=== PATIENT | male | born 1955 | race Caucasian/White ===

== ENCOUNTER → 2016-04-29 | Outpatient (CLI) | payer OTHER ==
[~2016-04-29] MED LIST: ALBU1AER9 INH; AMT100 PO; ASPI1TAB2 PO; BUSP5TAB59 PO; CLN200 PO; CYM30 PO; DULO60CA44 PO; FLNIN/ NAE; HYDR-3126 PO; HYT/2 PO; IPRA1AER2 INH; MULT-506 PO; NCTI INH; NXM/40 PO; PREG1CAP70 PO; PRVC/40 PO; RIZA10TA18 PO; TOPI50TA16 PO
== END | disposition home or self-care (01) ==
LOC: C.PATHSPEC 17:58
PROVIDERS: ATTEND Plastic Surgery
DX: D22.39 Melanocytic nevi of other parts of face (principal)

== ENCOUNTER → 2016-08-31 | Outpatient (CLI) | payer OTHER | LOC: C.LAB1850 10:47 | PROVIDERS: ATTEND Internal Medicine Gastroenterology | DX: R79.89 Other specified abnormal findings of blood chemistry (principal) ==

== ENCOUNTER → 2016-09-10 | Outpatient (CLI) | payer OTHER ==
[2016-09-10 14:34] LABS: BASO % 0.5 %; BASO ABS # 0.03 K/uL (0-0.2); COMPLETE YES; EOS % 4.5 %; HEMATOCRIT 38.4 % (42-52); IG% 0.6 %; LYMPH % 38.4 %; LYMPH ABS # 2.46 K/uL (1.2-3.4); MEAN CELL VOLUME 90.8 fL (80-100); MEAN CORPUSCULAR HEMOGLOBIN 30.3 pg (25-34); MEAN CORPUSCULAR HGB CONC 33.3 g/dl (32-36); MEAN PLATELET VOLUME 11.1 fL (7.4-10.4); MONO % 10.6 %; NEUT % 45.4 %; PLATELET COUNT 227 K/uL (130-400); RED BLOOD COUNT 4.23 M/uL (4.7-6.1)
--- NOTE | 2016-09-10 16:39 | DIAGNOSTIC IMAGING REPORT ---
CHEST 2 VIEWS ROUTINE CLINICAL HISTORY: Shortness of breath. COPD. COMPARISON STUDY: Chest radiograph September 22, 2015. FINDINGS: There is no pneumothorax or pleural effusion. Linear bibasilar opacities favor atelectasis or scarring. There is no consolidation to suggest pneumonia. There is no evidence of pulmonary edema. Cardiomediastinal silhouette remains normal. The appearance of the chest is unchanged. There are cholecystectomy clips. IMPRESSION: No acute cardiopulmonary findings. Electronically signed by: Lawrence Coyne M.D. 09/10/2016 4:38 PM Dictated Date/Time: 09/10/2016 4:36 PM
== END ==
LOC: C.RAD1850 13:58
PROVIDERS: ATTEND Internal Medicine Pulmonary Disease
DX: J44.9 Chronic obstructive pulmonary disease, unspecified (principal); D64.9 Anemia, unspecified

== ENCOUNTER 2016-11-03 18:22 | Emergency (ER) | payer OTHER ==
[~2016-11-03] VITALS: Ht 182.9 cm; Wt 79.3 kg
[~2016-11-03 18:22] MED LIST changes: -IPRA1AER2 INH
[2016-11-03 18:41] VITALS: TEMP 37; Ht 182.9 cm; Wt 79.3 kg
[2016-11-03] MEDS ORDERED: SODIUM CHLORIDE 0.9% 1000ML 1,000 ML IV STA ×2 (19:11→21:39)
[2016-11-03 19:55] LABS: BASO % 0.4 %; BASO ABS # 0.03 K/uL (0-0.2); COMPLETE YES; EOS % 4.8 %; HEMATOCRIT 39.5 % (42-52); IG% 0.9 %; LYMPH % 34.1 %; LYMPH ABS # 2.29 K/uL (1.2-3.4); MEAN CELL VOLUME 90.8 fL (80-100); MEAN CORPUSCULAR HEMOGLOBIN 31.3 pg (25-34); MEAN CORPUSCULAR HGB CONC 34.4 g/dl (32-36); MEAN PLATELET VOLUME 11.4 fL (7.4-10.4); MONO % 13.4 %; NEUT % 46.4 %; PLATELET COUNT 199 K/uL (130-400); RED BLOOD COUNT 4.35 M/uL (4.7-6.1); WHITE BLOOD COUNT 6.71 K/uL (4.8-10.8)
[2016-11-03 19:56] LABS: MANUAL MICROSCOPIC REQUIRED? NO; REVIEW REQ? NO; URINE APPEARANCE CLEAR (CLEAR); URINE BILIRUBIN NEG (NEG); URINE COLOR DK YELLOW; URINE NITRITE NEG (NEG); URINE SPECIFIC GRAVITY 1.019 (1.000-1.030); UROBILINOGEN NEG (NEG); ZZUR CULT IF INDIC CLEAN CATCH NO
--- NOTE | 2016-11-03 20:11 | DIAGNOSTIC IMAGING REPORT ---
HEAD WITHOUT CONTRAST (CT) CT DOSE: HISTORY: Mental status change dizziness, neck pain TECHNIQUE: Multiaxial CT images of the head were performed without the use of intravenous contrast. Comparison: 10/09/2014 Findings: The paranasal sinuses and mastoid air cells are clear. The calvarium and skull base are intact. The ventricles and sulci are within normal limits. There is no mass, hematoma, midline shift, or acute infarct. Impression: No acute intracranial abnormality. The above report was generated using voice recognition software. It may contain grammatical, syntax or spelling errors. Electronically signed by: Sabas Hudson M.D. 11/03/2016 8:10 PM Dictated Date/Time: 11/03/2016 8:10 PM
[2016-11-03 20:14] LABS: ALT/SGPT 25 U/L (12-78); AST/SGOT 23 U/L (15-37); BLOOD UREA NITROGEN 22 mg/dl (7-18); BUN/CREATININE RATIO 17.1 (10-20); CALCIUM 8.9 mg/dl (8.5-10.1); CARBON DIOXIDE 23 mmol/L (21-32); CHLORIDE 114 mmol/L (98-107); GLUCOSE 92 mg/dl (70-99); POTASSIUM 3.5 mmol/L (3.5-5.1); SODIUM 145 mmol/L (136-145)
--- NOTE | 2016-11-03 20:14 | DIAGNOSTIC IMAGING REPORT ---
CERVICAL SPINE W/O CT DOSE: 1104.82 mGy.cm HISTORY: Mental status change dizziness, neck pain TECHNIQUE: Multiaxial CT images of the cervical spine were performed and reformatted in the sagittal and coronal plane without the use of contrast. COMPARISON: 08/08/2014 FINDINGS: Vertebral body stature is normal. There is significant degenerative intervertebral disc change from C5 through C7. Anterior and posterior osteophytes are identified throughout. Posterior elements are intact. C1-C2 complex is intact. Prevertebral soft tissues are unremarkable. IMPRESSION: Degenerative change primarily of the mid to lower cervical region. This is similar as compared to the prior study. No acute process. The above report was generated using voice recognition software. It may contain grammatical, syntax or spelling errors. Electronically signed by: Sabas Hudson M.D. 11/03/2016 8:13 PM Dictated Date/Time: 11/03/2016 8:11 PM
[2016-11-03 20:25] LABS: ALB/GLOB RATIO 0.9 (0.9-2); ALKALINE PHOSPHATASE 203 U/L (45-117)
[2016-11-03] MEDS ORDERED: IPRA1AER2 INH (20:25)
[2016-11-03] MEDS ORDERED: NCTI INH (20:25)
--- NOTE | 2016-11-03 20:37 | DIAGNOSTIC IMAGING REPORT ---
CHEST 2 VIEWS ROUTINE CLINICAL HISTORY: Dizziness mental status change COMPARISON STUDY: 09/10/2016 FINDINGS: Chronic parenchymal scarring left base. Mild emphysematous change. No acute infiltrate. IMPRESSION: Chronic change. No acute process. The above report was generated using voice recognition software. It may contain grammatical, syntax or spelling errors. Electronically signed by: Sabas Hudson M.D. 11/03/2016 8:35 PM Dictated Date/Time: 11/03/2016 8:35 PM
--- NOTE | 2016-11-03 22:52 | EMERGENCY ROOM VISIT NOTE ---
History First contact with patient: 18:50 Chief Complaint: HYPOTENSION Stated Complaint: VERY DIZZY, LOW BLOOD PRESSURE History of Present Illness The patient is a 60 year old male who presents to the Emergency Room with complaints of low blood pressure, dizziness, headache. The patient states he has had these symptoms for approximately 10 years. He reports they seem to have been worsening this morning. The patient was supposed to see his chiropractor at 9:00 this morning, however into the office, he discussed his symptoms with the chiropractor, who is would not adjust him at that time. The chiropractor recommended the patient see his PCP or seek care in the emergency Department, however he was unable to get an appointment with his PCP until 540 this evening. The patient did wait until then, and went to their office. The patient saw Dr. Bautista, who recommended the patient come to the emergency department because "it could be serious". The patient states he is chronically always dizzy, describes a vertigo sensation most of the time. He states normally his vertigo causes him to feel symptoms on the left side, but today, he feels that he is losing his balance to the right. The patient reports occasional headaches on the left side of his head. He does have a history of migraines. The patient does report feeling confused and unsteady, but states symptoms are worse when standing. He states the dizziness has been worse with standing, but he does get dizzy on occasion at rest. The patient denies dyspnea , chest pain, palpitations, recent illness, abdominal pain, dysuria, back pain, or other associated symptoms. Review of Systems A complete 10 point review of systems was reviewed with the patient with pertinent positives and negatives as per history of present illness. All else were negative. Past Medical/Surgical History Medical Problems: (1) Anxiety (2) Arthritis (3) Asthma (4) Bronchitis (5) Chronic back pain (6) Chronic back pain (7) Chronic back pain (8) Fibromyalgia (9) Gall bladder disease (10) GERD (gastroesophageal reflux disease) (11) Scoliosis Surgical Problems: (1) H/O hernia repair (2) H/O left thumb surgery (3) History of cholecystectomy Family History Cancer Diabetes mellitus FH: seizures Gallbladder disease Heart disease Hypertension Lung disease TIAs Social History Smoking Status: Former Smoker Alcohol Use: occasionally Drug Use: none Marital Status: in relationship Housing Status: lives with significant other Occupation Status: disabled Current/Historical Medications Scheduled Amitriptyline HCl (Amitriptyline HCl), 100 MG PO HS Aspirin (Oralia Aspirin Ec Low Dose), 81 MG PO QAM Buspirone Hcl (Buspirone Hcl), 7.5 TAB PO BID Duloxetine HCl (Duloxetine HCl), 30 MG PO QAM Duloxetine Hcl (Cymbalta), 60 MG PO QPM Esomeprazole Magnesium (Nexium), 40 MG PO QAM Fluticasone Propionate (Fluticasone Propionate), 1-2 SPRAY MATTHEW QAM Hydroxyzine Hcl (Atarax), 50 MG PO HS Ipratropium-Albuterol (Combivent Respimat), 2 PUFF INH UD Multivitamin (Multivitamin), 1 TAB PO QAM Nicotine (Nicotrol Inhaler), 1 PUFF INH UD Pravastatin Sod (Pravastatin Sodium), 1 TAB PO HS Pregabalin (Lyrica), 150 MG PO TID Sulindac (Sulindac), 200 MG PO BID Terazosin Hcl (Hytrin), 2 MG PO HS Topiramate (Topamax), 50 MG PO BID Scheduled PRN Rizatriptan Benzoate (Maxalt), 10 MG PO UD PRN for Headache Allergies Dilaudid, Ultram, morphine, Percocet, sulfa Physical Exam Vital Signs Date Time Temp Pulse Resp B/P (MAP) Pulse Ox O2 Delivery O2 Flow Rate FiO2 11/03/16 23:02 72 20 167/96 98 11/03/16 22:41 69 20 135/87 99 Room Air 11/03/16 21:12 69 20 153/83 98 Room Air 11/03/16 21:12 68 20 153/83 98 Room Air 69 135/87 71 104/73 11/03/16 19:13 77 11/03/16 18:54 82 20 133/77 94 81 126/76 109 81/61 11/03/16 18:41 37.0 96 20 93/65 97 Room Air Physical Exam VITALS: Vitals are noted on the nurse's note and reviewed by myself. Vital signs stable. GENERAL: 60-year-old male, in no acute distress, nondiaphoretic, well-developed well-nourished. SKIN: The skin was without rashes, erythema, edema, or bruising. There is no tenting of the skin. Capillary reflex less than 2 seconds. HEAD: Normocephalic atraumatic. EARS: External auditory canals clear, tympanic membranes pearly rodriguez without erythema or effusion bilaterally. EYES: Pupils equal round and reactive to light and accommodation. Conjunctivae without injection, sclerae without icterus. Extraocular movements intact. NOSE: Patent, turbinates without inflammation or discharge. No sinus tenderness. MOUTH: Mucous membranes moist. Tonsils are not enlarged. Pharynx without erythema or exudate. Uvula midline. Airway patent. Tongue does not deviate. NECK: Supple without nuchal rigidity. No lymphadenopathy. No thyromegaly. Cervical spine is nontender. No JVD. HEART: Regular rate and rhythm without murmurs gallops or rubs. LUNGS: Clear to auscultation bilaterally without wheezes, rales or rhonchi. No dullness to percussion. No retractions or accessory muscle use. ABDOMEN: Positive bowel sounds x 4. Normal tympanic percussion. Mild tenderness over the pelvis, which patient states is chronic. Soft, without masses or organomegaly. Beckwith sign negative. Rovsing's sign negative. No guarding or rebound tenderness. MUSCULOSKELETAL: No muscle atrophy, erythema, or edema noted. Full range of motion without joint tenderness in all extremities. No tenderness to palpation. Normal gait. Strength 5/5 throughout. NEURO: Patient was alert and oriented to person place and time. Normal sensation to light and sharp touch. Deep tendon reflexes 2+ throughout. No focal neurological deficits. Medical Decision & Procedures ER Provider Diagnostic Interpretation: CXR: FINDINGS: Chronic parenchymal scarring left base. Mild emphysematous change. No acute infiltrate. IMPRESSION: Chronic change. No acute process. HEAD CT WITHOUT CONTRAST: Findings: The paranasal sinuses and mastoid air cells are clear. The calvarium and skull base are intact. The ventricles and sulci are within normal limits. There is no mass, hematoma, midline shift, or acute infarct. Impression: No acute intracranial abnormality. CT CERVICAL SPINE WITHOUT CONTRAST: FINDINGS: Vertebral body stature is normal. There is significant degenerative intervertebral disc change from C5 through C7. Anterior and posterior osteophytes are identified throughout. Posterior elements are intact. C1-C2 complex is intact. Prevertebral soft tissues are unremarkable. IMPRESSION: Degenerative change primarily of the mid to lower cervical region. This is similar as compared to the prior study. No acute process. EKG: NSR. 1st degree AV block. Normal QRS complex, no ST elevation or depression, no arrhythmias. Labs: Slight anemia noted, however, this has improved since previous labs. No leukocytosis, thrombocytopenia noted. Creatinine slightly elevated compared to previous labs, however, appears to be stable at this time. Otherwise, negative renal profile and liver panel. Negative cardiac labs. TSH normal at 1.290. Urinalysis showed dark yellow urine, otherwise was unremarkable. Laboratory Results 11/03/16 19:30 Red Blood Count 4.35, Mean Corpuscular Volume 90.8, Mean Corpuscular Hemoglobin 31.3, Mean Corpuscular Hemoglobin Concent 34.4, Mean Platelet Volume 11.4, Neutrophils (%) (Auto) 46.4, Lymphocytes (%) (Auto) 34.1, Monocytes (%) (Auto) 13.4, Eosinophils (%) (Auto) 4.8, Basophils (%) (Auto) 0.4, Neutrophils # (Auto ) 3.11, Lymphocytes # (Auto) 2.29, Monocytes # (Auto) 0.90, Eosinophils # (Auto ) 0.32, Basophils # (Auto) 0.03 11/03/16 19:30 Test 11/03/16 19:11 11/03/16 19:30 11/03/16 19:32 Creatine Kinase MB Ratio (0-3.0) White Blood Count 6.71 K/uL (4.8-10.8) Red Blood Count 4.35 M/uL (4.7-6.1) Hemoglobin 13.6 g/dL (14.0-18.0) Hematocrit 39.5 % (42-52) Mean Corpuscular Volume 90.8 fL (80-100) Mean Corpuscular Hemoglobin 31.3 pg (25-34) Mean Corpuscular Hemoglobin Concent 34.4 g/dl (32-36) Platelet Count 199 K/uL (130-400) Mean Platelet Volume 11.4 fL (7.4-10.4) Neutrophils (%) (Auto) 46.4 % Lymphocytes (%) (Auto) 34.1 % Monocytes (%) (Auto) 13.4 % Eosinophils (%) (Auto) 4.8 % Basophils (%) (Auto) 0.4 % Neutrophils # (Auto) 3.11 K/uL (1.4-6.5) Lymphocytes # (Auto) 2.29 K/uL (1.2-3.4) Monocytes # (Auto) 0.90 K/uL (0.11-0.59) Eosinophils # (Auto) 0.32 K/uL (0-0.5) Basophils # (Auto) 0.03 K/uL (0-0.2) RDW Standard Deviation 48.8 fL (36.4-46.3) RDW Coefficient of Variation 14.7 % (11.5-14.5) Immature Granulocyte % (Auto) 0.9 % Immature Granulocyte # (Auto) 0.06 K/uL (0.00-0.02) Anion Gap 8.0 mmol/L (3-11) Est Creatinine Clear Calc Drug Dose 65.5 ml/min Estimated GFR () 68.3 Estimated GFR (Non- 58.9 BUN/Creatinine Ratio 17.1 (10-20) Calcium Level 8.9 mg/dl (8.5-10.1) Total Bilirubin 0.5 mg/dl (0.2-1) Aspartate Amino Transf (AST/SGOT) 23 U/L (15-37) Alanine Aminotransferase (ALT/SGPT) 25 U/L (12-78) Alkaline Phosphatase 203 U/L (45-117) Creatine Kinase MB < 0.5 ng/ml (0.5-3.6) Troponin I < 0.015 ng/ml (0-0.045) Total Protein 7.1 gm/dl (6.4-8.2) Albumin 3.3 gm/dl (3.4-5.0) Globulin 3.8 gm/dl (2.5-4.0) Albumin/Globulin Ratio 0.9 (0.9-2) Thyroid Stimulating Hormone (TSH) 1.290 uIu/ml (0.300-4.500) Urine Color DK YELLOW Urine Appearance CLEAR (CLEAR) Urine pH 6.0 (4.5-7.5) Urine Specific [place] 1.019 (1.000-1.030) Urine Protein NEG (NEG) Urine Glucose (UA) NEG (NEG) Urine Ketones NEG (NEG) Urine Occult Blood NEG (NEG) Urine Nitrite NEG (NEG) Urine Bilirubin NEG (NEG) Urine Urobilinogen NEG (NEG) Urine Leukocyte Esterase NEG (NEG) Medications Administered Medications (Trade) Dose Ordered Sig/Romario Route Start Time Stop Time Status Last Admin Dose Admin Sodium Chloride 1,000 ml @ 999 mls/hr Q1H1M STAT IV 11/03/16 19:11 11/03/16 20:11 DC 11/03/16 19:45 999 MLS/HR Sodium Chloride 1,000 ml @ 999 mls/hr Q1H1M STAT IV 11/03/16 21:39 11/03/16 22:39 DC 11/03/16 21:39 999 MLS/HR ED Course The patient was seen and evaluated as above. Orthostatic Vital signs were obtained and positive for significant drop in BP and increase in heart rate from sitting to standing. Heart rate increased from 81-109. BP decreased from 126/76 to 81/61 from sitting to standing. Labs, EKG, chest x-ray, CT scan of the head and neck were ordered due to patient 's complaints. The patient was given 1 L saline bolus via IV. Repeat orthostatic vital signs performed at this time after 1 liter fluid bolus. Pulse rate without significant change at this time. BP did decrease from lying - sitting - standing from 153/83 - 135/87 - 104/73. I discussed the case with Dr. Kowalski at this time, who recommends admission vs. repeat fluid bolus and orthostatic vital signs. The patient is not interested in admission, so I ordered a repeat fluid bolus. Repeat 1L Saline bolus via IV. Repeat orthostatic vital signs at this time show BP changes lying - sitting - standing of 188/103 - 178/93 - 126/72, with no significant change in heart rate. I discussed all findings with the patient and discussed with him risks of going home vs. staying in the hospital for observation and fluids. The patient refuses hospitalization at this time, so was discharged home with very clear instructions for follow-up and when to return to the ED. The patient was discharged home in good condition. Medical Decision Throughout the course of the patient's care, I considered etiologies including ACS, hypotension, GI bleed, infectious process such as pneumonia, hypovolemia, dehydration, carotid artery occlusion, hyperlipidemia, intracranial hemorrhage, malignancy, cervical disc disease, and others. I feel that based on his work-up , the most likely etiology is hypovolemia, however, I did encourage the patient to follow-up closely with his PCP. Impression Primary Impression: Orthostatic hypotension Additional Impression: Anemia Departure Information Dispostion Home / Self-Care Condition GOOD Referrals Pro,Dwight Ramires M.D. (PCP) Patient Instructions ED Hypotension Orthostatic, My [facility] Additional Instructions As discussed, we did perform a workup regarding your dizziness and lightheadedness. We did not find an acute cause, with the exception of positional changes. I do suspect this is related to hypovolemia or low fluid volume, which can be related to not drinking enough fluids on a regular basis. We performed lab work, EKG, CT scan of the head and neck, and CXR without acute findings. Please keep yourself very well hydrated. Drink plenty of fluids at home. Follow-up this week (1-2 days) with your primary care provider for further evaluation and management of your symptoms. You may need further testing completed. Please return to the emergency department for worsening dizziness, headache, lightheadedness, syncope, confusion, altered mental status, chest pain, palpitations, difficulty breathing, fever, chills, nausea, vomiting, malaise, other associated symptoms. Problem Qualifiers Additional Impression: Anemia Anemia type: unspecified type Qualified Codes: D64.9 - Anemia, unspecified
[2016-11-03 23:02] VITALS: BP 167/96; PULSE 72; O2SAT 98
== END 2016-11-03 23:14 | disposition home or self-care (01) ==
LOC: C.EDB 18:25
DX: I95.1 Orthostatic hypotension (principal); D64.9 Anemia, unspecified; F41.9 Anxiety disorder, unspecified; M54.9 Dorsalgia, unspecified; G89.29 Other chronic pain; M79.7 Fibromyalgia; K21.9 Gastro-esophageal reflux disease without esophagitis; Z90.49 Acquired absence of other specified parts of digestive tract; Z80.9 Family history of malignant neoplasm, unspecified; Z83.3 Family history of diabetes mellitus; Z82.0 Family history of epilepsy and other diseases of the nervous system; Z82.49 Family history of ischemic heart disease and other diseases of the circulatory system; Z87.891 Personal history of nicotine dependence; Z79.82 Long term (current) use of aspirin; Z79.899 Other long term (current) drug therapy

== ENCOUNTER → 2016-11-18 | Outpatient (CLI) | payer OTHER ==
[~2016-11-18] MED LIST changes: -ALBU1AER9 INH; +IPRA1AER2 INH
[2016-11-18 14:46] LABS: HEMATOCRIT 37.9 % (42-52); MEAN CELL VOLUME 90.7 fL (80-100); MEAN CORPUSCULAR HEMOGLOBIN 31.6 pg (25-34); MEAN CORPUSCULAR HGB CONC 34.8 g/dl (32-36); MEAN PLATELET VOLUME 11.5 fL (7.4-10.4); PLATELET COUNT 213 K/uL (130-400); RED BLOOD COUNT 4.18 M/uL (4.7-6.1); WHITE BLOOD COUNT 7.02 K/uL (4.8-10.8)
[2016-11-18 15:13] LABS: ALT/SGPT 25 U/L (12-78); AST/SGOT 20 U/L (15-37); BLOOD UREA NITROGEN 24 mg/dl (7-18); BUN/CREATININE RATIO 18.1 (10-20); CALCIUM 9.1 mg/dl (8.5-10.1); CARBON DIOXIDE 25 mmol/L (21-32); CHLORIDE 114 mmol/L (98-107); GLUCOSE 93 mg/dl (70-99); POTASSIUM 3.7 mmol/L (3.5-5.1); SODIUM 146 mmol/L (136-145)
[2016-11-18 15:18] LABS: ALB/GLOB RATIO 0.9 (0.9-2); ALKALINE PHOSPHATASE 179 U/L (45-117); C-REACTIVE PROTEIN < 0.29 mg/dl (0-0.29); FERRITIN 59.7 ng/ml (8.0-388.0)
== END | disposition home or self-care (01) ==
LOC: C.LAB1850 13:32
PROVIDERS: ATTEND Internal Medicine
DX: D64.9 Anemia, unspecified (principal); I95.9 Hypotension, unspecified; E29.1 Testicular hypofunction

== ENCOUNTER → 2017-01-25 | Outpatient (CLI) | payer OTHER ==
[2017-01-25 13:57] LABS: PHOSPHORUS 3.5 mg/dl (2.5-4.9); PROSTATE SPECIFIC ANTIGEN 0.422 ng/ml (0.000-4.000); THYROID STIMULATING HORMONE 1.17 uIu/ml (0.300-4.500)
== END | disposition home or self-care (01) ==
LOC: C.LAB1850 11:24
PROVIDERS: ATTEND Internal Medicine Endocrinology, Diabetes & Metabolism
DX: M85.80 Other specified disorders of bone density and structure, unspecified site (principal); E29.1 Testicular hypofunction

== ENCOUNTER → 2017-04-06 | Outpatient (CLI) | payer OTHER ==
[2017-04-06 16:37] LABS: HEMATOCRIT 40.1 % (42-52)
[2017-04-06 17:17] LABS: PROSTATE SPECIFIC ANTIGEN 0.645 ng/ml (0.000-4.000); THYROID STIMULATING HORMONE 1.86 uIu/ml (0.300-4.500)
== END | disposition home or self-care (01) ==
LOC: C.LAB1850 15:35
PROVIDERS: ATTEND Internal Medicine Endocrinology, Diabetes & Metabolism
DX: R53.83 Other fatigue (principal); E29.1 Testicular hypofunction

== ENCOUNTER → 2017-07-04 | Outpatient (CLI) | payer OTHER | END | disposition home or self-care (01) | LOC: C.LAB1850 15:16 | PROVIDERS: ATTEND Internal Medicine Endocrinology, Diabetes & Metabolism | DX: E03.8 Other specified hypothyroidism (principal); S06.0X9A Concussion with loss of consciousness of unspecified duration, initial encounter; X58.XXXA Exposure to other specified factors, initial encounter ==

== ENCOUNTER → 2017-07-06 | Outpatient (CLI) | payer OTHER ==
--- NOTE | 2017-07-06 09:12 | DIAGNOSTIC IMAGING REPORT ---
ABDOMEN FOR HERNIA CLINICAL HISTORY: ABD PAIN pain. Nausea. TECHNIQUE: Ultrasound COMPARISON STUDY: 02/25/2016 FINDINGS: Patient is status post right inguinal hernia repair.. There is a small fat-containing right inguinal hernia. There is no evidence of bowel containment. This is partially reducible. IMPRESSION: Small partially reducible fat-containing right inguinal hernia The above report was generated using voice recognition software. It may contain grammatical, syntax or spelling errors. Electronically signed by: Sabas Hudson M.D. 07/06/2017 9:11 AM Dictated Date/Time: 07/06/2017 8:44 AM
[2017-07-06 10:44] LABS: BLOOD UREA NITROGEN 30 mg/dl (7-18); CARBON DIOXIDE 25 mmol/L (21-32); CREATININE 1.61 mg/dl (0.60-1.40); GLUCOSE 108 mg/dl (70-99); POTASSIUM 3.8 mmol/L (3.5-5.1); SODIUM 144 mmol/L (136-145)
[2017-07-06 10:48] LABS: CHOLESTEROL 169 mg/dl (0-200); LDL CHOLESTEROL CALCULATED 96 mg/dl
[2017-07-06 11:46] LABS: CALCIUM 9.8 mg/dl (8.5-10.1)
== END | disposition home or self-care (01) ==
LOC: C.ULTR 07:38
PROVIDERS: ATTEND Internal Medicine
DX: K40.90 Unilateral inguinal hernia, without obstruction or gangrene, not specified as recurrent (principal); E78.5 Hyperlipidemia, unspecified; S06.0X9A Concussion with loss of consciousness of unspecified duration, initial encounter; X58.XXXA Exposure to other specified factors, initial encounter

== ENCOUNTER → 2017-07-20 | Outpatient (CLI) | payer OTHER | END | disposition home or self-care (01) | LOC: C.PATHSPEC 17:31 | PROVIDERS: ATTEND Urology | DX: R31.0 Gross hematuria (principal); N40.1 Benign prostatic hyperplasia with lower urinary tract symptoms ==

== ENCOUNTER → 2017-07-25 | Outpatient (CLI) | payer OTHER ==
[2017-07-25 10:33] LABS: ALBUMIN 3.4 gm/dl (3.4-5.0); ALT/SGPT 25 U/L (12-78); BLOOD UREA NITROGEN 22 mg/dl (7-18); CALCIUM 9.1 mg/dl (8.5-10.1); CARBON DIOXIDE 27 mmol/L (21-32); CREATININE 1.31 mg/dl (0.60-1.40); GLUCOSE 101 mg/dl (70-99); POTASSIUM 3.7 mmol/L (3.5-5.1); SODIUM 141 mmol/L (136-145)
[2017-07-25 10:36] LABS: ALKALINE PHOSPHATASE 191 U/L (45-117); AST/SGOT 21 U/L (15-37); TOTAL PROTEIN 7.2 gm/dl (6.4-8.2)
== END | disposition home or self-care (01) ==
LOC: C.LAB1850 09:07
PROVIDERS: ATTEND Urology
DX: R31.0 Gross hematuria (principal); N40.1 Benign prostatic hyperplasia with lower urinary tract symptoms

== ENCOUNTER → 2017-08-11 | Outpatient (CLI) | payer OTHER ==
[~2017-08-11] MED LIST changes: +OPTIRAY 320 IV PRN
--- NOTE | 2017-08-11 10:45 | DIAGNOSTIC IMAGING REPORT ---
CT UROGRAM CLINICAL HISTORY: Gross hematuria. COMPARISON STUDY: Abdominal CT dated 04/30/2015. TECHNIQUE: Before and following the IV administration of 119 cc of Optiray 320, CT urogram of the abdomen and pelvis is performed from the lung bases to the proximal femora. Images are reviewed in the axial, sagittal, and coronal planes. IV contrast was administered without complication. A dose lowering technique was utilized adhering to the principles of ALARA. CT DOSE: 1525.64 mGycm FINDINGS: Lung bases: The heart is normal in size and without pericardial effusion. Emphysema is suspected. Scarring versus atelectasis is seen at both lung bases. No airspace consolidation or pleural effusion is identified. There is a tiny hiatal hernia. Liver: The contrast-enhanced liver is normal in size, contour, and attenuation. There is no intrahepatic biliary ductal dilatation. The hepatic veins and portal veins are patent. Gallbladder: Surgically absent noting clips in the gallbladder fossa. Spleen: Normal in size and attenuation. Pancreas: There is moderate glandular atrophy of the pancreas. Scattered parenchymal calcifications suggest chronic pancreatitis. Adrenal glands: A 10 mm left adrenal meets CT criteria for a fat-containing adenoma. The right adrenal gland is normal in appearance. Kidneys and ureters: The contrast enhanced kidneys are normal in size. There is mild fullness of the right renal collecting system. No hydronephrosis is seen. There is a 6 mm nonobstructing calculus in the lower pole of the right kidney. No left renal calculi are identified. The kidneys enhance and excrete symmetrically. There is no enhancing renal cortical mass lesion identified. There is no evidence of urothelial lesion within the renal pelvis bilaterally or along the course of either ureter. There is suboptimal contrast opacification of the distal left ureter. Abdominal vasculature: The abdominal aorta is normal in course and caliber noting moderate to advanced atherosclerotic calcification. A stent is noted in the right common iliac artery end appears patent. A right common iliac artery aneurysm measures 1.7 cm. Bowel: There is moderate colonic fecal retention. No bowel obstruction is seen. The appendix is well-visualized and normal. Peritoneum: There is no intraperitoneal free air or abdominal ascites. There is a fat-containing umbilical hernia. Lymphadenopathy: None. Pelvic viscera: The prostate gland is prominent measuring 4.3 cm in transverse diameter. The bladder is normal as visualized. Skeletal structures: No lytic or blastic lesions are seen. IMPRESSION: 1. There is a nonobstructing right renal calculus. 2. Otherwise unremarkable CT urogram. There is no enhancing renal cortical mass or evidence of urothelial lesion involving the renal pelvis bilaterally or along the course of the ureters. 3. The bladder is normal as visualized. 4. Suspect emphysema. 5. There is a 1.7 cm right common iliac artery aneurysm with a right common iliac artery stent in place. 6. Additional findings as above. Electronically signed by: Osito Funes M.D. 08/11/2017 10:44 AM Dictated Date/Time: 08/11/2017 10:34 AM
== END | disposition home or self-care (01) ==
LOC: C.CTS 10:02
PROVIDERS: ATTEND Urology
DX: N20.0 Calculus of kidney (principal); I72.3 Aneurysm of iliac artery; N40.1 Benign prostatic hyperplasia with lower urinary tract symptoms; Z95.828 Presence of other vascular implants and grafts

== ENCOUNTER → 2017-11-02 | Outpatient (CLI) | payer OTHER ==
[~2017-11-02] MED LIST changes: +ALBU18002 INH; +BUSP1TAB46 PO; -BUSP5TAB59 PO; +CALC600T9 PO; +CHOL1TAB46 PO; +CIPR-255 PO; -CLN200 PO; +CYM/30 PO; -CYM30 PO; +DOCU100T7 PO; -FLNIN/ NAE; -HYT/2 PO; +IPRA-64 INH; +LEVO50TA6 PO; -MULT-506 PO; -OPTIRAY 320 IV PRN; +PREG150C PO; -PREG1CAP70 PO; +RIZA10TA19 PO; +SILO8CAP PO; +SULI200T4 PO; +TAMS0.4C38 PO; +TEST5GEL TOP
== END | disposition home or self-care (01) ==
LOC: C.LAB1850 10:34
PROVIDERS: ATTEND Internal Medicine Endocrinology, Diabetes & Metabolism
DX: E03.8 Other specified hypothyroidism (principal)

== ENCOUNTER → 2017-11-08 | Outpatient (CLI) | payer OTHER ==
[~2017-11-08] MED LIST changes: -CIPR-255 PO; -RIZA10TA18 PO; -SILO8CAP PO
[2017-11-08 12:55] LABS: BASO % 0.7 %; BASO ABS # 0.04 K/uL (0-0.2); EOS % 4.6 %; EOS ABS # 0.28 K/uL (0-0.5); HEMATOCRIT 38.7 % (42-52); HEMOGLOBIN 13.1 g/dL (14.0-18.0); IG# 0.03 K/uL (0.00-0.02); LYMPH % 37.8 %; LYMPH ABS # 2.32 K/uL (1.2-3.4); MEAN CELL VOLUME 91.5 fL (80-100); MEAN CORPUSCULAR HGB CONC 33.9 g/dl (32-36); MONO % 11.1 %; MONO ABS # 0.68 K/uL (0.11-0.59); NEUT % 45.3 %; NEUT ABS # 2.79 K/uL (1.4-6.5); PLATELET COUNT 201 K/uL (130-400); RED CELL DISTRIBUTION WIDTH CV 14.9 % (11.5-14.5); RED CELL DISTRIBUTION WIDTH SD 49.5 fL (36.4-46.3); WHITE BLOOD COUNT 6.14 K/uL (4.8-10.8)
[2017-11-08 14:04] LABS: BLOOD UREA NITROGEN 19 mg/dl (7-18); CALCIUM 9.2 mg/dl (8.5-10.1); CARBON DIOXIDE 26 mmol/L (21-32); CREATININE 1.31 mg/dl (0.60-1.40); GLUCOSE 96 mg/dl (70-99); POTASSIUM 3.8 mmol/L (3.5-5.1); SODIUM 142 mmol/L (136-145)
== END | disposition home or self-care (01) ==
LOC: C.CPL 11:49
PROVIDERS: ATTEND Surgery
DX: Z01.810 Encounter for preprocedural cardiovascular examination (principal); Z01.812 Encounter for preprocedural laboratory examination

== ENCOUNTER → 2017-11-16 | Outpatient (CLI) | payer OTHER ==
[~2017-11-16] MED LIST changes: +ACET300T3 PO
--- NOTE | 2017-11-16 09:54 | DIAGNOSTIC IMAGING REPORT ---
(AAKASH/BLAD)RETROPERITON COMP HISTORY: Hematuria R31.0 Gross [id number] COMPARISON: None. FINDINGS: Right kidney: Maximum dimension 10.6 cm. No evidence for hydronephrosis. Normal corticomedullary differentiation and cortical thickness. Left kidney: Maximum dimension 10.6 cm. No evidence for hydronephrosis. Normal corticomedullary differentiation and cortical thickness. Bladder: No bladder wall thickening. The bilateral ureteral jets were identified. IMPRESSION: 1. Normal renal ultrasound. 2. Negative ultrasound of the bladder. The above report was generated using voice recognition software. It may contain grammatical, syntax or spelling errors. Electronically signed by: Sabas Hudson M.D. 11/16/2017 9:52 AM Dictated Date/Time: 11/16/2017 9:52 AM
== END | disposition home or self-care (01) ==
LOC: C.ULTR 09:03
PROVIDERS: ATTEND Urology
DX: R31.0 Gross hematuria (principal)

== ENCOUNTER 2017-11-24 05:09 | Observation (INO) | payer OTHER ==
[2017-11-07 14:14] VITALS: BMI 25.0
--- NOTE | 2017-11-07 17:53 | PAT Medication Instructions ---
Service Date Nov 07, 2017. Current Home Medication List Albuterol Sulfate (Proair Respiclick), 1-2 PUFF INH Q4H PRN for Shortness of Breath Amitriptyline HCl (Amitriptyline HCl), 100 MG PO HS Aspirin (Oralia Aspirin Ec Low Dose), 81 MG PO QAM Buspirone Hcl (Buspirone Hcl), 1 TAB PO BID Calcium Carbonate-Vitamin D (Calcium + D), 1 TAB PO QAM Cholecalciferol (Vitamin D3), 1 TAB PO QAM Docusate Sodium (Stool Softener), 1 TAB PO HS Duloxetine HCl (Cymbalta), 1 CAP PO QAM Duloxetine Hcl (Cymbalta), 60 MG PO HS Esomeprazole Magnesium (Nexium), 40 MG PO QAM Hydroxyzine Hcl (Atarax), 50 MG PO HS Ipratropium-Albuterol (Combivent Respimat), 1 PUFFS INH QID Ipratropium-Albuterol (Duoneb), 1 TREATMENT INH Q4H PRN for Shortness of Breath Levothyroxine Sodium (Levothyroxine Sodium), 1 TAB PO QAM Nicotine (Nicotrol Inhaler), 1 DOSE INH DIRECTED Pravastatin Sod (Pravastatin Sodium), 1 TAB PO HS Pregabalin (Lyrica), 150 MG PO TID Rizatriptan Benzoate (Maxalt-[employer]elry [employer]), 10 MG PO DIRECTED PRN for Migraine Sulindac (Clinor[place]), 200 MG PO BID Tamsulosin Hcl (Flomax), 0.4 MG PO HS Testosterone (Androgel Pump), 1 DOSE TOP QAM Topiramate (Topamax), 50 MG PO BID Medication Instructions For Your Scheduled Surgery -Check with surgeon for instructions: Aspirin (Oralia Aspirin Ec Low Dose), 81 MG PO QAM Sulindac (Clinoril), 200 MG PO BID - Hold the following medications the morning of surgery: Calcium Carbonate-Vitamin D (Calcium + D), 1 TAB PO QAM Cholecalciferol (Vitamin D3), 1 TAB PO QAM Nicotine (Nicotrol Inhaler), 1 DOSE INH DIRECTED Testosterone (Androgel Pump), 1 DOSE TOP QAM - Take the following medications the morning of surgery with a sip of water: Albuterol Sulfate (Proair Respiclick), 1-2 PUFF INH Q4H PRN for Shortness of Breath (if needed, and bring with you to the hospital) Buspirone Hcl (Buspirone Hcl), 1 TAB PO BID Duloxetine HCl (Cymbalta), 1 CAP PO QAM Esomeprazole Magnesium (Nexium), 40 MG PO QAM Ipratropium-Albuterol (Combivent Respimat), 1 PUFFS INH QID Ipratropium-Albuterol (Duoneb), 1 TREATMENT INH Q4H PRN for Shortness of Breath (if needed) Levothyroxine Sodium (Levothyroxine Sodium), 1 TAB PO QAM Pregabalin (Lyrica), 150 MG PO TID Rizatriptan Benzoate (Maxalt-[employer]elry [employer]), 10 MG PO DIRECTED PRN for Migraine (if needed) Topiramate (Topamax), 50 MG PO BID - Take the following medications as scheduled the night before surgery: Albuterol Sulfate (Proair Respiclick), 1-2 PUFF INH Q4H PRN for Shortness of Breath (if needed) Amitriptyline HCl (Amitriptyline HCl), 100 MG PO HS Buspirone Hcl (Buspirone Hcl), 1 TAB PO BID Docusate Sodium (Stool Softener), 1 TAB PO HS Duloxetine Hcl (Cymbalta), 60 MG PO HS Hydroxyzine Hcl (Atarax), 50 MG PO HS Ipratropium-Albuterol (Combivent Respimat), 1 PUFFS INH QID Ipratropium-Albuterol (Duoneb), 1 TREATMENT INH Q4H PRN for Shortness of Breath (if needed) Pravastatin Sod (Pravastatin Sodium), 1 TAB PO HS Pregabalin (Lyrica), 150 MG PO TID Rizatriptan Benzoate (Maxalt-Jewelry [employer]), 10 MG PO DIRECTED PRN for Migraine (if needed) Tamsulosin Hcl (Flomax), 0.4 MG PO HS Topiramate (Topamax), 50 MG PO BID If you have any questions please call us at [phone] or [phone] or [phone]
[2017-11-08 12:06] VITALS: Ht 182.9 cm; Wt 82.0 kg
[2017-11-24] VITALS (8 sets, daily range): BP systolic 106–147; BP diastolic 64–79; PULSE 72–99; TEMP 36.3–36.5; O2SAT 92–96
[~2017-11-24] VITALS: Ht 182.9 cm; Wt 82.0 kg
[~2017-11-24 05:09] MED LIST changes: -ACET300T3 PO
[2017-11-24] MEDS ORDERED: CEFAZOLIN 2000MG IV PUSH 15 ML IV SCH (06:00)
[2017-11-24] MEDS ORDERED: LACTATED RINGER'S 1000ML 1,000 ML IV SCH (06:00)
--- NOTE | 2017-11-24 06:47 | History & Physical Bridge Note ---
H&P Re-Evaluation Bridge Note: I have examined the patient, reviewed the History & Physical and in the interval since the performance of the History & Physical I have noted the following changes of clinical significance: No changes noted
[2017-11-24] MEDS ORDERED: ROCURONIUM BROMIDE 10 MG/ML 5 ML VIAL ONE (06:52)
[2017-11-24] MEDS ORDERED: PROPOFOL IV EMULSION 10 MG/ML 20 ML VIAL ONE (06:52)
[2017-11-24] MEDS ORDERED: LIDOCAINE HCL 2% 2 ML VIAL (20MG/ML) ONE (06:52)
[2017-11-24] MEDS ORDERED: MIDAZOLAM HCL 1 MG/ML 2ML VIAL ONE (06:53)
[2017-11-24] MEDS ORDERED: FENTANYL CITRATE INJ 50 MCG/1 ML 2 ML VIAL ONE ×2 (06:53→08:55)
[2017-11-24] MEDS ORDERED: BUPIVACAINE/EPINEPHRINE 0.5% MPF 1:200,000 30 ML VIAL ONE (06:54)
[2017-11-24] MEDS ORDERED: ACET300T3 PO (07:10)
[2017-11-24] MEDS ORDERED: EpHEDrine SULFATE 50MG/5ML SYR ONE (07:51)
[2017-11-24] MEDS ORDERED: DEXAMETHASONE SOD INJ 4 MG/ML VIAL ONE (07:51)
[2017-11-24] MEDS ORDERED: ONDANSETRON INJ 2 MG/ML 2 ML VIAL ONE (07:51)
[2017-11-24] MEDS ORDERED: FENTANYL CITRATE INJ 50 MCG/1 ML 2 ML VIAL IV PRN (08:30)
[2017-11-24] MEDS ORDERED: ONDANSETRON INJ 2 MG/ML 2 ML VIAL IV PRN ×2 (08:30→08:45)
[2017-11-24] MEDS ORDERED: EpHEDrine SULFATE INJ 50 MG/ML AMP IV PRN (08:30)
[2017-11-24] MEDS ORDERED: ATROPINE SULFATE 0.1 MG/ML 5ML SYR IV PRN (08:30)
--- NOTE | 2017-11-24 08:34 | [facility] Post Operative Brief Note ---
Immediate Operative Summary Operative Date Nov 24, 2017. Pre-Operative Diagnosis Recurrent right inguinal hernia; umbilical hernia Post-Operative Diagnosis Same as preop Procedure(s) Performed Right Open Recurrent Inguinal Hernia Repair with Mesh; Open Umbilical Hernia repair Surgeon Dr. Calloway Chief Payroll Clerk Surgeon(s) Pili Stanford PA-C Estimated Blood Loss 10 cc Findings Consistent with Post-Op Diagnosis Specimens none, as per surgeon Anesthesia Type General Complication(s) none
--- NOTE | 2017-11-24 08:44 | Discharge Instructions ---
Discharge Instructions Date of Service Nov 24, 2017. Admission Reason for Admission: Recurrent Right Inguinal Hernia, Umbilical Hernia Discharge Discharge Diagnosis / Problem: repair hernia Discharge Goals Goal(s): Decrease discomfort Activity Recommendations Activity Limitations: as noted below Lifting Limitations: no more than 10 pounds Shower/Bathe: no limitations Driving or Machine Use: 1 week . Instructions / Follow-Up Instructions / Follow-Up Dr. Calloway in 2 weeks as planned, call [phone] if you have any questions Current Hospital Diet Patient's current hospital diet: Clear Liquid Diet Discharge Diet Recommended Diet: Regular Diet Procedures Procedures Performed: Right Open Recurrent Inguinal Hernia Repair with Mesh; Open Umbilical Hernia repair Pending Studies Studies pending at discharge: no Medical Emergencies . Who to Call and When: Medical Emergencies: If at any time you feel your situation is an emergency, please call 911 immediately. . Non-Emergent Contact Non-Emergency issues call your: Surgeon Call Non-Emergent contact if: you have a fever, temperature is above 101.5, your pain is not controlled, wound has increased redness, wound has increased pain, you have any medication questions . "Provider Documentation" section prepared by Maico Wang. .
[2017-11-24] MEDS ORDERED: ALBUT/IPRATROP 3MG/0.5MG NEB 3 ML VIAL INH PRN (08:45)
[2017-11-24] MEDS ORDERED: ACETAMINOPHEN/CODEINE 300/30MG TAB PO PRN (08:45)
[2017-11-24] MEDS ORDERED: RIZATRIPTAN BENZ (MAXALT-MLT) 10 MG TAB PO PRN (08:45)
[2017-11-24] MEDS ORDERED: IV FLUIDS COMPLETED PRN (09:15)
--- NOTE | 2017-11-24 09:16 | Anesthesiology Progress Note ---
Anesthesia Post Op Note Date & Time Nov 24, 2017 at 09:16 Vital Signs Pain Intensity: 4 Vital Signs Past 12 Hours Date Time Temp Pulse Resp B/P (MAP) Pulse Ox O2 Delivery O2 Flow Rate FiO2 11/24/17 09:10 68 14 122/63 94 Nasal Cannula 4 11/24/17 09:03 74 14 94 11/24/17 09:03 73 14 11/24/17 09:00 125/70 11/24/17 08:58 71 21 11/24/17 08:58 71 21 98 11/24/17 08:56 128/67 11/24/17 08:53 71 14 98 11/24/17 08:53 71 14 11/24/17 08:50 119/78 11/24/17 08:48 74 14 11/24/17 08:48 74 14 98 11/24/17 08:46 133/75 11/24/17 08:43 74 15 140/71 95 11/24/17 08:43 74 15 11/24/17 08:43 36.0 73 18 140/71 95 Oxymask 10 11/24/17 05:30 36.4 90 18 136/72 (93) 95 Room Air Notes Mental Status: alert / awake / arousable, participated in evaluation Pt Amnestic to Procedure: Yes Nausea / Vomiting: adequately controlled Pain: adequately controlled Airway Patency, RR, SpO2: stable & adequate BP & HR: stable & adequate Hydration State: stable & adequate Anesthetic Complications: no major complications apparent
--- NOTE | 2017-11-24 10:57 | [facility] Operative Report ---
Operative Report Operative Date Nov 24, 2017. Pre-Operative Diagnosis Recurrent right inguinal hernia; umbilical hernia Post-Operative Diagnosis Same as preop Procedure(s) Performed Right Open Recurrent Inguinal Hernia Repair with Mesh; Open Umbilical Hernia repair Surgeon Dr. Calloway Bending Roll Operator Surgeon(s) Pili Stanford PA-C Estimated Blood Loss 10 cc Specimens none, as per surgeon Anesthesia Type General Complication(s) none Description of Procedure After informed consent was obtained the patient was taken to the operating room and placed in a supine position. After successful intubation a Samuel catheter was placed and the lower abdomen was shaved and sterilely prepped and draped in usual fashion. We began with the umbilical hernia. I made a curvilinear infraumbilical incision and carried this down through the soft tissues electrocautery. Once we were down to the fascia I used a Fanny clamp to come around the umbilicus superiorly. I took down the umbilical stalk using electrocautery. This revealed a small probably 2 cm hernia defect. We freed up the fascial edges and I was able to reduce the hernia sac without difficulty. Because of his thin abdominal wall I opted not to use mesh. I used a #1 Ethibond in interrupted eevere-wa-yofly fashion to primarily close the fascial defect. Once this was closed I thoroughly irrigated the wound. I reapproximated the umbilicus using 0 Vicryl. 2-0 Vicryl was then used for the deep layers and 4-0 Monocryl for the skin. Marcaine was injected around for postoperative analgesia and skin glue used as a dressing. Attention then turned to his right groin. I made an inguinal incision above his previous incision with a 15 blade scalpel. This was carried down through the soft tissues electrocautery. We readily encountered the external oblique aponeurosis. I was able to skeletonize it. I reopened it using a fresh blade. As I carried this distally I noted the patient appeared to have a Shouldice type of previous repair without mesh. I was able take down these old sutures using suture scissors. The anatomy was quite difficult but eventually I was able to delineate the cord and cord structures. I placed a Tanya around them. Essentially the entire floor of the canal was blown out. There was no evidence of an indirect hernia. After we skeletonized the cord and cord structures I then used a piece of polypropylene keyholed mesh as an onlay. I secured it distally to Gus's ligament. Medially along the midline musculatures. Laterally along the shelving portion of Poupart ligament. I was able to wrap the "arms" of the mesh around behind the cord and cord structures and secured in the underlying muscle. All the suturing was done with 0 Ethibond. The mesh laid nice and flat and tension-free. There was adequate hemostasis. I injected Marcaine around the edges of the mesh as well as near the cord itself for postoperative analgesia. Final irrigation was performed. The external oblique aponeurosis was reapproximated using 2-0 Vicryl in a running fashion. Superficial space was irrigated and closed using 3-0 Vicryl for deep layers and 4-0 Monocryl for skin. Some additional Marcaine was injected around the incision for postoperative analgesia and skin glue placed as a dressing. The patient was awaken extubated and transferred recovery in stable condition. My physician bilingual medical assistant was present for the entire case to help with exposure. He helps prep the patient with wound closure and dressing placement at the end of the case. I attest to the content of the Intraoperative Record and any orders documented therein. Any exceptions are noted below.
[2017-11-24] MEDS: LACTATED RINGER'S 1000ML 1,000 ML IV SCH (12:44)
[2017-11-24] MEDS: KETOROLAC TROMETHAMINE 15 MG/ML VIAL IV PRN ×2 (12:47→19:35)
[2017-11-24] MEDS: LEVOTHYROXINE 50 MCG TAB PO SCH (13:04)
[2017-11-24] MEDS: TOPIRAMATE 50 MG TAB PO SCH ×2 (13:04→21:13)
[2017-11-24] MEDS: PANTOprazole SOD 40 MG TAB PO SCH (13:05)
[2017-11-24] MEDS: ASPIRIN 81 MG ECTAB PO SCH (13:05)
[2017-11-24] MEDS: DULOXETINE (CYMBALTA) 30 MG CAP PO SCH (13:05)
[2017-11-24] MEDS: PREGABALIN 150 MG CAP PO SCH ×2 (14:07→21:13)
[2017-11-24] MEDS: IPRATROPIUM BROMIDE/ALBUTEROL respimat INH INH SCH ×3 (14:08→21:08)
[2017-11-24] MEDS: ACETAMINOPHEN/CODEINE 300/30MG TAB PO PRN (15:46)
[2017-11-24] MEDS ORDERED: ALBUTEROL HFA 8 GM INHALER INH PRN (17:00)
[2017-11-24] MEDS ORDERED: NURSING VERBAL MED ORDER ONE (17:45)
[2017-11-24] MEDS: NICOTINE 21 MG/24 HR TDSY EXT SCH (18:33)
[2017-11-24] MEDS ORDERED: DULOXETINE HCL 60 MG CAP PO SCH (21:00)
[2017-11-24] MEDS ORDERED: AMITRIPTYLINE HCL 100 MG TAB PO SCH (21:00)
[2017-11-24] MEDS ORDERED: TAMSULOSIN HCL 0.4 MG CAP PO SCH (21:00)
[2017-11-24] MEDS ORDERED: hydrOXYzine HCL 25 MG TAB PO SCH (21:00)
[2017-11-24] MEDS ORDERED: PRAVASTATIN SOD 40 MG TAB PO SCH (21:00)
[2017-11-24] MEDS: BusPIRone 15 MG TAB PO SCH (21:09)
[2017-11-24] MEDS: SULINDAC 200 MG TAB PO SCH (21:09)
[2017-11-25] MEDS: LACTATED RINGER'S 1000ML 1,000 ML IV SCH (02:54)
[2017-11-25 04:00] VITALS: BP 103/61; PULSE 81; TEMP 36.9; O2SAT 91
[2017-11-25] MEDS: LEVOTHYROXINE 50 MCG TAB PO SCH (05:58)
[2017-11-25] MEDS: KETOROLAC TROMETHAMINE 15 MG/ML VIAL IV PRN (06:03)
--- NOTE | 2017-11-25 06:05 | Surgery Progress Note ---
Surgery Progress Note Date of Service Nov 25, 2017. Subjective Post OP Day: 1 + feeling well, + ambulating, + pain controlled, + diet (Tolerating clears), No complaints, No bowel movement, No flatus, No nausea, No vomiting Objective Vital Signs: Date Time Temp Pulse Resp B/P (MAP) Pulse Ox O2 Delivery O2 Flow Rate FiO2 11/25/17 04:00 36.9 81 20 103/61 (75) 91 Room Air 11/25/17 00:00 Room Air 11/24/17 23:05 36.4 77 18 147/79 (101) 93 Room Air 11/24/17 18:56 36.5 84 17 108/64 (79) 92 Room Air 11/24/17 15:35 Room Air 11/24/17 14:55 36.4 81 16 112/68 (83) 92 Room Air 11/24/17 13:40 36.3 99 17 111/66 (81) 93 Nasal Cannula 3.5 11/24/17 11:44 36.3 78 16 106/69 (81) 96 Nasal Cannula 2.0 11/24/17 11:02 36.3 72 18 116/71 (86) 92 Nasal Cannula 2.0 11/24/17 10:15 74 16 114/69 (84) 94 Nasal Cannula 2.0 11/24/17 09:45 93 Nasal Cannula 4.0 11/24/17 09:35 123/66 11/24/17 09:34 72 16 11/24/17 09:34 71 16 95 11/24/17 09:30 122/64 11/24/17 09:30 71 12 122/64 91 Nasal Cannula 4 11/24/17 09:29 71 13 11/24/17 09:29 71 13 94 11/24/17 09:26 113/65 11/24/17 09:24 70 16 94 11/24/17 09:24 70 16 11/24/17 09:20 36.3 73 14 121/62 95 Nasal Cannula 4 11/24/17 09:20 121/62 11/24/17 09:19 70 16 94 11/24/17 09:19 70 16 11/24/17 09:15 117/60 11/24/17 09:14 75 16 94 11/24/17 09:14 74 16 11/24/17 09:10 68 14 122/63 94 Nasal Cannula 4 11/24/17 09:10 122/63 11/24/17 09:09 69 13 94 11/24/17 09:09 69 13 11/24/17 09:07 123/68 11/24/17 09:04 76 14 11/24/17 09:04 75 14 95 11/24/17 09:03 74 14 94 11/24/17 09:03 73 14 11/24/17 09:00 125/70 11/24/17 08:58 71 21 11/24/17 08:58 71 21 98 11/24/17 08:56 128/67 11/24/17 08:53 71 14 98 11/24/17 08:53 71 14 11/24/17 08:50 119/78 11/24/17 08:48 74 14 11/24/17 08:48 74 14 98 11/24/17 08:46 133/75 11/24/17 08:43 74 15 140/71 95 11/24/17 08:43 74 15 11/24/17 08:43 36.0 73 18 140/71 95 Oxymask 10 General Appearance: WD/WN, no apparent distress Head: normocephalic, atraumatic Respiratory/Chest: no respiratory distress Abdomen: soft, no organomegaly, + distended (mild-moderate), + tenderness ( Incisional TTP) Incision(s): clean, dry, intact, no erythema, no drainage Assessment & Plan POD #1 s/p right recurrent inguinal hernia repair w/ mesh; umbilical hernia repair Doing well, pain controlled. Abdomen soft, with some distention and incisional TTP (expected). Tolerating clears, no N/V. Urinating okay. Ambulating in hallway without issue. Patient would like to stay on clears for now - ADAT. Likely d/c later today if he continues to do well Contact with questions or concerns.
[2017-11-25] MEDS: ACETAMINOPHEN/CODEINE 300/30MG TAB PO PRN (07:27)
[2017-11-25] MEDS: SULINDAC 200 MG TAB PO SCH (07:28)
[2017-11-25] MEDS: PREGABALIN 150 MG CAP PO SCH (07:28)
[2017-11-25] MEDS: TOPIRAMATE 50 MG TAB PO SCH (07:29)
[2017-11-25] MEDS: DULOXETINE (CYMBALTA) 30 MG CAP PO SCH (07:30)
[2017-11-25] MEDS: BusPIRone 15 MG TAB PO SCH (07:30)
[2017-11-25] MEDS: ASPIRIN 81 MG ECTAB PO SCH (07:30)
[2017-11-25] MEDS: PANTOprazole SOD 40 MG TAB PO SCH (07:31)
[2017-11-25] MEDS: IPRATROPIUM BROMIDE/ALBUTEROL respimat INH INH SCH (07:32)
[2017-11-25] MEDS: NICOTINE 21 MG/24 HR TDSY EXT SCH (07:32)
[2017-11-25 07:48] VITALS: BP 148/75; PULSE 80; TEMP 36.5; O2SAT 93
[2017-11-25 08:26] VITALS: O2SAT 93
[2017-11-25 09:41] VITALS: BP 148/75; PULSE 80; TEMP 36.5; O2SAT 93
--- NOTE | 2017-11-25 10:02 | Anesthesiology Progress Note ---
Anesthesia Post Op Note Date & Time Nov 25, 2017 at 10:02 Vital Signs Pain Intensity: 8.0 Vital Signs Past 12 Hours Date Time Temp Pulse Resp B/P (MAP) Pulse Ox O2 Delivery O2 Flow Rate FiO2 11/25/17 09:41 36.5 80 20 93 Room Air 11/25/17 08:26 93 Room Air 11/25/17 07:48 36.5 80 20 148/75 (99) 93 Room Air 11/25/17 07:30 Room Air 11/25/17 04:00 36.9 81 20 103/61 (75) 91 Room Air 11/25/17 00:00 Room Air 11/24/17 23:05 36.4 77 18 147/79 (101) 93 Room Air Notes Mental Status: alert / awake / arousable, participated in evaluation Pt Amnestic to Procedure: Yes Nausea / Vomiting: adequately controlled Pain: adequately controlled Airway Patency, RR, SpO2: stable & adequate BP & HR: stable & adequate Hydration State: stable & adequate Anesthetic Complications: no major complications apparent
--- NOTE | 2017-11-29 20:51 | DISCHARGE SUMMARY ---
PRIMARY DISCHARGE DIAGNOSES: 1. Recurrent right inguinal hernia. 2. Umbilical hernia. SECONDARY DISCHARGE DIAGNOSES: 1. Asthma. 2. Chronic obstructive pulmonary disease. 3. Anxiety. 4. Benign prostatic hyperplasia. 5. Gastroesophageal reflux disease. 6. Chronic pain. PROCEDURE PERFORMED: 1. Open repair of recurrent right inguinal hernia with mesh. 2. Open umbilical hernia repair. HOSPITAL COURSE: The patient is a 61-year-old male with recurrent right inguinal hernia and umbilical hernia, taken to the operating room for elective repair. The procedures were well tolerated. He was transferred to the surgical floor for overnight observation given his multiple medical conditions. He remained stable overnight. He was tolerating clear liquids, preferred to stay on a clear liquid diet. He is able to void without difficulty. His pain was managed with oral analgesics. Incisions were clean and dry. He was stable for discharge on postoperative day 1. DISCHARGE INSTRUCTIONS: Discharge home. Follow up with Dr. Calloway in 2 weeks. DISCHARGE MEDICATIONS: Tylenol No. 3 1-2 tablets every 4 hours as needed. Continue home medications, albuterol 1-2 puffs q. 4 hours as needed, amitriptyline 100 mg at bedtime, aspirin 81 mg daily, BuSpar 7.5 mg b.i.d., calcium and vitamin D supplement, docusate 1 tablet 100 mg at bedtime, Cymbalta 60 mg at bedtime, Cymbalta 30 mg in the morning, Nexium 40 mg daily, Atarax 50 mg at bedtime, Combivent 1 puff q.i.d. DuoNebs as needed, levothyroxine 50 mcg daily, Nicotrol inhaler as directed, pravastatin 40 mg at bedtime, Lyrica 150 mg t.i.d., Maxalt 10 mg as needed for migraines, sulindac 200 mg b.i.d., Flomax 0.4 mg daily, testosterone gel as directed, and Topamax 50 mg b.i.d.
== END 2017-11-25 10:00 | disposition home or self-care (01) ==
LOC: C.ACU 05:09 → C.MSN 08:42 → ENRESERV 09:09
PROVIDERS: ADMIT Surgery; ATTEND Surgery
DX: K40.91 Unilateral inguinal hernia, without obstruction or gangrene, recurrent (principal); K42.9 Umbilical hernia without obstruction or gangrene; J44.9 Chronic obstructive pulmonary disease, unspecified; Z86.73 Personal history of transient ischemic attack (TIA), and cerebral infarction without residual deficits; J45.909 Unspecified asthma, uncomplicated; F41.9 Anxiety disorder, unspecified; N40.0 Benign prostatic hyperplasia without lower urinary tract symptoms; K21.9 Gastro-esophageal reflux disease without esophagitis; G89.29 Other chronic pain; Q98.4 Klinefelter syndrome, unspecified; I73.9 Peripheral vascular disease, unspecified; F17.200 Nicotine dependence, unspecified, uncomplicated; F32.9 Major depressive disorder, single episode, unspecified; G43.909 Migraine, unspecified, not intractable, without status migrainosus; Z79.899 Other long term (current) drug therapy

== ENCOUNTER 2019-06-26 15:30 | Inpatient (IN) ==
[2019-06-26] MEDS ORDERED: SODIUM CHLORIDE 0.9% 1000ML 500 ML IV ONE (16:03)
[2019-06-26] MEDS ORDERED: SODIUM CHLORIDE 0.9% 1000ML 1,000 ML IV STA (16:03)
[2019-06-26] MEDS ORDERED: ONDANSETRON INJ 2 MG/ML 2 ML VIAL IV STA (16:03)
[2019-06-26 16:05] LABS: Basophils # (auto) 0.04 K/uL (0-0.2); Basophils % (auto) 0.3 %; Eosinophils # (auto) 0.68 K/uL (0-0.5); Eosinophils % (auto) 4.3 %; Hematocrit (blood only) 39.9 % (42-52); Hemoglobin 13.7 g/dL (14.0-18.0); Immature Granulocytes # (auto) 0.05 K/uL (0.00-0.02); Immature Granulocytes % (auto) 0.3 %; Lymphocytes # (auto) 3.19 K/uL (1.2-3.4); Lymphocytes % (auto) 20.2 %; Mean Corpuscular Hemoglobin 32.1 pg (25-34); Mean Corpuscular Hgb Conc 34.3 g/dL (32-36); Mean Corpuscular Volume 93.4 fL (80-100); Mean Platelet Volume 11.2 fL (7.4-10.4); Monocytes # (auto) 2.02 K/uL (0.11-0.59); Monocytes % (auto) 12.8 %; Neutrophils # (auto) 9.81 K/uL (1.4-6.5); Neutrophils % (auto) 62.1 %; Platelet Count 189 K/uL (130-400); RDW Coefficient of Variation 15.6 % (11.5-14.5); RDW Standard Deviation 53.1 fL (36.4-46.3); Red Blood Count 4.27 M/uL (4.7-6.1); White Blood Count 15.79 K/uL (4.8-10.8)
[2019-06-26 16:23] LABS: Albumin Level 3.2 gm/dl (3.4-5.0); Calcium 9.1 mg/dl (8.5-10.1); Creatinine Clr Calc Pharmacy 56.1 ml/min; Est GFR (African American) 58.1; Est GFR (Non-African American) 50.1; Potassium 3.4 mmol/L (3.5-5.1)
[2019-06-26 16:26] LABS: Albumin Globulin Ratio 0.8 (0.9-2); Bilirubin,Total 0.5 mg/dl (0.2-1); Globulin 3.9 gm/dl (2.5-4.0); Total Protein 7.1 gm/dl (6.4-8.2)
--- NOTE | 2019-06-26 16:38 | CT Scan Report ---
CT abd pelvis wo con CLINICAL HISTORY: 63 years-old Male presenting with LLQ pain. TECHNIQUE: Multidetector CT of the abdomen and pelvis was performed without the use of intravenous co ntrast. IV contrast: None. One or more dose lowering techniques were used consistent with the princip les of ALARA (as low as reasonably achievable), including automatic exposure control, mA or kV adjust ment to individual patient size, and/or use of iterative reconstruction. COMPARISON: 08/03/2018. CT DOSE (mGy.cm): The estimated cumulative dose is 876.68 mGycm. 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 Lung bases: Normal heart size. No pericardial or pleural effusion. Minimal dependent changes likely a telectasis. Liver: Normal morphology. Normal density. Biliary: No gross biliary ductal dilatation allowing for noncontrast technique. Gallbladder surgicall y absent. Pancreas: Moderate parenchymal atrophy. Spleen: Normal noncontrast appearance. Adrenal glands: Normal noncontrast appearance. Kidneys and ureters: Nonobstructing 3 mm calculus at the lower pole the right kidney. Mild right pelv ocaliectasis with an obstructing 4 mm calculus in the proximal right ureter. Nonobstructing punctate calculi or Ricardo's plaques noted at the lower pole of the left kidney. No left hydronephrosis. In a dditional ureteral calculus is identified at the right ureterovesical junction measuring 3-4 mm. No l eft ureteral calculi. Bladder: Normal. No bladder calculi. Pelvic organs: Prostate enlargement likely secondary to benign prostatic hyperplasia. Bowel: Mild apparent bowel wall thickening of the proximal to mid sigmoid colon without diverticulosi s or pericolonic inflammatory change. Mild stool burden throughout normal caliber colon. The remainde r of the colon is normal-appearing. The appendix is normal. No bowel obstruction. Small bowel is note d near the right inguinal canal though no hernia is present. Peritoneal cavity: No free fluid or intraperitoneal gas. Lymph nodes: No enlarged lymph nodes in the abdomen or pelvis. Vasculature: Atherosclerosis of the abdominal aorta with a stent in place within the right common dereje ac artery across a mild aneurysm. Abdominal wall: Postsurgical changes of prior umbilical hernia repair and right inguinal hernia repai r suspected. Musculoskeletal: Normal. IMPRESSION: 1. Mild apparent wall thickening of the proximal to mid sigmoid colon without evidence of diverticul osis. This may be due to peristalsis, underdistention, or mild focal colitis. 2. Two right ureteral calculi, which appear to be obstructing: a 4 mm proximal right ureteral calcul us and 3-4 mm right UVJ calculus. Resultant mild right hydronephrosis. 3. Additional nonobstructing right nephrolithiasis. Developing left nephrolithiasis. 4. Prostatomegaly. ACT 112: Negative or not required by law. Electronically signed by: Hunter Canada M.D. 06/26/2019 4:37 PM
[2019-06-26 16:50] LABS: Appearance Urine Cloudy (Clear); Bacteria Urine Automated Negative (Negative); Bilirubin Urine Negative (Negative); Blood Urine 1+ (Negative); Color Urine Dark Yellow; Epithelial Cell Urine Auto >30 /lpf (0-5); Glucose Urine UA Negative (Negative); Ketones Urine Negative (Negative); Leukocyte Esterase Urine Negative (Negative); Nitrite Urine Negative (Negative); Protein Urine Negative (Negative); Specific Gravity Urine 1.014 (1.000-1.030); Urobilinogen Urine Negative (Negative)
[2019-06-26] MEDS: fentaNYL citrate 100 MCG/2 ML VIAL IV PRN ×2 (16:57→20:18)
[2019-06-26] MEDS ORDERED: OPTIRAY 320 125ml IV PRN (17:51)
--- NOTE | 2019-06-26 18:10 | CT Scan Report ---
CT angio abdomen pelvis w con CLINICAL HISTORY: 63 years-old Male with eval for ischemic colitis acute lower abdominal pain with clinical concern for ischemic colitis COMPARISON STUDY: CT abdomen and pelvis of same day TECHNIQUE: Following the IV administration of 119 cc of Optiray 320, CT angiogram of the abdomen and pelvis was performed from the lung bases the proximal femora. Images are reviewed in the axial, sagit sarita, and coronal planes. 3-D MIPS images are created and assessed. IV contrast was administered witho ut complication. A dose lowering technique was utilized adhering to the principles of ALARA. CT DOSE: 425.53 mGy.cm FINDINGS: CTA: Severe mixed plaque of the abdominal aorta and branch vessels. Patent right common iliac stent graft there is noted at the level of extensive mixed plaque formation with probable ulcerative plaque forma tion in fusiform dilation measuring up to 1.5 cm. patent bilateral common and external iliac arteries with proximal femoral artery is also patent. Celiac trunk, superior and inferior mesenteric arteries appear patent. The renal arteries are also patent without high-grade stenosis. CT ABDOMEN/PELVIS: Mild bibasilar atelectasis. No pneumatosis or pneumoperitoneum. Unremarkable inferior cardiac chamber s. Spleen, pancreas and adrenal glands are unremarkable. Cholecystectomy. Unremarkable liver. Nonobst ructing bilateral nephrolithiasis. Mild right-sided hydroureteronephrosis with a proximal ureteral 4 mm and distal ureteral 3 mm calculi, unchanged from comparison study of same day. Mild nonspecific bi lateral perinephric stranding. Mild urinary bladder distention with prostamegaly. No adenopathy. No bowel obstruction. Moderate fecal retention. Circumferential wall thickening of the sigmoid colon is redemonstrated. No significant pericolonic inflammation. Noninflamed appendix. Soft tissues are un remarkable. Degenerative changes of the spine, pelvis and hips. IMPRESSION: 1. Severe mixed plaque of the abdominal aorta and branch vessels. There is no dissection, high-grade stenosis or proximal branch occlusion identified. 2. Patent right common femoral stent graft. 3. Circumferential wall thickening of the sigmoid colon redemonstrated suspicious for a nonspecific c olitis. 4. Mild right-sided hydroureteronephrosis with unchanged proximal and distal ureteral calculi as abov e. 5. Nonobstructing bilateral nephrolithiasis. 6. Additional findings as above. ACT 112: Negative or not required by law. The above report was generated using voice recognition software. It may contain grammatical, syntax o r spelling errors. Electronically signed by: Brian Garibay M.D. 06/26/2019 6:08 PM
--- NOTE | 2019-06-26 20:27 | Emergency Department Note ---
Entered by Ollie Holguin acting as a scribe for Mau Owens MD ED Provider Note CHIEF COMPLAINT: abdominal pain HISTORY OF PRESENT ILLNESS: The patient is a 63 year old M who presents to the Emergency Room with complaints of worsening abdominal pain that started 2 days ago. The patient notes that 2 days ago, he noticed pain near his left testicle. He adds that 1 day ago, his pain radiated up the left-side of his body and to the right-side of his back. He notes that his pain worsens with palpation. He currently rates his pain as 10 out of 10. He states that he is also currently experiencing dizziness and a headache. He notes that he has a history of migraines, which is causing his current headache. He states that he currently takes an anxiety pill due to a history of personality disorder. He adds that when he started on his anxiety pill, he started to experience low blood pressures. He notes that he has a history of hernias and kidney stones. He adds that he has had 8 hernias, previously. He notes that his last kidney stone was 1 year ago. He states that Dr. Spring performed his hernia surgery. A review of the patients records show that the patient was referred to the ED, today, by internal medicine due to LLQ pain and decreased urinary output. The records add that the patient has a history of kidney stones. Pt denies LOC, fevers, chills, diaphoresis, visual changes, neck pain, breathing difficulties, nausea, vomiting, melena, hematochezia, numbness, weakness, lymphadenopathy, rash, or other complaints. REVIEW OF SYSTEMS: See HPI for pertinent positives and negatives. A total of ten systems were reviewed and were otherwise negative. PMHx/PSHx: asthma, BPH, emphysema, GERD, kidney stones, OA, TIA, personality disorder SOCIAL HISTORY: Patient lives at home. Patient is a former smoker. PHYSICAL EXAM: GENERAL: Awake, alert, uncomfortable-appearing HENT: Normocephalic, atraumatic. Oropharynx unremarkable. EYES: PERRL. Normal conjunctiva. Sclera non-icteric. NECK: Inspection normal. Non-tender. Supple. No nuchal rigidity. FROM. No masses. RESPIRATORY: Clear to auscultation. No wheezes. No rales. Normal respiratory effort. CARDIAC: Normal rate. Normal rhythm. No murmurs. No rubs. Extremities warm and well perfused. Pulses equal. No JVD. GI: Soft, non-distended. LLQ tenderness to percussion. Rebound and guarding in LLQ. No masses. RECTAL: Deferred. MUSCULOSKELETAL: Atraumatic. Chest examination reveals no tenderness. The back is symmetrical on inspection without obvious abnormality. There is left CVA tenderness to palpation. No joint edema. LOWER EXTREMITIES: Calves are equal size bilaterally and non-tender. No edema. No discoloration. NEURO: Normal sensorium. No sensory or motor deficits noted. SKIN: No rash or jaundice noted. EMERGENCY DEPARTMENT COURSE: 1601: The patient was evaluated in room C2, and a complete history and physical examination were performed. 1699: The patient is doing better with pain medications. I am going to call GI to discuss his case. 1708: I reviewed the patient's case with Dr. Blas, Dietitian Chief [place]. He recommends that due to the patient's vascular history, to obtain a lactate, CTA abdomen/pelvis and bring the patient in for a possible ischemic colitis. 1939: I reviewed the patient's case with Dr. Lian Fraire, [facility] Hospitalist. She will evaluate the patient for further management. MEDICAL DECISION MAKING: C2 Triage Nursing notes reviewed and agree them. Additional history obtained from patient's . The patient's history was concerning for abdominal pain. Differential diagnosis: Etiologies such as diverticulitis, PUD, biliary pathology, UTI, pancreatitis, obstruction, mesenteric ischemia, aortic pathology, infections, inflammatory bowel disease, renal colic, appendicitis, as well as others were entertained. Physical examination findings: As above. Tenderness in the left lower quadrant ER treatment provided: IV hydration with normal saline IV Zofran IV fentanyl On reassessment the patient felt better. Diagnostics interpreted by me: The labs revealed a moderate leukocytosis on CBC left shift on differential. Chemistry panel was unremarkable. Lactate negative. Imaging studies: CT scan of the abdomen pelvis was performed. Colitis noted in the left lower quadrant. Incidentally the patient is also experiencing ureterolithiasis on the right. CT angiography of the abdomen pelvis was performed. Vascular disease noted in the aorta but no obvious vessel occlusion. Consultation: A consultation was placed with the GI doctor on-call, Dr. Blas. He recommended the ischemic work-up with imaging and lactate. He also recommended symptom control and monitoring in the hospital given the patient's risk for ischemic colitis. Consultation was made with Dr. Fraire of internal medicine. The case was discussed and diagnostics were reviewed. The patient was evaluated in the ER for further treatment. IMPRESSION: Colitis, LLQ abdominal pain, right ureterolithiasis PLAN: Admitted as inpatient. The scribe's documentation has been prepared under my direction and personally reviewed by me in its entirety. I confirm that the note above accurately reflects all work, treatment, procedures, and medical decision making performed by me. 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 Beliefs That Will Affect Care: None Current Living Situation: Other Current Living Situation Comment: ex s/o Feels Safe at Home: Yes Smoking Status: Former smoker Tobacco Type: cigarettes ; Cigarettes Per Day: HX OF 1+ PPD X40 YEARS, QUIT IN 2016, USES PRN NICOTINE INHALER ; Second Hand Exposure: Yes ; Hx Alcohol Use: No (former) Hx Substance Use: No Results & Data Vital Signs Vital Signs - 24 hr 06/26/19 15:37 06/26/19 16:30 06/26/19 16:43 Temperature 36.7 C Temperature Source Oral Pulse Rate 93 H 81 81 Pulse Rate from SpO2 Sensor 81 81 Respiratory Rate 16 19 19 Respiratory Effort / Characteristics Non-Labored Spontaneous Respiratory Depth Normal Blood Pressure 95/56 L 104/63 Blood Pressure Mean 69 68 Blood Pressure Position Sitting Pulse Oximetry 95 93 92 Oxygen Delivery Method Room Air Sepsis Recent Fever Within 48 Hours No Sepsis New/Unexplained Change in Mental Status No Sepsis Action Taken by Nursing No Action Required 06/26/19 17:00 06/26/19 17:03 06/26/19 17:27 Temperature Temperature Source Pulse Rate 75 78 77 Pulse Rate from SpO2 Sensor 75 78 Respiratory Rate 15 20 22 Respiratory Effort / Characteristics Respiratory Depth Blood Pressure 98/57 L 98/57 L Blood Pressure Mean 70 65 Blood Pressure Position Pulse Oximetry 92 92 91 Oxygen Delivery Method Room Air Sepsis Recent Fever Within 48 Hours Sepsis New/Unexplained Change in Mental Status Sepsis Action Taken by Nursing 06/26/19 17:30 06/26/19 17:31 06/26/19 18:00 Temperature Temperature Source Pulse Rate 77 77 89 Pulse Rate from SpO2 Sensor 78 77 Respiratory Rate 17 15 17 Respiratory Effort / Characteristics Respiratory Depth Blood Pressure 90/60 L Blood Pressure Mean 65 Blood Pressure Position Pulse Oximetry 92 90 Oxygen Delivery Method Sepsis Recent Fever Within 48 Hours Sepsis New/Unexplained Change in Mental Status Sepsis Action Taken by Nursing 06/26/19 18:21 06/26/19 18:22 06/26/19 18:30 Temperature Temperature Source Pulse Rate 73 90 73 Pulse Rate from SpO2 Sensor 74 75 73 Respiratory Rate 16 20 14 Respiratory Effort / Characteristics Respiratory Depth Blood Pressure 98/52 L 87/77 L Blood Pressure Mean 62 82 Blood Pressure Position Pulse Oximetry 95 93 94 Oxygen Delivery Method Room Air Room Air Sepsis Recent Fever Within 48 Hours Sepsis New/Unexplained Change in Mental Status Sepsis Action Taken by Nursing 06/26/19 18:31 06/26/19 19:00 06/26/19 19:01 Temperature Temperature Source Pulse Rate 72 74 73 Pulse Rate from SpO2 Sensor 72 74 74 Respiratory Rate 16 15 18 Respiratory Effort / Characteristics Respiratory Depth Blood Pressure 97/58 L Blood Pressure Mean 70 Blood Pressure Position Pulse Oximetry 93 93 92 Oxygen Delivery Method Room Air Room Air Room Air Sepsis Recent Fever Within 48 Hours Sepsis New/Unexplained Change in Mental Status Sepsis Action Taken by Nursing 06/26/19 19:31 06/26/19 20:00 06/26/19 20:01 Temperature Temperature Source Pulse Rate 72 74 Pulse Rate from SpO2 Sensor 77 71 Respiratory Rate 26 H 16 Respiratory Effort / Characteristics Respiratory Depth Blood Pressure 117/64 Blood Pressure Mean 81 Blood Pressure Position Pulse Oximetry 94 96 Oxygen Delivery Method Room Air Room Air Room Air Sepsis Recent Fever Within 48 Hours Sepsis New/Unexplained Change in Mental Status Sepsis Action Taken by [facility] Medications Current Medication List: was personally reviewed by me Laboratory Data Attestation: I reviewed the patient's lab results. Result diagrams: 06/26/19 15:50 06/26/19 15:50 Lab Results 06/26/19 06/26/19 06/26/19 Range/Units 15:50 15:50 16:30 WBC 15.79 H (4.8-10.8) K/uL RBC 4.27 L (4.7-6.1) M/uL Hgb 13.7 L (14.0-18.0) g/dL Hct 39.9 L (42-52) % MCV 93.4 (80-100) fL MCH 32.1 (25-34) pg MCHC 34.3 (32-36) g/dL RDW Std Deviation 53.1 H (36.4-46.3) fL RDW Coeff of Gallo 15.6 H (11.5-14.5) % Plt Count 189 (130-400) K/uL MPV 11.2 H (7.4-10.4) fL Immature Gran % (Auto) 0.3 % Neut % (Auto) 62.1 % Lymph % (Auto) 20.2 % Posey % (Auto) 12.8 % Eos % (Auto) 4.3 % Baso % (Auto) 0.3 % Immature Gran # (Auto) 0.05 H (0.00-0.02) K/uL Neut # (Auto) 9.81 H (1.4-6.5) K/uL Lymph # (Auto) 3.19 (1.2-3.4) K/uL Posey # (Auto) 2.02 H (0.11-0.59) K/uL Eos # (Auto) 0.68 H (0-0.5) K/uL Baso # (Auto) 0.04 (0-0.2) K/uL Sodium 143 (136-145) mmol/L Potassium 3.4 L (3.5-5.1) mmol/L Chloride 114 H (98-107) mmol/L Carbon Dioxide 22 (21-32) mmol/L Anion Gap 6.0 (3-11) BUN 21 H (7-18) mg/dl Creatinine 1.46 H (0.6-1.4) mg/dl Est Cr Clr Drug Dosing 56.1 ml/min Est GFR ( Amer) 58.1 Est GFR (Non-Af Amer) 50.1 BUN/Creatinine Ratio 14.0 (10-20) Glucose 127 H (70-99) mg/dl Lactate (0.4-2.0) mmol/L Calcium 9.1 (8.5-10.1) mg/dl Total Bilirubin 0.5 (0.2-1) mg/dl AST 14 L (15-37) U/L ALT 21 (12-78) U/L Alkaline Phosphatase 134 H (45-117) U/L Total Protein 7.1 (6.4-8.2) gm/dl Albumin 3.2 L (3.4-5.0) gm/dl Globulin 3.9 (2.5-4.0) gm/dl Albumin/Globulin Ratio 0.8 L (0.9-2) Lipase 74 (73-393) U/L Urine Color Dark Yellow Urine Appearance Cloudy A (Clear) Urine pH 8.0 H (4.5-7.5) Ur Specific Flippin 1.014 (1.000-1.030) Urine Protein Negative (Negative) Urine Glucose (UA) Negative (Negative) Urine Ketones Negative (Negative) Urine Blood 1+ H (Negative) Urine Nitrite Negative (Negative) Urine Bilirubin Negative (Negative) Urine Urobilinogen Negative (Negative) Ur Leukocyte Esterase Negative (Negative) Urine WBC (Auto) 1-5 (0-5) /hpf Urine RBC (Auto) 10-30 H (0-4) /hpf U Hyaline Cast (Auto) 1-5 (0-5) /lpf U Epithel Cells (Auto) >30 H (0-5) /lpf Urine Bacteria (Auto) Negative (Negative) 06/26/19 Range/Units 17:29 WBC (4.8-10.8) K/uL RBC (4.7-6.1) M/uL Hgb (14.0-18.0) g/dL Hct (42-52) % MCV (80-100) fL MCH (25-34) pg MCHC (32-36) g/dL RDW Std Deviation (36.4-46.3) fL RDW Coeff of Gallo (11.5-14.5) % Plt Count (130-400) K/uL MPV (7.4-10.4) fL Immature Gran % (Auto) % Neut % (Auto) % Lymph % (Auto) % Posey % (Auto) % Eos % (Auto) % Baso % (Auto) % Immature Gran # (Auto) (0.00-0.02) K/uL Neut # (Auto) (1.4-6.5) K/uL Lymph # (Auto) (1.2-3.4) K/uL Posey # (Auto) (0.11-0.59) K/uL Eos # (Auto) (0-0.5) K/uL Baso # (Auto) (0-0.2) K/uL Sodium (136-145) mmol/L Potassium (3.5-5.1) mmol/L Chloride (98-107) mmol/L Carbon Dioxide (21-32) mmol/L Anion Gap (3-11) BUN (7-18) mg/dl Creatinine (0.6-1.4) mg/dl Est Cr Clr Drug Dosing ml/min Est GFR ( Amer) Est GFR (Non-Af Amer) BUN/Creatinine Ratio (10-20) Glucose (70-99) mg/dl Lactate 0.9 (0.4-2.0) mmol/L Calcium (8.5-10.1) mg/dl Total Bilirubin (0.2-1) mg/dl AST (15-37) U/L ALT (12-78) U/L Alkaline Phosphatase (45-117) U/L Total Protein (6.4-8.2) gm/dl Albumin (3.4-5.0) gm/dl Globulin (2.5-4.0) gm/dl Albumin/Globulin Ratio (0.9-2) Lipase (73-393) U/L Urine Color Urine Appearance (Clear) Urine pH (4.5-7.5) Ur Specific Flippin (1.000-1.030) Urine Protein (Negative) Urine Glucose (UA) (Negative) Urine Ketones (Negative) Urine Blood (Negative) Urine Nitrite (Negative) Urine Bilirubin (Negative) Urine Urobilinogen (Negative) Ur Leukocyte Esterase (Negative) Urine WBC (Auto) (0-5) /hpf Urine RBC (Auto) (0-4) /hpf U Hyaline Cast (Auto) (0-5) /lpf U Epithel Cells (Auto) (0-5) /lpf Urine Bacteria (Auto) (Negative) Administered Medications Fentanyl Citrate (Fentanyl Citrate) 50 mcg IV Q15M PRN PRN Reason: Pain Stop: 07/10/19 16:02 Last Admin: 06/26/19 20:18 Dose: 50 mcg Documented by: [id number] Admin: 06/26/19 16:57 Dose: 50 mcg Documented by: [id number] Sodium Chloride (Nss 1000ml) 1,000 mls @ 125 mls/hr IV .Q8H STA Stop: 06/27/19 00:02 Last Admin: 06/26/19 17:29 Dose: 125 mls/hr Documented by: [id number] Ioversol (Optiray 320 125ml) 119 ml IV ONCE PRN PRN Reason: Interaction Checking Stop: 06/30/19 17:50 Last Admin: 06/26/19 17:52 Dose: 119 ml Documented by: [id number] Discontinued Medications Sodium Chloride (Nss 1000ml) 500 mls @ 999 mls/hr IV .Q31M ONE Stop: 06/26/19 16:33 Last Infusion: 06/26/19 17:28 Dose: 0 mls/hr Documented by: [id number] Admin: 06/26/19 16:57 Dose: 999 mls/hr Documented by: [id number] Ondansetron HCl (Zofran) 4 mg IV NOW STA Stop: 06/26/19 16:04 Last Admin: 06/26/19 16:57 Dose: 4 mg Documented by: [id number] Imaging Data Radiologist's Impression: Radiology results as stated below per my review and the radiologist's interpretation: CT abd pelvis wo con CLINICAL HISTORY: 63 years-old Male presenting with LLQ pain. TECHNIQUE: Multidetector CT of the abdomen and pelvis was performed without the use of intravenous contrast. IV contrast: None. One or more dose lowering techniques were used consistent with the principles of ALARA (as low as reasonably achievable), including automatic exposure control, mA or kV adjustment to individual patient size, and/or use of iterative reconstruction. COMPARISON: 08/03/2018. CT DOSE (mGy.cm): The estimated cumulative dose is 876.68 mGycm. 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 Lung bases: Normal heart size. No pericardial or pleural effusion. Minimal d ependent changes likely atelectasis. Liver: Normal morphology. Normal density. Biliary: No gross biliary ductal dilatation allowing for noncontrast technique. Gallbladder surgically absent. Pancreas: Moderate parenchymal atrophy. Spleen: Normal noncontrast appearance. Adrenal glands: Normal noncontrast appearance. Kidneys and ureters: Nonobstructing 3 mm calculus at the lower pole the right kidney. Mild right pelvocaliectasis with an obstructing 4 mm calculus in the proximal right ureter. Nonobstructing punctate calculi or Ricardo's plaques noted at the lower pole of the left kidney. No left hydronephrosis. In additional ureteral calculus is identified at the right ureterovesical junction measuring 3-4 mm. No left ureteral calculi. Bladder: Normal. No bladder calculi. Pelvic organs: Prostate enlargement likely secondary to benign prostatic hyperplasia. Bowel: Mild apparent bowel wall thickening of the proximal to mid sigmoid colon without diverticulosis or pericolonic inflammatory change. Mild stool burden throughout normal caliber colon. The remainder of the colon is normal-appearing. The appendix is normal. No bowel obstruction. Small bowel is noted near the right inguinal canal though no hernia is present. Peritoneal cavity: No free fluid or intraperitoneal gas. Lymph nodes: No enlarged lymph nodes in the abdomen or pelvis. Vasculature: Atherosclerosis of the abdominal aorta with a stent in place within the right common iliac artery across a mild aneurysm. Abdominal wall: Postsurgical changes of prior umbilical hernia repair and right inguinal hernia repair suspected. Musculoskeletal: Normal. IMPRESSION: 1. Mild apparent wall thickening of the proximal to mid sigmoid colon without evidence of diverticulosis. This may be due to peristalsis, underdistention, or mild focal colitis. 2. Two right ureteral calculi, which appear to be obstructing: a 4 mm proximal right ureteral calculus and 3-4 mm right UVJ calculus. Resultant mild right hydronephrosis. 3. Additional nonobstructing right nephrolithiasis. Developing left nephrolithiasis. 4. Prostatomegaly. ACT 112: Negative or not required by law. Electronically signed by: Hunter Canada M.D. 06/26/2019 4:[address] angio abdomen pelvis w con CLINICAL HISTORY: 63 years-old Male with eval for ischemic colitis acute lower abdominal pain with clinical concern for ischemic colitis COMPARISON STUDY: CT abdomen and pelvis of same day TECHNIQUE: Following the IV administration of 119 cc of Optiray 320, CT angiogram of the abdomen and pelvis was performed from the lung bases the proximal femora. Images are reviewed in the axial, sagittal, and coronal planes. 3-D MIPS images are created and assessed. IV contrast was administered without complication. A dose lowering technique was utilized adhering to the principles of ALARA. CT DOSE: 425.53 mGy.cm FINDINGS: CTA: Severe mixed plaque of the abdominal aorta and branch vessels. Patent right common iliac stent graft there is noted at the level of extensive mixed plaque formation with probable ulcerative plaque formation in fusiform dilation measuring up to 1.5 cm. patent bilateral common and external iliac arteries with proximal femoral artery is also patent. Celiac trunk, superior and inferior mesenteric arteries appear patent. The renal arteries are also patent without high-grade stenosis. CT ABDOMEN/PELVIS: Mild bibasilar atelectasis. No pneumatosis or pneumoperitoneum. Unremarkable inferior cardiac chambers. Spleen, pancreas and adrenal glands are unremarkable. Cholecystectomy. Unremarkable liver. Nonobstructing bilateral nephrolithiasis. Mild right-sided hydroureteronephrosis with a proximal ureteral 4 mm and distal ureteral 3 mm calculi, unchanged from comparison study of same day. Mild nonspecific bilateral perinephric stranding. Mild urinary bladder distention with prostamegaly. No adenopathy. No bowel obstruction. Moderate fecal retention. Circumferential wall thickening of the sigmoid colon is redemonstrated. No significant pericolonic inflammation. Noninflamed appendix. Soft tissues are unremarkable. Degenerative changes of the spine, pelvis and hips. IMPRESSION: 1. Severe mixed plaque of the abdominal aorta and branch vessels. There is no dissection, high-grade stenosis or proximal branch occlusion identified. 2. Patent right common femoral stent graft. 3. Circumferential wall thickening of the sigmoid colon redemonstrated suspicious for a nonspecific colitis. 4. Mild right-sided hydroureteronephrosis with unchanged proximal and distal ureteral calculi as above. 5. Nonobstructing bilateral nephrolithiasis. 6. Additional findings as above. ACT 112: Negative or not required by law. The above report was generated using voice recognition software. It may contain grammatical, syntax or spelling errors. Electronically signed by: Brian Garibay M.D. 06/26/2019 6:08 PM Blood Pressure Blood Pressure Findings: Low blood pressure Blood Pressure Disposition: further management by hospitalist Discharge Plan Visit Data Chief Complaint: Abdominal Pain Stated Complaint: STOMACH PAIN ED Provider: Mau Owens Discharge Problem: Colitis, Abdominal pain, LLQ, Ureterolithiasis Patient Disposition: Admitted As Inpatient Forms Stand Alone Forms: [facility] [employer] Prescriptions Prescriptions: No Action duloxetine 60 mg capsule,delayed release(DR/EC) 60 mg PO HS Qty: 30 RF: 5 testosterone 20.25 mg/1.25 gram (1.62 %) gel in metered-dose pump 1 pump TRANSDERMAL DAILY Qty: 225 RF: 1 hydroxyzine HCl 50 mg tablet 50 mg PO HS Qty: 30 RF: 5 topiramate 50 mg tablet 50 mg PO BID Qty: 60 RF: 5 esomeprazole magnesium [Nexium] 40 mg capsule,delayed release(DR/EC) 40 mg PO DAILY Qty: 30 RF: 5 tamsulosin 0.4 mg capsule 0.4 mg PO DAILY Qty: 90 RF: 3 buspirone 7.5 mg tablet 7.5 mg PO BID Qty: 60 RF: 5 sulindac 200 mg tablet 200 mg PO BID Qty: 60 RF: 4 Nicotrol 10 mg cartridge 1 inh INHALATION .COMPLEX Qty: 168 RF: 5 duloxetine 30 mg capsule,delayed release(DR/EC) See Rx Instructions .ROUTE .COMPLEX Qty: 30 RF: 3 amitriptyline 100 mg tablet See Rx Instructions .ROUTE .COMPLEX Qty: 30 RF: 3 rizatriptan 10 mg tablet 10 mg PO UD PRN (Reason: Migraine Headache) Qty: 10 RF: 3 pravastatin 40 mg tablet 40 mg PO HS Qty: 90 RF: 3 Lyrica 150 mg capsule 150 mg PO TID Qty: 90 RF: 5 aspirin 81 mg tablet 81 mg PO DAILY RF: 0 albuterol sulfate 90 mcg/actuation Aerosol Powdr Breath Activated 2 inh INHALATION QID PRN (Reason: Pain) RF: 0 docusate sodium 100 mg Tablet 100 mg PO HS RF: 0 Combivent Respimat 20-100 mcg/actuation Mist 1 puff INHALATION QID RF: 0 Referrals Referrals: Pro,Dwight Ramires MD [Primary Care Provider] - The betsyibe's documentation has been prepared under my direction and personally reviewed by me in its entirety. I confirm that the note above accurately reflects all work, treatment, procedures, and medical decision making performed by me.
[2019-06-26] MEDS ORDERED: ONDANSETRON INJ 2 MG/ML 2 ML VIAL IV PRN (20:58)
[2019-06-26] MEDS ORDERED: RIZATRIPTAN BENZOATE 10 MG TAB PO PRN (20:58)
[2019-06-26] MEDS ORDERED: POTASSIUM CHLORIDE 20 MEQ TABCR PO STA (20:58)
[2019-06-26] MEDS ORDERED: ACETAMINOPHEN 325 MG TAB PO PRN (20:58)
--- NOTE | 2019-06-26 21:20 | History & Physical Report ---
Date of Service June 26, 2019 Assessment & Plan (1) Abdominal pain, LLQ: 63 male with multiple medical problems presenting with left lower quadrant abdominal pain. CT with focal area of colitis as well as bilateral nephrolithiasis. Etiology uncertain at this time. No obstructing stone noted on the left. Lipase within normal limits, LFTs with chronically elevated alkaline phosphatase. CTA performed which revealed severe mixed plaque of the abdominal aorta and branch vessels, no dissection/stenosis or occlusion. Lactate normal at 0.9 Admit to medical floor Clear liquid diet as tolerated Check stool culture Urology consultation - patient follows in clinic for his stone disease -Zofran as needed for nausea Tylenol as needed for pain. Pain control difficult in this patient as he is allergic to tramadol, Dilaudid, morphine, oxycodone, Naprosyn and his renal function is slightly compromised at this time. He received IV fentanyl in the ER which provided some relief however, he is unable to receive this medication on the floor. Present on Admission?: Yes (2) Ureterolithiasis: Patient with longstanding history of the same. IV fluids Continue Flomax Samuel catheter, monitor strict intake and output Monitor BUN, creatinine, electrolytes, urine output Urology consultation appreciated Encourage hydration and prevention of stones. Patient encouraged to use lemon and increasing citrate in his diet as well as decreasing salt intake to prevent future stones. Present on Admission?: Yes (3) Colitis: Patient with focal area of colitis noted on CT. He has abdominal tenderness as well. Lactate is normal. He has multiple plaques noted on CTA and is at risk for ischemic colitis. However, with a normal lactate this seems to be unlikely.? Infectious etiology. Patient with WBC = 15.79 and reports diarrhea Check stool culture Check C. difficile Supportive care Present on Admission?: Yes (4) BPH (benign prostatic hyperplasia): Patient reports difficulty urinating, feels that he needs to strain to urinate. History of BPH, bilateral nephrolithiasis Continue Flomax 0.4 mg p.o. daily Will initiate finasteride as well Place Samuel for now Present on Admission?: Yes (5) COPD, moderate: Chronic. Stable. Patient denies shortness of breath, cough, wheeze. Pulmonary exam unremarkable Continue albuterol/ipratropium -Albuterol PRN Present on Admission?: Yes (6) Primary hypogonadism in male: Chronic. Continue topical testosterone Present on Admission?: Yes (7) PAD (peripheral artery disease): Chronic. Stable. Continue aspirin 81 mg p.o. daily Continue pravastatin 40 mg p.o. nightly Present on Admission?: Yes (8) GERD (gastroesophageal reflux disease): Chronic. Continue Protonix 40 mg p.o. daily Present on Admission?: Yes (9) Fibromyalgia: Chronic. Continue Lyrica 150 mg p.o. 3 times daily Continue Cymbalta 30 mg p.o. daily and 60 mg p.o. nightly Continue Elavil 100 mg p.o. nightly Present on Admission?: Yes (10) Migraine: Patient with history of migraine headache. Reports that he currently starting to have a migraine. Continue Topamax 50 mg p.o. twice daily Continue rizatriptan as needed FENLR at 125 mL/h x 2 L, monitor electrolytes and replete as needed, will give 40 mEq of potassium for K of 3.4, clear liquid diet as tolerated ProphylaxisSCDs to bilateral lower extremity CodeDNR/DNI per discussion with patient Dispositionadmission to medical floor Present on Admission?: Yes History of Present Illness Chief Complaint: flank pain Primary Care Provider: Dwight Mendiola MD Sony Bryant is a 63yo C male with multiple medical problems, most notably Klinefelter syndrome, migraine, fibromyalgia presenting with left lower quadrant abdominal pain. Patient reports that the pain started acutely approximately 3 days ago in his left testicle. Then progressed to involve his lower abdomen. He reports having a difficult time urinating and feels that he has to strain to start his urinary stream. He also complains of constipation and most recently dark-colored diarrhea. He denies fevers/chills/nausea/vomiting. Denies chest pain/shortness of breath/cough/wheeze. Presently he is complaining of a migraine headache, dizziness, thirst, hunger, needing to take his medication. No additional complaints at this time. ER Course: Fentanyl, Zofran, NSS Allergies Allergy/AdvReac Type Severity Reaction Status Date / Time bee venom protein (honey bee) Allergy Severe ANAPHYLAXIS Verified 06/26/19 14:51 tramadol Allergy Mild HIVES Verified 06/26/19 14:51 hydromorphone Allergy Unknown PRURITUS Verified 06/26/19 14:51 morphine Allergy Unknown PRURITUS Verified 06/26/19 14:51 oxycodone Allergy Unknown PRURITUS Verified 06/26/19 14:51 Sulfa (Sulfonamide Allergy Unknown PRURITUS Verified 06/26/19 14:51 Antibiotics) naproxen AdvReac Mild HEARTBURN Verified 06/26/19 14:51 Home Medications Home Medications Medication Instructions Recorded Confirmed Type Combivent Respimat 1 puff INHALATION QID 08/22/18 06/26/19 History albuterol sulfate 2 inh INHALATION QID PRN 08/22/18 06/26/19 History docusate sodium 100 mg PO HS 08/22/18 06/26/19 History duloxetine 60 mg capsule,delayed 60 mg PO HS #30 cap 11/30/18 06/26/19 Rx release aspirin 81 mg tablet 81 mg PO DAILY tab 12/22/18 06/26/19 History testosterone 20.25 mg/1.25 gram 1 pump TRANSDERMAL DAILY #225 gm 01/09/19 06/26/19 Rx (1.62 %) transdermal gel pump hydroxyzine HCl 50 mg tablet 50 mg PO HS #30 tab 02/07/19 06/26/19 Rx topiramate 50 mg tablet 50 mg PO BID #60 tab 02/26/19 06/26/19 Rx Nexium 40 mg capsule,delayed 40 mg PO DAILY #30 cap NS 03/06/19 06/26/19 Rx release tamsulosin 0.4 mg capsule 0.4 mg PO DAILY #90 cap 04/04/19 06/26/19 Rx buspirone 7.5 mg tablet 7.5 mg PO BID #60 tab 04/26/19 06/26/19 Rx sulindac 200 mg tablet 200 mg PO BID #60 tab 04/27/19 06/26/19 Rx nicotine 10 mg inhalation cartridge 1 inh INHALATION .COMPLEX #168 ea 05/03/19 06/26/19 Rx duloxetine 30 mg capsule,delayed See Rx Instructions .ROUTE 05/29/19 06/26/19 Rx release .COMPLEX #30 capsule amitriptyline 100 mg tablet See Rx Instructions .ROUTE 06/05/19 06/26/19 Rx .COMPLEX #30 tablet pravastatin 40 mg tablet 40 mg PO HS #90 tab 06/05/19 06/26/19 Rx rizatriptan 10 mg tablet 10 mg PO UD PRN #10 tab 06/05/19 06/26/19 Rx Lyrica 150 mg capsule 150 mg PO TID #90 cap NS 06/07/19 06/26/19 Rx Past Med/Surg History Social History Preferred Language: Iraqi Communication Ability: Effective Pulmonary Disease Specialist Required: No Beliefs That Will Affect Care: None Current Living Situation: Other Current Living Situation Comment: ex s/o Feels Safe at Home: Yes Smoking Status: Former smoker Tobacco Type: cigarettes ; Cigarettes Per Day: HX OF 1+ PPD X40 YEARS, QUIT IN 2016, USES PRN NICOTINE INHALER ; Second Hand Exposure: Yes ; Hx Alcohol Use: No (former) Hx Substance Use: No Review of Systems Review of Systems: All systems reviewed & are unremarkable except as noted in HPI & below Physical Exam Physical Exam: General: patient resting comfortably, NAD, non-toxic in appearance, AA&O x 4 Skin: warm, dry, intact, no rashes or lesions HEENT: NC/AT, PERRL, EOMI, anicteric sclera, conjunctiva without injection, external ear normal to inspection and nontender, nares patent, moist mucus membranes, dentition intact, no oropharyngeal lesions, neck supple, trachea midline, no LAD, no thyromegaly, no JVD Heart: +S1/S2, regular, no m/r/g Lungs: equal air entry bilaterally, no rales/rhonchi/wheezes Abd: Diminished BS throughout, soft, diffusely tender with palpation, most in LLQ with voluntary guarding, no rebound/peritonitis, no masses/organomegaly/ascites Ext: warm, 2+ pulses in UE/LE bilaterally, no clubbing/cyanosis or edema Neuro: nonfocal, patient AA&O x 4, speech intact, no facial droop, moving all extremities on command with equal strength 5/5 Results & Data Vital Signs (Past 12 Hours) Vital Signs Temp Pulse Resp BP Pulse Ox 06/26/19 20:01 74 16 06/26/19 20:00 72 26 H 117/64 96 06/26/19 19:31 94 06/26/19 19:01 73 18 92 06/26/19 19:00 74 15 97/58 L 93 06/26/19 18:31 72 16 93 06/26/19 18:30 73 14 87/77 L 94 06/26/19 18:22 90 20 93 06/26/19 18:21 73 16 98/52 L 95 06/26/19 18:00 89 17 06/26/19 17:31 77 15 90 06/26/19 17:30 77 17 90/60 L 92 06/26/19 17:27 77 22 98/57 L 91 06/26/19 17:03 78 20 92 06/26/19 17:00 75 15 98/57 L 92 06/26/19 16:43 81 19 92 06/26/19 16:30 81 19 104/63 93 06/26/19 15:37 36.7 C 93 H 16 95/56 L 95 Laboratory Results Lab Results 06/26/19 06/26/19 06/26/19 Range/Units 15:50 15:50 15:50 WBC 15.79 H (4.8-10.8) K/uL RBC 4.27 L (4.7-6.1) M/uL Hgb 13.7 L (14.0-18.0) g/dL Hct 39.9 L (42-52) % MCV 93.4 (80-100) fL MCH 32.1 (25-34) pg MCHC 34.3 (32-36) g/dL RDW Std Deviation 53.1 H (36.4-46.3) fL RDW Coeff of Gallo 15.6 H (11.5-14.5) % Plt Count 189 (130-400) K/uL MPV 11.2 H (7.4-10.4) fL Immature Gran % (Auto) 0.3 % Neut % (Auto) 62.1 % Lymph % (Auto) 20.2 % Whiteside % (Auto) 12.8 % Eos % (Auto) 4.3 % Baso % (Auto) 0.3 % Immature Gran # (Auto) 0.05 H (0.00-0.02) K/uL Neut # (Auto) 9.81 H (1.4-6.5) K/uL Lymph # (Auto) 3.19 (1.2-3.4) K/uL Whiteside # (Auto) 2.02 H (0.11-0.59) K/uL Eos # (Auto) 0.68 H (0-0.5) K/uL Baso # (Auto) 0.04 (0-0.2) K/uL Sodium 143 (136-145) mmol/L Potassium 3.4 L (3.5-5.1) mmol/L Chloride 114 H (98-107) mmol/L Carbon Dioxide 22 (21-32) mmol/L Anion Gap 6.0 (3-11) BUN 21 H (7-18) mg/dl Creatinine 1.46 H (0.6-1.4) mg/dl Est Cr Clr Drug Dosing 56.1 ml/min Est GFR ( Amer) 58.1 Est GFR (Non-Af Amer) 50.1 BUN/Creatinine Ratio 14.0 (10-20) Glucose 127 H (70-99) mg/dl Lactate (0.4-2.0) mmol/L Calcium 9.1 (8.5-10.1) mg/dl Phosphorus 3.1 (2.5-4.9) mg/dl Magnesium 1.9 (1.8-2.4) mg/dl Total Bilirubin 0.5 (0.2-1) mg/dl AST 14 L (15-37) U/L ALT 21 (12-78) U/L Alkaline Phosphatase 134 H (45-117) U/L Total Protein 7.1 (6.4-8.2) gm/dl Albumin 3.2 L (3.4-5.0) gm/dl Globulin 3.9 (2.5-4.0) gm/dl Albumin/Globulin Ratio 0.8 L (0.9-2) Lipase 74 (73-393) U/L Urine Color Urine Appearance (Clear) Urine pH (4.5-7.5) Ur Specific Warner (1.000-1.030) Urine Protein (Negative) Urine Glucose (UA) (Negative) Urine Ketones (Negative) Urine Blood (Negative) Urine Nitrite (Negative) Urine Bilirubin (Negative) Urine Urobilinogen (Negative) Ur Leukocyte Esterase (Negative) Urine WBC (Auto) (0-5) /hpf Urine RBC (Auto) (0-4) /hpf U Hyaline Cast (Auto) (0-5) /lpf U Epithel Cells (Auto) (0-5) /lpf Urine Bacteria (Auto) (Negative) 06/26/19 06/26/19 Range/Units 16:30 17:29 WBC (4.8-10.8) K/uL RBC (4.7-6.1) M/uL Hgb (14.0-18.0) g/dL Hct (42-52) % MCV (80-100) fL MCH (25-34) pg MCHC (32-36) g/dL RDW Std Deviation (36.4-46.3) fL RDW Coeff of Gallo (11.5-14.5) % Plt Count (130-400) K/uL MPV (7.4-10.4) fL Immature Gran % (Auto) % Neut % (Auto) % Lymph % (Auto) % Whiteside % (Auto) % Eos % (Auto) % Baso % (Auto) % Immature Gran # (Auto) (0.00-0.02) K/uL Neut # (Auto) (1.4-6.5) K/uL Lymph # (Auto) (1.2-3.4) K/uL Whiteside # (Auto) (0.11-0.59) K/uL Eos # (Auto) (0-0.5) K/uL Baso # (Auto) (0-0.2) K/uL Sodium (136-145) mmol/L Potassium (3.5-5.1) mmol/L Chloride (98-107) mmol/L Carbon Dioxide (21-32) mmol/L Anion Gap (3-11) BUN (7-18) mg/dl Creatinine (0.6-1.4) mg/dl Est Cr Clr Drug Dosing ml/min Est GFR ( Amer) Est GFR (Non-Af Amer) BUN/Creatinine Ratio (10-20) Glucose (70-99) mg/dl Lactate 0.9 (0.4-2.0) mmol/L Calcium (8.5-10.1) mg/dl Phosphorus (2.5-4.9) mg/dl Magnesium (1.8-2.4) mg/dl Total Bilirubin (0.2-1) mg/dl AST (15-37) U/L ALT (12-78) U/L Alkaline Phosphatase (45-117) U/L Total Protein (6.4-8.2) gm/dl Albumin (3.4-5.0) gm/dl Globulin (2.5-4.0) gm/dl Albumin/Globulin Ratio (0.9-2) Lipase (73-393) U/L Urine Color Dark Yellow Urine Appearance Cloudy A (Clear) Urine pH 8.0 H (4.5-7.5) Ur Specific Warner 1.014 (1.000-1.030) Urine Protein Negative (Negative) Urine Glucose (UA) Negative (Negative) Urine Ketones Negative (Negative) Urine Blood 1+ H (Negative) Urine Nitrite Negative (Negative) Urine Bilirubin Negative (Negative) Urine Urobilinogen Negative (Negative) Ur Leukocyte Esterase Negative (Negative) Urine WBC (Auto) 1-5 (0-5) /hpf Urine RBC (Auto) 10-30 H (0-4) /hpf U Hyaline Cast (Auto) 1-5 (0-5) /lpf U Epithel Cells (Auto) >30 H (0-5) /lpf Urine Bacteria (Auto) Negative (Negative) Diagnostic Findings CT abd pelvis wo con CLINICAL HISTORY: 63 years-old Male presenting with LLQ pain. TECHNIQUE: Multidetector CT of the abdomen and pelvis was performed without the use of intravenous contrast. IV contrast: None. One or more dose lowering techniques were used consistent with the principles of ALARA (as low as reasonably achievable), including automatic exposure control, mA or kV adjustment to individual patient size, and/or use of iterative reconstruction. COMPARISON: 08/03/2018. CT DOSE (mGy.cm): The estimated cumulative dose is 876.68 mGycm. FINDINGS: Tile Sorter topogram: Cholecystectomy clips. Lung bases: Normal heart size. No pericardial or pleural effusion. Minimal dependent changes likely atelectasis. Liver: Normal morphology. Normal density. Biliary: No gross biliary ductal dilatation allowing for noncontrast technique. Gallbladder surgically absent. Pancreas: Moderate parenchymal atrophy. Spleen: Normal noncontrast appearance. Adrenal glands: Normal noncontrast appearance. Kidneys and ureters: Nonobstructing 3 mm calculus at the lower pole the right kidney. Mild right pelvocaliectasis with an obstructing 4 mm calculus in the proximal right ureter. Nonobstructing punctate calculi or Ricardo's plaques noted at the lower pole of the left kidney. No left hydronephrosis. In additional ureteral calculus is identified at the right ureterovesical junction measuring 3-4 mm. No left ureteral calculi. Bladder: Normal. No bladder calculi. Pelvic organs: Prostate enlargement likely secondary to benign prostatic hyperplasia. Bowel: Mild apparent bowel wall thickening of the proximal to mid sigmoid colon without diverticulosis or pericolonic inflammatory change. Mild stool burden throughout normal caliber colon. The remainder of the colon is normal-appearing. The appendix is normal. No bowel obstruction. Small bowel is noted near the right inguinal canal though no hernia is present. Peritoneal cavity: No free fluid or intraperitoneal gas. Lymph nodes: No enlarged lymph nodes in the abdomen or pelvis. Vasculature: Atherosclerosis of the abdominal aorta with a stent in place within the right common iliac artery across a mild aneurysm. Abdominal wall: Postsurgical changes of prior umbilical hernia repair and right inguinal hernia repair suspected. Musculoskeletal: Normal. IMPRESSION: 1. Mild apparent wall thickening of the proximal to mid sigmoid colon without evidence of diverticulosis. This may be due to peristalsis, underdistention, or mild focal colitis. 2. Two right ureteral calculi, which appear to be obstructing: a 4 mm proximal right ureteral calculus and 3-4 mm right UVJ calculus. Resultant mild right hydronephrosis. 3. Additional nonobstructing right nephrolithiasis. Developing left nep hrolithiasis. 4. Prostatomegaly. ACT 112: Negative or not required by law. Electronically signed by: Hunter Canada M.D. 06/26/2019 4:37 PM Dictated: 06/26/191629 Transcribed: 06/26/191629 CT angio abdomen pelvis w con CLINICAL HISTORY: 63 years-old Male with eval for ischemic colitis acute lower abdominal pain with clinical concern for ischemic colitis COMPARISON STUDY: CT abdomen and pelvis of same day TECHNIQUE: Following the IV administration of 119 cc of Optiray 320, CT angiogram of the abdomen and pelvis was performed from the lung bases the proximal femora. Images are reviewed in the axial, sagittal, and coronal planes. 3-D MIPS images are created and assessed. IV contrast was administered without complication. A dose lowering technique was utilized adhering to the principles of ALARA. CT DOSE: 425.53 mGy.cm FINDINGS: CTA: Severe mixed plaque of the abdominal aorta and branch vessels. Patent right common iliac stent graft there is noted at the level of extensive mixed plaque formation with probable ulcerative plaque formation in fusiform dilation measuring up to 1.5 cm. patent bilateral common and external iliac arteries with proximal femoral artery is also patent. Celiac trunk, superior and inferior mesenteric arteries appear patent. The renal arteries are also patent without high-grade stenosis. CT ABDOMEN/PELVIS: Mild bibasilar atelectasis. No pneumatosis or pneumoperitoneum. Unremarkable inferior cardiac chambers. Spleen, pancreas and adrenal glands are unremarkable. Cholecystectomy. Unremarkable liver. Nonobstructing bilateral nephrolithiasis. Mild right-sided hydroureteronephrosis with a proximal ureteral 4 mm and distal ureteral 3 mm calculi, unchanged from comparison study of same day. Mild nonspecific bilateral perinephric stranding. Mild urinary bladder distention with prostamegaly. No adenopathy. No bowel obstruction. Moderate fecal retention. Circumferential wall thickening of the sigmoid colon is redemonstrated. No significant pericolonic inflammation. Noninflamed appendix. Soft tissues are unremarkable. Degenerative changes of the spine, pelvis and hips. IMPRESSION: 1. Severe mixed plaque of the abdominal aorta and branch vessels. There is no dissection, high-grade stenosis or proximal branch occlusion identified. 2. Patent right common femoral stent graft. 3. Circumferential wall thickening of the sigmoid colon redemonstrated suspicious for a nonspecific colitis. 4. Mild right-sided hydroureteronephrosis with unchanged proximal and distal ureteral calculi as above. 5. Nonobstructing bilateral nephrolithiasis. 6. Additional findings as above. ACT 112: Negative or not required by law. The above report was generated using voice recognition software. It may contain grammatical, syntax or spelling errors. Electronically signed by: Brian Garibay M.D. 06/26/2019 6:08 PM Dictated: 06/26/19 1757 Code Status & VTE Plan Code Status DNR VTE Prophylaxis Plan VTE Prophylaxis will be ordered: Yes PG Care Time/CCT Total # of Minutes Spent Total Time Spent with Patient: Total time spent is greater than 50% in coordination of care (as documented) at patient's floor/unit and/or counseling patient: Coding Level of Care Code 99481 Initial Inpt Care Lvl 3 Diagnoses Abdominal pain, LLQ R10.32 Ureterolithiasis N20.1 Colitis K52.9 BPH (benign prostatic hyperplasia) N40.1; R39.12 Lower urinary tract symptom presence: symptoms present Lower urinary tract symptom detail: weak urinary stream COPD, moderate J44.9 Primary hypogonadism in male E29.1 PAD (peripheral artery disease) I73.9 GERD (gastroesophageal reflux disease) K21.9 Esophagitis presence: esophagitis presence not specified Fibromyalgia M79.7 Migraine G43.909 Migraine type: unspecified (1) BPH (benign prostatic hyperplasia) Lower urinary tract symptom presence: symptoms present Lower urinary tract symptom detail: weak urinary stream Qualified Code(s): N40.1 - Benign prostatic hyperplasia with lower urinary tract symptoms; R39.12 - Poor urinary stream (2) GERD (gastroesophageal reflux disease) Esophagitis presence: esophagitis presence not specified Qualified Code(s): K21.9 - Gastro-esophageal reflux disease without esophagitis (3) Migraine Migraine type: unspecified
[2019-06-26] MEDS ORDERED: ALBUTEROL HFA 8 GM INHALER INH PRN (21:39)
[2019-06-26 21:40] LABS: Magnesium 1.9 mg/dl (1.8-2.4); Phosphorus 3.1 mg/dl (2.5-4.9)
[2019-06-26] MEDS: SULINDAC 200 MG TAB PO SCH (22:00)
[2019-06-26] MEDS: LACTATED RINGER'S 1,000 ML IV SCH (22:01)
[2019-06-26] MEDS: TOPIRAMATE 50 MG TAB PO SCH (22:01)
[2019-06-26] MEDS: DOCUSATE SODIUM 100 MG CAP PO SCH (22:01)
[2019-06-26] MEDS: AMITRIPTYLINE HCL 100 MG TAB PO SCH (22:02)
[2019-06-26] MEDS: BUSPIRONE HCL 7.5 MG TAB PO SCH (22:03)
[2019-06-26] MEDS: DULOXETINE HCL 60 MG CAP PO SCH (22:03)
[2019-06-26] MEDS: PRAVASTATIN SOD 40 MG TAB PO SCH (22:04)
[2019-06-26] MEDS: IPRATROPIUM BROMIDE/ALBUTEROL respimat INH INH SCH (22:05)
[2019-06-27] MEDS ORDERED: MoRPHine SULFATE 2 MG/ML CARP IV STA ×2 (05:40→15:56)
--- NOTE | 2019-06-27 05:44 | Communication Note ---
Date of Service: June 27, 2019 Spoke to patient this morning, he was having worsening pain and felt he needed something stronger to take pain away. We discussed his allergies to many opiates and they were never anaphyactic but rather just itching. We discussed that this likely doesn't represent a true allergy but just a side effect of medication and he said he would live with that to help get the pain down. Ordered 2 mg of morphine for patient
[2019-06-27 05:56] LABS: Basophils # (auto) 0.05 K/uL (0-0.2); Basophils % (auto) 0.5 %; Eosinophils # (auto) 0.85 K/uL (0-0.5); Eosinophils % (auto) 8.4 %; Hematocrit (blood only) 39.6 % (42-52); Hemoglobin 13.2 g/dL (14.0-18.0); Immature Granulocytes # (auto) 0.05 K/uL (0.00-0.02); Immature Granulocytes % (auto) 0.5 %; Lymphocytes # (auto) 3.25 K/uL (1.2-3.4); Lymphocytes % (auto) 32.2 %; Mean Corpuscular Hemoglobin 31.7 pg (25-34); Mean Corpuscular Hgb Conc 33.3 g/dL (32-36); Mean Platelet Volume 11.1 fL (7.4-10.4); Monocytes # (auto) 1.22 K/uL (0.11-0.59); Monocytes % (auto) 12.1 %; Neutrophils # (auto) 4.68 K/uL (1.4-6.5); Neutrophils % (auto) 46.3 %; Platelet Count 189 K/uL (130-400); RDW Coefficient of Variation 16.1 % (11.5-14.5); RDW Standard Deviation 55.5 fL (36.4-46.3); Red Blood Count 4.17 M/uL (4.7-6.1)
[2019-06-27] MEDS: LACTATED RINGER'S 1,000 ML IV SCH (06:03)
[2019-06-27 06:13] LABS: Prothrombin Time 10.9 Seconds (9.0-12.0)
[2019-06-27 06:37] LABS: BUN Creatinine Ratio 15.3 (10-20); Bilirubin Direct 0.1 mg/dl (0-0.2); Bilirubin,Total 0.6 mg/dl (0.2-1); Calcium 8.8 mg/dl (8.5-10.1); Creatinine Clr Calc Pharmacy 70.6 ml/min; Est GFR (African American) 76.7; Est GFR (Non-African American) 66.2; Potassium 4.2 mmol/L (3.5-5.1); Total Protein 6.5 gm/dl (6.4-8.2)
--- NOTE | 2019-06-27 09:01 | XRay Report ---
XR KUB/Abdomen 1 view CLINICAL HISTORY: right ureteral stones COMPARISON STUDY: 12/01/2018, CT scan dated 06/26/2019 FINDINGS: The renal shadows are largely obscured by overlying bowel gas and fecal material. There is moderate colonic stool. There are surgical clips in the right upper quadrant consistent with a prior cholecystectomy. There are no transition zones indicate bowel obstruction. There is a right iliac milena nt. There is an equivocal proximal right ureteral calculus at the L3 level. IMPRESSION: 1. Technically limited study 2. Nonobstructive bowel gas pattern 3. Equivocal 3 mm proximal right ureteral calculus ACT 112: Negative or not required by law. Electronically signed by: Abdifatah Ortega M.D. 06/27/2019 8:59 AM
[2019-06-27] MEDS: TESTOSTERONE~ORDER AWAITING ACTION SCH ×2 (09:04→15:51)
[2019-06-27] MEDS: TAMSULOSIN HCL 0.4 MG CAP PO SCH (09:06)
[2019-06-27] MEDS: FINASTERIDE 5 MG TAB PO SCH (09:07)
[2019-06-27] MEDS: DULOXETINE HCL 30 MG CAP PO SCH (09:07)
[2019-06-27] MEDS: ASPIRIN 81 MG ECTAB PO SCH (09:08)
[2019-06-27] MEDS: PANTOprazole 40 MG TAB PO SCH (09:08)
[2019-06-27] MEDS: IPRATROPIUM BROMIDE/ALBUTEROL respimat INH INH SCH ×4 (09:08→21:30)
[2019-06-27] MEDS: TOPIRAMATE 50 MG TAB PO SCH ×2 (09:09→21:30)
[2019-06-27] MEDS: BUSPIRONE HCL 7.5 MG TAB PO SCH ×2 (09:10→21:30)
[2019-06-27] MEDS: SULINDAC 200 MG TAB PO SCH ×2 (09:11→21:29)
[2019-06-27] MEDS: PREGABALIN 150 MG CAP PO SCH ×3 (09:12→21:28)
--- NOTE | 2019-06-27 09:22 | Urology Consultation ---
Date of Consultation June 27, 2019 Assessment & Plan (1) Right ureteral stone: (2) Hydronephrosis of right kidney: 63 year-old male patient with multiple comorbidities, admitted with left lower quadrant abdominal pain, colitis, and obstructing right 4 mm proximal ureteral stone in addition to right 3 mm UVJ stone with associated mild right hydronephrosis. -Case discussed with Dr. Spring. -Discussed treatment options with patient including maximum expulsion therapy versus acute surgical intervention. -Wbc normal today, patient non-toxic, and afebrile. -Creatinine improved this morning with IV hydration. -Urinalysis not indicative of infection. -Okay to maintain bennett catheter, strain urine. -Recommend continuing Flomax, IV hydration, and pain control. -Colitis treatment per primary team. -No acute intervention required today, okay to give diet and make NPO at midnight. -Will reassess patient in the morning. Please consult our service urgently if patient develops fever >101F, intractable pain or nausea, as this will necessitate urgent surgical intervention. Thank you for the consultation and we will continue to monitor closely with primary service. History of Present Illness Reason for Consultation: Nephrolithiasis Attending Physician: Ni Santoyo MD History of Present Illness 63 year-old male patient, with past medical history noted for Klinefelter Syndrome, migraines, chronic back pain, and fibromyalgia, admitted by hospital service on June 25 with left lower quadrant abdominal pain, colitis, and nephrolithiasis. Patient reports persistent left lower quadrant abdominal pain with radiating left testicular pain that began 3 days prior to ER arrival. He then developed difficulty urinating, requiring need to strain. Patient did not have vomiting, but had associated dark-colored stool with associated diarrhea. Urology service consulted due to nephrolithiasis. Patient known to [facility] urology service, follows with Dr. Pato Spring. Does have known history of renal stones. Has passed stones spontaneously in the past. He did require surgical intervention in September of 2017, right URS-LL. Patient's last office visit was May 2019 in which stone management discussed. Chart review: Afebrile Wbc 10.10 (previously 15.79 on 06/25) Hemoglobin 13.2 Creatinine 1.16 (previously 1.46 on 06/25) Urinalysis reviewed, not indicative of infection. PSA 0.812 CT abd/pelvis - personally reviewed. Impression 1. Mild apparent wall thickening of the proximal to mid sigmoid colon without evidence of diverticulosis. This may be due to peristalsis, underdistention, or mild focal colitis. 2. Two right ureteral calculi, which appear to be obstructing: a 4 mm proximal right ureteral calculus and 3-4 mm right UVJ calculus. Resultant mild right hydronephrosis. 3. Additional nonobstructing right nephrolithiasis. Developing left nephrolithiasis. 4. Prostatomegaly. Abd/pelvis CTA - Impression 1. Severe mixed plaque of the abdominal aorta and branch vessels. There is no dissection, high-grade stenosis or proximal branch occlusion identified. 2. Patent right common femoral stent graft. 3. Circumferential wall thickening of the sigmoid colon redemonstrated suspicious for a nonspecific colitis. 4. Mild right-sided hydroureteronephrosis with unchanged proximal and distal ureteral calculi as above. 5. Nonobstructing bilateral nephrolithiasis. 6. Additional findings as above. KUB - personally reviewed. IMPRESSION: 1. Technically limited study 2. Nonobstructive bowel gas pattern 3. Equivocal 3 mm proximal right ureteral calculus Patient examined this morning, awake, alert, non-toxic appearing. Does appear comfortable. States he is feeling better today than yesterday but reports he is achy. Denies fevers or chills. Reports diarrhea, dark in color. States since bnenett catheter was placed, he is having burning to left side of penis. Reports prior to catheter placement, he was having difficulty emptying his bladder, feeling the need to strain. Denies baseline dysuria, frequency, or urgency. Denies hematuria. He does have a history of smoking both tobacco and marijuana, quit in 2016. Currently having left lower quadrant abdominal discomfort radiating into left pelvis - requiring IV morphine. States his bilateral lower back is also painful however patient note he does have chronic back pain. Has been NPO since midnight. Denies acute urologic concerns today. Allergies Allergy/AdvReac Type Severity Reaction Status Date / Time bee venom protein (honey bee) Allergy Severe ANAPHYLAXIS Verified 06/26/19 14:51 tramadol Allergy Mild HIVES Verified 06/26/19 14:51 hydromorphone Allergy Unknown PRURITUS Verified 06/26/19 14:51 morphine Allergy Unknown PRURITUS Verified 06/26/19 14:51 oxycodone Allergy Unknown PRURITUS Verified 06/26/19 14:51 Sulfa (Sulfonamide Allergy Unknown PRURITUS Verified 06/26/19 14:51 Antibiotics) naproxen AdvReac Mild HEARTBURN Verified 06/26/19 14:51 Home Medications Home Medications Medication Instructions Recorded Confirmed Type Combivent Respimat 1 puff INHALATION QID 08/22/18 06/26/19 History albuterol sulfate 2 inh INHALATION QID PRN 08/22/18 06/26/19 History docusate sodium 100 mg PO HS 08/22/18 06/26/19 History duloxetine 60 mg capsule,delayed 60 mg PO HS #30 cap 11/30/18 06/26/19 Rx release aspirin 81 mg tablet 81 mg PO DAILY tab 12/22/18 06/26/19 History testosterone 20.25 mg/1.25 gram 1 pump TRANSDERMAL DAILY #225 gm 01/09/19 06/26/19 Rx (1.62 %) transdermal gel pump hydroxyzine HCl 50 mg tablet 50 mg PO HS #30 tab 02/07/19 06/26/19 Rx topiramate 50 mg tablet 50 mg PO BID #60 tab 02/26/19 06/26/19 Rx Nexium 40 mg capsule,delayed 40 mg PO DAILY #30 cap NS 03/06/19 06/26/19 Rx release tamsulosin 0.4 mg capsule 0.4 mg PO DAILY #90 cap 04/04/19 06/26/19 Rx buspirone 7.5 mg tablet 7.5 mg PO BID #60 tab 04/26/19 06/26/19 Rx sulindac 200 mg tablet 200 mg PO BID #60 tab 04/27/19 06/26/19 Rx nicotine 10 mg inhalation cartridge 1 inh INHALATION .COMPLEX #168 ea 05/03/19 06/26/19 Rx duloxetine 30 mg capsule,delayed See Rx Instructions .ROUTE 05/29/19 06/26/19 Rx release .COMPLEX #30 capsule amitriptyline 100 mg tablet See Rx Instructions .ROUTE 06/05/19 06/26/19 Rx .COMPLEX #30 tablet pravastatin 40 mg tablet 40 mg PO HS #90 tab 06/05/19 06/26/19 Rx rizatriptan 10 mg tablet 10 mg PO UD PRN #10 tab 06/05/19 06/26/19 Rx Lyrica 150 mg capsule 150 mg PO TID #90 cap NS 06/07/19 06/26/19 Rx Patient History Medical History Asthma BPH (benign prostatic hyperplasia) Emphysema of lung PER CHEST CT Fibromyalgia GERD (gastroesophageal reflux disease) Kidney stones Migraine Osteoarthritis Pulmonary nodules Sleep apnea NO DEVICE Stroke 2015 FOLLOWING MULTIPLE TIA'S Transient ischemic attack (TIA) MULTIPLE 2015 Surgical History History of carpal tunnel release History of cholecystectomy History of cystoscopy History of herniorrhaphy History of knee surgery History of reduction of nasal fracture Social History Preferred Language: Kyrgyz Communication Ability: Effective 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 Beliefs That Will Affect Care: None Current Living Situation: Other Current Living Situation Comment: ex s/o Feels Safe at Home: Yes Smoking Status: Former smoker Tobacco Type: cigarettes ; Cigarettes Per Day: HX OF 1+ PPD X40 YEARS, QUIT IN 2015, USES PRN NICOTINE INHALER ; Second Hand Exposure: Yes ; Hx Alcohol Use: No (former) Hx Substance Use: No Review of Systems Constitutional: as per Subjective / HPI; no fever and no chills Cardiovascular: no lightheadedness and no syncope Gastrointestinal: as per Subjective / HPI, + abdominal pain and + diarrhea/loose stools; no nausea and no vomiting Genitourinary: + as per Subjective / HPI Musculoskeletal: as per Subjective / HPI and + back pain Integumentary: no rash Reports minor generalized itching Neurologic: + headache(s); no dizziness and no syncope Hematologic / Lymphatic: no easy bleeding and no easy bruising Physical Exam Constitutional: well developed, well nourished and comfortable; no acute distress and not ill appearing Eyes: + anicteric sclerae ENMT: Ears: no external ear abnormality Nose: no external nose abnormality Neck: normal visual inspection and trachea midline Respiratory: normal respiratory effort and able to speak in complete sentences; no respiratory distress and no audible wheezes Cardiovascular: Extremities: no calf tenderness and no edema Gastrointestinal (Abdomen): Inspection/Auscultation: abdomen normal to inspection and + abdomen distended (Mildly distended.) Percussion/Palpation: + abdomen tender (Tender to left lower quadrant on palpation. ) and abdomen soft; no guarding No rebound tenderness. Musculoskeletal: Extremities: strength 5/5 throughout Moves all extremities without difficulty. Skin: No visible rashes, lesions, or wounds noted. Neurologic: moves all extremities and awake Psychiatric: Orientation: alert, oriented x 3 and cooperative Affect: euthymic affect Genitourinary: no CVA tenderness Bennett catheter intact, draining clear yellow urine. No clots or sediment. Results & Data Vital Signs (Past 12 Hours) Vital Signs Temp Pulse Pulse Resp BP Pulse Ox 06/27/19 07:57 36.5 C 68 20 94/59 L 92 06/27/19 04:21 36.3 C L 69 18 121/71 92 06/26/19 23:56 75 06/26/19 23:42 36.3 C L 75 16 101/62 92 PG Care Time/CCT Total # of Minutes Spent Total Time Spent with Patient: Total time spent is greater than 50% in coordination of care (as documented) at patient's floor/unit and/or counseling patient: Coding Level of Care Code 10718 Inpt Consult Level 4 Diagnoses Right ureteral stone N20.1 Hydronephrosis of right kidney N13.30
[2019-06-27] MEDS ORDERED: MoRPHine SULFATE 2 MG/ML CARP IV ONE (10:00)
--- NOTE | 2019-06-27 14:44 | Hospitalist Progress Note ---
Date of Service June 27, 2019 Assessment & Plan (1) Abdominal pain, LLQ: 63 yo M with a PMHx of recurrent kidney stones admitted for evaluation of left lower quadrant abdominal pain, found to have obstructive R sided ureteral stone and evidence of colitis on CT scan. - pain secondary to the above - CTA of abdomen/pelvis revealed severe mixed plaque of the abdominal aorta and branch vessels, no dissection/stenosis or occlusion - Lipase, LFTs, Alk phos and lactate WNL - tylenol prn and IV morphine prn for pain control - zofran prn for nausea - urology consulted for stone management (2) Colitis: - appreciated on abdominopelvic CT scan - WBC 15 on admission, down to 10 today - stool culture and C.diff ordered (3) Right ureteral stone: - obstructing right 4 mm proximal ureteral stone in addition to right 3 mm UVJ stone with associated mild right hydronephrosis - patient has history of recurrent kidney stones - urology consulted - volume resuscitation provided in ED; IVF d/c as patient is tolerating PO intake - continue flomax - NPO after midnight in the event of a procedure on 06/27 (4) Hydronephrosis of right kidney: - secondary to obstructive right 4 mm proximal ureteral stone in addition to right 3 mm UVJ stone - managment per urology (5) COPD, moderate: - no baseline O2 requirement - continue home inhalers (6) BPH (benign prostatic hyperplasia): - continue flomax - finasteride initiated on admission - prostatomegaly noted on a/p CT scan (7) GERD (gastroesophageal reflux disease): continue pantroprazole (8) Migraine: - continue prophylaxis with topamax 50mg, qAM - Rizatriptan prn for abortive agent (9) Fibromyalgia: - continue Lyrica, Elavil and cymbalta (10) Anxiety: - continue hydroxyzine and buspar Code Status: Full DVT ppx: Diet: NPO after midnight Dispo: Floor Admission and Anticipated Discharge Date Admission Date: June 26, 2019 Supervising Physician Co-Signing Physician Notes Resident Physician Supervision Note: I independently interviewed and examined the patient and verified the tran history and physical, reviewed labs and image studies, discussed the case with the resident Dr. Macias and agree with the findings and care plan. Subjective Patient having no abdominal pain at present. When it was painful, he had bilateral lower quadrant discomfort. He endorses having to strain to urinate before coming to the hospital. He had diarrhea Tuesday and Tuesday of week, no episodes within past 24 hours. Review of Systems Review of Systems: All systems reviewed & are unremarkable except as noted in HPI & below Physical Exam Constitutional: WD/WN, vitals as above cooperative Eyes: + anicteric sclerae ENMT: external ear and nose normal, oropharynx normal Neck: normal visual inspection and trachea midline Respiratory: normal respiratory effort, lungs clear to auscultation Cardiovascular: RRR, no murmur, no edema Heart Sounds: normal S1 and normal S2 Gastrointestinal (Abdomen): normal bowel sounds, soft, nontender, no hepatosplenomegaly Skin: no rashes, warm and dry Psychiatric: A+Ox3, euthymic affect Genitourinary: Samuel catheter in place draining yellow colored urine without visible clots Results & Data ([facility]) Vital Signs (Past 12 Hours) Vital Signs Temp Pulse Resp BP Pulse Ox 06/27/19 13:50 36.6 C 66 20 106/66 94 06/27/19 11:20 36.4 C L 65 20 107/69 92 06/27/19 07:57 36.5 C 68 20 94/59 L 92 06/27/19 04:21 36.3 C L 69 18 121/71 92 Resident Activity Tracking Resident Involvement: Resident Care Provided Care Provided: Adult Hospital Medicine (1) BPH (benign prostatic hyperplasia) Lower urinary tract symptom detail: weak urinary stream Lower urinary tract symptom presence: symptoms present Qualified Code(s): N40.1 - Benign prostatic hyperplasia with lower urinary tract symptoms; R39.12 - Poor urinary stream (2) Migraine Migraine type: unspecified (3) GERD (gastroesophageal reflux disease) Esophagitis presence: esophagitis presence not specified Qualified Code(s): K21.9 - Gastro-esophageal reflux disease without esophagitis
[2019-06-27] MEDS: NICOTINE 14 MG/24 HR PATCH TD SCH (17:39)
[2019-06-27] MEDS: AMITRIPTYLINE HCL 100 MG TAB PO SCH (21:30)
[2019-06-27] MEDS: DULOXETINE HCL 60 MG CAP PO SCH (21:31)
[2019-06-27] MEDS: PRAVASTATIN SOD 40 MG TAB PO SCH (21:31)
[2019-06-27] MEDS: DOCUSATE SODIUM 100 MG CAP PO SCH (21:32)
[2019-06-27] MEDS: MoRPHine SULFATE 2 MG/ML CARP IV PRN (22:27)
[2019-06-28] MEDS ORDERED: CIPROFLOXACIN / D5W 400 MG/200 ML BAG IV SCH (06:00)
--- NOTE | 2019-06-28 07:45 | Urology Progress Note ---
Date of Service June 28, 2019 Assessment & Plan (1) Right ureteral stone: (2) Hydronephrosis of right kidney: 63 year-old male patient with multiple comorbidities, admitted with left lower quadrant abdominal pain, colitis, and obstructing right 4 mm proximal ureteral stone in addition to right 3 mm UVJ stone with associated mild right hydronephrosis. - Keep NPO - Strain all urine - KUB reviewed - Patient wishes to proceed with intervention Findings reviewed with Dr. Spring. Given his renal colic and right hydronephrosis in the context of an obstructing 3 mm right ureteral stone, will proceed with OR for cystoscopy, Right retrograde pyelogram and Right stent placement, possible ureteroscopy, laser lithotripsy, stone basketing, possible ureteral dilation depending on findings. Risks and benefits to be reviewed with patient by Dr. Spring. OR notified. Preoperative CXR and EKG ordered. Will cover with IV Ciprofloxacin preoperatively. Subjective Asleep, arouses easily. No issues overnight. Denies abdominal, flank or suprapubic pain at present. Some right hip pain this morning that he attributes to his sleep position. Last dose of pain medication last night at 2200. Samuel catheter intact, patent, draining clear yellow urine. Nursing is straining all urine, no stone passage per nursing. No f/c/n/v. KUB (06/26) Impression: 1. Technically limited study 2. Nonobstructive bowel gas pattern 3. Equivocal 3 mm proximal right ureteral calculus AM lab results not available at time of exam. Review of Systems Constitutional: as per Subjective / HPI Gastrointestinal: as per Subjective / HPI Genitourinary: + as per Subjective / HPI Physical Exam Constitutional: well developed and well nourished; no acute distress and not ill appearing Respiratory: normal respiratory effort and able to speak in complete sentences; no respiratory distress and no labored breathing Cardiovascular: Extremities: no pedal edema Gastrointestinal (Abdomen): Inspection/Auscultation: abdomen normal to inspection; abdomen not distended Percussion/Palpation: abdomen soft; abdomen nontender and no guarding Neurologic: moves all extremities and awake Psychiatric: A+Ox3, euthymic affect Genitourinary: no CVA tenderness Samuel intact, patent, draining clear yellow urine Results & Data Vital Signs (Past 12 Hours) Vital Signs Temp Pulse Pulse Resp BP BP Pulse Ox 06/28/19 03:37 36.5 C 74 18 97/60 L 90 06/28/19 00:53 70 06/27/19 23:29 36.8 C 68 18 96/68 L 90 06/27/19 19:53 36.3 C L 77 18 101/63 93 PG Care Time/CCT Total # of Minutes Spent Total Time Spent with Patient: Total time spent is greater than 50% in coordination of care (as documented) at patient's floor/unit and/or counseling patient: Coding Level of Care Code 88310 Subseq Hosp Care Lvl 2 Diagnoses Right ureteral stone N20.1 Hydronephrosis of right kidney N13.30
[2019-06-28] MEDS ORDERED: LACTATED RINGER'S 1,000 ML IV ONE (07:56)
--- NOTE | 2019-06-28 08:28 | XRay Report ---
XR chest 1V portable HISTORY: 63 years-old Male pre-op preoperative exam. No acute chest complaints COMPARISON: KUB 06/27/2019, chest CT 07/19/2018, chest radiograph 04/06/2018 TECHNIQUE: Portable AP view of the chest FINDINGS: Cardiomediastinal and hilar silhouettes are within normal limits. No pneumothorax, pleural effusion, airspace consolidation or overt pulmonary edema. Moderate emphysema. Mild degenerative changes of the shoulders and spine. IMPRESSION: Moderate emphysema without acute process. ACT 112: Negative or not required by law. The above report was generated using voice recognition software. It may contain grammatical, syntax o r spelling errors. Electronically signed by: Brian Garibay M.D. 06/28/2019 8:27 AM
[2019-06-28] MEDS: MoRPHine SULFATE 2 MG/ML CARP IV PRN ×2 (08:47→20:01)
[2019-06-28] MEDS: TESTOSTERONE~ORDER AWAITING ACTION SCH ×3 (08:55→13:51)
[2019-06-28] MEDS: DULOXETINE HCL 30 MG CAP PO SCH (08:58)
[2019-06-28] MEDS: TAMSULOSIN HCL 0.4 MG CAP PO SCH (08:58)
[2019-06-28] MEDS: ASPIRIN 81 MG ECTAB PO SCH (08:58)
[2019-06-28] MEDS: SULINDAC 200 MG TAB PO SCH ×2 (08:58→20:07)
[2019-06-28] MEDS: TOPIRAMATE 50 MG TAB PO SCH ×2 (08:58→20:10)
[2019-06-28] MEDS: IPRATROPIUM BROMIDE/ALBUTEROL respimat INH INH SCH ×4 (08:58→20:08)
[2019-06-28] MEDS: FINASTERIDE 5 MG TAB PO SCH (08:58)
[2019-06-28] MEDS: NICOTINE 14 MG/24 HR PATCH TD SCH (08:58)
[2019-06-28] MEDS: BUSPIRONE HCL 7.5 MG TAB PO SCH ×2 (08:58→20:06)
[2019-06-28] MEDS: PREGABALIN 150 MG CAP PO SCH ×3 (08:58→20:20)
[2019-06-28] MEDS: PANTOprazole 40 MG TAB PO SCH (08:58)
[2019-06-28] MEDS ORDERED: MoRPHine SULFATE 2 MG/ML CARP IV STA (09:38)
[2019-06-28] MEDS: KETOROLAC TROMETHAMINE 15 MG/ML VIAL IV PRN (12:18)
--- NOTE | 2019-06-28 14:47 | Electrocardiogram Report ---
Test Reason : Blood Pressure : / mmHG Vent. Rate : 085 BPM Atrial Rate : 085 BPM P-R Int : 218 ms QRS Dur : 076 ms QT Int : 356 ms P-R-T Axes : 080 -63 034 degrees QTc Int : 423 ms Poor data quality, interpretation may be adversely affected Sinus rhythm with 1st degree A-V block Left anterior fascicular block Incomplete right bundle branch block Abnormal ECG When compared with ECG of 08-NOV-2017 12:29, No significant change Confirmed by Michael Levy ([id number]) on 06/28/2019 2:47:39 PM Referred By: Lesa Dc Confirmed By:Michael Levy
[2019-06-28] MEDS ORDERED: LIDOCAINE HCL 2% 2 ML VIAL/AMP(20MG/ML) INFIL ONE (15:53)
[2019-06-28] MEDS ORDERED: MIDAZOLAM HCL 1 MG/ML 2ML VIAL ONE (15:53)
[2019-06-28] MEDS ORDERED: PROPOFOL IV EMULSION 10 MG/ML 20 ML VIAL IV ONE (15:53)
[2019-06-28] MEDS ORDERED: fentaNYL citrate 100 MCG/2 ML VIAL ONE (15:54)
[2019-06-28] MEDS ORDERED: fentaNYL citrate 100 MCG/2 ML VIAL IV PRN (16:03)
[2019-06-28] MEDS ORDERED: HYDROmorphone INJ 2 MG/ML SYR/VIAL IV PRN (16:03)
[2019-06-28] MEDS ORDERED: ePHEDrine sulfate 50 MG/ML AMP IV PRN (16:03)
[2019-06-28] MEDS ORDERED: ONDANSETRON INJ 2 MG/ML 2 ML VIAL IV PRN (16:03)
[2019-06-28] MEDS ORDERED: ATROPINE SULFATE 0.1 MG/ML 10ML SYR IV PRN (16:03)
--- NOTE | 2019-06-28 16:06 | Anesthesiology Consultation ---
Date of Service June 28, 2019 Assessment & Plan ASA ASA3 Proposed Anesthesia Anesthesia Type: MAC Risk / Benefits Reviewed With: PT / POA / Parent / Guardian, Accepts Plan and Informed Consent Obtained History Surgery Operation Date: 06/28/19 15:40 Proposed Procedures p Cystoscopy Right Stent Insertion Possible Ureteroscopy - [place], Height/Weight Height: 6 ft Weight: 80.2 kg Allergies Allergy/AdvReac Type Severity Reaction Status Date / Time bee venom protein (honey bee) Allergy Severe ANAPHYLAXIS Verified 06/28/19 15:50 Sulfa (Sulfonamide Allergy Unknown PRURITUS Verified 06/28/19 15:50 Antibiotics) Medications Home Medications Medication Instructions Recorded Confirmed Last Taken Combivent Respimat 1 puff INHALATION QID 08/22/18 06/26/19 10/05/18 05:30 albuterol sulfate 2 inh INHALATION QID PRN 08/22/18 06/26/19 Unknown docusate sodium 100 mg PO HS 08/22/18 06/26/19 10/04/18 21:30 duloxetine 60 mg capsule,delayed 60 mg PO HS #30 cap 11/30/18 06/26/19 Unknown release aspirin 81 mg tablet 81 mg PO DAILY tab 12/22/18 06/26/19 Unknown testosterone 20.25 mg/1.25 gram 1 pump TRANSDERMAL DAILY #225 gm 01/09/19 06/26/19 Unknown (1.62 %) transdermal gel pump hydroxyzine HCl 50 mg tablet 50 mg PO HS #30 tab 02/07/19 06/26/19 Unknown topiramate 50 mg tablet 50 mg PO BID #60 tab 02/26/19 06/26/19 Unknown Nexium 40 mg capsule,delayed 40 mg PO DAILY #30 cap NS 03/06/19 06/26/19 Unknown release tamsulosin 0.4 mg capsule 0.4 mg PO DAILY #90 cap 04/04/19 06/26/19 Unknown buspirone 7.5 mg tablet 7.5 mg PO BID #60 tab 04/26/19 06/26/19 Unknown sulindac 200 mg tablet 200 mg PO BID #60 tab 04/27/19 06/26/19 Unknown nicotine 10 mg inhalation cartridge 1 inh INHALATION .COMPLEX #168 ea 05/03/19 06/26/19 Unknown duloxetine 30 mg capsule,delayed See Rx Instructions .ROUTE 05/29/19 06/26/19 Unknown release .COMPLEX #30 capsule amitriptyline 100 mg tablet See Rx Instructions .ROUTE 06/05/19 06/26/19 Unknown .COMPLEX #30 tablet pravastatin 40 mg tablet 40 mg PO HS #90 tab 06/05/19 06/26/19 Unknown rizatriptan 10 mg tablet 10 mg PO UD PRN #10 tab 06/05/19 06/26/19 Unknown Lyrica 150 mg capsule 150 mg PO TID #90 cap NS 06/07/19 06/26/19 Unknown Active Medications Generic Name Dose Route Start Last Admin Trade Name Freq PRN Reason Stop Dose Admin Albuterol 1 puffs 06/26/19 21:00 06/28/19 16:05 Combivent Respimat INH 07/26/19 20:59 Not Given QID PRITI Amitriptyline HCl 100 mg 06/26/19 21:00 06/27/19 21:30 Elavil PO 07/26/19 20:59 100 mg HS PRITI Administration Aspirin 81 mg 06/27/19 09:00 06/28/19 08:58 Ecotrin Ectab PO 07/27/19 08:59 81 mg DAILY PRITI Administration Buspirone HCl 7.5 mg 06/26/19 21:00 06/28/19 08:58 Buspar PO 07/26/19 20:59 7.5 mg BID PRITI Administration Docusate Sodium 100 mg 06/26/19 21:00 06/27/19 21:32 Colace PO 07/26/19 20:59 100 mg HS PRITI Administration Duloxetine HCl 30 mg 06/27/19 09:00 06/28/19 08:58 Cymbalta PO 07/27/19 08:59 30 mg DAILY PRITI Administration Duloxetine HCl 60 mg 06/26/19 21:00 06/27/19 21:31 Cymbalta PO 07/26/19 20:59 60 mg HS PRITI Administration Finasteride 5 mg 06/27/19 09:00 06/28/19 08:58 Proscar PO 07/27/19 08:59 5 mg QAM PRITI Administration Hydroxyzine HCl 50 mg 06/26/19 21:00 06/27/19 21:28 Vistaril PO 07/26/19 20:59 50 mg HS PRITI Administration Lactated Ringer's 1,000 mls @ 100 mls/hr 06/28/19 07:56 06/28/19 08:58 Lr IV 06/28/19 17:55 100 mls/hr .Q10H ONE Administration Ioversol 119 ml 06/26/19 17:51 06/26/19 17:52 Optiray 320 125ml IV 06/30/19 17:50 119 ml ONCE PRN Administration Interaction Checking Ketorolac Tromethamine 15 mg 06/28/19 10:08 06/28/19 12:18 Toradol IV 07/03/19 10:07 15 mg Q6H PRN Administration Pain Miscellaneous 1 ea 06/27/19 08:00 06/28/19 13:51 Order Awaiting Action N/A 07/27/19 07:59 Not Given QS PRITI Miscellaneous 1 ea 06/28/19 08:59 06/28/19 08:58 Remove Nicoderm Patch N/A 07/28/19 08:58 1 ea DAILY@0859 PRITI Administration Morphine Sulfate 2 mg 06/27/19 16:56 06/28/19 08:47 Morphine Sulfate IV 07/11/19 16:55 2 mg Q2H PRN Administration Pain Nicotine 14 mg 06/27/19 17:00 06/28/19 08:58 Nicoderm Cq TD 07/27/19 16:59 14 mg QAM PRITI Administration Pantoprazole Sodium 40 mg 06/27/19 09:00 06/28/19 08:58 Protonix PO 07/27/19 08:59 40 mg DAILY PRITI Administration Pravastatin Sodium 40 mg 06/26/19 21:00 06/27/19 21:31 Pravachol PO 07/26/19 20:59 40 mg HS PRITI Administration Pregabalin 150 mg 06/27/19 09:00 06/28/19 13:51 Lyrica PO 07/27/19 08:59 Not Given TID PRITI Sulindac 200 mg 06/26/19 21:00 06/28/19 08:58 Clinoril PO 07/26/19 20:59 200 mg BID PRITI Administration Tamsulosin HCl 0.4 mg 06/27/19 09:00 06/28/19 08:58 Flomax PO 07/27/19 08:59 0.4 mg DAILY PRITI Administration Topiramate 50 mg 06/26/19 21:00 06/28/19 08:58 Topamax PO 07/26/19 20:59 50 mg BID PRITI Administration NPO Date Last Intake of Fluids: 06/28/19 Time Last Intake of Fluids: 00:00 Date Last Intake of Solids: 06/27/19 Time Last Intake of Solids: 17:00 Past Medical History Medical History Asthma BPH (benign prostatic hyperplasia) Emphysema of lung PER CHEST CT Fibromyalgia GERD (gastroesophageal reflux disease) Kidney stones Migraine Osteoarthritis Pulmonary nodules Sleep apnea NO DEVICE Stroke 2015 FOLLOWING MULTIPLE TIA'S Transient ischemic attack (TIA) MULTIPLE 2015 Exercise / Class Metabolic Activity II 4-5 Yardwork/Stairs/Walk up hill Past Surgical History Surgical History History of carpal tunnel release History of cholecystectomy History of cystoscopy History of herniorrhaphy History of knee surgery History of reduction of nasal fracture Past Anesthesia History No Hx of Anesthesia Complications and No Family Hx of Anesthesia Complications History of PONV No Hx of PONV and No Hx of Motion Sickness Social History Smoking Status: Former smoker tobacco type: cigarettes Smoking cigarettes per day: HX OF 1+ PPD X40 YEARS, QUIT IN 2016, USES PRN NICOTINE INHALER Hx Alcohol Use: No (former) Alcohol Intake Frequency Comment: 3 years ago Hx Substance Use: No substance use type: former substance user and marijuana Substance Use Type Other:: HX OF PREVIOUS MARIJUANA USE Last Used Substance Other:: 3 years Review of Systems denies fever/cough/ colds/ chest pain/ SOB/ ZANA Constitutional: no fever and no chills Respiratory: no cough and no dyspnea denies ZANA Cardiovascular: no chest pain and no dyspnea on exertion Physical Exam Vital Signs Last Vital Signs Temp 36.8 C 06/28/19 15:52 Pulse 71 06/28/19 15:52 Resp 18 06/28/19 15:52 BP 137/74 06/28/19 15:52 Pulse Ox 94 06/28/19 15:52 ENMT Mouth: no TMJ abnormality and no dentition abnormality Thyromental Distance: > or= 3.5 Finger Breadths Mallampati Class: II Neck neck extension not limited Respiratory normal respiratory effort; no respiratory distress Auscultation: lungs clear to auscultation bilaterally Cardiovascular Rate/Rhythm: regular rate and regular rhythm Neurologic moves all extremities Psychiatric Orientation: alert and oriented x 3 Testing Laboratory Results 06/27/19 05:32 06/27/19 05:32 PT 10.9 Seconds (9.0-12.0) 06/27/19 05:32 INR 1.0 (0.9-1.1) 06/27/19 05:32 Urine Color Dark Yellow 06/26/19 16:30 Urine Appearance Cloudy (Clear) A 06/26/19 16:30 Urine pH 8.0 (4.5-7.5) H 06/26/19 16:30 Ur Specific [place] 1.014 (1.000-1.030) 06/26/19 16:30 Urine Protein Negative (Negative) 06/26/19 16:30 Urine Glucose (UA) Negative (Negative) 06/26/19 16:30 Urine Ketones Negative (Negative) 06/26/19 16:30 Urine Nitrite Negative (Negative) 06/26/19 16:30 Ur Leukocyte Esterase Negative (Negative) 06/26/19 16:30 Urine WBC (Auto) 1-5 /hpf (0-5) 06/26/19 16:30 Urine RBC (Auto) 10-30 /hpf (0-4) H 06/26/19 16:30 U Hyaline Cast (Auto) 1-5 /lpf (0-5) 06/26/19 16:30 U Epithel Cells (Auto) >30 /lpf (0-5) H 06/26/19 16:30 Urine Bacteria (Auto) Negative (Negative) 06/26/19 16:30
[2019-06-28] MEDS ORDERED: IOTHALAMATE MEGLUMINE II 17.2% 250 ML VIAL ONE (16:09)
--- NOTE | 2019-06-28 16:25 | Hospitalist Progress Note ---
Date of Service June 28, 2019 Assessment & Plan (1) Abdominal pain, LLQ: 63 yo M with a PMHx of recurrent kidney stones admitted for evaluation of left lower quadrant abdominal pain, found to have obstructive R sided ureteral stone and evidence of colitis on CT scan. - pain secondary to the above - CTA of abdomen/pelvis revealed severe mixed plaque of the abdominal aorta and branch vessels, no dissection/stenosis or occlusion - Lipase, LFTs, Alk phos and lactate WNL - tylenol prn and IV morphine prn for pain control - zofran prn for nausea - urology consulted for stone management (2) Colitis: - appreciated on abdominopelvic CT scan - WBC 15 on admission, down to 10 - patient afebrile - Cdiff and stool culture ordered (3) Right ureteral stone: - obstructing right 4 mm proximal ureteral stone in addition to right 3 mm UVJ stone with associated mild right hydronephrosis. - s/p Cystoscopy with Right Retrograde pyelogram and Stent Insertion today, 06/27 - patient has history of recurrent kidney stones - continue flomax (4) Hydronephrosis of right kidney: - secondary to obstructive right 4 mm proximal ureteral stone in addition to right 3 mm UVJ stone - managment per urology (5) COPD, moderate: - no baseline O2 requirement - continue home inhalers (6) BPH (benign prostatic hyperplasia): - continue flomax - finasteride initiated on admission - prostatomegaly noted on a/p CT scan (7) GERD (gastroesophageal reflux disease): continue pantroprazole (8) Migraine: - continue prophylaxis with topamax 50mg, qAM - Rizatriptan prn for abortive agent (9) Fibromyalgia: - continue Lyrica, Elavil and cymbalta (10) Anxiety: - continue hydroxyzine and buspar Code Status: Full DVT ppx: heparin 5,000 units, SQ q12 Diet: NPO after midnight Dispo: Floor Admission and Anticipated Discharge Date Admission Date: June 26, 2019 Supervising Physician Co-Signing Physician Notes Resident Physician Supervision Note: I independently interviewed and examined the patient and verified the tran history and physical, reviewed labs and image studies, discussed the case with the resident Dr. Macias and agree with the findings and care plan. Subjective No acute events overnight. Patient to have R ureteral stent placement today. NPO until procedure. Still in groin pain, radiation to R flank. Review of Systems Genitourinary: + flank pain Physical Exam Constitutional: WD/WN, vitals as above cooperative Eyes: + anicteric sclerae ENMT: external ear and nose normal, oropharynx normal Neck: normal visual inspection and trachea midline Respiratory: normal respiratory effort, lungs clear to auscultation Cardiovascular: RRR, no murmur, no edema Heart Sounds: normal S1 and normal S2 Gastrointestinal (Abdomen): normal bowel sounds, soft, nontender, no hepatosplenomegaly Skin: no rashes, warm and dry Psychiatric: A+Ox3, euthymic affect Results & Data ([facility]) Vital Signs (Past 12 Hours) Vital Signs Temp Pulse Pulse Resp BP BP Pulse Ox 06/28/19 15:52 36.8 C 71 18 137/74 94 06/28/19 15:15 36.7 C 70 20 128/71 91 06/28/19 15:07 72 06/28/19 11:42 36.6 C 73 16 103/67 90 06/28/19 07:57 75 06/28/19 07:50 36.5 C 80 16 109/69 90 Resident Activity Tracking Resident Involvement: Resident Care Provided Care Provided: Adult Hospital Medicine (1) BPH (benign prostatic hyperplasia) Lower urinary tract symptom detail: weak urinary stream Lower urinary tract symptom presence: symptoms present Qualified Code(s): N40.1 - Benign prostatic hyperplasia with lower urinary tract symptoms; R39.12 - Poor urinary stream (2) Migraine Migraine type: unspecified (3) GERD (gastroesophageal reflux disease) Esophagitis presence: esophagitis presence not specified Qualified Code(s): K21.9 - Gastro-esophageal reflux disease without esophagitis
--- NOTE | 2019-06-28 16:34 | Operative Report ---
PG Post Operative Report Pre & Post Diagnosis Obstructing Ureteral stones on right Same Operation Date: 06/28/19 15:40 <No data on this case meets the specified criteria> I identified the patient and participated in the time-out.: Yes Procedure Operation Date: 06/28/19 15:40 Actual Procedures p Cystoscopy with Right Retrograde pyelogram and Stent Insertion - Mann [place] DO Surgeon Mann [place], II, DO Corporate Development Associate None Estimated Blood Loss 1 Findings Consistent with Post-Op Diagnosis Stent placed in good position. Specimens None Drains 6 Fr Multilength 18 Fr Coude Catheter Anesthesia Type MAC Complications none Disposition Disposition: Recovery Room Indications Patient with obstruction. Risks and benefits discussed at length. Description of Procedure Patient was consented and brought back to the operating room. Patient was placed under anesthesia in the supine position and moved to the dorsal lithotomy position. Patient was prepped and draped in the regular sterile fashion. A time out was completed. A 30degree Cystoscope was placed into the bladder and the entire bladder was examined. The UO's were identified. The UO was cannulized with a catheter and a retrograde pyelogram was completed. A wire was then placed. With the wire in place, a 6 Fr Double J stent was placed. It was confirmed with fluoroscopy. With the stent in place, the bladder was emptied. The scope was removed. The patient was cleaned, aroused from anesthesia, and transferred to the pacu in stable condition having tolerated the procedure well with no complications. I was present and participated in all aspects of the procedure. The patient will be monitored in the PACU until transferred. I attest to the content of the Intraoperative Record and any orders documented therein. Any exceptions are noted below.
[2019-06-28] MEDS ORDERED: ONDANSETRON INJ 2 MG/ML 2 ML VIAL ONE (16:42)
--- NOTE | 2019-06-28 16:44 | Fluoroscopy Report ---
INTRAOPERATIVE RADIOGRAPHS CLINICAL HISTORY: Right-sided laser lithotripsy and ureteral stent placement procedure. Fluoroscopy time: 16 seconds. FINDINGS: 2 spot fluoroscopic views of the right abdomen are correlated with abdominal CT dated 2019. The initial image shows the proximal end of a right ureteral stent in appropriate position. Con trast within the right renal collecting system shows hydronephrosis. Cholecystectomy clips are noted in the right upper quadrant. The second image shows the distal end of the ureteral stent coiled in th e bladder. No calcifications are identified along the course of the stent. IMPRESSION: Intraoperative images from a right ureteral stent placement procedure as above. Electronically signed by: Osito Funes M.D. 06/28/2019 4:43 PM
[2019-06-28] MEDS: SODIUM CHLORIDE 0.9% 1000ML 1,000 ML IV SCH (18:18)
[2019-06-28] MEDS: DOCUSATE SODIUM 100 MG CAP PO SCH (20:07)
[2019-06-28] MEDS: AMITRIPTYLINE HCL 100 MG TAB PO SCH (20:08)
[2019-06-28] MEDS: PRAVASTATIN SOD 40 MG TAB PO SCH (20:09)
[2019-06-28] MEDS: DULOXETINE HCL 60 MG CAP PO SCH (20:09)
[2019-06-28] MEDS: HEPARIN SOD 5,000 UNIT/0.5 ML VIAL SQ SCH (20:12)
[2019-06-29] MEDS: SODIUM CHLORIDE 0.9% 1000ML 1,000 ML IV SCH (01:33)
[2019-06-29] MEDS: KETOROLAC TROMETHAMINE 15 MG/ML VIAL IV PRN (07:40)
--- NOTE | 2019-06-29 08:26 | Anesthesiology Progress Note ---
Date of Service June 29, 2019 Anesthesia Post Procedure Vital Signs Vital Signs: Temp Pulse Pulse Pulse Resp BP Pulse Ox 06/29/19 07:27 36.6 C 71 18 149/83 H 95 06/29/19 07:00 65 06/29/19 03:00 36.4 C L 72 18 126/78 91 06/29/19 01:00 69 06/28/19 23:28 36.5 C 66 16 112/65 94 06/28/19 18:00 36.7 C 71 16 107/60 06/28/19 17:00 36.4 C L 76 14 129/84 94 06/28/19 16:50 71 12 133/72 96 06/28/19 16:44 36.1 C L 74 10 L 124/69 96 06/28/19 15:52 36.8 C 71 18 137/74 94 06/28/19 15:15 36.7 C 70 20 128/71 91 06/28/19 15:07 72 06/28/19 11:42 36.6 C 73 16 103/67 90 Pain Intensity Lower Abdomen: Pain Intensity: 9 Notes Mental Status: alert / awake / arousable and participated in evaluation Patient Amnestic to Procedure: Yes Nausea / Vomiting: adequately controlled Pain: adequately controlled Airway Patency, RR, SpO2: stable & adequate BP & HR: stable & adequate Hydration State: stable & adequate Anesthetic Complications: no major complications apparent and Pt Satisfied with anesthetic care
[2019-06-29] MEDS: TAMSULOSIN HCL 0.4 MG CAP PO SCH (08:59)
[2019-06-29] MEDS: PANTOprazole 40 MG TAB PO SCH (08:59)
[2019-06-29] MEDS: TOPIRAMATE 50 MG TAB PO SCH (08:59)
[2019-06-29] MEDS: SULINDAC 200 MG TAB PO SCH (08:59)
[2019-06-29] MEDS: FINASTERIDE 5 MG TAB PO SCH (08:59)
[2019-06-29] MEDS: DULOXETINE HCL 30 MG CAP PO SCH (08:59)
[2019-06-29] MEDS: ASPIRIN 81 MG ECTAB PO SCH (08:59)
[2019-06-29] MEDS: NICOTINE 14 MG/24 HR PATCH TD SCH (09:00)
[2019-06-29] MEDS: IPRATROPIUM BROMIDE/ALBUTEROL respimat INH INH SCH ×2 (09:00→13:18)
[2019-06-29] MEDS: HEPARIN SOD 5,000 UNIT/0.5 ML VIAL SQ SCH (09:01)
[2019-06-29] MEDS: TESTOSTERONE~ORDER AWAITING ACTION SCH ×2 (09:08→09:18)
[2019-06-29] MEDS: BUSPIRONE HCL 7.5 MG TAB PO SCH (09:09)
[2019-06-29] MEDS: PREGABALIN 150 MG CAP PO SCH ×2 (09:18→13:31)
--- NOTE | 2019-06-29 09:44 | Urology Progress Note ---
Date of Service June 29, 2019 Assessment & Plan (1) Hydronephrosis of right kidney: (2) Right ureteral stone: 63 yo M POD #1 s/p cystoscopy, Right Retrograde pyelogram and right stent placement secondary to obstructing right 4 mm proximal ureteral stone and right 3 mm UVJ stone. - Progressing as expected - Expected clinical course reviewed. All questions answered. - Strain all urine - Will arrange outpatient follow-up with our service for definitive stone management. - Can d/c to home with Samuel catheter and have TOV at outpatient follow-up - Alternatively, can attempt passive TOV prior to discharge, if unable to urinate, then replace Samuel and set up TOV outpatient with our service. Thank you for allowing us to participate in the acute care of Mr. Bryant. Please reconsult us with additional questions, concerns or changes in patient status. Subjective 63 yo M POD #1 s/p cystoscopy, Right Retrograde pyelogram and right stent placement secondary to obstructing right 4 mm proximal ureteral stone and right 3 mm UVJ stone. Awake, sitting up in bed drinking coffee. No issues overnight. States he "slept great." Denies abdominal, flank, or suprapubic pain at this time. Tolerating stent. Samuel catheter intact, patent, draining clear yellow in tubing, pink tinged in collection bag. Tolerating catheter. No f/c/n/v. No new lab work at time of exam. No acute urological concerns at this time. Review of Systems Constitutional: as per Subjective / HPI Gastrointestinal: as per Subjective / HPI Genitourinary: + as per Subjective / HPI Physical Exam Constitutional: well developed and well nourished; no acute distress and not ill appearing Respiratory: normal respiratory effort; no respiratory distress and no labored breathing Cardiovascular: Extremities: no pedal edema Gastrointestinal (Abdomen): Inspection/Auscultation: abdomen normal to inspection; abdomen not distended Percussion/Palpation: abdomen soft; abdomen nontender Psychiatric: A+Ox3, euthymic affect Genitourinary: no CVA tenderness Samuel intact, patent, draining clear yellow in tubing, pink tinged in collection bag Results & Data Vital Signs (Past 12 Hours) Vital Signs Temp Pulse Pulse Resp BP Pulse Ox 06/29/19 07:27 36.6 C 71 18 149/83 H 95 06/29/19 07:00 65 06/29/19 03:00 36.4 C L 72 18 126/78 91 06/29/19 01:00 69 06/28/19 23:28 36.5 C 66 16 112/65 94 PG Care Time/CCT Total # of Minutes Spent Total Time Spent with Patient: Total time spent is greater than 50% in coordination of care (as documented) at patient's floor/unit and/or counseling patient: Coding Level of Care Code 06370 Subseq Hosp Care Lvl 2 Diagnoses Hydronephrosis of right kidney N13.30 Right ureteral stone N20.1
--- NOTE | 2019-06-29 11:32 | Discharge Summary ---
Date of Service June 29, 2019 Admission HPI Per Admitting Provider Sony Bryant is a 63yo C male with multiple medical problems, most notably Klinefelter syndrome, migraine, fibromyalgia presenting with left lower quadrant abdominal pain. Patient reports that the pain started acutely approximately 3 days ago in his left testicle. Then progressed to involve his lower abdomen. He reports having a difficult time urinating and feels that he has to strain to start his urinary stream. He also complains of constipation and most recently dark-colored diarrhea. He denies fevers/chills/nausea/vomiting. Denies chest pain/shortness of breath/cough/wheeze. Presently he is complaining of a migraine headache, dizziness, thirst, hunger, needing to take his medication. No additional complaints at this time. ER Course: Fentanyl, Zofran, NSS Admission Exam Per Admitting Provider General: patient resting comfortably, NAD, non-toxic in appearance, AA&O x 4 Skin: warm, dry, intact, no rashes or lesions HEENT: NC/AT, PERRL, EOMI, anicteric sclera, conjunctiva without injection, external ear normal to inspection and nontender, nares patent, moist mucus membranes, dentition intact, no oropharyngeal lesions, neck supple, trachea midline, no LAD, no thyromegaly, no JVD Heart: +S1/S2, regular, no m/r/g Lungs: equal air entry bilaterally, no rales/rhonchi/wheezes Abd: Diminished BS throughout, soft, diffusely tender with palpation, most in LLQ with voluntary guarding, no rebound/peritonitis, no masses/organomegaly/ascites Ext: warm, 2+ pulses in UE/LE bilaterally, no clubbing/cyanosis or edema Neuro: nonfocal, patient AA&O x 4, speech intact, no facial droop, moving all extremities on command with equal strength 5/5 Principal Diagnosis Obstructive Ureterolithiasis Discharge Exam Constitutional WD/WN, vitals as above cooperative Eyes + anicteric sclerae ENMT external ear and nose normal, oropharynx normal Neck normal visual inspection and trachea midline Respiratory normal respiratory effort, lungs clear to auscultation Cardiovascular RRR, no murmur, no edema Heart Sounds: normal S1 and normal S2 Gastrointestinal (Abdomen) normal bowel sounds, soft, nontender, no hepatosplenomegaly Skin no rashes, warm and dry Psychiatric A+Ox3, euthymic affect Discharge Data Allergies Allergy/AdvReac Type Severity Reaction Status Date / Time bee venom protein (honey bee) Allergy Severe ANAPHYLAXIS Verified 06/28/19 15:50 Sulfa (Sulfonamide Allergy Unknown PRURITUS Verified 06/28/19 15:50 Antibiotics) Consultations 06/26/19 23:07 Consult Urology Routine Procedures Performed Operation Date: 06/28/19 15:40 Actual Procedures p Cystoscopy, Right Stent Insertion, Retrograde pyelogram(Right) - [place], Ordered Studies 06/26/19 16:03 CT abd pelvis wo con Stat 06/26/19 17:10 CT angio abdomen pelvis w con Stat 06/28/19 15:30 [place] retrograde includes kub Routine Hospital Course (1) Abdominal pain, LLQ: 63 yo M with a PMHx of recurrent kidney stones admitted for evaluation of left lower quadrant abdominal pain, found to have obstructive R sided ureteral stone and evidence of colitis on CT scan. Abdominal Pain - CT abdomen and pelvic on admission showed two right ureteral calculi, which appear to be obstructing: a 4 mm proximal right ureteral calculus and 3-4 mm right UVJ calculus, along with resultant mild right hydronephrosis. Bowel wall thickening consistent with colitis in mid-proximal sigmoid colon. - CTA of abdomen/pelvis revealed severe mixed plaque of the abdominal aorta and branch vessels, no dissection/stenosis or occlusion - Lipase, LFTs, Alk phos and lactate WNL - patient was treated with IV morphine for pain control - Pain likely combination from colitis and obstructive uropathy. - Pain resolved on discharge. (2) Colitis: - appreciated on abdominopelvic CT scan. No evidence of diverticulosis or diverticulitis - WBC 15 on admission, down to 10 - patient afebrile throughout hospital stay - patient reported diarrhea in the week preceding admission. - Cdiff and stool culture ordered, never collected as diarrhea resolved prior to admission - no further work up recommended (3) Right ureteral stone: - obstructing right 4 mm proximal ureteral stone in addition to right 3 mm UVJ stone with associated mild right hydronephrosis. - s/p Cystoscopy with Right Retrograde pyelogram and Stent Insertion 06/27 - patient has history of recurrent kidney stones - continue flomax - pain significantly improved by the time of discharge Outpatient urology follow up arranged. (4) Hydronephrosis of right kidney: - secondary to obstructive right 4 mm proximal ureteral stone in addition to right 3 mm UVJ stone - managment per urology (5) COPD, moderate: - no baseline O2 requirement - continue home inhalers (6) BPH (benign prostatic hyperplasia): - continue flomax - finasteride initiated on admission - prostatomegaly noted on a/p CT scan (7) GERD (gastroesophageal reflux disease): continue pantroprazole (8) Migraine: - continue prophylaxis with topamax 50mg, qAM - Rizatriptan prn for abortive agent (9) Fibromyalgia: - continue Lyrica, Elavil and cymbalta (10) Anxiety: - continue hydroxyzine and buspar Total Time Total Time Spent Total Time Spent (In Minutes): see attending attestation Discharge Plan Discharge Items Patient Disposition: Home - Self-Care Reason For Visit: ABDOMINAL PAIN Discharge Diagnosis: Obstructive Nephrolithiasis Activity: Resume your previous activity Non-emergency contact: Primary Care Provider and Urologist Call non-emergency contact if: your symptoms worsen Follow-up/Referrals: Dwight Mendiola MD [Primary Care Provider] - 07/04/19 8:30 am Diet: Regular and Heart Healthy Addtl Attending Provider Instructions: You were hospitalized at [facility] for evaluation of abdominal pain. A cat scan of you abdomen was ordered and showed bilateral kidney stones, which were previously known to you. The stone in your R ureter was obstructing outflow of urine from your kidney to your bladder. This was causing a backlog of urine to the kidney, a condition known as hydronephrosis. Urology was consulted and placed a stent in your right ureter in order to help the stone pass. The procedure went well without complications. You may take Tylenol for any remaining groin pain. You were sent home with a Samuel catheter - this will be removed at your outpatient visit with urology. The cat scan also showed inflammation of the lower portion of your colon, or large intestine. This is known as colitis. You had reported diarrhea prior to coming in to the hospital, but this resolved without treatment. The cause of your colon inflammation is unknown, but your abdominal discomfort resolved by the time of discharge. Please follow up with your primary care physician within one week, and with urology as directed. Pending Studies at Discharge: No Stand-Alone Forms: My [facility], Smoking Cessation Medications and DC Order Prescriptions: Continued duloxetine 60 mg capsule,delayed release(DR/EC) 60 mg PO HS Qty: 30 RF: 5 testosterone 20.25 mg/1.25 gram (1.62 %) gel in metered-dose pump 1 pump TRANSDERMAL DAILY Qty: 225 RF: 1 hydroxyzine HCl 50 mg tablet 50 mg PO HS Qty: 30 RF: 5 topiramate 50 mg tablet 50 mg PO BID Qty: 60 RF: 5 esomeprazole magnesium [Nexium] 40 mg capsule,delayed release(DR/EC) 40 mg PO DAILY Qty: 30 RF: 5 tamsulosin 0.4 mg capsule 0.4 mg PO DAILY Qty: 90 RF: 3 buspirone 7.5 mg tablet 7.5 mg PO BID Qty: 60 RF: 5 sulindac 200 mg tablet 200 mg PO BID Qty: 60 RF: 4 Nicotrol 10 mg cartridge 1 inh INHALATION .COMPLEX Qty: 168 RF: 5 duloxetine 30 mg capsule,delayed release(DR/EC) See Rx Instructions .ROUTE .COMPLEX Qty: 30 RF: 3 amitriptyline 100 mg tablet See Rx Instructions .ROUTE .COMPLEX Qty: 30 RF: 3 rizatriptan 10 mg tablet 10 mg PO UD PRN (Reason: Migraine Headache) Qty: 10 RF: 3 pravastatin 40 mg tablet 40 mg PO HS Qty: 90 RF: 3 Lyrica 150 mg capsule 150 mg PO TID Qty: 90 RF: 5 aspirin 81 mg tablet 81 mg PO DAILY RF: 0 albuterol sulfate 90 mcg/actuation Aerosol Powdr Breath Activated 2 inh INHALATION QID PRN (Reason: Pain) RF: 0 docusate sodium 100 mg Tablet 100 mg PO HS RF: 0 Combivent Respimat 20-100 mcg/actuation Mist 1 puff INHALATION QID RF: 0 Discharge Orders: Discharge Order (Routine); Ordered 06/29/19 Ordered By: Deisy Macias Admission Data Admit Date/Time: 06/26/19 19:42 Attending Provider: Ni Santoyo Admit Provider: Lian Fraire Primary Care Provider: Dwight Mendiola Other Providers: Lian Fraire ; Forrest Garcia Other Interventions: Discharge Summary Assessment (RN) Last Done: 06/29/19 13:32 DC Date/Time DO NOT enter until pt leaves facility: 06/29/19 14:30 Supervising Physician Co-Signing Physician Notes Resident Physician Supervision Note: I independently interviewed and examined the patient and verified the tran history and physical, reviewed labs and image studies, discussed the case with the resident Dr. Macias and agree with the findings and care plan. Resident Activity Tracking Resident Involvement: Resident Care Provided Care Provided: Adult Hospital Medicine
== END 2019-06-29 14:30 | disposition home or self-care (01) | DRG 661 ==
LOC: ED 15:30 → 2N 19:42 → SUATTDRO 19:42 → 2N 20:42

== ENCOUNTER 2020-05-16 16:50 | Inpatient (IN) ==
[2020-05-16] MEDS ORDERED: SODIUM CHLORIDE 0.9% 1000ML 500 ML IV ONE (17:47)
[2020-05-16] MEDS ORDERED: DAPTOmycin 475 MG in SYRINGE 0 ML IV ONE (17:51)
--- NOTE | 2020-05-16 18:01 | Emergency Department Note ---
Impression & Plan Ureteral stone, LILIA (acute kidney injury), Acute UTI, Failure of outpatient treatment ED Provider Note NAME: AMARILIS LIU AGE: 64 SEX: M : 1955 ARRIVES VIA: Walk-In INFORMANT: [Patient] ED PROVIDER(S): [Osito oKwalski MD] CHIEF COMPLAINT: Flank pain HISTORY OF PRESENT ILLNESS: The patient is a 64-year-old male presents to the ER at the advice of pharmacy for a positive urine culture. The patient states that he was here 3 days ago and diagnosed with left hydronephrosis from a ureteral stone. He has a history of kidney stones. The patient's pain was controlled and he was stable and was discharged. Today, his urine has grown coag negative staph, 100,000, resistant to oxacillin. The patient does note some burning with urination, has not had fever or v omiting. His left flank pain is controlled with pain medication. He rates the pain as a 5 on a scale of 1-10. The patient has not yet seen urology for this particular ureteral stone. The patient was asked to report to the ED as he has a urinary obstruction and a UTI. REVIEW OF SYSTEMS: See HPI for pertinent positives and negatives. A total of ten systems were rev iewed and were otherwise negative. PMHx/PSHx: See Below SOCIAL HISTORY: See Below. PHYSICAL EXAM: GENERAL: Patient is in no acute distress. HEENT: No acute trauma, normocephalic atraumatic, mucous membranes moist, no nasal congestion, no scleral icterus. NECK: No stridor, no adenopathy, no meningismus, trachea is midline. LUNGS: Clear to auscultation bilaterally, no wheeze, no rhonchi, breath sounds equal. HEART: Without murmurs gallops or rubs, regular rate and rhythm. Back: Left flank discomfort to percussion. ABDOMEN: Soft, nontender, bowel sounds positive, no hernias, no peritonitis. EXTREMITIES: No cyanosis or edema, full range of motion of all the joints without pain or difficulty, no signs for acute trauma. NEUROLOGIC: Oriented x 3, no acute motor or sensory deficits, no focal weakness. SKIN: No rash, no jaundice, no diaphoresis. DIFFERENTIAL DIAGNOSIS: Ureteral obstruction, sepsis, bacteremia, UTI, urinary retention, renal failure, electrolyte imbalance, failed outpatient treatment. EMERGENCY DEPARTMENT COURSE/PROCEDURES: MEDICAL DECISION MAKING: There is no leukocytosis. The patient does have a mild anemia with a hemoglobin of 12.3. There is a normal platelet count. There is some renal insufficiency/a cute kidney injury with a creatinine of 2.15. Urinalysis shows infection versus contamination. Covid testing returned negative. On exam, the patient was not febrile or toxic in appearance. The patient was given IV saline for hydration. He was given IV daptomycin as antibiotic coverage for his UTI. Patient presents with a left ureteral obstruction from a ureteral stone. He was told to present back to the ED today as his urine culture grew out staph that was resistant to oxacillin. I did speak with urology. As the patient is not septic appearing, he does not need emergent stenting. He is to be hospitalized with IV antibiotics. He can be stented tomorrow. I spoke to the patient, I talked to case management. The on-call hospitalist was consulted. Past Med/Surg History Medical History Anxiety Arthritis Asthma BPH (benign prostatic hyperplasia) Central hypothyroidism Follows with endo- on levothyroxine in the past- no longer in patient's med list Chronic back pain COPD (chronic obstructive pulmonary disease) Fibromyalgia GERD (gastroesophageal reflux disease) Kidney stones Klinefelters syndrome Follows with endo Migraine Osteoarthritis PAD (peripheral artery disease) Primary hypogonadism in male Pulmonary nodules Sleep apnea non compliant with CPAP Stroke 2014 FOLLOWING MULTIPLE TIA'S - no deficits Transient ischemic attack (TIA) MULTIPLE 2015 Surgical History H/O hernia repair History of carpal tunnel release History of cholecystectomy History of cholecystectomy History of cystoscopy most recent 06/28/2019 [place] History of herniorrhaphy History of kidney stones History of knee surgery History of mandibular surgery History of reduction of nasal fracture Hx of umbilical hernia repair Previous back surgery S/P hernia repair S/P ureteral stent placement Status post insertion of iliac artery stent Ventral hernia Family History Mother Heart disease Diabetes Hypertension Grandfather (Maternal) Myocardial infarction Denies family history of Ovarian cancer Prostate cancer Breast cancer Colorectal cancer Social History Smoking Status: Never smoker Cigarettes Per Day: HX OF 1+ PPD X40 YEARS, QUIT IN 2016, USES PRN NICOTINE INHALER; Second Hand Exposure: Yes (as a child); Hx Alcohol Use: Yes (Alcoholism in Recovery) Hx Substance Use: Yes Last Used Substance Other:: 3 years Substance Use Type Other:: HX OF PREVIOUS MARIJUANA USE Preferred Language: Kazakh Communication Ability: Effective 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 Required: No Beliefs That Will Affect Care: None marital status: Current Living Situation: Significant Other current occupational status: disabled Feels Safe at Home: Yes Dental Care, Regularly: No Physical Activity Frequency: Does not Exercise Seatbelt Use: always Sunscreen Use: No Assistive Devices: Cane, Denture - Upper, Denture - Lower and Hearing Aid - Right Allergies Allergies Allergy/AdvReac Type Severity Reaction Status Date / Time bee venom protein (honey bee) Allergy Severe ANAPHYLAXIS Verified 05/16/20 18:56 Sulfa (Sulfonamide Allergy Unknown PRURITUS Verified 05/16/20 18:56 Antibiotics) Home Meds Home Medications Medication Instructions Recorded Confirmed docusate sodium 100 mg PO HS 08/22/18 05/16/20 amitriptyline 100 mg PO HS 05/13/20 05/16/20 aspirin [Aspir-Low] 81 mg PO DAILY 05/13/20 05/16/20 hydrocortisone 1 applic TOPICAL BID PRN 05/13/20 05/16/20 hydrocortisone acetate 25 mg NE BID PRN 05/13/20 05/16/20 Previous Rx's Medication Instructions Recorded pravastatin 40 mg tablet 40 mg PO HS #90 tab 06/05/19 rizatriptan 10 mg tablet 10 mg PO UD PRN #10 tab 06/05/19 ipratropium 20 mcg-albuterol 100 1 puff INHALATION QID #4 gm 07/06/19 mcg/actuation mist for inhalation esomeprazole magnesium 40 mg 40 mg PO QAM #90 cap 08/02/19 capsule,delayed release albuterol sulfate 90 mcg/actuation 1 puffs INH Q4H PRN #8.5 gm 08/06/19 aerosol inhaler hydroxyzine HCl 50 mg tablet 50 mg PO HS #90 tab 08/06/19 Lyrica 150 mg capsule 150 mg PO TID #90 cap NS 12/25/19 duloxetine 60 mg capsule,delayed 60 mg PO BID #60 cap 01/22/20 release topiramate 50 mg tablet 50 mg PO BID #60 tab 02/26/20 testosterone 20.25 mg/1.25 gram 1 pump TRANSDERMAL DAILY 90 Days 03/12/20 (1.62 %) transdermal gel pump #75 g sulindac 200 mg tablet 200 mg PO BID #60 tab 03/25/20 levothyroxine 50 mcg tablet 75 mcg PO QAM #45 tab 03/31/20 tamsulosin 0.4 mg capsule 0.4 mg PO DAILY #90 cap 04/01/20 nicotine 10 mg inhalation cartridge 1 inh INHALATION .COMPLEX #168 ea 04/25/20 ondansetron 4 mg PO Q4H PRN #8 tab 05/13/20 oxycodone 5 - 10 mg PO Q4H PRN #10 tab 05/13/20 buspirone 7.5 mg tablet 7.5 mg PO BID #60 tab 05/14/20 Results & Data (ED) Vital Signs Vital Signs - 24 hr 05/16/20 17:01 05/16/20 18:45 Temperature 36.6 C Temperature Source Oral Pulse Rate 90 Pulse Rate [Left Finger] 90 Pulse Rhythm Regular Pulse Strength Normal Respiratory Rate 20 18 Respiratory Effort / Characteristics Non-Labored Spontaneous Non-Labored Respiratory Depth Normal Normal Respiratory Pattern Regular Regular Blood Pressure 133/74 Blood Pressure [Right Arm] 104/56 L Blood Pressure Mean 93 Blood Pressure Mean [Right Arm] 72 Pulse Oximetry 91 98 Oxygen Delivery Method Room Air Room Air Sepsis Recent Fever Within 48 Hours No Sepsis New/Unexplained Change in Mental Status N/A Sepsis Action Taken by Nursing No Action Required Home Medications Current Medication List: was personally reviewed by me Laboratory Data Attestation: I reviewed the patient's lab results. Result diagrams: 05/16/20 18:00 05/16/20 18:00 Lab Results 05/16/20 05/16/20 05/16/20 Range/Units 18:00 18:00 18:04 WBC 8.19 (4.8-10.8) K/uL RBC 3.87 L (4.7-6.1) M/uL Hgb 12.3 L (14.0-18.0) g/dL Hct 35.8 L (42-52) % MCV 92.5 (80-100) fL MCH 31.8 (25-34) pg MCHC 34.4 (32-36) g/dL RDW Std Deviation 53.6 H (36.4-46.3) fL RDW Coeff of [place] 16.0 H (11.5-14.5) % Plt Count 218 (130-400) K/uL MPV 11.1 H (7.4-10.4) fL Immature Gran % (Auto) 0.9 % Neut % (Auto) 50.8 % Lymph % (Auto) 21.1 % [place] % (Auto) 16.0 % Eos % (Auto) 10.7 % Baso % (Auto) 0.5 % Neut # (Auto) 4.16 (1.4-6.5) K/uL Lymph # (Auto) 1.73 (1.2-3.4) K/uL [place] # (Auto) 1.31 H (0.11-0.59) K/uL Eos # (Auto) 0.88 H (0-0.5) K/uL Baso # (Auto) 0.04 (0-0.2) K/uL Immature Gran # (Auto) 0.07 H (0.00-0.02) K/uL Sodium 146 H (136-145) mmol/L Potassium 4.3 (3.5-5.1) mmol/L Chloride 115 H (98-107) mmol/L Carbon Dioxide 30 (21-32) mmol/L Anion Gap 1.0 L (3-11) BUN 33 H (7-18) mg/dl Creatinine 2.15 H (0.6-1.4) mg/dl Est Cr Clr Drug Dosing 37.6 ml/min Est GFR ( Amer) 36.1 Est GFR (Non-Af Amer) 31.2 BUN/Creatinine Ratio 15.1 (10-20) Glucose 69 L (70-99) mg/dl Calcium 8.8 (8.5-10.1) mg/dl Urine Color Urine Appearance (Clear) Urine pH (4.5-7.5) Ur Specific [place] (1.000-1.030) Urine Protein (Negative) Urine Glucose (UA) (Negative) Urine Ketones (Negative) Urine Blood (Negative) Urine Nitrite (Negative) Urine Bilirubin (Negative) Urine Urobilinogen (Negative) Ur Leukocyte Esterase (Negative) Urine WBC (Auto) (0-5) /hpf Urine RBC (Auto) (0-4) /hpf U Hyaline Cast (Auto) (0-5) /lpf U Epithel Cells (Auto) (0-5) /lpf Urine Bacteria (Auto) (Negative) COVID-19 Eval Order Covid19 IDNow [facility] SARS-CoV-2, RNA, NAAT (NEGATIVE) 05/16/20 05/16/20 Range/Units 18:04 18:40 WBC (4.8-10.8) K/uL RBC (4.7-6.1) M/uL Hgb (14.0-18.0) g/dL Hct (42-52) % MCV (80-100) fL MCH (25-34) pg MCHC (32-36) g/dL RDW Std Deviation (36.4-46.3) fL RDW Coeff of [place] (11.5-14.5) % Plt Count (130-400) K/uL MPV (7.4-10.4) fL Immature Gran % (Auto) % Neut % (Auto) % Lymph % (Auto) % [place] % (Auto) % Eos % (Auto) % Baso % (Auto) % Neut # (Auto) (1.4-6.5) K/uL Lymph # (Auto) (1.2-3.4) K/uL [place] # (Auto) (0.11-0.59) K/uL Eos # (Auto) (0-0.5) K/uL Baso # (Auto) (0-0.2) K/uL Immature Gran # (Auto) (0.00-0.02) K/uL Sodium (136-145) mmol/L Potassium (3.5-5.1) mmol/L Chloride (98-107) mmol/L Carbon Dioxide (21-32) mmol/L Anion Gap (3-11) BUN (7-18) mg/dl Creatinine (0.6-1.4) mg/dl Est Cr Clr Drug Dosing ml/min Est GFR ( Amer) Est GFR (Non-Af Amer) BUN/Creatinine Ratio (10-20) Glucose (70-99) mg/dl Calcium (8.5-10.1) mg/dl Urine Color Dark Yellow Urine Appearance Cloudy A (Clear) Urine pH 6.0 (4.5-7.5) Ur Specific [place] 1.024 (1.000-1.030) Urine Protein Trace H (Negative) Urine Glucose (UA) Negative (Negative) Urine Ketones Trace H (Negative) Urine Blood 2+ H (Negative) Urine Nitrite Negative (Negative) Urine Bilirubin 1+ H (Negative) Urine Urobilinogen Negative (Negative) Ur Leukocyte Esterase 1+ H (Negative) Urine WBC (Auto) 10-30 H (0-5) /hpf Urine RBC (Auto) >30 H (0-4) /hpf U Hyaline Cast (Auto) 1-5 (0-5) /lpf U Epithel Cells (Auto) >30 H (0-5) /lpf Urine Bacteria (Auto) Negative (Negative) COVID-19 Eval Order SARS-CoV-2, RNA, NAAT NEGATIVE (NEGATIVE) Administered Medications Discontinued Medications Sodium Chloride (Nss 1000ml) 500 mls @ 999 mls/hr IV .Q31M ONE Stop: 05/16/20 18:17 Last Infusion: 05/16/20 18:33 Dose: 0 mls/hr Documented by: [id number] Admin: 05/16/20 18:04 Dose: 999 mls/hr Documented by: [id number] Daptomycin 475 mg/ Syringe 9.5 mls @ 4.75 mls/min IV NOW ONE; Protocol Stop: 05/16/20 17:52 Last Admin: 05/16/20 18:32 Dose: 4.75 mls/min Documented by: [id number] Discharge Plan Visit Data Chief Complaint: Flank Pain Stated Complaint: WAS HER COUPLE DAYS AGO FOR KIDNEY STONE, DR REF ED Provider: Osito Kowalski Discharge Problem: Ureteral stone, LILIA (acute kidney injury), Acute UTI, Failure of outpatient treatment Patient Disposition: Admitted As Inpatient Condition: Good Forms Stand Alone Forms: My [facility] Prescriptions Prescriptions: No Action rizatriptan 10 mg tablet 10 mg PO UD PRN (Reason: Migraine Headache) Qty: 10 RF: 3 pravastatin 40 mg tablet 40 mg PO HS Qty: 90 RF: 3 Combivent Respimat 20-100 mcg/actuation mist 1 puff INHALATION QID Qty: 4 RF: 11 esomeprazole magnesium [Nexium] 40 mg capsule,delayed release(DR/EC) 40 mg PO QAM Qty: 90 RF: 3 hydroxyzine HCl 50 mg tablet 50 mg PO HS Qty: 90 RF: 3 albuterol sulfate 90 mcg/actuation HFA aerosol inhaler 1 puffs INH Q4H PRN (Reason: shortness of breath or wheezing) Qty: 8.5 RF: 7 Lyrica 150 mg capsule 150 mg PO TID Qty: 90 RF: 5 duloxetine 60 mg capsule,delayed release(DR/EC) 60 mg PO BID Qty: 60 RF: 3 topiramate 50 mg tablet 50 mg PO BID Qty: 60 RF: 5 testosterone 20.25 mg/1.25 gram (1.62 %) gel in metered-dose pump 1 pump TRANSDERMAL DAILY 90 Days Qty: 75 RF: 1 sulindac 200 mg tablet 200 mg PO BID Qty: 60 RF: 5 levothyroxine 50 mcg tablet 75 mcg PO QAM Qty: 45 RF: 5 tamsulosin 0.4 mg capsule 0.4 mg PO DAILY Qty: 90 RF: 1 Nicotrol 10 mg cartridge 1 inh INHALATION .COMPLEX Qty: 168 RF: 5 buspirone 7.5 mg tablet 7.5 mg PO BID Qty: 60 RF: 5 docusate sodium 100 mg Tablet 100 mg PO HS RF: 0 aspirin [Aspir-Low] 81 mg Tablet,Delayed Release (Dr/Ec) 81 mg PO DAILY RF: 0 hydrocortisone acetate 25 mg suppository 25 mg NE BID PRN (Reason: ..) RF: 0 hydrocortisone 2.5 % cream 1 applic topical BID PRN (Reason: flare ups) RF: 0 amitriptyline 100 mg tablet 100 mg PO HS RF: 0 ondansetron 4 mg tablet,disintegrating 4 mg PO Q4H PRN (Reason: nausea and vomiting) Qty: 8 RF: 0 oxycodone 5 mg tablet 5 - 10 mg PO Q4H PRN (Reason: pain) Qty: 10 RF: 0 Referrals Referrals: Dwight Mendiola MD [Primary Care Provider] -
[2020-05-16 18:16] LABS: Basophils # (auto) 0.04 K/uL (0-0.2); Basophils % (auto) 0.5 %; Eosinophils # (auto) 0.88 K/uL (0-0.5); Eosinophils % (auto) 10.7 %; Hematocrit (blood only) 35.8 % (42-52); Hemoglobin 12.3 g/dL (14.0-18.0); Immature Granulocytes # (auto) 0.07 K/uL (0.00-0.02); Immature Granulocytes % (auto) 0.9 %; Lymphocytes # (auto) 1.73 K/uL (1.2-3.4); Lymphocytes % (auto) 21.1 %; Mean Corpuscular Hemoglobin 31.8 pg (25-34); Mean Corpuscular Hgb Conc 34.4 g/dL (32-36); Mean Corpuscular Volume 92.5 fL (80-100); Mean Platelet Volume 11.1 fL (7.4-10.4); Monocytes # (auto) 1.31 K/uL (0.11-0.59); Neutrophils # (auto) 4.16 K/uL (1.4-6.5); Neutrophils % (auto) 50.8 %; Platelet Count 218 K/uL (130-400); RDW Standard Deviation 53.6 fL (36.4-46.3); Red Blood Count 3.87 M/uL (4.7-6.1); White Blood Count 8.19 K/uL (4.8-10.8)
[2020-05-16 18:32] LABS: BUN Creatinine Ratio 15.1 (10-20); Calcium 8.8 mg/dl (8.5-10.1); Creatinine Clr Calc Pharmacy 37.6 ml/min; Est GFR (African American) 36.1; Est GFR (Non-African American) 31.2; Potassium 4.3 mmol/L (3.5-5.1)
[2020-05-16 18:49] LABS: Appearance Urine Cloudy (Clear); Bacteria Urine Automated Negative (Negative); Blood Urine 2+ (Negative); Color Urine Dark Yellow; Epithelial Cell Urine Auto >30 /lpf (0-5); Glucose Urine UA Negative (Negative); Ketones Urine Trace (Negative); Leukocyte Esterase Urine 1+ (Negative); Nitrite Urine Negative (Negative); Protein Urine Trace (Negative); RBC Urine Automated >30 /hpf (0-4); Specific Gravity Urine 1.024 (1.000-1.030); Urobilinogen Urine Negative (Negative)
[2020-05-16 18:57] LABS: Bilirubin Urine 1+ (Negative)
--- NOTE | 2020-05-16 19:39 | History & Physical Report ---
Date of Service May 16, 2020 Assessment & Plan (1) UTI (urinary tract infection), bacterial: Non complicated with CONS resistent to oxacillin - Start on daptomycin - Follow closely with BPH and outflow problems - Patient has had chronic symptoms of the lower tract for months (2) Ureterolithiasis: Patient with bilateral stone and hydronephrosis of the left - Non obstructive, continue with Flomax, gentle IVF resuscitation tonight - Urology consulted for stone management - Continue Daptomycin - other procedureal abx per urology. (3) Hydronephrosis: - stone managment as above - pain control - follow kidney function post operative - appreicate urology recs (4) PAD (peripheral artery disease): No acute need- - daily ASA on hold following urology procedure, restart when completed - Continue home BP and cholesterol medications (5) Asthma: as below (6) Pulmonary emphysema: No PFTs performed CXR preop bialateral wheezing continue inhalers pulmonary toilet and ICS post op (7) Vitamin D deficiency: (8) Migraine: Continu prophylaxis/abortive medciations (9) Anxiety: Continue home medicaitons plan (10) Colitis: No acute needs follow bowel function (11) Klinefelters syndrome: No acute needs continue testosterone cortisol in morning (12) Osteopenia: arthrits related ? - hold sulindac until renal pathology resolved (13) Current every day nicotine vapor product user: transitioned to patch for perioperative course - transition back to cartridge when ready. - patient notified of change and expectations met. - -notify rn or provider if he wants patch or not and if working or not. History of Present Illness Primary Care Provider: Dwight Mendiola MD 64 YOM with significant history of 40 year smoker (1-2 packs per day, quit 2013), asthma; GERD, Hypothyroid, vitamin D Defficiency, hernia repair, nephrolethiasis with hydronephrosis, BPH, femoral artery stent and renal artery stent, and Klienfelter syndrome. Patient orignially came to the [facility] for abdominal pain on 13May2020, underwent abdominal CT imaging which revealed a left-sided ureterolithiasis with hydronephrosis. The patient also was noted to have nephrolithiasis as well as nonobstructing right-sided stone and was referred to urology as an outpatient for managment. The patient was notified today to return back to the ER for positive urine infection with CONS resistant to Oxacillin, EMD spoke with urology and will plan for stenting. The patient will be admitted for antibiotic administration, IVF, continue current pain control as patient is comfortable. Allergies Allergy/AdvReac Type Severity Reaction Status Date / Time bee venom protein (honey bee) Allergy Severe ANAPHYLAXIS Verified 05/16/20 18:56 Sulfa (Sulfonamide Allergy Unknown PRURITUS Verified 05/16/20 18:56 Antibiotics) Home Medications Medication Instructions Recorded Confirmed Type docusate sodium 100 mg PO HS 08/22/18 05/21/20 History pravastatin 40 mg tablet 40 mg PO HS #90 tab 06/05/19 05/21/20 Rx rizatriptan 10 mg tablet 10 mg PO UD PRN #10 tab 06/05/19 05/21/20 Rx ipratropium 20 mcg-albuterol 100 1 puff INHALATION QID #4 gm 07/06/19 05/21/20 Rx mcg/actuation mist for inhalation esomeprazole magnesium 40 mg 40 mg PO QAM #90 cap 08/02/19 05/21/20 Rx capsule,delayed release albuterol sulfate 90 mcg/actuation 1 puffs INH Q4H PRN #8.5 gm 08/06/19 05/21/20 Rx aerosol inhaler hydroxyzine HCl 50 mg tablet 50 mg PO HS #90 tab 08/06/19 05/21/20 Rx Lyrica 150 mg capsule 150 mg PO TID #90 cap NS 12/25/19 05/21/20 Rx topiramate 50 mg tablet 50 mg PO BID #60 tab 02/26/20 05/21/20 Rx testosterone 20.25 mg/1.25 gram 1 pump TRANSDERMAL DAILY 90 Days 03/12/20 05/21/20 Rx (1.62 %) transdermal gel pump #75 g sulindac 200 mg tablet 200 mg PO BID #60 tab 03/25/20 05/21/20 Rx levothyroxine 50 mcg tablet 75 mcg PO QAM #45 tab 03/31/20 05/21/20 Rx tamsulosin 0.4 mg capsule 0.4 mg PO DAILY #90 cap 04/01/20 05/21/20 Rx nicotine 10 mg inhalation cartridge 1 inh INHALATION .COMPLEX #168 ea 04/25/20 05/21/20 Rx amitriptyline 100 mg PO HS 05/13/20 05/21/20 History aspirin 81 mg PO DAILY 05/13/20 05/21/20 History hydrocortisone 1 applic TOPICAL BID PRN 05/13/20 05/21/20 History hydrocortisone acetate 25 mg NC BID PRN 05/13/20 05/21/20 History ondansetron 4 mg PO Q4H PRN #8 tab 05/13/20 05/21/20 Rx oxycodone 5 - 10 mg PO Q4H PRN #10 tab 05/13/20 05/21/20 Rx doxycycline hyclate 100 mg PO BID #10 tab 05/19/20 05/21/20 Rx duloxetine 60 mg PO DAILY #60 cap 05/19/20 05/21/20 Rx Past Med/Surg History Medical History (Updated 05/18/20 @ 14:33 by Abebe Howell MD) Anxiety Arthritis Asthma BPH (benign prostatic hyperplasia) Central hypothyroidism Follows with endo- on levothyroxine in the past- no longer in patient's med list Chronic back pain COPD (chronic obstructive pulmonary disease) Fibromyalgia GERD (gastroesophageal reflux disease) Kidney stones Klinefelters syndrome Follows with endo Migraine Osteoarthritis PAD (peripheral artery disease) Primary hypogonadism in male Pulmonary nodules Sleep apnea non compliant with CPAP Stroke 2014 FOLLOWING MULTIPLE TIA'S - no deficits Transient ischemic attack (TIA) MULTIPLE 2015 Surgical History H/O hernia repair History of carpal tunnel release History of cholecystectomy History of cholecystectomy History of cystoscopy most recent 06/28/2019 [place] History of herniorrhaphy History of kidney stones History of knee surgery History of mandibular surgery History of reduction of nasal fracture Hx of umbilical hernia repair Previous back surgery S/P hernia repair S/P ureteral stent placement Status post insertion of iliac artery stent Ventral hernia Family History Mother Heart disease Diabetes Hypertension Grandfather (Maternal) Myocardial infarction Denies family history of Ovarian cancer Prostate cancer Breast cancer Colorectal cancer Social History Smoking Status: Former smoker Cigarettes Per Day: HX OF 1+ PPD X40 YEARS, QUIT IN 2015, USES PRN NICOTINE INHALER; Second Hand Exposure: Yes (as a child); Hx Alcohol Use: No (Alcoholism in Recovery) Hx Substance Use: No Preferred Language: Azeri Communication Ability: Effective Visual Impairment: No Limitations Scroll Machine Operator Required: No Beliefs That Will Affect Care: None marital status: Current Living Situation: Other Current Living Situation Comment: ex s/o current occupational status: disabled Feels Safe at Home: Yes Dental Care, Regularly: No Physical Activity Frequency: Does not Exercise Seatbelt Use: always Sunscreen Use: No Assistive Devices: Denture - Upper, Denture - Lower, Hearing Aid - Right and Walker Review of Systems Review of Systems: REVIEW OF SYSTEMS: Constitutional: No fever, sweats or chills, Eyes: No diplopia, no worsening or blurred vision ENT: normal hearing, no trouble swallowing Respiratory: (+) cough, wheeze (-) sputum, dyspnea at rest or on exertion Cardiovascular: (+) PAD with stenting, No chest pain, tightness or palpitations Abdomen: (+) Hemorrhoids, renal stones, pain, No pain, nausea, vomiting, diarrhea or constipation Musculoskeletal: No joint pain, calf pain, swelling Neurologic: (+) tia "many of years ago" No weakness, numbness/tingling, or ba yecenia problems Psychiatric: No anxiety or depression Skin: No rash or itch Physical Exam Physical Exam: PHYSICAL EXAM: General: awake, alert, no apparent distress Head: Normocephalic, atraumatic ENT: PERRL, EOMI, no pharyngeal exudate, mucous membranes moist Neuro: AAO x 3, speech clear and appropriate, slurring which is normal per patient, no facial droop, strength intact bilaterally 5/5, sensation intact and equal all extremities, no pronator drift Chest: equal rise and fall of the chest, no accessory muscle use, no heaves or thrills, inspiratory wheeze bilaterally inhalation and exhalation, on room air, Cardiac: Regular rate and rhythm, telemetry reviewed, skin warm dry, cap refill <3 seconds, peripheral pulses +2 no JVD, no murmur, GI: NABS x 4 quadrants, soft, nontender to palpation, no rebound, guarding or tenderness : Spontaneously voiding, no pain, bilateral CVA tenderness, no burning, no suprapubic pain Extremities: Normal inspection, no peripheral edema or erythema, calfs nontender to palpation, warm and dry Psych: Normal mood and affect Skin: no rash or erythema Results & Data Results & [facility] ([facility]) Vital Signs (Past 12 Hours) Vital Signs Temp Pulse Pulse Resp BP BP Pulse Ox 05/16/20 18:45 90 18 104/56 L 98 05/16/20 17:01 36.6 C 90 20 133/74 91 Laboratory Results Urine Culture Final 05/15/20-1013 Organism 1 Coag negative Staphylococcus [place] Count >100,000 CFU/ml Sens Sensitivities to Follow +Mix Urine Plus Low Counts of Other Mixed Juliana [employer] DES[employer] RX M.I.C. --- --------- Daptomycin S <=0.5 Nitrofurantoin S <=32 Oxacillin R >2 Tetracycline S <=4 Trimeth/Sulfa S <=0.5/9.5 Vancomycin S 2 Diagnostic Findings XR chest 1V portable CLINICAL HISTORY: pre op/wheezing COMPARISON STUDY: Chest radiograph June 28, 2019. Chest CT July 19, 2018. FINDINGS: No consolidation is identified. Pulmonary vascularity is normal. C ardiac size is normal. Mediastinal contours are unremarkable. The appearance of the chest is unchanged. There are multiple old left rib deformities. Cholecystectomy clips are incidentally noted. Emphysema is present. This better shown on prior chest CT. IMPRESSION: 1. No acute cardiopulmonary findings. 2. Emphysema. ECG Additional Comments: Pending: Ordered for preop Code Status & VTE Plan Code Status SCD ambulation chemical prphy following procedure Supervising Physician Co-Signing Physician Notes Attending addendum: I have physically seen this patient, have supervised the DEEDEE's activities, and agree with the H&P unless as otherwise noted. Assessment and Plan: 4 mm proximal right ureteral calculus/2 obstructing calculi at level of L3/mild left-sided hydroureteronephrosis- N.p.o. except essential medications Follow urine culture and sensitivity Empiric antibiotics Consult urology NSS@100 mils per hour Aspirin to be held Remaining orders and notations as noted PG Care Time/CCT Total # of Minutes Spent Total Time Spent with Patient: Total time spent is greater than 50% in coordination of care (as documented) at patient's floor/unit and/or counseling patient: Coding Level of Care Code 69239 Initial Inpt Care Lvl 2 Diagnoses UTI (urinary tract infection), bacterial N39.0; A49.9 Ureterolithiasis N20.1 Hydronephrosis N13.2 Hydronephrosis type: with renal and ureteral calculous obstruction PAD (peripheral artery disease) I73.9 Asthma J45.909 Asthma complication type: unspecified Pulmonary emphysema J43.8 Emphysema type: other Vitamin D deficiency E55.9 Migraine G43.909 Migraine type: unspecified Anxiety F41.9 Colitis K52.9 Klinefelters syndrome Q98.4 Osteopenia M85.80 Laterality: unspecified laterality Current every day nicotine vapor product user Z72.0 (1) Hydronephrosis Hydronephrosis type: with renal and ureteral calculous obstruction Qualified Code(s): N13.2 - Hydronephrosis with renal and ureteral calculous obstruction (2) Migraine Migraine type: unspecified (3) Osteopenia Laterality: unspecified laterality (4) Pulmonary emphysema Emphysema type: other Qualified Code(s): J43.8 - Other emphysema (5) Asthma Asthma complication type: unspecified
--- NOTE | 2020-05-16 20:56 | XRay Report ---
XR chest 1V portable CLINICAL HISTORY: pre op/wheezing COMPARISON STUDY: Chest radiograph June 28, 2019. Chest CT July 19, 2018. FINDINGS: No consolidation is identified. Pulmonary vascularity is normal. Cardiac size is normal. Me diastinal contours are unremarkable. The appearance of the chest is unchanged. There are multiple old left rib deformities. Cholecystectomy clips are incidentally noted. Emphysema is present. This braydon r shown on prior chest CT. IMPRESSION: 1. No acute cardiopulmonary findings. 2. Emphysema. ACT 112: Negative or not required by law. Electronically signed by: Lawrence Coyne M.D. 05/16/2020 8:54 PM
[2020-05-16] MEDS: D5W AND LACTATED RINGERS 1,000 ML IV SCH (22:11)
[2020-05-16] MEDS ORDERED: AMITRIPTYLINE HCL 100 MG TAB PO SCH (22:11)
[2020-05-16] MEDS ORDERED: oxyCODONE HCL IR 5 MG TAB (IMMEDIATE RELEASE) PO PRN (22:11)
[2020-05-16] MEDS ORDERED: IPRATROPIUM BROMIDE/ALBUTEROL respimat INH INH SCH (22:11)
[2020-05-16] MEDS ORDERED: ALBUTEROL HFA 8 GM INHALER INH PRN (22:11)
[2020-05-16] MEDS ORDERED: DULoxetine HCL 60 MG CAP PO SCH (22:11)
[2020-05-16] MEDS ORDERED: PRAVASTATIN SOD 40 MG TAB PO SCH (22:11)
[2020-05-16] MEDS ORDERED: RIZATRIPTAN BENZOATE 10 MG TAB PO PRN (22:11)
[2020-05-16] MEDS ORDERED: busPIRone 7.5 MG TAB PO SCH (22:11)
[2020-05-16] MEDS ORDERED: hydrOXYzine HCl 25 MG TAB PO SCH (22:11)
[2020-05-16] MEDS ORDERED: PREGABALIN 150 MG CAP PO SCH (22:11)
[2020-05-16] MEDS ORDERED: ONDANSETRON 4 MG OD TAB PO PRN (22:11)
[2020-05-16 22:49] LABS: Thyroid Stimulating Hormone 0.093 uIu/ml (0.300-4.500)
[2020-05-16 23:03] LABS: T4 Free Thyroxine 0.72 ng/dl (0.8-1.6)
[2020-05-16] MEDS: DOCUSATE SODIUM 100 MG CAP PO SCH (23:35)
[2020-05-16] MEDS: TOPIRAMATE 50 MG TAB PO SCH (23:37)
[2020-05-17] MEDS: TESTOSTERONE SCH ×2 (00:05→09:14)
[2020-05-17] MEDS: LEVOTHYROXINE SODIUM 75 MCG TABLET PO SCH (06:17)
--- NOTE | 2020-05-17 06:56 | Communication Note ---
Date of Service: May 17, 2020 Called to patient's room by nursing at 6:25 am that patient seemed "off" from baseline. At the time of my arrival, code lori called overhead. On evaluation at bedside he was responsive enough to make eye contact and respond to pain however was not able to squeeze hands on command, lift legs on command, not tracking with gaze. Code stroke called. Pupils dilated but responsive to light. Right hand flexing without purpose, bilateral legs twitching without purpose. oxygen saturation down to 82 on 3L NC when entering the room, up to 95 on 10L oxymask.
[2020-05-17] MEDS ORDERED: Albuterol HFA 8 GM Inhaler (Combivent Respimat P&T Subs) INH SCH (07:00)
[2020-05-17] MEDS: Ipratropium HFA Inhaler (Combivent Respimat P&T Subs) INH SCH ×4 (07:05→19:32)
--- NOTE | 2020-05-17 07:16 | CT Scan Report ---
CT head/brain wo con CLINICAL HISTORY: Stroke alert WEAKNESS COMPARISON STUDY: No previous studies for comparison. TECHNIQUE: Axial CT of the brain is performed from the vertex to the skull base. IV contrast was not administered for this examination. A dose lowering technique was utilized adhering to the principles of ALARA. CT DOSE: 1467.65 mGy.cm FINDINGS: No intra or extra-axial mass lesions are visualized. There is no CT evidence of acute cortical infarc tion. There is no evidence of midline shift. There is no acute hemorrhage. No calvarial fractures ar e visualized. There are patchy white matter hypodensities likely on a small vessel basis. There is no evidence of pathologic ventricular dilatation. There is no evidence of acute sinusitis IMPRESSION: No acute intracranial findings ACT 112: Negative or not required by law. Electronically signed by: Abdifatah Ortega M.D. 05/17/2020 7:15 AM
--- NOTE | 2020-05-17 07:21 | CT Scan Report ---
CTA ANGIOGRAPHY OF THE HEAD CLINICAL HISTORY: Stroke alert. COMPARISON STUDY: Head CT November 03, 2016. MRI of the brain July 17, 2009. TECHNIQUE: Helical axial images of the head were obtained following uneventful intravenous administr ation of Optiray 320. Sagittal and coronal reconstructions were viewed as well as maximal intensity p rojections on an independent 3-D workstation. Automated exposure control was utilized for the study. A dose lowering technique was utilized adhering to the principles of ALARA. FINDINGS: No acute intracranial hemorrhage, midline shift or mass effect is present. Brain volume is normal. Ventricular system is normal. Basal cisterns are patent. There are no extra-axial collections . White matter hypodensity suggests small vessel disease. There are no findings to suggest acute dura l sinus thrombosis or acute territorial infarct. The bilateral M1, M2, A1 and A2 segments are patent. There is mild plaque within the bilateral cavernous carotids without stenosis. There is no central v essel occlusion. No intraluminal thrombus is noted. The posterior circulation is intact. IMPRESSION: No central vessel occlusion. No significant stenosis. No intracranial aneurysm. ACT 112: Negative or not required by law. Electronically signed by: Lawrence Coyne M.D. 05/17/2020 7:20 AM
--- NOTE | 2020-05-17 07:21 | CT Scan Report ---
CT angio neck with con CLINICAL HISTORY: Stroke alert WEAKNESS. SUSPECTED ACUTE STROKE COMPARISON STUDY: No previous studies for comparison. TECHNIQUE: CT angiography was performed from the aortic arch to the skull base. MIP imaging was perfo rmed. The patient was scanned in a dynamic helical fashion during intravenous administration of 119 c c of Optiray 320. A dose lowering technique was utilized adhering to the principles of ALARA. CT DOSE: 663.64 mGy.cm Technique: CT angiogram of the carotid and vertebral arteries was obtained using intravenous contrast and 3-D reconstruction. NASCET criteria was utilized. Findings: There is pulmonary emphysema. There is calcific plaque at the right carotid bifurcation with a 30% diameter stenosis of the right i nternal carotid artery. There is calcific plaque at the level of the left carotid bulb without evidence of hemodynamically si gnificant carotid stenosis. There is a 70% diameter stenosis of the left vertebral artery origin. There are multiple right verteb ral narrowings measuring up to 50% due to facet joint arthropathy IMPRESSION: 1. Atheromatous plaque without evidence of hemodynamically significant carotid stenosis 2. 70% diameter stenosis of the left humeral artery origin 3. Multiple right vertebral artery narrowings measuring up to 50% diameter stenosis ACT 112: Negative or not required by law. Electronically signed by: Abdifatah Ortega M.D. 05/17/2020 7:20 AM
[2020-05-17 07:38] LABS: Basophils # (auto) 0.04 K/uL (0-0.2); Basophils % (auto) 0.5 %; Eosinophils % (auto) 12.1 %; Hematocrit (blood only) 38.6 % (42-52); Hemoglobin 12.8 g/dL (14.0-18.0); Immature Granulocytes # (auto) 0.07 K/uL (0.00-0.02); Immature Granulocytes % (auto) 0.8 %; Lymphocytes % (auto) 25.5 %; Mean Corpuscular Hemoglobin 30.8 pg (25-34); Mean Platelet Volume 10.9 fL (7.4-10.4); Monocytes # (auto) 1.09 K/uL (0.11-0.59); Monocytes % (auto) 13.2 %; Neutrophils # (auto) 3.95 K/uL (1.4-6.5); Neutrophils % (auto) 47.9 %; Platelet Count 206 K/uL (130-400); RDW Standard Deviation 54.7 fL (36.4-46.3); Red Blood Count 4.15 M/uL (4.7-6.1); White Blood Count 8.25 K/uL (4.8-10.8)
[2020-05-17 07:50] LABS: Mean Corpuscular Hgb Conc 33.2 g/dL (32-36)
[2020-05-17 07:51] LABS: INR 1.1 (0.9-1.1); Partial Thromboplastin Ratio 1.3; Partial Thromboplastin Time 37.4 Seconds (21.0-31.0); Prothrombin Time 11.4 Seconds (9.0-12.0)
[2020-05-17 08:17] LABS: BUN Creatinine Ratio 14.1 (10-20); Calcium 9.3 mg/dl (8.5-10.1); Creatinine Clr Calc Pharmacy 46.5 ml/min; Est GFR (African American) 46.7; Est GFR (Non-African American) 40.3; Potassium 3.8 mmol/L (3.5-5.1)
[2020-05-17 08:45] LABS: Base Excess ABG -4.5 mEq/L (-9-1.8); HCO3 ABG 22 mmol/L (19-24); PCO2 ABG 46 mmHg (35-46); PO2 ABG 69 mmHg (80-95)
[2020-05-17] MEDS ORDERED: PHARMACIST DISCHARGE MED REC CONSULT PRN (08:58)
[2020-05-17] MEDS ORDERED: ACETAMINOPHEN 325 MG TAB PO PRN (08:58)
[2020-05-17 09:00] LABS: Allen Test Pos (Pos)
--- NOTE | 2020-05-17 09:09 | Hospitalist Progress Note ---
Date of Service May 17, 2020 Assessment & Plan (1) Encephalopathy: Patient decompensated this morning he had some hypoxia some jerking movements had altered mentation he was transferred to the intensive care unit for stroke evaluation with a telemetry stroke heart. I personally spoke to Dr. Trujillo who after stroke evaluation felt this was not consistent with a stroke he did not indicate thrombolytic therapy at this time. We will however initiate stroke order set without TPA. Will look for secondary metabolic causes. Stopping many of his psychotropic medications. MRI without contrast is ordered consideration of EEG will be discussed with onsite neurologist I personally spent 47 minutes of care time at the bedside with multiple visits and ICU time during his telestroke evaluation Certainly the patient is treated for urinary tract infection present on admission he is hypothermic and this could just be worsening of that event (2) UTI (urinary tract infection), bacterial: Non complicated with CONS resistent to oxacillin - Started on daptomycin - Follow closely with BPH and outflow problems - Patient has had chronic symptoms of the lower tract for months (3) Ureterolithiasis: Patient with bilateral stone and hydronephrosis of the left - Non obstructive, continue with Flomax, gentle IVF resuscitation tonight - Urology consulted for stone management - Continue Daptomycin - other procedureal abx per urology. (4) Hydronephrosis: - stone managment as above patient CT scan does not suggest significant hydronephrosis - pain control (5) PAD (peripheral artery disease): No acute need- - daily ASA due to concern for stroke will hold if urology procedure is confirmed - Continue home BP and cholesterol medications (6) Asthma: as below (7) Pulmonary emphysema: No PFTs performed bialateral wheezing,continue inhalers ABG checked for hypercarbia was not found to cause CO2 narcosis to be responsible for the patient's mental status change (8) Vitamin D deficiency: (9) Migraine: Continue prophylaxis/abortive medciations (10) Anxiety: Patient is on amitriptyline 100 BuSpar 7.5 twice daily, duloxetine 60 hydroxyzine 50 at bedtime, Lyrica 150 3 times daily, oxycodone 5-10 every 4, Topamax 50 twice daily Medicines are held with exceptions of reducing duloxetine at 30 continuing Topamax (11) Colitis: No acute needs follow bowel function (12) Klinefelters syndrome: No acute needs continue testosterone cortisol in morning (13) Osteopenia: arthrits related ? - hold sulindac until renal pathology resolved (14) Current every day nicotine vapor product user: transitioned to patch for in hospital course - transition back to cartridge when ready. - patient notified of change and expectations met. - -notify rn or provider if he wants patch or not and if working or not. (15) Acute kidney injury: Patient presented with acute kidney injury with a creatinine of 2.15 typical creatinines are in the 1.3 range Admission and Anticipated Discharge Date Admission Date: May 16, 2020 Subjective This patient promptly just after 7 AM to be informed that this patient had a stroke alert called by the nighttime resident around 6:45 AM. Patient was transferred to the intensive care unit for telestroke interface. Stroke alert was called due to altered mental status jerking arm movements and hypoxemia. I did immediately evaluate the patient at the bedside with the nursing staff received verbal report from the nursing staff I also did not physically phoned [facility] to talk to the telestroke neurologist on-call I was present at the bedside during their neurological evaluation and I did then did speak to the neurologist regarding their recommendations post evaluation. At this time the patient was improving from was initially described and on a rev isit up on the floor later that morning the patient was returning to near his baseline. In the ICU the patient was with mumbled speech would follow commands with fall asleep easily did have some bilateral synchronized twitching of arms and legs seem to be more present when the patient was not conscious and would somewhat extinguish when he was awake Review of Systems Review of Systems: Lessening distress and fatigue no headache, blurry or double vision no speech or swallowing issues no chest pain, pressure or palpitations no shortness of breath, cough or wheezes no abdominal pain, nausea or vomiting, diarrhea or constipation no dysuria, hematuria or frequency no focal joint pain or swelling no back pain, CVA tenderness or radicular pain no bruising, bleeding or rashes For a week and some mild confusion Physical Exam Physical Exam: The patient appeared chronically ill somewhat deconditioned Vital signs as documented. Head exam is normocephalic atraumatic no scleral icterus Neck is without JVD, thyromegaly, or carotid bruits. Lungs are clear crease at the bases but clear Cardiac exam, Rhythm is regular.. No murmurs, rubs or gallops. Abdominal exam reveals normal bowel sounds, soft non tender, no masses Extremities are nonedematous and both pedal pulses are present Neurologic exam is alert and oriented his clarity improved from initial visit to subsequent visits where he is making more sense and less garbled with his speech his extremity strength is also improved to probably 4.5 out of 5 equal bilaterally upper extremities and lower extremities. Is bilateral synchronize shaking or tremor is also extinguished Psychologically is with concerns for anxiety and possibly polypharmacy. Results & Data Results & Data ([facility]) Vital Signs (Past 12 Hours) Vital Signs Temp Pulse Resp BP Pulse Ox 05/17/20 08:30 95.9 F L 63 15 134/71 100 05/16/20 22:54 98 H 20 92 PG Care Time/CCT Total # of Minutes Spent Total Time Spent with Patient: Total time spent is greater than 50% in coordination of care (as documented) at patient's floor/unit and/or counseling patient: Coding Level of Care Code 90797 Subseq Hosp Care Lvl 3 Diagnoses Encephalopathy G93.40 UTI (urinary tract infection), bacterial N39.0; A49.9 Ureterolithiasis N20.1 Hydronephrosis N13.2 Hydronephrosis type: with renal and ureteral calculous obstruction PAD (peripheral artery disease) I73.9 Asthma J45.909 Asthma complication type: unspecified Pulmonary emphysema J43.8 Emphysema type: other Vitamin D deficiency E55.9 Migraine G43.909 Migraine type: unspecified Anxiety F41.9 Colitis K52.9 Klinefelters syndrome Q98.4 Osteopenia M85.80 Laterality: unspecified laterality Current every day nicotine vapor product user Z72.0 Acute kidney injury N17.9 Time Spent (min) 47 Comment critical care time (1) Hydronephrosis Hydronephrosis type: with renal and ureteral calculous obstruction Qualified Code(s): N13.2 - Hydronephrosis with renal and ureteral calculous obstruction (2) Migraine Migraine type: unspecified (3) Osteopenia Laterality: unspecified laterality (4) Pulmonary emphysema Emphysema type: other Qualified Code(s): J43.8 - Other emphysema (5) Asthma Asthma complication type: unspecified
--- NOTE | 2020-05-17 09:39 | Neurology Consultation ---
Date of Consultation May 17, 2020 Assessment & Plan (1) Seizure-like activity: Seizure-like episode occurring in the context of urinary tract infection, urolithiasis, and hydronephrosis. Unremarkable CT of the head. CT angiography reveals a 70% stenosis of the left vertebral artery and multifocal 50% narrowings of the right vertebral artery are both of unlikely clinical significance. Vertebrobasilar insufficiency not expected although perhaps not completely excluded. He did have a telestroke consultation although the episode was felt to potentially be more consistent with seizure-like activity rather than stroke. Agree with routine brain MRI as ordered. Would also recommend obtaining a routine EEG. However, if patient were to have another similar episode would consider increasing his dosage of topiramate or possibly adding Keppra to his medication regimen. He should continue with daily low-dose aspirin and pravastatin. If his MRI does show evidence of an acute or subacute infarct, or chronic infarcts, would recommend completion of a transthoracic echocardiogram with bubble study. Case discussed with Dr. Howell. History of Present Illness Reason for Consultation: Seizure Requesting Physician: Abebe Howell MD Attending Physician: Abebe Howell MD History of Present Illness The patient is a 64-year-old male who presented to the emergency department last night complaining of flank pain in the context of left hydronephrosis, ureteral stone, and a recent positive urine culture. His past medical history is notable for anxiety, COPD, Klinefelter syndrome, migraine as well as stroke and TIA. He was admitted to the hospitalist service with a diagnosis of urinary tract infection, ureterolithiasis, and hydronephrosis. Urology has been consulted. This morning, at 6:25 AM, the patient was noted to be off from his baseline. A house staff physician note was reviewed. A code purple was called. He was noted to be responsive enough to make eye contact and respond to pain but was not able to squeeze hands to command, lift legs to command, or track with gaze. His pupils were dilated but responsive to light. His right hand was flexing without purpose. Bilateral legs were twitching without purpose. Oxygen saturation was reduced to 82 on 3 L nasal cannula but improved with 10 L facemask. The patient did have a telestroke consultation at bedside with Dr. Paul at [facility] although the episode was not felt to be consistent with stroke or TIA. The patient's clinical characteristics of altered mentation in the context of hypoxia with acute jerking movements were felt to be possibly consistent with seizure activity or due to underlying metabolic derangement further confounded by psychotropic medications/polypharmacy. He did have a CT of the head completed this morning in the context of this acute event. The study was negative for hemorrhage or acute process. A CT angiogram of the head and neck was also completed. There was evidence of atherosclerotic plaque within the carotid systems although no hemodynamically significant stenosis was identified. There was evidence of a 70% stenosis of the left vertebral artery at its origin. Multiple right vertebral artery narrowings were noted at about 50% as well. These findings were observed by the interpreting radiologist. I reviewed the images as well and agree. The patient does not have any recollection of this morning's episode. He does inform me that he may have had some blackout episodes about 7 or 8 years ago but does not recall any other specifics. He does not have a known history of epilepsy or seizure disorder. He does have a prescription for topiramate and Maxalt which I suspect are for migraines. He is also prescribed amitriptyline, duloxetine, and Lyrica which are probably for combination of mood and pain. He is not really certain why he is taking his variety of medications and seems to be an unreliable historian. Allergies Allergy/AdvReac Type Severity Reaction Status Date / Time bee venom protein (honey bee) Allergy Severe ANAPHYLAXIS Verified 05/16/20 18:56 Sulfa (Sulfonamide Allergy Unknown PRURITUS Verified 05/16/20 18:56 Antibiotics) Home Medications Medication Instructions Recorded Confirmed Type docusate sodium 100 mg PO HS 08/22/18 05/16/20 History pravastatin 40 mg tablet 40 mg PO HS #90 tab 06/05/19 05/16/20 Rx rizatriptan 10 mg tablet 10 mg PO UD PRN #10 tab 06/05/19 05/16/20 Rx ipratropium 20 mcg-albuterol 100 1 puff INHALATION QID #4 gm 07/06/19 05/16/20 Rx mcg/actuation mist for inhalation esomeprazole magnesium 40 mg 40 mg PO QAM #90 cap 08/02/19 05/16/20 Rx capsule,delayed release albuterol sulfate 90 mcg/actuation 1 puffs INH Q4H PRN #8.5 gm 08/06/19 05/16/20 Rx aerosol inhaler hydroxyzine HCl 50 mg tablet 50 mg PO HS #90 tab 08/06/19 05/16/20 Rx Lyrica 150 mg capsule 150 mg PO TID #90 cap NS 12/25/19 05/16/20 Rx duloxetine 60 mg capsule,delayed 60 mg PO BID #60 cap 01/22/20 05/16/20 Rx release topiramate 50 mg tablet 50 mg PO BID #60 tab 02/26/20 05/16/20 Rx testosterone 20.25 mg/1.25 gram 1 pump TRANSDERMAL DAILY 90 Days 03/12/20 05/16/20 Rx (1.62 %) transdermal gel pump #75 g sulindac 200 mg tablet 200 mg PO BID #60 tab 03/25/20 05/16/20 Rx levothyroxine 50 mcg tablet 75 mcg PO QAM #45 tab 03/31/20 05/16/20 Rx tamsulosin 0.4 mg capsule 0.4 mg PO DAILY #90 cap 04/01/20 05/16/20 Rx nicotine 10 mg inhalation cartridge 1 inh INHALATION .COMPLEX #168 ea 04/25/20 05/16/20 Rx amitriptyline 100 mg PO HS 05/13/20 05/16/20 History aspirin [Aspir-Low] 81 mg PO DAILY 05/13/20 05/16/20 History hydrocortisone 1 applic TOPICAL BID PRN 05/13/20 05/16/20 History hydrocortisone acetate 25 mg OR BID PRN 05/13/20 05/16/20 History ondansetron 4 mg PO Q4H PRN #8 tab 05/13/20 05/16/20 Rx oxycodone 5 - 10 mg PO Q4H PRN #10 tab 05/13/20 05/16/20 Rx buspirone 7.5 mg tablet 7.5 mg PO BID #60 tab 05/14/20 05/16/20 Rx Patient History Medical History (Updated 05/17/20 @ 11:16 by Rafat Ray MD) Anxiety Arthritis Asthma BPH (benign prostatic hyperplasia) Central hypothyroidism Follows with endo- on levothyroxine in the past- no longer in patient's med list Chronic back pain COPD (chronic obstructive pulmonary disease) Fibromyalgia GERD (gastroesophageal reflux disease) Kidney stones Klinefelters syndrome Follows with endo Migraine Osteoarthritis PAD (peripheral artery disease) Primary hypogonadism in male Pulmonary nodules Sleep apnea non compliant with CPAP Stroke 2015 FOLLOWING MULTIPLE TIA'S - no deficits Transient ischemic attack (TIA) MULTIPLE 2015 Surgical History H/O hernia repair History of carpal tunnel release History of cholecystectomy History of cholecystectomy History of cystoscopy most recent 06/28/2019 [place] History of herniorrhaphy History of kidney stones History of knee surgery History of mandibular surgery History of reduction of nasal fracture Hx of umbilical hernia repair Previous back surgery S/P hernia repair S/P ureteral stent placement Status post insertion of iliac artery stent Ventral hernia Family History Mother Heart disease Diabetes Hypertension Grandfather (Maternal) Myocardial infarction Denies family history of Ovarian cancer Prostate cancer Breast cancer Colorectal cancer Social History Smoking Status: Former smoker Cigarettes Per Day: HX OF 1+ PPD X40 YEARS, QUIT IN 2015, USES PRN NICOTINE INHALER; Second Hand Exposure: Yes (as a child); Hx Alcohol Use: No (Alcoholism in Recovery) Hx Substance Use: No Preferred Language: [place] Communication Ability: Effective Youth Care Specialist Required: No Beliefs That Will Affect Care: None marital status: Current Living Situation: Other Current Living Situation Comment: ex s/o current occupational status: disabled Feels Safe at Home: Yes Safety Concerns: Feels Safe At This Time Dental Care, Regularly: No Physical Activity Frequency: Does not Exercise Seatbelt Use: always Sunscreen Use: No Assistive Devices: Cane, Denture - Upper, Denture - Lower, Glasses, Hearing Aid - Right and Oxygen - Continuous Review of Systems Review of Systems: All systems reviewed & are unremarkable except as noted in HPI & below Exam (Neuro) Neurologic: Oriented to:: Person, Place and Time Memory: Short Term Intact and Remote Intact Attention: Span Intact and Concentration Intact Speech Fluency: negative Dysarthria Speech Aphasia: negative Aphasia Fund of Knowledge: Current Events, Past History and Vocabulary Cranial Nerves: Normal II, III, IV, , V, VII, IX, X, XI and XII; Abnorm VIII Motor Strength: Normal Lower Extremities and Normal Upper Extremities Motor Tone: Normal Lower Extremities and Normal Upper Extremities Muscle Bulk/Involuntary Movements: No Involuntary Movements Sensation: Light Touch Intact, Pain/Temperature Intact, Vibration Intact and Proprioception Intact Coordin ation: negative Dysdiadochokinesia, Finger-Nose Abnormal and Heel-Lester Abnormal Deep Tendon Reflexes: Rt Triceps: 2+, Lt Triceps: 2+, Rt Biceps: 2+, Lt Biceps: 2+, Rt Brachioradialis: 2+, Lt Brachioradialis: 2+, Rt Patellar: 2+, Lt Patellar: 2+, Rt Ankle: 1+ and Lt Ankle: 1+ Special Tests: negative Babinski Present Details: Gait not tested in the context of patient's current medical status. Results & Data ([facility]) Vital Signs (Past 12 Hours) Vital Signs Temp Pulse Resp BP Pulse Ox 05/17/20 08:30 35.5 C L 63 15 134/71 100 05/16/20 22:54 98 H 20 92 Laboratory Results WBC 4.15, hemoglobin 12.8, hematocrit 38.6, platelet count 206, sodium 140, potassium 3.8, BUN 25, creatinine 1.74, glucose 108, calcium 9.3, TSH 0.093, free T4 0.[address] of the head and CT angiography of the head and neck are as described in the history of present illness. PG Care Time/CCT Total # of Minutes Spent Total Time Spent with Patient: Total time spent is greater than 50% in coordination of care (as documented) at patient's floor/unit and/or counseling patient: 70 minutes Coding Level of Care Code 45718 Initial Inpt Care Lvl 3 Diagnoses Seizure-like activity R56.9
[2020-05-17] MEDS: TAMSULOSIN HCL 0.4 MG CAP PO SCH (10:55)
[2020-05-17] MEDS: PANTOprazole 40 MG TAB PO SCH (10:55)
[2020-05-17] MEDS: NICOTINE 14 MG/24 HR PATCH TD SCH (10:55)
[2020-05-17] MEDS: TOPIRAMATE 50 MG TAB PO SCH ×2 (10:56→20:27)
[2020-05-17] MEDS: D5W AND LACTATED RINGERS 1,000 ML IV SCH ×2 (10:57→17:56)
[2020-05-17] MEDS: DULoxetine HCL 30 MG CAP PO SCH (10:57)
[2020-05-17] MEDS: ASPIRIN 81 MG ECTAB PO SCH (10:57)
[2020-05-17] MEDS: ALBUTEROL HFA 8 GM INHALER INH SCH ×3 (11:18→19:32)
--- NOTE | 2020-05-17 15:22 | Magnetic Resonance Report ---
MRI OF THE BRAIN WITHOUT CONTRAST CLINICAL HISTORY: Acute stroke. Seizure like activity. COMPARISON STUDY: Head CT dated 05/17/2020, MRI the brain dated 07/17/2009 FINDINGS: Sagittal T1, axial diffusion, proton density and T2 weighted axial, coronal FLAIR, and axial T1-weigh dre images were acquired. No intra or extra-axial mass lesions are visualized Axial diffusion-weighted images reveal no evidence of acute or subacute infarction. There is no evidence of ventricular dilatation. Proton density T2-weighted and FLAIR images reveal scattered foci of increased T2 signal within the w lola matter, likely on a small vessel basis. There are no abnormal flow voids. IMPRESSION: 1. No acute intracranial findings 2. No evidence of acute or subacute infarction 3. No evidence of intracranial mass 4. Minimally progressive foci of increased T2 and FLAIR signal within the white matter likely on a sm all vessel ischemic basis. ACT 112: Negative or not required by law. Electronically signed by: Abdifatah Ortega M.D. 05/17/2020 3:21 PM
[2020-05-17] MEDS: DAPTOmycin 475 MG in SYRINGE 0 ML IV SCH (17:43)
[2020-05-17] MEDS: DOCUSATE SODIUM 100 MG CAP PO SCH (20:27)
[2020-05-18] MEDS: LEVOTHYROXINE SODIUM 75 MCG TABLET PO SCH (06:23)
[2020-05-18] MEDS: D5W AND LACTATED RINGERS 1,000 ML IV SCH (06:26)
[2020-05-18] MEDS: ALBUTEROL HFA 8 GM INHALER INH SCH ×4 (07:04→19:00)
[2020-05-18] MEDS: Ipratropium HFA Inhaler (Combivent Respimat P&T Subs) INH SCH ×4 (07:04→19:00)
[2020-05-18 07:10] LABS: Basophils # (auto) 0.06 K/uL (0-0.2); Basophils % (auto) 0.6 %; Eosinophils # (auto) 1.27 K/uL (0-0.5); Immature Granulocytes # (auto) 0.07 K/uL (0.00-0.02); Immature Granulocytes % (auto) 0.7 %; Lymphocytes # (auto) 2.54 K/uL (1.2-3.4); Lymphocytes % (auto) 25.9 %; Mean Corpuscular Hemoglobin 31.1 pg (25-34); Mean Corpuscular Hgb Conc 34.2 g/dL (32-36); Mean Corpuscular Volume 90.9 fL (80-100); Mean Platelet Volume 11.6 fL (7.4-10.4); Monocytes # (auto) 1.05 K/uL (0.11-0.59); Monocytes % (auto) 10.7 %; Neutrophils % (auto) 49.1 %; Platelet Count 235 K/uL (130-400); RDW Coefficient of Variation 15.6 % (11.5-14.5); RDW Standard Deviation 51.8 fL (36.4-46.3); Red Blood Count 4.18 M/uL (4.7-6.1); White Blood Count 9.79 K/uL (4.8-10.8)
[2020-05-18 07:41] LABS: BUN Creatinine Ratio 11.7 (10-20); Calcium 8.8 mg/dl (8.5-10.1); Creatinine Clr Calc Pharmacy 56.9 ml/min; Est GFR (African American) 59.6; Est GFR (Non-African American) 51.5; Potassium 3.5 mmol/L (3.5-5.1)
[2020-05-18] MEDS: ASPIRIN 81 MG ECTAB PO SCH (08:03)
[2020-05-18] MEDS: TAMSULOSIN HCL 0.4 MG CAP PO SCH (08:04)
[2020-05-18] MEDS: PANTOprazole 40 MG TAB PO SCH (08:04)
[2020-05-18] MEDS: DULoxetine HCL 30 MG CAP PO SCH (08:04)
[2020-05-18] MEDS: NICOTINE 14 MG/24 HR PATCH TD SCH (08:04)
[2020-05-18] MEDS: TOPIRAMATE 50 MG TAB PO SCH ×2 (08:04→21:01)
[2020-05-18] MEDS: NEXIUM PO SCH (08:32)
--- NOTE | 2020-05-18 10:28 | Neurology Progress Note ---
Date of Service May 18, 2020 Assessment & Plan (1) Seizure-like activity: Isolated episode of seizure-like activity occurring yesterday morning in the context of urinary tract infection, urolithiasis, and hydronephrosis. No evidence of acute or subacute infarct on follow-up MRI completed yesterday. Would hold off on starting anticonvulsant therapy for seizures at this point in time. Routine EEG to be completed tomorrow. Patient may continue with topiramate for for migraine prevention. No further immediate recommendations. Admission and Anticipated Discharge Date Admission Date: May 16, 2020 Subjective Follow-up for seizure-like episode Patient has not had any further seizure-like episodes since yesterday morning's event. He is currently without specific neurologic complaints. He did complete the requested brain MRI yesterday that was negative for acute or subacute infarct. There is evidence of minimally progressive small vessel ischemic disease. These imaging findings were observed by the interpreting radiologist. I reviewed the images as well and agree. Review of Systems Neurologic: no localized weakness, no seizure-like activity and no headache(s) Results & Data ([facility]) Vital Signs (Past 12 Hours) Vital Signs Temp Pulse Pulse Resp BP Pulse Ox 05/18/20 08:00 37.1 C 82 18 147/79 H 94 05/18/20 07:37 82 05/18/20 07:07 81 16 92 05/18/20 03:51 36.7 C 18 L 18 151/79 H 92 05/18/20 00:51 75 05/17/20 23:35 36.7 C 73 18 125/79 92 Exam (Neuro) Neurologic: Oriented to:: Person, Place and Time Attention: Span Intact and Concentration Intact Speech Fluency: negative Dysarthria Speech Aphasia: negative Aphasia Fund of Knowledge: Current Events, Past History and Vocabulary Cranial Nerves: Normal II, III, IV, and VII; Abnorm VIII Motor Strength: Normal Lower Extremities and Normal Upper Extremities Muscle Bulk/Involuntary Movements: No Involuntary Movements Coordination: Normal Coding Level of Care Code 45748 Subseq Hosp Care Lvl 2 Diagnoses Seizure-like activity R56.9
--- NOTE | 2020-05-18 13:53 | Hospitalist Progress Note ---
Date of Service May 18, 2020 Assessment & Plan (1) Encephalopathy: Patient decompensated this morning he had some hypoxia some jerking movements had altered mentation he was transferred to the intensive care unit for stroke evaluation with a telemetry stroke heart. I personally spoke to Dr. Trujillo who after stroke evaluation felt this was not consistent with a stroke he did not indicate thrombolytic therapy at this time. We will however initiate stroke order set without TPA. Will look for secondary metabolic causes. Stopping many of his psychotropic medications. MRI without contrast is negative for intracranial abnormalities, Neurolgy consultation with consideration of EEG concern for metabolic encephalopathy from uti poa and polypharmacy causing toxic encephalopathy Certainly the patient is treated for urinary tract infection present on admission he is hypothermic and this could just be worsening of that event (2) UTI (urinary tract infection), bacterial: Non complicated with CONS resistent to oxacillin - Started on daptomycin, transition to doxycycline po - Follow closely with BPH and outflow problems - Patient has had chronic symptoms of the lower tract for months (3) Ureterolithiasis: Patient with bilateral stone and hydronephrosis of the left - Non obstructive, continue with Flomax, gentle IVF resuscitation tonight - Urology consulted for stone management - Continue Doxycycline - other procedureal abx per urology. (4) Hydronephrosis: - stone managment as above patient CT scan does not suggest significant hydronephrosis - pain control (5) PAD (peripheral artery disease): No acute need- - daily ASA due to concern for stroke will hold if urology procedure is confir med - Continue home BP and cholesterol medications (6) Asthma: as below (7) Pulmonary emphysema: No PFTs performed bialateral wheezing,continue inhalers ABG checked for hypercarbia was not found to cause CO2 narcosis to be responsible for the patient's mental status change (8) Vitamin D deficiency: (9) Migraine: Continue prophylaxis/abortive medciations (10) Anxiety: Patient is on amitriptyline 100 BuSpar 7.5 twice daily, duloxetine 60 hydroxyzine 50 at bedtime, Lyrica 150 3 times daily, oxycodone 5-10 every 4, Topamax 50 twice daily Medicines are held with exceptions of reducing duloxetine at 30 continuing Topamax many medicines are for fibromyalgia, will restart low dose lyrica and add scheduled tylenol but keep other meds off at this time (11) Colitis: No acute needs follow bowel function (12) Klinefelters syndrome: No acute needs continue testosterone cortisol in morning (13) Osteopenia: arthrits related ? - hold sulindac until renal pathology resolved (14) Current every day nicotine vapor product user: transitioned to patch for in hospital course - transition back to cartridge when ready. - patient notified of change and expectations met. - -notify rn or provider if he wants patch or not and if working or not. (15) Acute kidney injury: Patient presented with acute kidney injury with a creatinine of 2.15 typical creatinines are in the 1.3 range (16) Fibromyalgia: Admission and Anticipated Discharge Date Admission Date: May 16, 2020 Subjective Patient is much more awake and alert now complaining of some somatic complaints usually tied to his history of fibromyalgia and beginning to wonder if this hospital presentation is from polypharmacy Review of Systems Review of Systems: Resolved lethargy and fatigue no headache, blurry or double vision no speech or swallowing issues no chest pain, pressure or palpitations no shortness of breath, cough or wheezes no abdominal pain, nausea or vomiting, diarrhea or constipation no dysuria, hematuria or frequency Mostly some back hips and knee pain complaints today Nonradicular back pain, without CVA tenderness no bruising, bleeding or rashes For a week and some mild confusion Physical Exam Physical Exam: The patient appeared chronically ill somewhat deconditioned he is much more awake and alert on 05/18/2020 Vital signs as documented. Head exam is normocephalic atraumatic no scleral icterus Neck is without JVD, thyromegaly, or carotid bruits. Lungs are clear crease at the bases but clear Cardiac exam, Rhythm is regular.. No murmurs, rubs or gallops. Abdominal exam reveals normal bowel sounds, soft non tender, no masses Extremities are nonedematous and both pedal pulses are present Neurologic exam is alert and oriented he has no more garbled speech and has equal bilateral strength although he is deconditioned Psychologically is with concerns for anxiety and possibly polypharmacy. pt now asking for some increase pain meds and lyrica Results & Data Results & Data ([facility]) Vital Signs (Past 12 Hours) Vital Signs Temp Pulse Pulse Resp BP Pulse Ox 05/18/20 12:12 97.9 F 81 18 145/74 H 92 05/18/20 11:47 88 16 94 05/18/20 08:00 98.8 F 82 18 147/79 H 94 05/18/20 07:37 82 05/18/20 07:07 81 16 92 05/18/20 03:51 98.1 F 18 L 18 151/79 H 92 PG Care Time/CCT Total # of Minutes Spent Total Time Spent with Patient: Total time spent is greater than 50% in coordination of care (as documented) at patient's floor/unit and/or counseling patient: Coding Level of Care Code 57204 Subseq Hosp Care Lvl 3 Diagnoses Encephalopathy G93.40 UTI (urinary tract infection), bacterial N39.0; A49.9 Ureterolithiasis N20.1 Hydronephrosis N13.2 Hydronephrosis type: with renal and ureteral calculous obstruction PAD (peripheral artery disease) I73.9 Asthma J45.909 Asthma complication type: unspecified Pulmonary emphysema J43.8 Emphysema type: other Vitamin D deficiency E55.9 Migraine G43.909 Migraine type: unspecified Anxiety F41.9 Colitis K52.9 Klinefelters syndrome Q98.4 Osteopenia M85.80 Laterality: unspecified laterality Current every day nicotine vapor product user Z72.0 Acute kidney injury N17.9 Fibromyalgia M79.7 (1) Hydronephrosis Hydronephrosis type: with renal and ureteral calculous obstruction Qualified Code(s): N13.2 - Hydronephrosis with renal and ureteral calculous obstruction (2) Migraine Migraine type: unspecified (3) Osteopenia Laterality: unspecified laterality (4) Pulmonary emphysema Emphysema type: other Qualified Code(s): J43.8 - Other emphysema (5) Asthma Asthma complication type: unspecified
[2020-05-18] MEDS: ACETAMINOPHEN 500 MG TAB PO SCH ×2 (14:04→21:00)
[2020-05-18] MEDS: LIDOCAINE 5% 1 PATCH TD SCH (14:05)
[2020-05-18] MEDS: PREGABALIN 50 MG CAP PO SCH ×2 (14:05→20:59)
[2020-05-18] MEDS: DAPTOmycin 475 MG in SYRINGE 0 ML IV SCH (17:52)
[2020-05-18] MEDS: DOCUSATE SODIUM 100 MG CAP PO SCH (21:07)
[2020-05-19] MEDS ORDERED: DICLOFENAC SOD 1% GEL 100 GM TUBE EXT ONE (00:41)
[2020-05-19] MEDS ORDERED: MELATONIN 3 MG TAB PO ONE (00:43)
[2020-05-19] MEDS: LEVOTHYROXINE SODIUM 75 MCG TABLET PO SCH (05:46)
[2020-05-19 06:03] LABS: Estimated Average Glucose 105 mg/dl; Hemoglobin A1C 5.3 % (4.5-5.6)
[2020-05-19 06:57] LABS: Basophils # (auto) 0.06 K/uL (0-0.2); Basophils % (auto) 0.6 %; Eosinophils # (auto) 0.89 K/uL (0-0.5); Eosinophils % (auto) 8.7 %; Hematocrit (blood only) 39.2 % (42-52); Hemoglobin 13.7 g/dL (14.0-18.0); Immature Granulocytes # (auto) 0.11 K/uL (0.00-0.02); Immature Granulocytes % (auto) 1.1 %; Lymphocytes # (auto) 3.05 K/uL (1.2-3.4); Lymphocytes % (auto) 29.8 %; Mean Corpuscular Hemoglobin 31.5 pg (25-34); Mean Corpuscular Hgb Conc 34.9 g/dL (32-36); Mean Corpuscular Volume 90.1 fL (80-100); Mean Platelet Volume 11.6 fL (7.4-10.4); Monocytes # (auto) 1.37 K/uL (0.11-0.59); Monocytes % (auto) 13.4 %; Neutrophils # (auto) 4.76 K/uL (1.4-6.5); Neutrophils % (auto) 46.4 %; Platelet Count 269 K/uL (130-400); RDW Coefficient of Variation 15.5 % (11.5-14.5); RDW Standard Deviation 50.8 fL (36.4-46.3); Red Blood Count 4.35 M/uL (4.7-6.1); White Blood Count 10.24 K/uL (4.8-10.8)
[2020-05-19 07:25] LABS: BUN Creatinine Ratio 9.5 (10-20); Calcium 9.5 mg/dl (8.5-10.1); Creatinine Clr Calc Pharmacy 52.8 ml/min; Est GFR (African American) 54.5; Potassium 3.1 mmol/L (3.5-5.1)
[2020-05-19] MEDS: ALBUTEROL HFA 8 GM INHALER INH SCH ×2 (08:08→11:19)
[2020-05-19] MEDS: Ipratropium HFA Inhaler (Combivent Respimat P&T Subs) INH SCH ×2 (08:09→11:18)
[2020-05-19] MEDS: DULoxetine HCL 30 MG CAP PO SCH (09:08)
[2020-05-19] MEDS: NEXIUM PO SCH (09:09)
[2020-05-19] MEDS: ACETAMINOPHEN 500 MG TAB PO SCH (09:10)
[2020-05-19] MEDS: ASPIRIN 81 MG ECTAB PO SCH (09:10)
[2020-05-19] MEDS: TAMSULOSIN HCL 0.4 MG CAP PO SCH (09:10)
[2020-05-19] MEDS: NICOTINE 14 MG/24 HR PATCH TD SCH (09:10)
[2020-05-19] MEDS: LIDOCAINE 5% 1 PATCH TD SCH (09:11)
--- NOTE | 2020-05-19 09:15 | Electroencephalogram ---
EEG Procedure Note Date of Service May 19, 2020 Start / End Times Start Time: 703 End Time: [address] Ray History 64-year-old with history of seizure-like symptoms Home Medication List Medication Instructions Recorded Confirmed Type docusate sodium 100 mg PO HS 08/22/18 05/16/20 History pravastatin 40 mg tablet 40 mg PO HS #90 tab 06/05/19 05/16/20 Rx rizatriptan 10 mg tablet 10 mg PO UD PRN #10 tab 06/05/19 05/16/20 Rx ipratropium 20 mcg-albuterol 100 1 puff INHALATION QID #4 gm 07/06/19 05/16/20 Rx mcg/actuation mist for inhalation esomeprazole magnesium 40 mg 40 mg PO QAM #90 cap 08/02/19 05/16/20 Rx capsule,delayed release albuterol sulfate 90 mcg/actuation 1 puffs INH Q4H PRN #8.5 gm 08/06/19 05/16/20 Rx aerosol inhaler hydroxyzine HCl 50 mg tablet 50 mg PO HS #90 tab 08/06/19 05/16/20 Rx Lyrica 150 mg capsule 150 mg PO TID #90 cap NS 12/25/19 05/16/20 Rx duloxetine 60 mg capsule,delayed 60 mg PO BID #60 cap 01/22/20 05/16/20 Rx release topiramate 50 mg tablet 50 mg PO BID #60 tab 02/26/20 05/16/20 Rx testosterone 20.25 mg/1.25 gram 1 pump TRANSDERMAL DAILY 90 Days 03/12/20 05/16/20 Rx (1.62 %) transdermal gel pump #75 g sulindac 200 mg tablet 200 mg PO BID #60 tab 03/25/20 05/16/20 Rx levothyroxine 50 mcg tablet 75 mcg PO QAM #45 tab 03/31/20 05/16/20 Rx tamsulosin 0.4 mg capsule 0.4 mg PO DAILY #90 cap 04/01/20 05/16/20 Rx nicotine 10 mg inhalation cartridge 1 inh INHALATION .COMPLEX #168 ea 04/25/20 05/16/20 Rx amitriptyline 100 mg PO HS 05/13/20 05/16/20 History aspirin [Aspir-Low] 81 mg PO DAILY 05/13/20 05/16/20 History hydrocortisone 1 applic TOPICAL BID PRN 05/13/20 05/16/20 History hydrocortisone acetate 25 mg ME BID PRN 05/13/20 05/16/20 History ondansetron 4 mg PO Q4H PRN #8 tab 05/13/20 05/16/20 Rx oxycodone 5 - 10 mg PO Q4H PRN #10 tab 05/13/20 05/16/20 Rx buspirone 7.5 mg tablet 7.5 mg PO BID #60 tab 05/14/20 05/16/20 Rx Inpatient Medication List Acetaminophen (Acetaminophen 500 Mg Tab) 1,000 mg PO TID [facility] Stop: 06/17/20 13:59 Last Admin: 05/18/20 21:00 Dose: 1,000 mg Documented by: [id number] Admin: 05/18/20 14:04 Dose: 1,000 mg Documented by: [id number] Albuterol (Albuterol Hfa 8 Gm Inhaler) 1 puffs INH QIDR [facility] Stop: 06/16/20 10:59 Last Admin: 05/19/20 08:08 Dose: 1 puffs Documented by: [id number] Admin: 05/18/20 19:00 Dose: 1 puffs Documented by: [id number] Admin: 05/18/20 15:26 Dose: 1 puffs Documented by: [id number] Admin: 05/18/20 11:46 Dose: 1 puffs Documented by: [id number] Admin: 05/18/20 07:04 Dose: 1 puffs Documented by: [id number] Admin: 05/17/20 19:32 Dose: 1 puffs Documented by: [id number] Admin: 05/17/20 15:18 Dose: 1 puffs Documented by: [id number] Admin: 05/17/20 11:18 Dose: 1 puffs Documented by: [id number] Aspirin (Aspirin 81 Mg Ectab) 81 mg PO DAILY [facility] Stop: 06/16/20 09:59 Last Admin: 05/18/20 08:03 Dose: 81 mg Documented by: [id number] Admin: 05/17/20 10:57 Dose: 81 mg Documented by: [id number] Docusate Sodium (Docusate Sodium 100 Mg Cap) 100 mg PO HS [facility] Stop: 06/15/20 22:10 Last Admin: 05/18/20 21:07 Dose: 100 mg Documented by: [id number] Admin: 05/17/20 20:27 Dose: 100 mg Documented by: [id number] Admin: 05/16/20 23:35 Dose: 100 mg Documented by: [id number] Duloxetine HCl (Duloxetine Hcl 30 Mg Cap) 30 mg PO QAM [facility] Stop: 06/16/20 09:59 Last Admin: 05/18/20 08:04 Dose: 30 mg Documented by: [id number] Admin: 05/17/20 10:57 Dose: 30 mg Documented by: [id number] Daptomycin 475 mg/ Syringe 9.5 mls @ 4.75 mls/min IV Q24H [facility]; Protocol Stop: 05/21/20 17:59 Last Admin: 05/18/20 17:52 Dose: 4.75 mls/min Documented by: [id number] Admin: 05/17/20 17:43 Dose: 4.75 mls/min Documented by: [id number] Ipratropium [place] (Ipratropium Hfa Inhaler (Combivent Respimat P&T Subs)) 1 puffs INH QIDR [facility] Stop: 06/16/20 06:59 Last Admin: 05/19/20 08:09 Dose: 1 puffs Documented by: [id number] Admin: 05/18/20 19:00 Dose: 1 puffs Documented by: [id number] Admin: 05/18/20 15:25 Dose: 1 puffs Documented by: [id number] Admin: 05/18/20 11:45 Dose: 1 puffs Documented by: [id number] Admin: 05/18/20 07:04 Dose: 1 puffs Documented by: [id number] Admin: 05/17/20 19:32 Dose: 1 puffs Documented by: [id number] Admin: 05/17/20 15:18 Dose: 1 puffs Documented by: [id number] Admin: 05/17/20 11:17 Dose: 1 puffs Documented by: [id number] Admin: 05/17/20 07:05 Dose: Not Given Documented by: [id number] Levothyroxine Sodium (Levothyroxine Sodium 75 Mcg Tablet) [facility]: 06/16/20 06:29 Last Admin: 05/19/20 05:46 Dose: 75 mcg Documented by: [id number] Admin: 05/18/20 06:23 Dose: 75 mcg Documented by: [id number] Admin: 05/17/20 06:17 Dose: 75 mcg Documented by: [id number] Lidocaine (Lidocaine 5% 1 Patch) 1 patch TD QAM [facility] Stop: 06/17/20 12:49 Last Admin: 05/18/20 14:05 Dose: 1 patch Documented by: [id number] Miscellaneous (Remove Nicoderm Patch) 1 ea N/A DAILY@0859 [facility] Stop: 06/16/20 08:58 Last Admin: 05/18/20 08:15 Dose: 1 ea Documented by: [id number] Admin: 05/17/20 10:06 Dose: Not Given Documented by: [id number] Miscellaneous (Remove Lidoderm Patch) 1 ea N/A DAILY@2100 [facility] Stop: 06/17/20 20:59 Last Admin: 05/18/20 21:00 Dose: Not Given Documented by: [id number] Nicotine (Nicotine 14 Mg/24 Hr Patch) 14 mg TD QAM [facility] Stop: 06/16/20 08:59 Last Admin: 05/18/20 08:04 Dose: 14 mg Documented by: [id number] Admin: 05/17/20 10:55 Dose: 14 mg Documented by: [id number] Nexium: Non- Formulary Patient's Own Med 1 ea PO DAILY [facility] Stop: 06/17/20 08:59 Last Admin: 05/18/20 08:32 Dose: 1 cap Documented by: [id number] Pregabalin (Pregabalin 50 Mg Cap) 50 mg PO BID [facility] Stop: 06/17/20 12:49 Last Admin: 05/18/20 20:59 Dose: 50 mg Documented by: [id number] Admin: 05/18/20 14:05 Dose: 50 mg Documented by: [id number] Tamsulosin HCl (Tamsulosin Hcl 0.4 Mg Cap) 0.4 mg PO DAILY [facility] Stop: 06/16/20 08:59 Last Admin: 05/18/20 08:04 Dose: 0.4 mg Documented by: [id number] Admin: 05/17/20 10:55 Dose: 0.4 mg Documented by: [id number] Topiramate (Topiramate 50 Mg Tab) 50 mg PO BID [facility] Stop: 06/15/20 22:10 Last Admin: 05/18/20 21:01 Dose: 50 mg Documented by: [id number] Admin: 05/18/20 08:04 Dose: 50 mg Documented by: [id number] Admin: 05/17/20 20:27 Dose: 50 mg Documented by: [id number] Admin: 05/17/20 10:56 Dose: 50 mg Documented by: [id number] Admin: 05/16/20 23:37 Dose: 50 mg Documented by: [id number] Discontinued Medications Albuterol (Albuterol Hfa 8 Gm Inhaler) 2 puffs INH Q4H PRN PRN Reason: shortness of breath or wheezing Stop: 06/15/20 22:10 Last Admin: 05/16/20 22:53 Dose: 2 puffs Documented by: [id number] Albuterol (Albuterol Hfa 8 Gm Inhaler (Combivent Respimat P&T Subs)) 1 puffs INH QIDR [facility] Stop: 06/16/20 06:59 Last Admin: 05/17/20 07:05 Dose: Not Given Documented by: [id number] Amitriptyline HCl (Amitriptyline Hcl 100 Mg Tab) 100 mg PO [facility] Stop: 06/15/20 22:10 Last Admin: 05/16/20 23:36 Dose: 100 mg Documented by: [id number] Buspirone HCl (Buspirone 7.5 Mg Tab) 7.5 mg PO BID [facility] Stop: 06/15/20 22:10 Last Admin: 05/16/20 23:34 Dose: 7.5 mg Documented by: [id number] Diclofenac Sodium (Diclofenac Sod 1% Gel 100 Gm Tube) 2 gm EXT ONE ONE Stop: 05/19/20 00:42 Last Admin: 05/19/20 01:23 Dose: 2 gm Documented by: [id number] Duloxetine HCl (Duloxetine Hcl 60 Mg Cap) 60 mg PO BID [facility] Stop: 06/15/20 22:10 Last Admin: 05/16/20 23:35 Dose: 60 mg Documented by: [id number] Hydroxyzine HCl (Hydroxyzine Hcl 25 Mg Tab) 50 mg PO [facility] Stop: 06/15/20 22:10 Last Admin: 05/16/20 23:38 Dose: 50 mg Documented by: [id number] Sodium Chloride (Nss 1000ml) 500 mls @ 999 mls/hr IV .Q31M ONE Stop: 05/16/20 18:17 Last Infusion: 05/16/20 18:33 Dose: 0 mls/hr Documented by: [id number] Admin: 05/16/20 18:04 Dose: 999 mls/hr Documented by: [id number] Daptomycin 475 mg/ Syringe 9.5 mls @ 4.75 mls/min IV NOW ONE; Protocol Stop: 05/16/20 17:52 Last Admin: 05/16/20 18:32 Dose: 4.75 mls/min Documented by: [id number] Dextrose/Lactated Ringer's (D5w And Lactated Ringers) 1,000 mls @ 80 mls/hr IV .[id number] [facility] Stop: 06/15/20 22:10 Last Infusion: 05/18/20 13:18 Dose: 0 mls/hr Documented by: [id number] Admin: 05/18/20 06:26 Dose: 80 mls/hr Documented by: [id number] Infusion: 05/18/20 06:26 Dose: 0 mls/hr Documented by: [id number] Admin: 05/17/20 17:56 Dose: 80 mls/hr Documented by: [id number] Infusion: 05/17/20 17:56 Dose: 80 mls/hr Documented by: [id number] Admin: 05/17/20 10:57 Dose: 80 mls/hr Documented by: [id number] Infusion: 05/17/20 10:57 Dose: 80 mls/hr Documented by: [id number] Admin: 05/16/20 22:11 Dose: 80 mls/hr Documented by: [id number] Melatonin (Melatonin 3 Mg Tab) 3 mg PO ONE ONE Stop: 05/19/20 00:44 Last Admin: 05/19/20 01:15 Dose: 3 mg Documented by: [id number] Miscellaneous (Testosterone Gel: Order Awaiting Action) 1 ea N/A QS [facility] Stop: 06/16/20 00:00 Last Admin: 05/17/20 09:14 Dose: Not Given Documented by: [id number] Admin: 05/17/20 00:05 Dose: Not Given Documented by: [id number] Pantoprazole Sodium (Pantoprazole 40 Mg Tab) 40 mg PO QAM [facility] Stop: 06/16/20 08:59 Last Admin: 05/18/20 08:04 Dose: 40 mg Documented by: [id number] Admin: 05/17/20 10:55 Dose: 40 mg Documented by: [id number] Pravastatin Sodium (Pravastatin Sod 40 Mg Tab) 40 mg PO HS [facility] Stop: 06/15/20 22:10 Last Admin: 05/16/20 23:37 Dose: 40 mg Documented by: [id number] Pregabalin (Pregabalin 150 Mg Cap) 150 mg PO TID [facility] Stop: 06/15/20 22:10 Last Admin: 05/16/20 23:42 Dose: 150 mg Documented by: [id number] Description This is a 21 electrode EEG with a single channel dedicated to limited EKG. The electrodes were placed in accordance with the International 10-20 system. Interpretation The predominant background activity consists of a somewhat irregular 9 Hz activity, of up to 40 mV in amplitude,seen symmetrically distributed over the posterior head regions bilaterally, spreading anteriorly symmetrically. This activity attenuates some with eye-opening and other alerting procedures. Photic stimulation was performed and elicited no change in the background activity and no abnormal responses were seen. Hyperventilation was not performed. A mild to moderate amount of muscle and movement artifact activity, particularly in the frontal head regions, contaminated the recording, hindering interpretation from time to time but not to any significant degree over. Throughout the recording, no focal abnormalities, abnormal slow activity, or potentially epileptogenic discharges were seen. Drowsiness and sleep was not obtained. In summary, this EEG was Unremarkable during wakefulness. No focal abnormalities, potentially epileptogenic discharges, or abnormal slow activity were seen. Clinical Correlation The abscence of potentially epileptogenic activity does not exclude a seizure disorder, since interictally, EEGs can be normal. Clinical correlation is required. [facility] EEG Procedure Codes Indication for Procedure (1) Seizure-like activity: (2) Encephalopathy: Neurology Neurology: 60546 EEG include record awake & drowsy
--- NOTE | 2020-05-19 09:44 | Neurology Progress Note ---
Date of Service May 19, 2020 Assessment & Plan (1) Seizure-like activity: (2) Encephalopathy: Single episode of seizure-like activity occurring May 17, in the morning, in the context of urinary tract infection, urolithiasis, and hydronephrosis. MRI of the brain showed no acute infarct. He has had no further seizure activity since. His encephalopathy is improved. EEG showed no seizure activity or other abnormalities. Neurologic examination is nonfocal today. Patient is already on Lyrica 50 milligrams twice daily for pain and topiramate 50 milligrams twice daily for migraine prevention. These medications have anticonvulsant properties. Recommendations: 1. continue Lyrica 50 milligrams twice daily. 2. discharge patient on topiramate 50 milligrams twice daily but may consider increasing this if he has additional seizure activity as this is a reasonable an ticonvulsant. 3. Otherwise follow up with Neurology (Dr. Ray) Overall, I spent a total of 35 minutes with this case including review of records, review of MRI films, direct evaluation the patient bedside, and discussing the case with the patient bedside, RN at bedside, and Dr. Damon including differential diagnosis and treatment options. Admission and Anticipated Discharge Date Admission Date: May 16, 2020 Subjective Patient feels stable and his pain is controlled with medication. he has had no further seizure activity. EEG was largely unremarkable potentially epileptogenic discharges or focal issues (See report CBC was unremarkable and Chem profile showed elevated creatinine and potassium. Blood pressure stable and he is afebrile. I reviewed the MRI of the brain from May 17 which was unremarkable except for some old small vessel ischemic disease. CT angiography was reviewed and showed normal CTA of the head and 70 percent stenosis of the origin of the left vertebral artery on CTA of the Results & Data ([facility]) Vital Signs (Past 12 Hours) Vital Signs Temp Pulse Resp BP Pulse Ox 05/19/20 08:09 88 16 96 05/19/20 06:54 36.6 C 79 18 110/72 94 05/18/20 23:34 36.7 C 84 16 142/78 H 92 Exam (Neuro) Physical Exam: The patient is awake and alert, with normal speech and communication. Mood is reasonable and affect is appropriate. there is no facial droop. Extraocular eye muscles are intact without nystagmus. Coordination is normal in the arms without tremor or ataxia. Strength is 5/5 diffusely in all major muscle groups in the arms and legs proximally distally PG Care Time/CCT Total # of Minutes Spent Total Time Spent with Patient: Total time spent is greater than 50% in coordination of care (as documented) at patient's floor/unit and/or counseling patient: Coding Level of Care Code 29955 Subseq Hosp Care Lvl 3 Diagnoses Seizure-like activity R56.9 Encephalopathy G93.40
[2020-05-19] MEDS: PREGABALIN 50 MG CAP PO SCH (09:46)
[2020-05-19] MEDS: TOPIRAMATE 50 MG TAB PO SCH (12:03)
--- NOTE | 2020-05-19 17:53 | Discharge Summary ---
Date of Service May 19, 2020 Admission HPI Per Admitting Provider 64 YOM with significant history of 40 year smoker (1-2 packs per day, quit 2013), asthma; GERD, Hypothyroid, vitamin D Defficiency, hernia repair, nephrolethiasis with hydronephrosis, BPH, femoral artery stent and renal artery stent, and Klienfelter syndrome. Patient origsouthy came to the EMD for abdominal pain on 13May2020, underwent abdominal CT imaging which revealed a left-sided ureterolithiasis with hydronephrosis. The patient also was noted to have nephrolithiasis as well as nonobstructing right-sided stone and was referred to urology as an outpatient for managment. The patient was notified today to return back to the ER for positive urine infection with CONS resistant to Oxacillin, EMD spoke with urology and will plan for stenting. The patient will be admitted for antibiotic administration, IVF, continue current pain control as patient is comfortable. Principal Diagnosis UTI Discharge Exam Constitutional WD/WN, vitals as above Eyes EOM intact bilaterally; no conjunctival abnormality ENMT external ear and nose normal, oropharynx normal Neck trachea midline, no thyromegaly normal visual inspection Respiratory normal respiratory effort, lungs clear to auscultation no respiratory distress Cardiovascular RRR, no murmur, no edema Gastrointestinal (Abdomen) Inspection/Auscultation: abdomen normal to inspection; abdomen not distended Musculoskeletal no cyanosis or clubbing, extremities motor strength 5/5 Skin no rashes, warm and dry Neurologic moves all extremities and awake Psychiatric Orientation: alert, oriented to person and cooperative Discharge Data Allergies Allergy/AdvReac Type Severity Reaction Status Date / Time bee venom protein (honey bee) Allergy Severe ANAPHYLAXIS Verified 05/16/20 18:56 Sulfa (Sulfonamide Allergy Unknown PRURITUS Verified 05/16/20 18:56 Antibiotics) Consultations 05/16/20 17:55 ED Decision to Admit Stat 05/17/20 08:58 Consult Case Management - Discharge Planning Routine Consult Neurology Routine Ordered Studies 05/17/20 06:46 CT head/brain wo con Stat 05/17/20 06:47 CT angio head w con Stat CT angio neck with con Stat 05/17/20 08:58 MR brain wo con Routine Hospital Course (1) Encephalopathy: Patient decompensated this morning he had some hypoxia some jerking movements had altered mentation he was transferred to the intensive care unit for stroke evaluation with a telemetry stroke heart. I personally spoke to Dr. Trujillo who after stroke evaluation felt this was not consistent with a stroke he did not indicate thrombolytic therapy at this time. We will however initiate stroke order set without TPA. Will look for secondary metabolic causes. Stopping many of his psychotropic medications. MRI without contrast is negative for intracranial abnormalities, Neurolgy consultation with consideration of EEG concern for metabolic encephalopathy from uti poa and polypharmacy causing toxic encephalopathy Certainly the patient is treated for urinary tract infection present on admission he is hypothermic and this could just be worsening of that event. - Resolved by 05/19. I think this was more likely due to his polypharmacy than an organic issue. EEG was normal. Evaluated by neurology. The patient's medications were tapered, and I recommend he taper them further with outpatient providers. (2) UTI (urinary tract infection), bacterial: Non complicated with CONS resistent to oxacillin - Started on daptomycin, transition to doxycycline po - Follow closely with BPH and outflow problems - Patient has had chronic symptoms of the lower tract for months. - Discharged on doxycycline x 4 more days. (3) Ureterolithiasis: Patient with bilateral stone and hydronephrosis of the left. - Continue Flomax - Urology was never consulted for stone management. -> I discussed this with the patient on the day of his discharge. I asked him to stay for the urology consult. He felt he had passed the stone as he had resolved pain and return of his urine color to normal yellow from reddish the days prior. He declined to stay in the hospital for urology consult due to the snow. I encouraged him to see Dr. Spring in the office as soon as he was able, and he was amenable to this plan. - Continue doxycycline as above. (4) Hydronephrosis: - Stone management as above - pain control (5) PAD (peripheral artery disease): No acute need- - daily ASA due to concern for stroke will hold if urology procedure is confirmed - Continue home BP and cholesterol medications (6) Asthma: as below (7) Pulmonary emphysema: No PFTs performed bialateral wheezing,continue inhalers ABG checked for hypercarbia was not found to cause CO2 narcosis to be responsible for the patient's mental status change (8) Vitamin D deficiency: (9) Migraine: Continue prophylaxis/abortive medciations (10) Anxiety: Patient is on amitriptyline 100 BuSpar 7.5 twice daily, duloxetine 60 hydroxyzine 50 at bedtime, Lyrica 150 3 times daily, oxycodone 5-10 every 4, Topamax 50 twice daily Medicines are held with exceptions of reducing duloxetine at 30 continuing Topamax many medicines are for fibromyalgia, will restart low dose lyrica and add scheduled tylenol but keep other meds off at this time (11) Colitis: No acute needs follow bowel function (12) Klinefelters syndrome: No acute needs continue testosterone cortisol in morning (13) Osteopenia: arthrits related ? - hold sulindac until renal pathology resolved (14) Current every day nicotine vapor product user: transitioned to patch for in hospital course - transition back to cartridge when ready. - patient notified of change and expectations met. - -notify rn or provider if he wants patch or not and if working or not. (15) Acute kidney injury: Patient presented with acute kidney injury with a creatinine of 2.15 typical creatinines are in the 1.3 range. - Cr down to 1.5 on discharge. Kidney stone as above. (16) Fibromyalgia: Total Time Total Time Spent Total Time Spent (In Minutes): 35 Discharge Plan Discharge Items Patient Disposition: Home - Self-Care Reason For Visit: URINARY TRACT INFECTION Discharge Diagnosis: UTI Condition on Discharge: Good Activity: Resume your previous activity Non-emergency contact: Primary Care Provider and Psychiatrist Call non-emergency contact if: your symptoms worsen and your pain is not controlled Follow-up/Referrals: Pro,Dwight Ramires MD [Primary Care Provider] - Mann Spring DO [Physician] - (Please see Dr. Spring in the next 1-2 weeks.) Diet: Regular Addtl Attending Provider Instructions: Mr. Bryant, You were admitted with a UTI. We are sending you home with antibiotics. Please follow up with Dr. Spring in the office in the next week or two to be sure your left kidney is doing well and that your kidney function is coming down all together. We also lowered your duloxetine and stopped your buspirone due to some confusion. Pending Studies at Discharge: No Stand-Alone Forms: My [facility] [employer], Smoking Cessation Medications and DC Order Prescriptions: New doxycycline hyclate 100 mg tablet 100 mg PO BID Qty: 10 RF: 0 Continued rizatriptan 10 mg tablet 10 mg PO UD PRN (Reason: Migraine Headache) Qty: 10 RF: 3 pravastatin 40 mg tablet 40 mg PO HS Qty: 90 RF: 3 Combivent Respimat 20-100 mcg/actuation mist 1 puff INHALATION QID Qty: 4 RF: 11 esomeprazole magnesium [Nexium] 40 mg capsule,delayed release(DR/EC) 40 mg PO QAM Qty: 90 RF: 3 hydroxyzine HCl 50 mg tablet 50 mg PO HS Qty: 90 RF: 3 albuterol sulfate 90 mcg/actuation HFA aerosol inhaler 1 puffs INH Q4H PRN (Reason: shortness of breath or wheezing) Qty: 8.5 RF: 7 Lyrica 150 mg capsule 150 mg PO TID Qty: 90 RF: 5 topiramate 50 mg tablet 50 mg PO BID Qty: 60 RF: 5 testosterone 20.25 mg/1.25 gram (1.62 %) gel in metered-dose pump 1 pump TRANSDERMAL DAILY 90 Days Qty: 75 RF: 1 sulindac 200 mg tablet 200 mg PO BID Qty: 60 RF: 5 levothyroxine 50 mcg tablet 75 mcg PO QAM Qty: 45 RF: 5 tamsulosin 0.4 mg capsule 0.4 mg PO DAILY Qty: 90 RF: 1 Nicotrol 10 mg cartridge 1 inh INHALATION .COMPLEX Qty: 168 RF: 5 docusate sodium 100 mg Tablet 100 mg PO HS RF: 0 aspirin 81 mg Tablet,Delayed Release (Dr/Ec) 81 mg PO DAILY RF: 0 hydrocortisone acetate 25 mg suppository 25 mg NV BID PRN (Reason: ..) RF: 0 hydrocortisone 2.5 % cream 1 applic topical BID PRN (Reason: flare ups) RF: 0 amitriptyline 100 mg tablet 100 mg PO HS RF: 0 ondansetron 4 mg tablet,disintegrating 4 mg PO Q4H PRN (Reason: nausea and vomiting) Qty: 8 RF: 0 oxycodone 5 mg tablet 5 - 10 mg PO Q4H PRN (Reason: pain) Qty: 10 RF: 0 Changed duloxetine 60 mg capsule,delayed release(DR/EC) 60 mg PO DAILY Qty: 60 RF: 3 Discontinued buspirone 7.5 mg tablet 7.5 mg PO BID Qty: 60 RF: 5 Discharge Orders: Discharge Order (Routine); Ordered 05/19/20 Ordered By: Sunil Donnelly/Other Patient Handouts: Urinary Tract Infections in Men Admission Data Admit Date/Time: 05/16/20 20:24 Attending Provider: Sunil Damon Admit Provider: Babak Kelly Primary Care Provider: Dwight Mendiola Other Providers: Rafat Ray ; Sunil Damon Other Interventions: Discharge Summary Assessment (RN) Last Done: 05/19/20 11:35 Coding Level of Care Code D/C Day Management >30 mins Diagnoses Encephalopathy G93.40 UTI (urinary tract infection), bacterial N39.0; A49.9 Ureterolithiasis N20.1 Hydronephrosis N13.2 Hydronephrosis type: with renal and ureteral calculous obstruction PAD (peripheral artery disease) I73.9 Asthma J45.909 Asthma complication type: unspecified Pulmonary emphysema J43.8 Emphysema type: other Vitamin D deficiency E55.9 Migraine G43.909 Migraine type: unspecified Anxiety F41.9 Colitis K52.9 Klinefelters syndrome Q98.4 Osteopenia M85.80 Laterality: unspecified laterality Current every day nicotine vapor product user Z72.0 Acute kidney injury N17.9 Fibromyalgia M79.7
== END 2020-05-19 13:30 | disposition home or self-care (01) | DRG 689 ==
LOC: ED 16:50 → SUATTDRO 20:24 → 3N 20:24 → 2S 05-17 08:49 → 3N 05-18 10:35

== ENCOUNTER 2021-01-16 13:28 | Observation (INO) ==
[2021-01-16] MEDS ORDERED: ALBUT/IPRATROP 3MG/0.5MG NEB 3 ML VIAL INH STA (14:10)
[2021-01-16] MEDS ORDERED: dexAMETHasone**PF** 10 MG/ML VIAL IV ONE (14:10)
--- NOTE | 2021-01-16 14:21 | Emergency Department Note ---
History of Present Illness General Chief complaint: Respiratory Problems Stated complaint: CHEST PAINS, SOB Time Seen by Provider: 01/16/21 14:03 Source: patient History of Present Illness Provider complaint: Chest pain and shortness of breath Onset (ago): hour(s) Location: chest Radiation: back Pain Consistency: + constant Maximum Pain Intensity: 0 Quality: + other (Feels like a jackhammer to his chest) Relieved By: + none Associated symptoms: + chest pain, + cough and + shortness of breath; no fever/chills or no nausea/vomiting This is a 65-year-old male who presents with sudden onset of chest pain and shortness of breath starting 1-1/2 hours prior to arrival. Earlier this morning he did have a chiropractic appointment for chronic migraines and he had adjustme nt of his neck as well as his lower back where he has a bone spur and a disc problem. The chiropractor did not sit on his chest or apply heavy pressure to his thorax. Approximately 45 minutes after the appointment the patient developed the sudden symptoms. He states he feels like there is a jackhammer pushing into the middle of his chest and radiating to his back. No alleviating factors. He does have severe shortness of breath with it as well. He does have a history of COPD but is not on oxygen at home. He states that when this started he started coughing as well. He did not have a cough prior to this. He is fully vaccinated for COVID-19. He denies any fever, abdominal pain, vomiti ng, diarrhea or urinary symptoms. He has had no leg swelling. He does have chronic pain to the left foot. He denies any history of PE or DVT. Home Medications Medication Instructions Recorded Confirmed Type docusate sodium 100 mg tablet 100 mg PO HS 08/22/18 01/16/21 History aspirin 81 mg tablet,delayed 81 mg PO QAM 05/13/20 01/16/21 History release hydrocortisone 2.5 % topical cream 1 applic TOPICAL BID PRN 05/13/20 01/16/21 History hydrocortisone acetate 25 mg 25 mg DE BID PRN 05/13/20 01/16/21 History rectal suppository ondansetron 4 mg disintegrating 4 mg PO Q4H PRN #8 tab 05/13/20 01/16/21 Rx tablet hydroxyzine HCl 50 mg tablet 50 mg PO HS #90 tab 07/24/20 01/16/21 Rx ipratropium 20 mcg-albuterol 100 1 puff INHALATION QID #4 gm 07/29/20 01/16/21 Rx mcg/actuation mist for inhalation (Combivent Respimat) pravastatin 40 mg tablet 40 mg PO HS #90 tab 08/18/20 01/16/21 Rx testosterone 20.25 mg/1.25 gram 1 pump TRANSDERMAL DAILY #75 g 09/01/20 01/16/21 Rx (1.62 %) transdermal gel pump esomeprazole magnesium 40 mg 40 mg PO QAM #90 cap 09/17/20 01/16/21 Rx capsule,delayed release (Nexium) sulindac 200 mg tablet 200 mg PO BID #60 tab 11/18/20 01/16/21 Rx amitriptyline 100 mg tablet 100 mg PO HS #30 tab 12/01/20 01/16/21 Rx duloxetine 60 mg capsule,delayed 60 mg PO DAILY 12/08/20 01/16/21 History release tamsulosin 0.4 mg capsule 0.4 mg PO PM 12/08/20 01/16/21 History nicotine 10 mg inhalation 1 inh INHALATION Q4H PRN #168 ea 12/10/20 01/16/21 Rx cartridge (Nicotrol) albuterol sulfate 90 mcg/actuation 1 inh INH Q4H PRN #8.5 gm 12/11/20 01/16/21 Rx aerosol inhaler rizatriptan 10 mg tablet 10 mg PO UD PRN #10 tab 12/25/20 01/16/21 Rx Lyrica 150 mg capsule (pregabalin) 150 mg PO TID #90 cap NS 12/29/20 01/16/21 Rx levothyroxine 50 mcg tablet 75 mcg PO QAM #45 tab 01/14/21 01/16/21 Rx Allergies Allergy/AdvReac Type Severity Reaction Status Date / Time bee venom protein (honey bee) Allergy Severe ANAPHYLAXIS Verified 01/16/21 17:07 Sulfa (Sulfonamide Allergy Unknown PRURITUS Verified 01/16/21 17:07 Antibiotics) tramadol [From Ultram] Allergy itching Verified 01/16/21 17:07 Past Med/Surg History Medical History Anxiety Arthritis Asthma BPH (benign prostatic hyperplasia) Central hypothyroidism Follows with endo- on levothyroxine in the past- no longer in patient's med list Chronic back pain COPD (chronic obstructive pulmonary disease) Fibromyalgia GERD (gastroesophageal reflux disease) Kidney stones Klinefelters syndrome Follows with endo Migraine Osteoarthritis PAD (peripheral artery disease) Primary hypogonadism in male Pulmonary nodules Sleep apnea non compliant with CPAP Stroke 2014 FOLLOWING MULTIPLE TIA'S - no deficits Transient ischemic attack (TIA) MULTIPLE 2015 Surgical History H/O hernia repair History of carpal tunnel release History of cholecystectomy History of cholecystectomy History of cystoscopy most recent 06/28/2019 [place] History of herniorrhaphy History of kidney stones History of knee surgery History of mandibular surgery History of reduction of nasal fracture Hx of umbilical hernia repair Previous back surgery S/P hernia repair S/P ureteral stent placement Status post insertion of iliac artery stent Ventral hernia Family History Mother Heart disease Diabetes Hypertension Grandfather (Maternal) Myocardial infarction Denies family history of Ovarian cancer Prostate cancer Breast cancer Colorectal cancer Social History Smoking Status: Former smoker Cigarettes Per Day: HX OF 1+ PPD X40 YEARS, QUIT IN 2016, USES PRN NICOTINE INHALER; Second Hand Exposure: Yes; Do You Dip or Chew Tobacco: No; Tobacco Cessation Education Requested by Patient: No Hx Alcohol Use: No Hx Substance Use: No Preferred Language: Erit[place]an Communication Ability: Effective Visual Impairment: No Limitations Electrolytic Etcher Required: No Beliefs That Will Affect Care: None marital status: Current Living Situation: Spouse Current Living Situation Comment: ex s/o current occupational status: disabled Other Information That Helps Us Care for You: No Feels Safe at Home: Yes Safety Concerns: Feels Safe At This Time Dental Care, Regularly: No Physical Activity Frequency: Does not Exercise Seatbelt Use: always Sunscreen Use: No Assistive Devices: Denture - Upper, Denture - Lower and Hearing Aid - Right Review of Systems See HPI for pertinent positives & negatives. and A total of 10 systems reviewed and were otherwise negative Physical Exam Vital Signs Vital Signs - 24 hr 01/16/21 13:30 01/16/21 13:58 01/16/21 14:15 Temperature 36.5 C Temperature Source Temporal Artery Scan Pulse Rate 96 H 85 Pulse Rate [Apical] 84 Pulse Rate [Finger] Pulse Rate from SpO2 Sensor Respiratory Rate 22 26 H Respiratory Effort / Characteristics Non-Labored Labored Respiratory Depth Normal Respiratory Pattern Tachypnea Blood Pressure 96/66 L Blood Pressure [Left Arm] 88/65 L Blood Pressure Mean 76 Blood Pressure Mean [Left Arm] 72 Blood Pressure Position [Left Arm] Sitting Pulse Oximetry 93 96 96 Oxygen Delivery Method Room Air Nasal Cannula Nasal Cannula Oxygen Flow Rate 2 2 Sepsis Recent Fever Within 48 Hours No Sepsis New/Unexplained Change in Mental Status No Sepsis Action Taken by Nursing No Action Required 01/16/21 14:45 01/16/21 15:30 01/16/21 16:03 Temperature Temperature Source Pulse Rate Pulse Rate [Apical] Pulse Rate [Finger] 83 Pulse Rate from SpO2 Sensor 78 92 H Respiratory Rate 18 2 L Respiratory Effort / Characteristics Non-Labored Spontaneous Respiratory Depth Respiratory Pattern Blood Pressure 108/58 L Blood Pressure [Left Arm] Blood Pressure Mean 74 Blood Pressure Mean [Left Arm] Blood Pressure Position [Left Arm] Pulse Oximetry 93 97 93 Oxygen Delivery Method Nasal Cannula Oxygen Flow Rate 2 Sepsis Recent Fever Within 48 Hours Sepsis New/Unexplained Change in Mental Status Sepsis Action Taken by Nursing 01/16/21 16:30 Temperature Temperature Source Pulse Rate Pulse Rate [Apical] Pulse Rate [Finger] Pulse Rate from SpO2 Sensor 84 Respiratory Rate Respiratory Effort / Characteristics Respiratory Depth Respiratory Pattern Blood Pressure Blood Pressure [Left Arm] Blood Pressure Mean Blood Pressure Mean [Left Arm] Blood Pressure Position [Left Arm] Pulse Oximetry 95 Oxygen Delivery Method Oxygen Flow Rate Sepsis Recent Fever Within 48 Hours Sepsis New/Unexplained Change in Mental Status Sepsis Action Taken by Nursing Constitutional: Vital signs reviewed. Tachypneic and hypoxic with a room air saturation of 88%. Hypotensive. Eyes: Pupils are equal round reactive to light. Conjunctiva are noninjected. ENT: Pharynx is clear without erythema or exudate. Mucous membranes are moist. Neck supple without meningeal signs. Respiratory: Diffuse wheezing throughout. Breath sounds are equal bilaterally. No tracheal shift. Cardiovascular: Regular rate and rhythm. No rubs or gallops. GI: Soft, nondistended and nontender. Bowel sounds are present. Musculoskeletal: No peripheral edema. No lower extremity tenderness. Integumentary: No cyanosis. or jaundice. Neurological: The patient is awake and alert. No focal deficits. Psychiatric: Anxious. Course Administered Medications Discontinued Medications Albuterol (Albut/Ipratrop 3mg/0.5mg Neb 3 Ml Vial) 12 ml INH ONE STA Stop: 01/16/21 14:11 Last Admin: 01/16/21 14:42 Dose: 12 ml Documented by: [id number] Azithromycin (Azithromycin 250 Mg Tab) 500 mg PO NOW STA Stop: 01/16/21 17:10 Last Admin: 01/16/21 17:35 Dose: 500 mg Documented by: [id number] Dexamethasone Sodium Phosphate (DexamethasonePf 10 Mg/Ml Vial) 10 mg IV NOW ONE Stop: 01/16/21 14:11 Last Admin: 01/16/21 14:25 Dose: 10 mg Documented by: [id number] Ioversol (Optiray 320 125ml) 118 ml IV ONCE ONE Stop: 01/16/21 14:35 Last Admin: 01/16/21 14:35 Dose: 118 ml Documented by: [id number] Pregabalin (Pregabalin 150 Mg Cap) 150 mg PO ONE STA Stop: 01/16/21 17:30 Last Admin: 01/16/21 17:38 Dose: 150 mg Documented by: [id number] Critical Care Time Critical Care Time: Yes Total Critical Care Time: 35 I have personally spent approximately 35 minutes of critical care time in the direct management of this patient. This includes bedside care, interpretation of diagnostic studies, and testing, discussion with consultants, patient, and family members, and other required patient management activities. These minutes are in excess of all separately billable procedures. Medical Decision Making Differential Diagnosis Pulmonary embolism, saddle embolism, pneumothorax, COPD exacerbation, COVID-19, PA Medical Records Attestation: I reviewed the patient's medical records. I did perform a limited focused review of portions of the patient's old chart on the electronic medical record. The patient has had no recent pertinent visits to this hospital. He was last seen by his primary care doctor in November for left foot pain. Home Medications Current Medication List: was personally reviewed by me Laboratory Data Attestation: I reviewed the patient's lab results. Result diagrams: 01/16/21 14:00 01/16/21 14:00 Lab Results 01/16/21 01/16/21 01/16/21 Range/Units 14:00 14:00 14:16 WBC 8.38 (4.8-10.8) K/uL RBC 4.59 L (4.7-6.1) M/uL Hgb 14.2 (14.0-18.0) g/dL POC Hgb 13.3 L (14.0-18.0) g/dl Hct 41.2 L (42-52) % POC Hct 39 L (42-52) % MCV 89.8 (80-100) fL MCH 30.9 (25-34) pg MCHC 34.5 (32-36) g/dL RDW Std Deviation 48.7 H (36.4-46.3) fL RDW Coeff of Gallo 14.9 H (11.5-14.5) % Plt Count 219 (130-400) K/uL MPV 11.5 H (7.4-10.4) fL Immature Gran % (Auto) 0.4 % Neut % (Auto) 36.0 % Lymph % (Auto) 30.0 % Appling % (Auto) 10.1 % Eos % (Auto) 22.4 % Baso % (Auto) 1.1 % Neut # (Auto) 3.02 (1.4-6.5) K/uL Lymph # (Auto) 2.51 (1.2-3.4) K/uL Appling # (Auto) 0.85 H (0.11-0.59) K/uL Eos # (Auto) 1.88 H (0-0.5) K/uL Baso # (Auto) 0.09 (0-0.2) K/uL Immature Gran # (Auto) 0.03 H (0.00-0.02) K/uL PT (9.0-12.0) Seconds INR (0.9-1.1) APTT (21.0-31.0) Seconds PTT Ratio POC Sodium 143 (135-144) mmol/L Sodium 143 (136-145) mmol/L POC Potassium 3.9 (3.3-5.0) mmol/L Potassium 3.9 (3.5-5.1) mmol/L POC Chloride 105 (101-112) mmol/L Chloride 108 H (98-107) mmol/L Carbon Dioxide 27 (21-32) mmol/L POC Total CO2 27 (24-31) mmol/L Anion Gap 7.0 (3-11) POC Anion Gap 16.0 (16-25) mmol/L POC BUN 19 H (7-18) mg/dl BUN 19 H (7-18) mg/dl Creatinine 1.23 (0.6-1.4) mg/dl POC Creatinine 1.2 (0.6-1.3) mg/dl Est Cr Clr Drug Dosing 61.8 ml/min Est GFR ( Amer) 70.5 ml/min Est GFR (Non-Af Amer) 60.8 ml/min BUN/Creatinine Ratio 15.2 (10-20) Glucose 112 H (70-99) mg/dl POC Glucose (other) 111 H (70-99) mg/dl Calcium 9.2 (8.5-10.1) mg/dl POC Ioniz Calcium Lilian 1.25 (1.12-1.32) mmol/l Total Bilirubin 0.5 (0.2-1) mg/dl AST 21 (15-37) U/L ALT 24 (12-78) U/L Alkaline Phosphatase 84 (45-117) U/L Troponin I < 0.015 (0-0.045) ng/ml Total Protein 6.7 (6.4-8.2) gm/dl Albumin 3.4 (3.4-5.0) gm/dl Globulin 3.2 (2.5-4.0) gm/dl Albumin/Globulin Ratio 1.1 (0.9-2) COVID-19 Eval Order SARS-CoV-2 (PCR) (Negative) 01/16/21 01/16/21 01/16/21 Range/Units 14:26 14:26 15:29 WBC (4.8-10.8) K/uL RBC (4.7-6.1) M/uL Hgb (14.0-18.0) g/dL POC Hgb (14.0-18.0) g/dl Hct (42-52) % POC Hct (42-52) % MCV (80-100) fL MCH (25-34) pg MCHC (32-36) g/dL RDW Std Deviation (36.4-46.3) fL RDW Coeff of Gallo (11.5-14.5) % Plt Count (130-400) K/uL MPV (7.4-10.4) fL Immature Gran % (Auto) % Neut % (Auto) % Lymph % (Auto) % Appling % (Auto) % Eos % (Auto) % Baso % (Auto) % Neut # (Auto) (1.4-6.5) K/uL Lymph # (Auto) (1.2-3.4) K/uL Appling # (Auto) (0.11-0.59) K/uL Eos # (Auto) (0-0.5) K/uL Baso # (Auto) (0-0.2) K/uL Immature Gran # (Auto) (0.00-0.02) K/uL PT 10.4 (9.0-12.0) Seconds INR 1.0 (0.9-1.1) APTT 30.8 (21.0-31.0) Seconds PTT Ratio 1.2 POC Sodium (135-144) mmol/L Sodium (136-145) mmol/L POC Potassium (3.3-5.0) mmol/L Potassium (3.5-5.1) mmol/L POC Chloride (101-112) mmol/L Chloride (98-107) mmol/L Carbon Dioxide (21-32) mmol/L POC Total CO2 (24-31) mmol/L Anion Gap (3-11) POC Anion Gap (16-25) mmol/L POC BUN (7-18) mg/dl BUN (7-18) mg/dl Creatinine (0.6-1.4) mg/dl POC Creatinine (0.6-1.3) mg/dl Est Cr Clr Drug Dosing ml/min Est GFR ( Amer) ml/min Est GFR (Non-Af Amer) ml/min BUN/Creatinine Ratio (10-20) Glucose (70-99) mg/dl POC Glucose (other) (70-99) mg/dl Calcium (8.5-10.1) mg/dl POC Ioniz Calcium Lilian (1.12-1.32) mmol/l Total Bilirubin (0.2-1) mg/dl AST (15-37) U/L ALT (12-78) U/L Alkaline Phosphatase (45-117) U/L Troponin I (0-0.045) ng/ml Total Protein (6.4-8.2) gm/dl Albumin (3.4-5.0) gm/dl Globulin (2.5-4.0) gm/dl Albumin/Globulin Ratio (0.9-2) COVID-19 Eval Order Covid19 at [facility] SARS-CoV-2 (PCR) NEGATIVE (Negative) Imaging Data Radiologist's Impression: Chest CTA 01/16/21 14:10 CT angio chest PE protocol INDICATION: [place] ^LABS C6 ^cp/hypoxic hypotensive eval for PE . TECHNIQUE: Multidetector row helical CT of the chest was performed. Coronal and sagittal reformations were obtained. Automated dose lowering techniques and/or adjustment according to patient size were utilized for this exam. Comparison: None available at the time of this dictation. FINDINGS: Lungs and pleura: Diffuse centrilobular emphysema is seen most prominent in the upper lobes. Scattered tiny perifissural nodules are unchanged from prior exam. Heart and pericardium: Heart size is normal. No pericardial effusion. Vessels: No evidence of pulmonary embolism. Mediastinum and benjamín: Unremarkable. Chest wall and lower neck: Unremarkable. Abdomen: A hiatal hernia is seen. Bones: Degenerative changes in the thoracic spine. IMPRESSION: 1. No evidence of pulmonary embolism. 2. No acute abnormality. 3. Emphysema. ACT 112: Negative or not required by law. Electronically signed by: Joe Flannery M.D. 01/16/2021 2:51 PM ECG Data Attestation: I personally reviewed and interpreted this ECG as follows: Indication: + chest pain and + SOB/dyspnea Rate (beats per minute): 88 Rhythm: + normal sinus ECG Intervals/blocks: + Left anterior fascicular block ECG ST segments: no ST elevation ECG Findings: no PVCs MDM Narrative I did evaluate the patient as noted above. He is presenting with hypoxemia and sudden chest pain and shortness of breath 45 minutes after chiropractic evaluation. On my examination he is tachypneic and wheezing diffusely. He has equal breath sounds bilaterally and does not appear to have a pneumothorax. He is slightly hypotensive and so I was concerned about a possible saddle embolus. IV access was established. I did place an order for continuous cardiac monitoring. The monitor showed normal sinus rhythm at a rate of 83 bpm. I did order and personally review the patient's 12-lead EKG as described above. He has no evidence of a STEMI. I did order a CT angiogram of the chest. I did review the images myself as well as the radiology report as described above. He has no evidence of pulmonary embolism or acute process. I did order and review the patient's blood work as noted in the electronic medical record. His CBC demonstrates no evidence of anemia or leukocytosis. His electrolytes are unremarkable and troponin is negative. Testing for COVID-19 is negative. I did treat him with the hour-long continuous DuoNeb with albuterol and Atrovent. The patient was also given Solu-Medrol IV. I did reassess the patient and he is still wheezing and his O2 saturation drops into the 80s when on room air. I did recommend hospitalization for further care and evaluation. I did discuss the case with the hospitalist and caser. Impression & Plan Hypoxemia, Asthma exacerbation in COPD, Acute chest pain Discharge Plan Visit Data Chief Complaint: Respiratory Problems Stated Complaint: CHEST PAINS, SOB ED Provider: Abebe Govea Discharge Problem: Hypoxemia, Asthma exacerbation in COPD, Acute chest pain Patient Disposition: Admitted As Inpatient Discharge Instructions Interventions: ED Discharge Assessment Last Done: 01/16/21 18:12
[2021-01-16 14:30] LABS: iSTAT Creatinine 1.2 mg/dl (0.6-1.3); iSTAT Hemoglobin 13.3 g/dl (14.0-18.0); iSTAT Ionized Calcium 1.25 mmol/l (1.12-1.32); iSTAT Potassium 3.9 mmol/L (3.3-5.0)
[2021-01-16 14:31] LABS: Basophils # (auto) 0.09 K/uL (0-0.2); Basophils % (auto) 1.1 %; Eosinophils # (auto) 1.88 K/uL (0-0.5); Eosinophils % (auto) 22.4 %; Hematocrit (blood only) 41.2 % (42-52); Hemoglobin 14.2 g/dL (14.0-18.0); Immature Granulocytes # (auto) 0.03 K/uL (0.00-0.02); Immature Granulocytes % (auto) 0.4 %; Lymphocytes # (auto) 2.51 K/uL (1.2-3.4); Mean Corpuscular Hemoglobin 30.9 pg (25-34); Mean Corpuscular Hgb Conc 34.5 g/dL (32-36); Mean Corpuscular Volume 89.8 fL (80-100); Mean Platelet Volume 11.5 fL (7.4-10.4); Monocytes # (auto) 0.85 K/uL (0.11-0.59); Monocytes % (auto) 10.1 %; Neutrophils # (auto) 3.02 K/uL (1.4-6.5); Platelet Count 219 K/uL (130-400); RDW Coefficient of Variation 14.9 % (11.5-14.5); RDW Standard Deviation 48.7 fL (36.4-46.3); Red Blood Count 4.59 M/uL (4.7-6.1); White Blood Count 8.38 K/uL (4.8-10.8)
[2021-01-16] MEDS ORDERED: OPTIRAY 320 125ml IV ONE (14:34)
--- NOTE | 2021-01-16 14:53 | CT Scan Report ---
CT angio chest PE protocol INDICATION: [place] ^LABS C6 ^cp/hypoxic hypotensive eval for PE . TECHNIQUE: Multidetector row helical CT of the chest was performed. Coronal and sagittal reformations were obtained. Automated dose lowering techniques and/or adjustment according to patient size were u tilized for this exam. Comparison: None available at the time of this dictation. FINDINGS: Lungs and pleura: Diffuse centrilobular emphysema is seen most prominent in the upper lobes. Scattere d tiny perifissural nodules are unchanged from prior exam. Heart and pericardium: Heart size is normal. No pericardial effusion. Vessels: No evidence of pulmonary embolism. Mediastinum and benjamín: Unremarkable. Chest wall and lower neck: Unremarkable. Abdomen: A hiatal hernia is seen. Bones: Degenerative changes in the thoracic spine. IMPRESSION: 1. No evidence of pulmonary embolism. 2. No acute abnormality. 3. Emphysema. ACT 112: Negative or not required by law. Electronically signed by: Joe Flannery M.D. 01/16/2021 2:51 PM
[2021-01-16 15:13] LABS: Alanine Aminotransferase 24 U/L (12-78); Albumin Globulin Ratio 1.1 (0.9-2); Albumin Level 3.4 gm/dl (3.4-5.0); Alkaline Phosphatase 84 U/L (45-117); Aspartate Aminotransferase 21 U/L (15-37); BUN Creatinine Ratio 15.2 (10-20); Bilirubin,Total 0.5 mg/dl (0.2-1); Blood Urea Nitrogen 19 mg/dl (7-18); Calcium 9.2 mg/dl (8.5-10.1); Carbon Dioxide 27 mmol/L (21-32); Chloride 108 mmol/L (98-107); Creatinine Clr Calc Pharmacy 61.8 ml/min; Est GFR (African American) 70.5 ml/min; Est GFR (Non-African American) 60.8 ml/min; Globulin 3.2 gm/dl (2.5-4.0); Glucose 112 mg/dl (70-99); Potassium 3.9 mmol/L (3.5-5.1); Sodium 143 mmol/L (136-145); Total Protein 6.7 gm/dl (6.4-8.2); Troponin I < 0.015 ng/ml (0-0.045)
[2021-01-16 15:46] LABS: Partial Thromboplastin Ratio 1.2; Partial Thromboplastin Time 30.8 Seconds (21.0-31.0); Prothrombin Time 10.4 Seconds (9.0-12.0)
--- NOTE | 2021-01-16 16:24 | History & Physical Report ---
Date of Service January 16, 2021 Assessment & Plan (1) COPD exacerbation: Plan: Duonebs, prednisone, azithromycin incentive spirometry Patient clearly requires maintenance inhalers as not under control. Start Breo Ellipta and Incruse Ellipta for patient to take home Follow up with PCP for PFTs (2) Hypoxemia: Plan: Aim O2 sats > 90% (3) Acute chest pain: Plan: Serial troponins but suspect more related to COPD as above (4) Current every day nicotine vapor product user: Plan: Encourage cessation (5) Fibromyalgia: Plan: Continue Lyrica (6) Central hypothyroidism: Plan: Continue levothyroxine (7) Klinefelters syndrome: (8) GERD (gastroesophageal reflux disease): Plan: Switch esomeprazole for pantoprazole per hospital formulary (9) PAD (peripheral artery disease): Plan: Continue aspirin and rosuvastatin (10) BPH (benign prostatic hyperplasia): Plan: Continue tamsulosin Plan: VTE Prophylaxis - deferred given low risk and likely short stay Diet - regular Disposition - observation status to med/surg Admission and Anticipated Discharge Date Admission Date: January 16, 2021 History of Present Illness Chief Complaint: Shortness of breath Primary Care Provider: Dwight Mendiola MD Sony Bryant is a 65 year old male who presents to the ER with shortness of breath. He reports relatively chronic shortness of breath progressively worse since October. He has known COPD and takes his albuterol and Combivent regularly sometimes total 10 times a day. He is on no maintenance inhalers however. Today about 45 minutes after the chiropractor he has sudden chest tightness and shortness of breath. Albuterol helped but did he still felt significantly short of breath he decided to come to the ER. Shortness of breath since October. He reports his COPD usually gets worse with humidity and the cold weather starting has made it worse. Chest tightness with no radiation, severity 10/10, no gone, worse on taking a deep breath. In the ER he was diffusely wheezing therefore given duoneb and dexmethasone with almost complete relief of his symptoms. He was still hypoxic however therefore referred to medicine for admission and ongoing management of COPD exacerbation. Allergies Allergy/AdvReac Type Severity Reaction Status Date / Time bee venom protein (honey bee) Allergy Severe ANAPHYLAXIS Verified 01/16/21 17:07 Sulfa (Sulfonamide Allergy Unknown PRURITUS Verified 01/16/21 17:07 Antibiotics) tramadol [From [facility]] Allergy itching Verified 01/16/21 17:07 Home Medications Medication Instructions Recorded Confirmed Type docusate sodium 100 mg tablet 100 mg PO HS 08/22/18 01/16/21 History aspirin 81 mg tablet,delayed 81 mg PO QAM 05/13/20 01/16/21 History release hydrocortisone 2.5 % topical cream 1 applic TOPICAL BID PRN 05/13/20 01/16/21 History hydrocortisone acetate 25 mg 25 mg [place] BID PRN 05/13/20 01/16/21 History rectal suppository ondansetron 4 mg disintegrating 4 mg PO Q4H PRN #8 tab 05/13/20 01/16/21 Rx tablet hydroxyzine HCl 50 mg tablet 50 mg PO HS #90 tab 07/24/20 01/16/21 Rx ipratropium 20 mcg-albuterol 100 1 puff INHALATION QID #4 gm 07/29/20 01/16/21 Rx mcg/actuation mist for inhalation (Combivent Respimat) pravastatin 40 mg tablet 40 mg PO HS #90 tab 08/18/20 01/16/21 Rx testosterone 20.25 mg/1.25 gram 1 pump TRANSDERMAL DAILY #75 g 09/01/20 01/16/21 Rx (1.62 %) transdermal gel pump esomeprazole magnesium 40 mg 40 mg PO QAM #90 cap 09/17/20 01/16/21 Rx capsule,delayed release (Nexium) sulindac 200 mg tablet 200 mg PO BID #60 tab 11/18/20 01/16/21 Rx amitriptyline 100 mg tablet 100 mg PO HS #30 tab 12/01/20 01/16/21 Rx duloxetine 60 mg capsule,delayed 60 mg PO DAILY 12/08/20 01/16/21 History release tamsulosin 0.4 mg capsule 0.4 mg PO PM 12/08/20 01/16/21 History nicotine 10 mg inhalation 1 inh INHALATION Q4H PRN #168 ea 12/10/20 01/16/21 Rx cartridge (Nicotrol) albuterol sulfate 90 mcg/actuation 1 inh INH Q4H PRN #8.5 gm 12/11/20 01/16/21 Rx aerosol inhaler rizatriptan 10 mg tablet 10 mg PO UD PRN #10 tab 12/25/20 01/16/21 Rx Lyrica 150 mg capsule (pregabalin) 150 mg PO TID #90 cap NS 12/29/20 01/16/21 Rx levothyroxine 50 mcg tablet 75 mcg PO QAM #45 tab 01/14/21 01/16/21 Rx Past Med/Surg History Medical History Anxiety Arthritis Asthma BPH (benign prostatic hyperplasia) Central hypothyroidism Follows with endo- on levothyroxine in the past- no longer in patient's med list Chronic back pain COPD (chronic obstructive pulmonary disease) Fibromyalgia GERD (gastroesophageal reflux disease) Kidney stones Klinefelters syndrome Follows with endo Migraine Osteoarthritis PAD (peripheral artery disease) Primary hypogonadism in male Pulmonary nodules Sleep apnea non compliant with CPAP Stroke 2014 FOLLOWING MULTIPLE TIA'S - no deficits Transient ischemic attack (TIA) MULTIPLE 2015 Surgical History H/O hernia repair History of carpal tunnel release History of cholecystectomy History of cholecystectomy History of cystoscopy most recent 06/28/2019 [place] History of herniorrhaphy History of kidney stones History of knee surgery History of mandibular surgery History of reduction of nasal fracture Hx of umbilical hernia repair Previous back surgery S/P hernia repair S/P ureteral stent placement Status post insertion of iliac artery stent Ventral hernia Family History Mother Heart disease Diabetes Hypertension Grandfather (Maternal) Myocardial infarction Denies family history of Ovarian cancer Prostate cancer Breast cancer Colorectal cancer Social History Smoking Status: Former smoker Cigarettes Per Day: HX OF 1+ PPD X40 YEARS, QUIT IN 2016, USES PRN NICOTINE INHALER; Second Hand Exposure: Yes; Do You Dip or Chew Tobacco: No; Tobacco Cessation Education Requested by Patient: No Hx Alcohol Use: No Hx Substance Use: No Preferred Language: Jordanian Communication Ability: Effective Visual Impairment: No Limitations Flight Radio 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 Required: No Beliefs That Will Affect Care: None marital status: Current Living Situation: Spouse Current Living Situation Comment: ex s/o current occupational status: disabled Other Information That Helps Us Care for You: No Feels Safe at Home: Yes Safety Concerns: Feels Safe At This Time Dental Care, Regularly: No Physical Activity Frequency: Does not Exercise Seatbelt Use: always Sunscreen Use: No Assistive Devices: None Review of Systems Review of Systems: All systems reviewed & are unremarkable except as noted in HPI & below Physical Exam Constitutional: well developed; + not well nourished and no acute distress Eyes: PERRL, conjunctivae normal, anicteric sclerae ENMT: external ear and nose normal, oropharynx normal Neck: trachea midline, no thyromegaly Respiratory: normal respiratory effort Auscultation: + wheezes (end expiraotry wheeze posteriorly); no diminished lung sounds, no crackles, no rales and no rhonchi Cardiovascular: RRR, no murmur, no edema Gastrointestinal (Abdomen): normal bowel sounds, soft, nontender, no hepatosplenomegaly Musculoskeletal: no cyanosis or clubbing, extremities motor strength 5/5 Skin: no rashes, warm and dry Neurologic: moves all extremities and awake; not confused Psychiatric: A+Ox3, euthymic affect Results & Data Results & Data ([facility]) Vital Signs (Past 12 Hours) Vital Signs Temp Pulse Pulse Pulse Resp BP BP 01/16/21 14:45 83 18 01/16/21 14:15 85 01/16/21 13:58 84 26 H 88/65 L 01/16/21 13:30 36.5 C 96 H 22 96/66 L Pulse Ox 01/16/21 14:45 93 01/16/21 14:15 96 01/16/21 13:58 96 01/16/21 13:[address] angio chest PE protocol INDICATION: [place] ^LABS C6 ^cp/hypoxic hypotensive eval for PE TECHNIQUE: Multidetector row helical CT of the chest was performed. Coronal and sagittal reformations were obtained. Automated dose lowering techniques and/or adjustment according to patient size were utilized for this exam. Comparison: None available at the time of this dictation. FINDINGS: Lungs and pleura: Diffuse centrilobular emphysema is seen most prominent in the upper lobes. Scattered tiny perifissural nodules are unchanged from prior exam. Heart and pericardium: Heart size is normal. No pericardial effusion. Vessels: No evidence of pulmonary embolism. Mediastinum and benjamín: Unremarkable. Chest wall and lower neck: Unremarkable. Abdomen: A hiatal hernia is seen. Bones: Degenerative changes in the thoracic spine. IMPRESSION: 1. No evidence of pulmonary embolism. 2. No acute abnormality. 3. Emphysema. Medications Administered ER Medications Given: Dexamethasone 10mg IV Albuterol 12ml neb ECG Indication: chest pain Rate (beats per minute): 88 Rhythm: normal sinus Findings: + LAFB Comparison ECG Date: from (June 28, 2019) Change: no significant change Code Status & VTE Plan Code Status DNR/DNI per patient wishes VTE Prophylaxis Plan VTE Prophylaxis will be ordered: No Reason for no VTE drug order: Treatment not indicated Reason for no VTE mechanical prophylaxis: Treatment not indicated PG Care Time/CCT Total # of Minutes Spent Total Time Spent with Patient: Total time spent is greater than 50% in coordination of care (as documented) at patient's floor/unit and/or counseling patient: Coding Level of Care Code INT OBSERVATION CARE 50M LVL 2 Diagnoses COPD exacerbation J44.1 Hypoxemia R09.02 Acute chest pain R07.9 Fibromyalgia M79.7 Current every day nicotine vapor product user Z72.0 Central hypothyroidism E03.8 Klinefelters syndrome Q98.4 GERD (gastroesophageal reflux disease) K21.9 Esophagitis presence: esophagitis presence not specified PAD (peripheral artery disease) I73.9 BPH (benign prostatic hyperplasia) N40.1; R39.12 Lower urinary tract symptom presence: symptoms present Lower urinary tract symptom detail: weak urinary stream (1) GERD (gastroesophageal reflux disease) Esophagitis presence: esophagitis presence not specified Qualified Code(s): K21.9 - Gastro-esophageal reflux disease without esophagitis (2) BPH (benign prostatic hyperplasia) Lower urinary tract symptom presence: symptoms present Lower urinary tract symptom detail: weak urinary stream Qualified Code(s): N40.1 - Benign prostatic hyperplasia with lower urinary tract symptoms; R39.12 - Poor urinary stream
[2021-01-16] MEDS ORDERED: AZITHROMYCIN 250 MG TAB PO STA (17:09)
[2021-01-16] MEDS ORDERED: PREGABALIN 150 MG CAP PO STA (17:29)
[2021-01-16] MEDS ORDERED: ACETAMINOPHEN 325 MG TAB PO PRN (18:25)
[2021-01-16] MEDS ORDERED: ONDANSETRON INJ 2 MG/ML 2 ML VIAL IV PRN (18:25)
[2021-01-16] MEDS ORDERED: ALUMINUM/MAGNESIUM SUSP 30 ML UDC PO PRN ×2 (18:25→18:27)
[2021-01-16] MEDS ORDERED: POLYETHYLENE (MIRALAX) 17 GM PACK PO PRN (18:25)
[2021-01-16] MEDS ORDERED: FAMOTIDINE 40 MG TABLET PO STA (18:39)
[2021-01-16] MEDS ORDERED: PNEUMOCOCCAL POLYSACCHARIDES 25 MCG/0.5 ML VIAL/SYR IM ONE (18:48)
[2021-01-16] MEDS: ALBUT/IPRATROP 3MG/0.5MG NEB 3 ML VIAL NEB SCH (20:10)
[2021-01-16] MEDS: UMECLIDINIUM BROMIDE 62.5MCG/BLISTER 7 PUFFS/INHALER INH SCH (20:18)
[2021-01-16] MEDS ORDERED: RIZATRIPTAN BENZOATE 10 MG TAB PO PRN (20:33)
[2021-01-16] MEDS ORDERED: AMITRIPTYLINE HCL 100 MG TAB PO SCH (21:00)
[2021-01-16] MEDS ORDERED: TAMSULOSIN HCL 0.4 MG CAP PO SCH (21:00)
[2021-01-16] MEDS ORDERED: PRAVASTATIN SOD 40 MG TAB PO SCH (21:00)
[2021-01-16] MEDS ORDERED: hydrOXYzine HCl 25 MG TAB PO SCH (21:40)
[2021-01-16 23:12] LABS: Appearance Urine Clear (Clear); Bacteria Urine Automated Negative (Negative); Bilirubin Urine Negative (Negative); Blood Urine 1+ (Negative); Cast Urine Automated 0 /lpf (0-5); Color Urine Yellow; Glucose Urine UA Negative (Negative); Ketones Urine Negative (Negative); Leukocyte Esterase Urine Negative (Negative); Nitrite Urine Negative (Negative); Protein Urine Negative (Negative); RBC Urine Automated 0-4 /hpf (0-4); Specific Gravity Urine 1.021 (1.000-1.030); Urobilinogen Urine Negative (Negative); pH Urine 6.5 (4.5-7.5)
[2021-01-17 06:10] LABS: Basophils # (auto) 0.01 K/uL (0-0.2); Basophils % (auto) 0.1 %; Eosinophils # (auto) 0.02 K/uL (0-0.5); Eosinophils % (auto) 0.3 %; Hematocrit (blood only) 38.1 % (42-52); Hemoglobin 13.4 g/dL (14.0-18.0); Immature Granulocytes # (auto) 0.03 K/uL (0.00-0.02); Immature Granulocytes % (auto) 0.4 %; Lymphocytes # (auto) 1.81 K/uL (1.2-3.4); Lymphocytes % (auto) 22.7 %; Mean Corpuscular Hemoglobin 31.2 pg (25-34); Mean Corpuscular Hgb Conc 35.2 g/dL (32-36); Mean Corpuscular Volume 88.6 fL (80-100); Mean Platelet Volume 10.9 fL (7.4-10.4); Monocytes # (auto) 0.91 K/uL (0.11-0.59); Monocytes % (auto) 11.4 %; Neutrophils # (auto) 5.21 K/uL (1.4-6.5); Neutrophils % (auto) 65.1 %; Platelet Count 200 K/uL (130-400); RDW Coefficient of Variation 14.9 % (11.5-14.5); RDW Standard Deviation 47.7 fL (36.4-46.3); White Blood Count 7.99 K/uL (4.8-10.8)
[2021-01-17] MEDS ORDERED: LEVOTHYROXINE SODIUM 75 MCG TABLET PO SCH (06:30)
[2021-01-17 06:44] LABS: BUN Creatinine Ratio 17.7 (10-20); Calcium 9.2 mg/dl (8.5-10.1); Creatinine Clr Calc Pharmacy 63.4 ml/min; Est GFR (African American) 72.6 ml/min; Est GFR (Non-African American) 62.6 ml/min
--- NOTE | 2021-01-17 06:50 | Electrocardiogram Report ---
Test Reason : Blood Pressure : / mmHG Vent. Rate : 088 BPM Atrial Rate : 088 BPM P-R Int : 198 ms QRS Dur : 086 ms QT Int : 370 ms P-R-T Axes : 075 -65 070 degrees QTc Int : 447 ms Poor data quality, interpretation may be adversely affected Normal sinus rhythm Possible Left atrial enlargement Left anterior fascicular block Abnormal ECG When compared with ECG of 28-JUN-2019 08:40, No significant change Confirmed by Stanford Staples ([id number]) on 01/17/2021 6:49:52 AM Referred By: REFERRED SELF Confirmed By:Stanford Staples
[2021-01-17] MEDS: ALBUT/IPRATROP 3MG/0.5MG NEB 3 ML VIAL NEB SCH ×2 (07:18→10:43)
[2021-01-17] MEDS: UMECLIDINIUM BROMIDE 62.5MCG/BLISTER 7 PUFFS/INHALER INH SCH (08:11)
[2021-01-17] MEDS ORDERED: predniSONE 20 MG TAB PO SCH (09:00)
[2021-01-17] MEDS ORDERED: FLUTICASONE/VILANTEROL 200/25MCG 14 PUFFS/INHALER INH SCH (09:00)
[2021-01-17] MEDS ORDERED: Nursing to Pharmacy Communication SCH (09:00)
[2021-01-17] MEDS ORDERED: PREGABALIN 150 MG CAP PO SCH ×2 (09:00→13:00)
[2021-01-17] MEDS ORDERED: DULoxetine HCL 60 MG CAP PO SCH (09:00)
[2021-01-17] MEDS ORDERED: AZITHROMYCIN 250 MG TAB PO SCH (09:00)
[2021-01-17] MEDS ORDERED: PANTOprazole 40 MG TAB PO SCH (09:00)
[2021-01-17] MEDS ORDERED: ASPIRIN 81 MG ECTAB PO SCH (09:00)
[2021-01-17] MEDS ORDERED: levoFLOXacin/D5W 500 MG/100 ML BAG IV SCH (09:00)
--- NOTE | 2021-01-17 13:33 | Discharge Summary ---
Date of Service January 17, 2021 Admission HPI Per Admitting Provider Sony Bryant is a 65 year old male who presents to the ER with shortness of breath. He reports relatively chronic shortness of breath progressively worse since October. He has known COPD and takes his albuterol and Combivent regularly sometimes total 10 times a day. He is on no maintenance inhalers however. Today about 45 minutes after the chiropractor he has sudden chest tightness and shortness of breath. Albuterol helped but did he still felt significantly short of breath he decided to come to the ER. Shortness of breath since October. He reports his COPD usually gets worse with humidity and the cold weather starting has made it worse. Chest tightness with no radiation, severity 10/10, no gone, worse on taking a deep breath. In the ER he was diffusely wheezing therefore given duoneb and dexmethasone with almost complete relief of his symptoms. He was still hypoxic however therefore referred to medicine for admission and ongoing management of COPD exacerbation. Principal Diagnosis 1. Acute exacerbation of COPD Discharge Exam General: Resting comfortably in his hospital bed. NAD. HEENT: Head is AT/NC buccal mucosa is moist and pink Neck: No JVD. Negative hepatojugular reflex Cardiac: RRR without M/G/R Lungs: Speaking full sentences on ambient air. No accessory muscle use or labored breathing. Does have good air exchange throughout with end expiratory wheezes predominantly at the bases. These clear with coughing. No rales or rhonchi. Abdomen: Normoactive X4. Soft and nontender in all quadrants. Extremities: No peripheral clubbing cyanosis or edema Neuro: A&O X4 cranial nerves II through XII are grossly intact no focal neuro deficits Skin: No obvious skin lesions or rashes Psych: Appropriate affect pleasant and cooperative Discharge Data Allergies Allergy/AdvReac Type Severity Reaction Status Date / Time bee venom protein (honey bee) Allergy Severe ANAPHYLAXIS Verified 01/16/21 17:07 Sulfa (Sulfonamide Allergy Unknown PRURITUS Verified 01/16/21 17:07 Antibiotics) tramadol [From [facility]] Allergy itching Verified 01/16/21 17:07 Consultations 01/16/21 16:35 ED Decision to Admit Stat Ordered Studies 01/16/21 14:10 CT angio chest PE protocol Stat IMPRESSION: 1. No evidence of pulmonary embolism. 2. No acute abnormality. 3. Emphysema. Hospital Course (1) COPD exacerbation: - Patient presented to the ED with progressive SOB with mild hypoxemia (88% on RA) - He was treated with steroids, empiric abx therapy and aggressive pulmonary toilette - Seen the following morning (on 01/17/21) and overall reports that his symptoms have greatly improved. Denies dyspnea with exertion such as toileting. Eating well without breathing compromise. - He has not required any supplemental oxygen. Two-step pulse oximetry done this morning showing no evidence of desaturation or need for supplemental oxygen with ambulation. - He is adamant that he would like to be discharged and I see no contraindication. He can be managed with continued empiric antibiotic therapy, continued prednisone taper, will arrange for nebulizer and initiate Symbicort (as patient is not on any disease modifying medications) --Levaquin 500 mg daily X 7 days (for gram-positive but also gram-negative coverage given his COPD) --Sterapred 10 mg 6-day taperstart tomorrow --Case management has arranged for a nebulizer which was delivered to the hospital prior to discharge. Patient to use DuoNeb as needed. Can continue Combivent when nebulizer not available --Symbicort started. 2 puffs inhalation twice a day. A lengthy discussion with patient regarding the importance of rinsing his mouth out after use to prevent thrush - Patient should follow-up with his PCP within 7 to 10 days. Recommend outpatient PFTs (in 6 weeks following improvement of this exacerbation) (2) Hypoxemia: -Resolved. Two-step pulse oximetry done showing no evidence of desaturation or need for supplemental oxygen (3) Acute chest pain: -CTA negative for PE -Troponin negative X3. ACS ruled out (4) Current every day nicotine vapor product user: Encourage cessation!!!!!!! (5) Fibromyalgia: Continue Lyrica (6) Central hypothyroidism: Continue levothyroxine (7) Klinefelters syndrome: (8) GERD (gastroesophageal reflux disease): Switch esomeprazole for pantoprazole per hospital formulary (9) PAD (peripheral artery disease): Continue aspirin and rosuvastatin (10) BPH (benign prostatic hyperplasia): Continue tamsulosin Discharge recommendations: 1. PFTs in 6 weeksat discretion of PCP 2. Possible addition of Spiriva or Incruse Total Time Total Time Spent Total Time Spent (In Minutes): Less than 30 minutes Discharge Plan Discharge Items Patient Disposition: Home - Self-Care Reason For Visit: COPD EXACERBATION Discharge Diagnosis: 1. Acute Exacerbation of COPD Activity: As commented below Activity Comment: as tolerated Non-emergency contact: Primary Care Provider Call non-emergency contact if: you have any medication questions Follow-up/Referrals: Dwight Mendiola MD [Primary Care Provider] - Diet: Regular Addtl Attending Provider Instructions: - You were hospitalized with an acute exacerbation of COPD - Complete a full course of empiric antibiotics along with a tapering course of prednisone (next dose for both due tomorrow) - You have been prescribed Symbicort (2 puffs inhalation twice a day)... RINSE YOUR MOUTH OUT AFTER USE TO PREVENT THRUSH - You are also being sent home with a nebulizer to be used as needed (This has the same medication as your combivent Respimat-- which this can be kept on your when you are out and about to use as needed) - STOP the inhaled Nicotine as this will worsen your lung function. Can try Nicotine patch or gum - follow up with your PCP: 7-10 days - likely need updated PFT's updated (would wait at least 6 weeks given this recent flare) - return to the ED for new or worsening symptoms Pending Studies at Discharge: No Stand-Alone Forms: My [facility] [employer], Smoking Cessation Medications and DC Order Prescriptions: New ipratropium-albuterol 0.5 mg-3 mg(2.5 mg base)/3 mL Solution For Nebulization 3 ml NEB QIDR Qty: 180 RF: 0 levofloxacin 500 mg tablet 500 mg PO DAILY 7 Days Qty: 7 RF: 0 prednisone 10 mg tablets,dose pack 10 mg PO DIRECTED Qty: 21 RF: 0 budesonide-formoterol [Symbicort] 160-4.5 mcg/actuation HFA aerosol inhaler 2 inh inhalation BID Qty: 10.2 RF: 0 Continued hydroxyzine HCl 50 mg tablet 50 mg PO HS Qty: 90 RF: 3 Combivent Respimat 20-100 mcg/actuation mist 1 puff INHALATION QID Qty: 4 RF: 11 pravastatin 40 mg tablet 40 mg PO HS Qty: 90 RF: 3 testosterone 20.25 mg/1.25 gram (1.62 %) gel in metered-dose pump 1 pump TRANSDERMAL DAILY Qty: 75 RF: 3 esomeprazole magnesium [Nexium] 40 mg capsule,delayed release(DR/EC) 40 mg PO QAM Qty: 90 RF: 3 sulindac 200 mg tablet 200 mg PO BID Qty: 60 RF: 5 amitriptyline 100 mg tablet 100 mg PO HS Qty: 30 RF: 5 rizatriptan 10 mg tablet 10 mg PO UD PRN (Reason: Migraine Headache) Qty: 10 RF: 3 Lyrica 150 mg capsule 150 mg PO TID Qty: 90 RF: 5 levothyroxine 50 mcg tablet 75 mcg PO QAM Qty: 45 RF: 5 albuterol sulfate 90 mcg/actuation HFA aerosol inhaler 1 inh INH Q4H PRN (Reason: shortness of breath or wheezing) Qty: 8.5 RF: 7 docusate sodium 100 mg Tablet 100 mg PO HS RF: 0 aspirin 81 mg Tablet,Delayed Release (Dr/Ec) 81 mg PO QAM RF: 0 hydrocortisone acetate 25 mg suppository 25 mg MI BID PRN (Reason: ..) RF: 0 hydrocortisone 2.5 % cream 1 applic topical BID PRN (Reason: flare ups) RF: 0 ondansetron 4 mg tablet,disintegrating 4 mg PO Q4H PRN (Reason: nausea and vomiting) Qty: 8 RF: 0 tamsulosin 0.4 mg capsule 0.4 mg PO PM RF: 0 duloxetine 60 mg capsule,delayed release(DR/EC) 60 mg PO DAILY RF: 0 Discontinued Nicotrol 10 mg cartridge 1 inh INHALATION Q4H PRN (Reason: Nicotine Cravings) Qty: 168 RF: 1 Discharge Orders: Discharge Order (Routine); Ordered 01/17/21 Ordered By: Emely Donnelly/Other Patient Handouts: COPD: Using Inhalers Admission Data Admit Date/Time: 01/16/21 16:51 Attending Provider: Sunil Damon Admit Provider: Babak Culp Primary Care Provider: Dwight Mendiola Other Providers: Sunil Damon Other Interventions: Discharge Summary Assessment (RN) Last Done: 01/17/21 13:11 Supervising Physician Co-Signing Physician Notes I supervised Emely Kelley PA-C on the care of this patient. I interviewed and examined the patient independently of her. The plan is as written in her note except for any following changes/exceptions: None Seen in room after nebulizer arrived. Some wheezing on exam, but good air movement and no overt shortness of breath. Discharge as per PA's note with short course of steroids & abx. Good pulmonary follow-up and optimization of COPD regimen will be tran to minimize symptoms and reduce hospitalizations. [place] [address] OBS Care - Discharge Patient Type Established Diagnoses COPD exacerbation J44.1 Hypoxemia R09.02 Acute chest pain R07.9 Current every day nicotine vapor product user Z72.0 Fibromyalgia M79.7 Central hypothyroidism E03.8 Klinefelters syndrome Q98.4 GERD (gastroesophageal reflux disease) K21.9 Esophagitis presence: esophagitis presence not specified PAD (peripheral artery disease) I73.9 BPH (benign prostatic hyperplasia) N40.1; R39.12 Lower urinary tract symptom detail: weak urinary stream Lower urinary tract symptom presence: symptoms present
[2021-01-17] MEDS ORDERED: BUDESONIDE 0.5 MG/2 ML VIAL (PULMICORT) NEB SCH (19:00)
[2021-01-17] MEDS ORDERED: FORMOTEROL 20 MCG/2 ML VIAL NEB SCH (19:00)
[2021-01-17] MEDS ORDERED: DOCUSATE SODIUM 100 MG CAP PO SCH (21:00)
== END 2021-01-17 14:04 | disposition home or self-care (01) ==
LOC: 3E 13:28 → ED 13:28 → SUATTDRO 16:51 → 3E 18:12

== ENCOUNTER 2021-09-27 11:28 | Inpatient (IN) ==
[2021-09-27] MEDS ORDERED: SODIUM CHLORIDE 0.9% 1000ML 1,000 ML IV SCH ×2 (12:00→14:00)
[2021-09-27 12:06] LABS: Hematocrit (blood only) 36.1 % (42-52); Mean Corpuscular Hemoglobin 29.5 pg (25-34); Mean Corpuscular Hgb Conc 33.2 g/dL (32-36); Mean Corpuscular Volume 88.7 fL (80-100); Mean Platelet Volume 10.9 fL (7.4-10.4); Platelet Count 202 K/uL (130-400); RDW Standard Deviation 51.9 fL (36.4-46.3); Red Blood Count 4.07 M/uL (4.7-6.1); White Blood Count 10.54 K/uL (4.8-10.8)
[2021-09-27] MEDS ORDERED: SODIUM CHLORIDE 0.9% 1000ML 1,000 ML IV ONE ×2 (12:19→13:22)
[2021-09-27 12:21] LABS: Albumin Globulin Ratio 1.3 (0.9-2); Albumin Level 3.5 gm/dl (3.4-5.0); BUN Creatinine Ratio 30.2 (10-20); Bilirubin,Total 1.1 mg/dl (0.2-1.0); Calcium 8.4 mg/dl (8.5-10.1); Creatinine Clr Calc Pharmacy 44.2 ml/min; Est GFR (African American) 44.8 ml/min; Est GFR (Non-African American) 38.6 ml/min; Globulin 2.7 gm/dl (2.5-4.0); INR 1.1 (0.9-1.1); Magnesium 2.5 mg/dl (1.7-2.4); Potassium 3.8 mmol/L (3.5-5.1); Prothrombin Time 11.2 Seconds (9.0-12.0); Total Protein 6.2 gm/dl (6.0-8.3)
[2021-09-27 12:26] LABS: Basophils # (auto) 0.01 K/uL (0-0.2); Basophils % (auto) 0.1 %; Eosinophils # (auto) 0.04 K/uL (0-0.5); Eosinophils % (auto) 0.4 %; Immature Granulocytes # (auto) 0.07 K/uL (0.00-0.02); Immature Granulocytes % (auto) 0.7 %; Lymphocytes # (auto) 1.15 K/uL (1.2-3.4); Lymphocytes % (auto) 10.9 %; Monocytes # (auto) 2.96 K/uL (0.11-0.59); Monocytes % (auto) 28.1 %; Neutrophils # (auto) 6.31 K/uL (1.4-6.5); Neutrophils % (auto) 59.8 %
[2021-09-27 12:28] LABS: Troponin I High Sensitivity 5.9 pg/ml (0-20)
[2021-09-27 12:41] LABS: Appearance Urine Cloudy (Clear); Bacteria Urine Automated Negative (Negative); Blood Urine Negative (Negative); Color Urine Dark Yellow; Glucose Urine UA Negative (Negative); Ketones Urine Trace (Negative); Leukocyte Esterase Urine 1+ (Negative); Nitrite Urine Positive (Negative); Protein Urine 1+ (Negative); RBC Urine Automated >30 /hpf (0-4); Specific Gravity Urine 1.023 (1.000-1.030); Urobilinogen Urine Negative (Negative)
--- NOTE | 2021-09-27 12:59 | CT Scan Report ---
CT head/brain wo con CLINICAL HISTORY: ams COMPARISON STUDY: 05/17/2020 CT DOSE: TECHNIQUE: Standard CT of the Brain was performed without IV contrast. A dose lowering technique was utilized adhering to the principles of ALARA. FINDINGS: Extraaxial space: There is no evidence for subdural hematoma. There are no extra-axial fluid collecti ons. Ventricles and cisterns: The ventricles are mildly dilated bilaterally. There is no evidence for midl ine shift or mass effect. Parenchyma: There is no subarachnoid or intraparenchymal hemorrhage. There is no evidence for an acut e infarct or cerebral edema. There is mild cerebral cortical atrophy and decreased attenuation in the periventricular white matter representing remote small vessel disease. There are no gross mass lesio ns. Osseous structures: There is no evidence for an acute fracture. The visualized paranasal sinuses are clear. The mastoid air cells are clear bilaterally. Soft tissues: There is no evidence for focal soft tissue swelling. IMPRESSION: 1. No acute intracerebral pathology. 2. Mild cerebral cortical atrophy and remote small vessel disease. ACT 112: Negative or not required by law. Electronically signed by: Cy Torres M.D. 09/27/2021 12:58 PM
--- NOTE | 2021-09-27 13:01 | XRay Report ---
XR chest 1V portable CLINICAL HISTORY: SEPSIS. COMPARISON STUDY: 07/03/2021 TECHNIQUE: 1 view of the chest FINDINGS: Single frontal view of the chest demonstrates the cardiomediastinal silhouette to be within normal li mits. There is a decreased inspiratory effort with elevation of the hemidiaphragms and crowding of th e bronchovascular markings at the lung bases and centrally. The lungs are clear of alveolar opacities . There is no evidence for pleural effusion. There is no evidence for vascular congestion. There is n o acute osseous pathology. IMPRESSION: 1. There is a decreased inspiratory effort with otherwise no acute chest disease. ACT 112: Negative or not required by law. Electronically signed by: Cy Torres M.D. 09/27/2021 12:59 PM
[2021-09-27] MEDS ORDERED: CEFEPIME 2,000 MG/20 ML VIAL IV STA (13:02)
[2021-09-27 13:03] LABS: Bilirubin Urine 1+ (Negative)
--- NOTE | 2021-09-27 13:08 | Emergency Department Note ---
History of Present Illness General Chief complaint: Weakness Stated complaint: WEAKNESS, LETHARGIC Time Seen by Provider: 09/27/21 11:45 Source: patient Mode of arrival: EMS Limitations: altered mental status History of Present Illness Provider complaint: Altered mental status, weakness Onset (ago): unknown Maximum Pain Intensity: 3 This is a 65-year-old male brought in by EMS after his friend found him face down on the floor of his home, apparently incontinent of feces, weak and confused. Friend reported to EMS that he had checked on him last night and he seemed well at that time. On arrival here patient will open eyes to voice, mumbles to answer questions, and cannot provide any additional history. EMS reports patient weak, unable to stand, and hypotensive. Patient was noted to be hypotensive on arrival here. Pt seen during a time of high acuity and national emergency pandemic while wearing PPE. Home Medications Medication Instructions Recorded Confirmed Type aspirin 81 mg tablet,delayed 81 mg PO QAM 05/13/20 09/27/21 History release ipratropium 0.5 mg-albuterol 3 mg 3 ml NEB QIDR #180 ml 02/24/21 09/27/21 Rx (2.5 mg base)/3 mL nebulization soln tamsulosin 0.4 mg capsule 0.4 mg PO PM 90 Days #90 cap 03/09/21 09/27/21 Rx duloxetine 60 mg capsule,delayed 60 mg PO DAILY #90 cap 04/20/21 09/27/21 Rx release levothyroxine 75 mcg tablet 75 mcg PO DAILY #90 tab 04/23/21 09/27/21 Rx sulindac 200 mg tablet 200 mg PO BID #60 tab 05/08/21 09/27/21 Rx Lyrica 150 mg capsule (pregabalin) 150 mg PO TID #90 cap NS 06/10/21 09/27/21 Rx amitriptyline 150 mg tablet 300 mg PO HS #60 tab 07/10/21 09/27/21 Rx hydroxyzine HCl 50 mg tablet 50 mg PO HS #90 tab 07/20/21 09/27/21 Rx pravastatin 40 mg tablet 40 mg PO HS #90 tab 08/21/21 09/27/21 Rx rizatriptan 10 mg tablet 10 mg PO UD PRN #10 tab 08/24/21 09/27/21 Rx Nexium 20 mg capsule,delayed 20 mg PO DAILY #30 cap NS 09/24/21 09/27/21 Rx release (esomeprazole magnesium) lidocaine 4 % topical patch 1 patch TOPICAL BID PRN #30 ea 09/24/21 09/27/21 Rx (Lidocaine Pain Relief) Allergies Allergy/AdvReac Type Severity Reaction Status Date / Time bee venom protein (honey bee) Allergy Severe ANAPHYLAXIS Verified 09/27/21 14:58 Sulfa (Sulfonamide Allergy Unknown PRURITUS Verified 09/27/21 14:58 Antibiotics) tramadol [From Ultram] Allergy itching Verified 09/27/21 14:58 Past Med/Surg History Medical History Anxiety Arthritis Asthma BPH (benign prostatic hyperplasia) Central hypothyroidism Follows with endo- on levothyroxine in the past- no longer in patient's med list Chronic back pain COPD (chronic obstructive pulmonary disease) Fibromyalgia GERD (gastroesophageal reflux disease) Kidney stones Klinefelters syndrome Follows with endo Left foot pain Migraine Osteoarthritis PAD (peripheral artery disease) Primary hypogonadism in male Pulmonary nodules Sleep apnea non compliant with CPAP Stroke 2015 FOLLOWING MULTIPLE TIA'S - no deficits Transient ischemic attack (TIA) MULTIPLE 2015 Surgical History H/O hernia repair History of carpal tunnel release History of cholecystectomy History of cholecystectomy History of cystoscopy most recent 06/28/2019 [place] History of herniorrhaphy History of kidney stones History of knee surgery History of mandibular surgery History of reduction of nasal fracture Hx of umbilical hernia repair Previous back surgery S/P hernia repair S/P ureteral stent placement Status post insertion of iliac artery stent Ventral hernia Family History Mother Heart disease Diabetes Hypertension Grandfather (Maternal) Myocardial infarction Denies family history of Ovarian cancer Prostate cancer Breast cancer Colorectal cancer Social History Smoking Status: Former smoker Cigarettes Per Day: HX OF 1+ PPD X40 YEARS, QUIT IN 2016, USES PRN NICOTINE INHALER; Second Hand Exposure: Yes; Do You Dip or Chew Tobacco: No; Tobacco Cessation Education Requested by Patient: No Hx Alcohol Use: Yes Alcohol type: beer Hx Substance Use: No Preferred Language: Romansh Communication Ability: Impaired Visual Impairment: No Limitations Recharger Required: No Beliefs That Will Affect Care: None marital status: Current Living Situation: Spouse Current Living Situation Comment: LIVES WITH FRIEND SHAY current occupational status: disabled Other Information That Helps Us Care for You: No Feels Safe at Home: Yes Safety Concerns: Feels Safe At This Time Dental Care, Regularly: No Physical Activity Frequency: Does not Exercise Seatbelt Use: always Sunscreen Use: No Assistive Devices: Nebulizer Review of Systems A total of 10 systems reviewed and were otherwise negative All systems reviewed & are unremarkable except as noted in HPI & below Physical Exam Vital Signs Vital Signs - 24 hr 09/27/21 11:33 09/27/21 11:52 09/27/21 11:57 Temperature 37.3 C Temperature Source Oral Pulse Rate 91 H 85 Pulse Rate [Apical] 85 Pulse Rate from SpO2 Sensor Pulse Rhythm Regular Respiratory Rate 24 17 22 Respiratory Effort / Characteristics Non-Labored Non-Labored Respiratory Depth Normal Normal Blood Pressure 100/50 L 104/56 L Blood Pressure [Right Arm] 104/56 L Blood Pressure Mean 66 72 Blood Pressure Mean [Right Arm] 72 Pulse Oximetry 94 94 Oxygen Delivery Method Nasal Cannula Nasal Cannula Oxygen Flow Rate 2 2 Sepsis New/Unexplained Change in Mental Status Yes Sepsis Action Taken by Nursing No Action Required 09/27/21 12:00 09/27/21 12:15 09/27/21 12:20 Temperature Temperature Source Pulse Rate 84 80 Pulse Rate [Apical] Pulse Rate from SpO2 Sensor 84 81 Pulse Rhythm Respiratory Rate 15 19 Respiratory Effort / Characteristics Respiratory Depth Blood Pressure 90/56 L 96/54 L Blood Pressure [Right Arm] 90/54 L Blood Pressure Mean 67 68 Blood Pressure Mean [Right Arm] 66 Pulse Oximetry 92 99 Oxygen Delivery Method Oxygen Flow Rate Sepsis New/Unexplained Change in Mental Status Sepsis Action Taken by Nursing 09/27/21 12:22 09/27/21 12:23 09/27/21 12:38 Temperature Temperature Source Pulse Rate 78 81 Pulse Rate [Apical] Pulse Rate from SpO2 Sensor 77 81 Pulse Rhythm Respiratory Rate 17 20 Respiratory Effort / Characteristics Respiratory Depth Blood Pressure 96/53 L 99/56 L Blood Pressure [Right Arm] Blood Pressure Mean 67 70 Blood Pressure Mean [Right Arm] Pulse Oximetry 99 98 Oxygen Delivery Method Oxygen Flow Rate Sepsis New/Unexplained Change in Mental Status Sepsis Action Taken by Nursing 09/27/21 12:40 09/27/21 12:45 09/27/21 12:50 Temperature Temperature Source Pulse Rate 80 79 Pulse Rate [Apical] Pulse Rate from SpO2 Sensor 80 79 Pulse Rhythm Respiratory Rate 19 26 H Respiratory Effort / Characteristics Respiratory Depth Blood Pressure 94/55 L Blood Pressure [Right Arm] Blood Pressure Mean 68 Blood Pressure Mean [Right Arm] Pulse Oximetry 97 98 Oxygen Delivery Method Oxygen Flow Rate Sepsis New/Unexplained Change in Mental Status Sepsis Action Taken by Nursing 09/27/21 13:00 09/27/21 13:15 09/27/21 13:21 Temperature Temperature Source Pulse Rate 75 74 Pulse Rate [Apical] Pulse Rate from SpO2 Sensor 76 75 Pulse Rhythm Respiratory Rate 15 17 Respiratory Effort / Characteristics Respiratory Depth Blood Pressure 88/51 L 89/52 L Blood Pressure [Right Arm] 89/52 L Blood Pressure Mean 63 64 Blood Pressure Mean [Right Arm] 64 Pulse Oximetry 97 98 93 Oxygen Delivery Method Nasal Cannula Oxygen Flow Rate 2 Sepsis New/Unexplained Change in Mental Status Sepsis Action Taken by Nursing 09/27/21 13:22 09/27/21 13:25 09/27/21 13:30 Temperature 36.8 C Temperature Source Oral Pulse Rate 75 76 Pulse Rate [Apical] Pulse Rate from SpO2 Sensor 75 76 Pulse Rhythm Respiratory Rate 17 15 Respiratory Effort / Characteristics Respiratory Depth Blood Pressure 91/55 L 99/54 L Blood Pressure [Right Arm] Blood Pressure Mean 67 69 Blood Pressure Mean [Right Arm] Pulse Oximetry 97 94 Oxygen Delivery Method Oxygen Flow Rate Sepsis New/Unexplained Change in Mental Status Sepsis Action Taken by Nursing 09/27/21 13:45 09/27/21 13:50 09/27/21 13:54 Temperature Temperature Source Pulse Rate 77 77 77 Pulse Rate [Apical] Pulse Rate from SpO2 Sensor 75 79 76 Pulse Rhythm Respiratory Rate 15 16 16 Respiratory Effort / Characteristics Respiratory Depth Blood Pressure 99/60 L 91/54 L Blood Pressure [Right Arm] Blood Pressure Mean 73 66 Blood Pressure Mean [Right Arm] Pulse Oximetry 97 97 Oxygen Delivery Method Oxygen Flow Rate Sepsis New/Unexplained Change in Mental Status Sepsis Action Taken by Nursing 09/27/21 14:00 09/27/21 14:10 09/27/21 14:15 Temperature Temperature Source Pulse Rate 77 77 77 Pulse Rate [Apical] Pulse Rate from SpO2 Sensor 77 76 78 Pulse Rhythm Respiratory Rate 17 17 19 Respiratory Effort / Characteristics Respiratory Depth Blood Pressure 110/57 L 89/63 L Blood Pressure [Right Arm] Blood Pressure Mean 74 71 Blood Pressure Mean [Right Arm] Pulse Oximetry 96 95 94 Oxygen Delivery Method Nasal Cannula Oxygen Flow Rate 2 Sepsis New/Unexplained Change in Mental Status Sepsis Action Taken by Nursing 09/27/21 14:20 09/27/21 14:30 Temperature Temperature Source Pulse Rate 78 79 Pulse Rate [Apical] Pulse Rate from SpO2 Sensor 78 80 Pulse Rhythm Respiratory Rate 17 19 Respiratory Effort / Characteristics Respiratory Depth Blood Pressure 94/63 L Blood Pressure [Right Arm] Blood Pressure Mean 73 Blood Pressure Mean [Right Arm] Pulse Oximetry 97 98 Oxygen Delivery Method Oxygen Flow Rate Sepsis New/Unexplained Change in Mental Status Sepsis Action Taken by Nursing GENERAL: alert, ill appearing, well nourished, no distress EYE EXAM: normal conjunctiva, PERRL and EOM's grossly intact OROPHARYNX: no exudate, no erythema, lips, buccal mucosa, and tongue normal and mucous membranes are dry NECK: supple, no nuchal rigidity, no adenopathy, non-tender LUNGS: Clear to auscultation. Normal chest wall mechanics, no w/r/r HEART: no murmurs, S1 normal and S2 normal ABDOMEN: abdomen soft, generalized tenderness with palpation of the abdomen, normo-active bowel sounds, no masses, no rebound or guarding. BACK: Back is symmetrical on inspection and there is no deformity, no midline tenderness, no CVA tenderness. SKIN: no rashes and no bruising UPPER EXTREMITIES: upper extremities are grossly normal. FROM, nml pulses b/l. LOWER EXTREMITIES: No pitting edema. FROM, nml pulses b/l. No obvious deformity. Scattered areas of ecchymosis and superficial abrasions. NEURO EXAM: Patient opens eyes to voice, mumbles to attempt to answer questions, will not follow commands otherwise, does localize pain Course Administered Medications Acetaminophen (Acetaminophen 325 Mg Tab) 650 mg PO Q4H PRN PRN Reason: Mild/moderate pain Stop: 10/27/21 16:14 Last Admin: 09/29/21 17:27 Dose: 650 mg Documented by: [id number] Albuterol (Albut/Ipratrop 3mg/0.5mg Neb 3 Ml Vial) 3 ml NEB QIDR [facility]; Protocol Stop: 10/27/21 16:14 Last Admin: 09/29/21 19:24 Dose: 3 ml Documented by: [id number] Admin: 09/29/21 14:39 Dose: 3 ml Documented by: [id number] Admin: 09/29/21 10:52 Dose: 3 ml Documented by: [id number] Admin: 09/29/21 07:12 Dose: 3 ml Documented by: [id number] Admin: 09/28/21 19:35 Dose: 3 ml Documented by: [id number] Admin: 09/28/21 14:50 Dose: 3 ml Documented by: [id number] Admin: 09/28/21 11:29 Dose: 3 ml Documented by: [id number] Admin: 09/28/21 07:19 Dose: 3 ml Documented by: [id number] Admin: 09/27/21 18:06 Dose: Not Given Documented by: [id number] Admin: 09/27/21 18:06 Dose: 3 ml Documented by: [id number] Amitriptyline HCl (Amitriptyline Hcl 100 Mg Tab) 300 mg PO HS PRITI Stop: 10/27/21 20:59 Last Admin: 09/29/21 20:28 Dose: 300 mg Documented by: [id number] Admin: 09/28/21 20:15 Dose: 300 mg Documented by: [id number] Admin: 09/27/21 19:54 Dose: 300 mg Documented by: [id number] Aspirin (Aspirin 81 Mg Ectab) 81 mg PO QAM PRITI Stop: 10/28/21 08:59 Last Admin: 09/29/21 09:11 Dose: 81 mg Documented by: [id number] Admin: 09/28/21 09:31 Dose: 81 mg Documented by: [id number] Duloxetine HCl (Duloxetine Hcl 60 Mg Cap) 60 mg PO DAILY PRITI Stop: 10/28/21 08:59 Last Admin: 09/29/21 09:11 Dose: 60 mg Documented by: [id number] Admin: 09/28/21 09:31 Dose: 60 mg Documented by: [id number] Heparin Sodium (Porcine) (Heparin Sod 5,000 Unit/0.5 Ml Vial) 5,000 units SQ Q8 PRITI Stop: 10/27/21 21:59 Last Admin: 09/29/21 20:27 Dose: 5,000 units Documented by: [id number] Admin: 09/29/21 14:46 Dose: 5,000 units Documented by: [id number] Admin: 09/29/21 05:20 Dose: 5,000 units Documented by: [id number] Admin: 09/28/21 20:15 Dose: 5,000 units Documented by: [id number] Admin: 09/28/21 13:08 Dose: 5,000 units Documented by: [id number] Admin: 09/28/21 04:49 Dose: 5,000 units Documented by: [id number] Admin: 09/27/21 22:14 Dose: 5,000 units Documented by: [id number] Hydroxyzine HCl (Hydroxyzine Hcl 25 Mg Tab) 50 mg PO HS PRITI Stop: 10/27/21 20:59 Last Admin: 09/29/21 20:28 Dose: 50 mg Documented by: [id number] Admin: 09/28/21 20:14 Dose: 50 mg Documented by: [id number] Admin: 09/27/21 19:53 Dose: 50 mg Documented by: [id number] Piperacillin Sod/Tazobactam (Sod 3.375 gm/ Dextrose) 115 mls @ 28.75 mls/hr IV Q8H PRITI; Protocol Stop: 10/07/21 13:59 Last Admin: 09/29/21 20:24 Dose: 28.8 mls/hr Documented by: [id number] Infusion: 09/29/21 16:27 Dose: 0 mls/hr Documented by: [id number] Admin: 09/29/21 12:27 Dose: 28.8 mls/hr Documented by: [id number] Infusion: 09/29/21 07:27 Dose: 0 mls/hr Documented by: [id number] Admin: 09/29/21 03:37 Dose: 28.8 mls/hr Documented by: [id number] Infusion: 09/28/21 23:47 Dose: 0 mls/hr Documented by: [id number] Admin: 09/28/21 20:20 Dose: 28.8 mls/hr Documented by: [id number] Infusion: 09/28/21 16:37 Dose: 0 mls/hr Documented by: [id number] Admin: 09/28/21 11:27 Dose: 28.8 mls/hr Documented by: [id number] Infusion: 09/28/21 09:21 Dose: 0 mls/hr Documented by: [id number] Admin: 09/28/21 04:48 Dose: 38.8 mls/hr Documented by: [id number] Infusion: 09/28/21 02:15 Dose: 0 mls/hr Documented by: [id number] Admin: 09/27/21 22:13 Dose: 28.8 mls/hr Documented by: [id number] Levothyroxine Sodium (Levothyroxine Sodium 75 Mcg Tablet) 75 mcg PO DAILYBB [facility] Stop: 10/28/21 06:29 Last Admin: 09/29/21 05:20 Dose: 75 mcg Documented by: [id number] Admin: 09/28/21 05:31 Dose: 75 mcg Documented by: [id number] Loperamide HCl (Loperamide Hcl 2 Mg Cap) 2 mg PO Q4H PRN PRN Reason: Diarrhea Stop: 10/29/21 12:44 Last Admin: 09/29/21 17:28 Dose: 2 mg Documented by: [id number] Oxycodone/Acetaminophen (Oxycodone/Acetaminophen 5mg/325mg Tab) 1 tab PO Q4H PRN PRN Reason: Severe Pain Stop: 10/12/21 11:24 Last Admin: 09/29/21 08:46 Dose: 1 tab Documented by: [id number] Admin: 09/28/21 16:40 Dose: 1 tab Documented by: [id number] Pantoprazole Sodium (Pantoprazole 40 Mg Tab) 40 mg PO DAILY [facility] Stop: 10/28/21 08:59 Last Admin: 09/29/21 09:11 Dose: 40 mg Documented by: [id number] Admin: 09/28/21 09:35 Dose: 40 mg Documented by: [id number] Pravastatin Sodium (Pravastatin Sod 40 Mg Tab) 40 mg PO HS [facility] Stop: 10/27/21 20:59 Last Admin: 09/29/21 20:27 Dose: 40 mg Documented by: [id number] Admin: 09/28/21 20:14 Dose: 40 mg Documented by: [id number] Admin: 09/27/21 19:54 Dose: 40 mg Documented by: [id number] Sulindac (Sulindac 200 Mg Tab) 200 mg PO BID PRITI Stop: 10/27/21 20:59 Last Admin: 09/29/21 20:28 Dose: 200 mg Documented by: [id number] Admin: 09/29/21 09:10 Dose: 200 mg Documented by: [id number] Admin: 09/28/21 20:15 Dose: 200 mg Documented by: [id number] Admin: 09/28/21 09:32 Dose: 200 mg Documented by: [id number] Admin: 09/27/21 19:54 Dose: 200 mg Documented by: [id number] Tamsulosin HCl (Tamsulosin Hcl 0.4 Mg Cap) 0.4 mg PO PM PRITI Stop: 10/27/21 20:59 Last Admin: 09/29/21 20:28 Dose: 0.4 mg Documented by: [id number] Admin: 09/28/21 20:15 Dose: 0.4 mg Documented by: [id number] Admin: 09/27/21 19:53 Dose: 0.4 mg Documented by: [id number] Discontinued Medications Acetaminophen (Acetaminophen 325 Mg Tab) 650 mg PO Q4H PRN PRN Reason: Pain or Fever Stop: 10/27/21 16:14 Last Admin: 09/27/21 17:12 Dose: 650 mg Documented by: [id number] Sodium Chloride (Nss 1000ml) 1,000 mls @ 999 mls/hr IV .Q1H1M PRITI Stop: 09/27/21 13:00 Last Infusion: 09/27/21 12:19 Dose: 0 mls/hr Documented by: [id number] Admin: 09/27/21 11:57 Dose: 999 mls/hr Documented by: [id number] Sodium Chloride (Nss 1000ml) 1,000 mls @ 999 mls/hr IV .Q1H1M ONE Stop: 09/27/21 13:19 Last Infusion: 09/27/21 12:54 Dose: 0 mls/hr Documented by: [id number] Admin: 09/27/21 12:20 Dose: 999 mls/hr Documented by: [id number] Cefepime HCl (Maxipime) 2,000 mg in 20 mls @ 5 mls/min IV NOW [facility]; Protocol Stop: 09/27/21 13:05 Last Admin: 09/27/21 13:21 Dose: 5 mls/min Documented by: [id number] Norepinephrine Bitartrate (Levophed/D5w) 4 mg in 250 mls @ 14.419 mls/hr IV .[id number] PRITI; Protocol Stop: 10/27/21 13:29 Last Admin: 09/27/21 16:54 Dose: Not Given Documented by: [id number] Sodium Chloride (Nss 1000ml) 1,000 mls @ 999 mls/hr IV .Q1H1M ONE Stop: 09/27/21 14:22 Last Infusion: 09/27/21 13:54 Dose: 0 mls/hr Documented by: [id number] Admin: 09/27/21 13:49 Dose: 999 mls/hr Documented by: [id number] Piperacillin Sod/Tazobactam Sod (Zosyn) 4.5 gm in 120 mls @ 240 mls/hr IV NOW ONE Stop: 09/27/21 13:51 Last Infusion: 09/27/21 14:58 Dose: 0 mls/hr Documented by: [id number] Admin: 09/27/21 14:32 Dose: 240 mls/hr Documented by: [id number] Sodium Chloride (Nss 1000ml) 1,000 mls @ 200 mls/hr IV .Q5H PRITI Stop: 10/27/21 13:59 Last Infusion: 09/27/21 16:55 Dose: 0 mls/hr Documented by: [id number] Infusion: 09/27/21 16:53 Dose: 150 mls/hr Documented by: [id number] Admin: 09/27/21 14:32 Dose: 200 mls/hr Documented by: [id number] Sodium Chloride (Nss 1000ml) 1,000 mls @ 150 mls/hr IV .Q6H40M PRITI Stop: 10/27/21 16:29 Last Infusion: 09/28/21 11:33 Dose: 0 mls/hr Documented by: [id number] Admin: 09/28/21 11:25 Dose: 150 mls/hr Documented by: [id number] Infusion: 09/28/21 11:25 Dose: 150 mls/hr Documented by: [id number] Admin: 09/28/21 04:48 Dose: 150 mls/hr Documented by: [id number] Infusion: 09/28/21 02:40 Dose: 150 mls/hr Documented by: [id number] Admin: 09/27/21 19:59 Dose: 150 mls/hr Documented by: [id number] Infusion: 09/27/21 19:59 Dose: 150 mls/hr Documented by: [id number] Admin: 09/27/21 16:55 Dose: 150 mls/hr Documented by: [id number] Miscellaneous (Stat Iv Infusion Titration Per Protocol) 1 ea N/A NOW STA Stop: 09/27/21 13:23 Last Admin: 09/27/21 16:53 Dose: Not Given Documented by: [id number] Potassium Chloride (Potassium Chloride 10 Meq Tabcr) 30 meq PO BID PRITI Stop: 09/29/21 21:01 Last Admin: 09/29/21 20:31 Dose: 30 meq Documented by: [id number] Admin: 09/29/21 14:45 Dose: 30 meq Documented by: [id number] Critical Care Time Critical Care Time: Yes Total Critical Care Time: 52 Critical care of 52 min performed to assess and manage high likelihood of life- threatening hypotension, involving labs and imaging performed with assessment to evaluate hypotension diagnosis with frequent reassessment. This time includes bedside time, treatment discussions with patient/family/consultants, documentation time and excludes procedure time. Medical Decision Making Differential Diagnosis Differential diagnoses includes but is not limited to toxic, metabolic, infectious, traumatic, cardiac, neurologic, hematologic, psychiatric and inflammatory etiologies. Medical Records Attestation: I reviewed the patient's medical records. Home Medications Current Medication List: was personally reviewed by me Laboratory Data Attestation: I reviewed the patient's lab results. Result diagrams: 09/29/21 08:47 09/29/21 08:47 Lab Results 09/27/21 09/27/21 09/27/21 Range/Units 11:47 11:47 11:47 WBC 10.54 (4.8-10.8) K/uL RBC 4.07 L (4.7-6.1) M/uL Hgb 12.0 L (14.0-18.0) g/dL Hct 36.1 L (42-52) % MCV 88.7 (80-100) fL MCH 29.5 (25-34) pg MCHC 33.2 (32-36) g/dL RDW Std Deviation 51.9 H (36.4-46.3) fL RDW Coeff of Gallo 16.0 H (11.5-14.5) % Plt Count 202 (130-400) K/uL MPV 10.9 H (7.4-10.4) fL Immature Gran % (Auto) 0.7 % Neut % (Auto) 59.8 % Lymph % (Auto) 10.9 % Harper % (Auto) 28.1 % Eos % (Auto) 0.4 % Baso % (Auto) 0.1 % Neut # (Auto) 6.31 (1.4-6.5) K/uL Lymph # (Auto) 1.15 L (1.2-3.4) K/uL Harper # (Auto) 2.96 H (0.11-0.59) K/uL Eos # (Auto) 0.04 (0-0.5) K/uL Baso # (Auto) 0.01 (0-0.2) K/uL Immature Gran # (Auto) 0.07 H (0.00-0.02) K/uL PT 11.2 (9.0-12.0) Seconds INR 1.1 (0.9-1.1) Sodium (136-145) mmol/L Potassium (3.5-5.1) mmol/L Chloride (98-107) mmol/L Carbon Dioxide (21-32) mmol/L Anion Gap (3-11) BUN (6-23) mg/dl Creatinine (0.6-1.4) mg/dl Est Cr Clr Drug Dosing ml/min Est GFR ( Amer) ml/min Est GFR (Non-Af Amer) ml/min BUN/Creatinine Ratio (10-20) Glucose (70-99(Fasting)) mg/dl Lactate (0.4-2.0) mmol/L Calcium (8.5-10.1) mg/dl Magnesium (1.7-2.4) mg/dl Total Bilirubin (0.2-1.0) mg/dl AST (13-39) U/L ALT (7-52) U/L Alkaline Phosphatase (34-104) U/L Total Creatine Kinase (30-223) U/L Troponin I High Sens (0-20) pg/ml Total Protein (6.0-8.3) gm/dl Albumin (3.4-5.0) gm/dl Globulin (2.5-4.0) gm/dl Albumin/Globulin Ratio (0.9-2) Procalcitonin 8.44 H (0-0.5) ng/ml Urine Color Urine Appearance (Clear) Urine pH (4.5-7.5) Ur Specific [place] (1.000-1.030) Urine Protein (Negative) Urine Glucose (UA) (Negative) Urine Ketones (Negative) Urine Blood (Negative) Urine Nitrite (Negative) Urine Bilirubin (Negative) Urine Urobilinogen (Negative) Ur Leukocyte Esterase (Negative) Urine WBC (Auto) (0-5) /hpf Urine RBC (Auto) (0-4) /hpf U Hyaline Cast (Auto) (0-5) /lpf U Epithel Cells (Auto) (0-5) /lpf Urine Bacteria (Auto) (Negative) Urine Opiates Screen (Neg) Ur Methadone, Qual (Neg) Urine Barbiturates (Neg) Ur Phencyclidine (PCP) (Neg) U Amphetamin/Meth Scrn (Neg) MDMA (Ecstasy) Screen (Neg) U Benzodiazepines Scrn (Neg) Ur Cocaine Metabolite (Neg) U Marijuana (THC) Screen (Neg) Ethyl Alcohol mg/dL (<10.0) mg/dl SARS-CoV-2 (PCR) (Negative) Influenza Type A (PCR) (Neg) Influenza Type B (PCR) (Neg) RSV (RT-PCR) (Neg) Bld Cult ID Panel PCR (NotDetected) 09/27/21 09/27/21 09/27/21 Range/Units 11:47 11:47 12:15 WBC (4.8-10.8) K/uL RBC (4.7-6.1) M/uL Hgb (14.0-18.0) g/dL Hct (42-52) % MCV (80-100) fL MCH (25-34) pg MCHC (32-36) g/dL RDW Std Deviation (36.4-46.3) fL RDW Coeff of Gallo (11.5-14.5) % Plt Count (130-400) K/uL MPV (7.4-10.4) fL Immature Gran % (Auto) % Neut % (Auto) % Lymph % (Auto) % Harper % (Auto) % Eos % (Auto) % Baso % (Auto) % Neut # (Auto) (1.4-6.5) K/uL Lymph # (Auto) (1.2-3.4) K/uL Harper # (Auto) (0.11-0.59) K/uL Eos # (Auto) (0-0.5) K/uL Baso # (Auto) (0-0.2) K/uL Immature Gran # (Auto) (0.00-0.02) K/uL PT (9.0-12.0) Seconds INR (0.9-1.1) Sodium 137 (136-145) mmol/L Potassium 3.8 (3.5-5.1) mmol/L Chloride 105 (98-107) mmol/L Carbon Dioxide 24 (21-32) mmol/L Anion Gap 8 (3-11) BUN 54 H (6-23) mg/dl Creatinine 1.79 H (0.6-1.4) mg/dl Est Cr Clr Drug Dosing 44.2 ml/min Est GFR ( Amer) 44.8 ml/min Est GFR (Non-Af Amer) 38.6 ml/min BUN/Creatinine Ratio 30.2 H (10-20) Glucose 106 H (70-99(Fasting)) mg/dl Lactate 1.3 (0.4-2.0) mmol/L Calcium 8.4 L (8.5-10.1) mg/dl Magnesium 2.5 H (1.7-2.4) mg/dl Total Bilirubin 1.1 H (0.2-1.0) mg/dl AST 22 (13-39) U/L ALT 17 (7-52) U/L Alkaline Phosphatase 110 H (34-104) U/L Total Creatine Kinase (30-223) U/L Troponin I High Sens 5.9 (0-20) pg/ml Total Protein 6.2 (6.0-8.3) gm/dl Albumin 3.5 (3.4-5.0) gm/dl Globulin 2.7 (2.5-4.0) gm/dl Albumin/Globulin Ratio 1.3 (0.9-2) Procalcitonin (0-0.5) ng/ml Urine Color Urine Appearance (Clear) Urine pH (4.5-7.5) Ur Specific [place] (1.000-1.030) Urine Protein (Negative) Urine Glucose (UA) (Negative) Urine Ketones (Negative) Urine Blood (Negative) Urine Nitrite (Negative) Urine Bilirubin (Negative) Urine Urobilinogen (Negative) Ur Leukocyte Esterase (Negative) Urine WBC (Auto) (0-5) /hpf Urine RBC (Auto) (0-4) /hpf U Hyaline Cast (Auto) (0-5) /lpf U Epithel Cells (Auto) (0-5) /lpf Urine Bacteria (Auto) (Negative) Urine Opiates Screen (Neg) Ur Methadone, Qual (Neg) Urine Barbiturates (Neg) Ur Phencyclidine (PCP) (Neg) U Amphetamin/Meth Scrn (Neg) MDMA (Ecstasy) Screen (Neg) U Benzodiazepines Scrn (Neg) Ur Cocaine Metabolite (Neg) U Marijuana (THC) Screen (Neg) Ethyl Alcohol mg/dL (<10.0) mg/dl SARS-CoV-2 (PCR) (Negative) Influenza Type A (PCR) (Neg) Influenza Type B (PCR) (Neg) RSV (RT-PCR) (Neg) Bld Cult ID Panel PCR PCR Panel Negative (NotDetected) 09/27/21 09/27/21 09/27/21 Range/Units 12:15 12:15 12:15 WBC (4.8-10.8) K/uL RBC (4.7-6.1) M/uL Hgb (14.0-18.0) g/dL Hct (42-52) % MCV (80-100) fL MCH (25-34) pg MCHC (32-36) g/dL RDW Std Deviation (36.4-46.3) fL RDW Coeff of Gallo (11.5-14.5) % Plt Count (130-400) K/uL MPV (7.4-10.4) fL Immature Gran % (Auto) % Neut % (Auto) % Lymph % (Auto) % Harper % (Auto) % Eos % (Auto) % Baso % (Auto) % Neut # (Auto) (1.4-6.5) K/uL Lymph # (Auto) (1.2-3.4) K/uL Harper # (Auto) (0.11-0.59) K/uL Eos # (Auto) (0-0.5) K/uL Baso # (Auto) (0-0.2) K/uL Immature Gran # (Auto) (0.00-0.02) K/uL PT (9.0-12.0) Seconds INR (0.9-1.1) Sodium (136-145) mmol/L Potassium (3.5-5.1) mmol/L Chloride (98-107) mmol/L Carbon Dioxide (21-32) mmol/L Anion Gap (3-11) BUN (6-23) mg/dl Creatinine (0.6-1.4) mg/dl Est Cr Clr Drug Dosing ml/min Est GFR ( Amer) ml/min Est GFR (Non-Af Amer) ml/min BUN/Creatinine Ratio (10-20) Glucose (70-99(Fasting)) mg/dl Lactate (0.4-2.0) mmol/L Calcium (8.5-10.1) mg/dl Magnesium (1.7-2.4) mg/dl Total Bilirubin (0.2-1.0) mg/dl AST (13-39) U/L ALT (7-52) U/L Alkaline Phosphatase (34-104) U/L Total Creatine Kinase (30-223) U/L Troponin I High Sens (0-20) pg/ml Total Protein (6.0-8.3) gm/dl Albumin (3.4-5.0) gm/dl Globulin (2.5-4.0) gm/dl Albumin/Globulin Ratio (0.9-2) Procalcitonin (0-0.5) ng/ml Urine Color Dark Yellow Urine Appearance Cloudy A (Clear) Urine pH 5.0 (4.5-7.5) Ur Specific [place] 1.023 (1.000-1.030) Urine Protein 1+ H (Negative) Urine Glucose (UA) Negative (Negative) Urine Ketones Trace H (Negative) Urine Blood Negative (Negative) Urine Nitrite Positive A (Negative) Urine Bilirubin 1+ H (Negative) Urine Urobilinogen Negative (Negative) Ur Leukocyte Esterase 1+ H (Negative) Urine WBC (Auto) 1-5 (0-5) /hpf Urine RBC (Auto) >30 H (0-4) /hpf U Hyaline Cast (Auto) 1-5 (0-5) /lpf U Epithel Cells (Auto) 10-20 H (0-5) /lpf Urine Bacteria (Auto) Negative (Negative) Urine Opiates Screen Neg (Neg) Ur Methadone, Qual Neg (Neg) Urine Barbiturates Neg (Neg) Ur Phencyclidine (PCP) Neg (Neg) U Amphetamin/Meth Scrn Neg (Neg) MDMA (Ecstasy) Screen Neg (Neg) U Benzodiazepines Scrn Neg (Neg) Ur Cocaine Metabolite Neg (Neg) U Marijuana (THC) Screen Neg (Neg) Ethyl Alcohol mg/dL (<10.0) mg/dl SARS-CoV-2 (PCR) NEGATIVE (Negative) Influenza Type A (PCR) Negative (Neg) Influenza Type B (PCR) Negative (Neg) RSV (RT-PCR) Negative (Neg) Bld Cult ID Panel PCR (NotDetected) 09/27/21 09/27/21 Range/Units 14:33 14:33 WBC (4.8-10.8) K/uL RBC (4.7-6.1) M/uL Hgb (14.0-18.0) g/dL Hct (42-52) % MCV (80-100) fL MCH (25-34) pg MCHC (32-36) g/dL RDW Std Deviation (36.4-46.3) fL RDW Coeff of Gallo (11.5-14.5) % Plt Count (130-400) K/uL MPV (7.4-10.4) fL Immature Gran % (Auto) % Neut % (Auto) % Lymph % (Auto) % Harper % (Auto) % Eos % (Auto) % Baso % (Auto) % Neut # (Auto) (1.4-6.5) K/uL Lymph # (Auto) (1.2-3.4) K/uL Harper # (Auto) (0.11-0.59) K/uL Eos # (Auto) (0-0.5) K/uL Baso # (Auto) (0-0.2) K/uL Immature Gran # (Auto) (0.00-0.02) K/uL PT (9.0-12.0) Seconds INR (0.9-1.1) Sodium (136-145) mmol/L Potassium (3.5-5.1) mmol/L Chloride (98-107) mmol/L Carbon Dioxide (21-32) mmol/L Anion Gap (3-11) BUN (6-23) mg/dl Creatinine (0.6-1.4) mg/dl Est Cr Clr Drug Dosing ml/min Est GFR ( Amer) ml/min Est GFR (Non-Af Amer) ml/min BUN/Creatinine Ratio (10-20) Glucose (70-99(Fasting)) mg/dl Lactate (0.4-2.0) mmol/L Calcium (8.5-10.1) mg/dl Magnesium (1.7-2.4) mg/dl Total Bilirubin (0.2-1.0) mg/dl AST (13-39) U/L ALT (7-52) U/L Alkaline Phosphatase (34-104) U/L Total Creatine Kinase 336 H (30-223) U/L Troponin I High Sens (0-20) pg/ml Total Protein (6.0-8.3) gm/dl Albumin (3.4-5.0) gm/dl Globulin (2.5-4.0) gm/dl Albumin/Globulin Ratio (0.9-2) Procalcitonin (0-0.5) ng/ml Urine Color Urine Appearance (Clear) Urine pH (4.5-7.5) Ur Specific [place] (1.000-1.030) Urine Protein (Negative) Urine Glucose (UA) (Negative) Urine Ketones (Negative) Urine Blood (Negative) Urine Nitrite (Negative) Urine Bilirubin (Negative) Urine Urobilinogen (Negative) Ur Leukocyte Esterase (Negative) Urine WBC (Auto) (0-5) /hpf Urine RBC (Auto) (0-4) /hpf U Hyaline Cast (Auto) (0-5) /lpf U Epithel Cells (Auto) (0-5) /lpf Urine Bacteria (Auto) (Negative) Urine Opiates Screen (Neg) Ur Methadone, Qual (Neg) Urine Barbiturates (Neg) Ur Phencyclidine (PCP) (Neg) U Amphetamin/Meth Scrn (Neg) MDMA (Ecstasy) Screen (Neg) U Benzodiazepines Scrn (Neg) Ur Cocaine Metabolite (Neg) U Marijuana (THC) Screen (Neg) Ethyl Alcohol mg/dL < 10.0 (<10.0) mg/dl SARS-CoV-2 (PCR) (Negative) Influenza Type A (PCR) (Neg) Influenza Type B (PCR) (Neg) RSV (RT-PCR) (Neg) Bld Cult ID Panel PCR (NotDetected) Imaging Data Radiologist's Impression: Abdomen/Pelvis CT 09/27/21 11:54 CT abd pelvis wo con CLINICAL HISTORY: abd pain, ams COMPARISON STUDY: No previous studies for comparison. CT DOSE: 1181.33 mGy.cm TECHNIQUE: Standard CT of the Abdomen and Pelvis was performed without IV contrast. The patient did not receive oral contrast. A dose lowering technique was utilized adhering to the principles of ALARA. FINDINGS: Lung base: There is minimal right basilar atelectasis. Abdominal cavity: There is no evidence for abdominal mass, adenopathy or ascites. Liver: The liver is homogeneous in attenuation on these limited noncontrast images.. Spleen: The spleen is homogeneous in attenuation on these limited noncontrast images. Pancreas: The pancreas is homogeneous in attenuation on these limited noncontrast images. Gall Bladder: Surgical clips are present. Adrenal glands: The adrenal glands are normal in size and attenuation on these limited noncontrast images. Kidneys: The kidneys are homogeneous in attenuation on these limited noncontrast images. There are multiple nonobstructing right renal calculi including a 1 cm calculus within the right renal pelvis. There is no hydronephrosis present. There is a 2 mm nonobstructing left renal calculus. There is no left-sided hydronephrosis. Bowel: There is diffuse mucosal thickening present involving the descending and sigmoid colon with no significant diverticulosis. However, there is pericolonic inflammatory change present beginning at the level of the splenic flexure and extending through the mid descending colon. These findings are still suspicious for diverticulitis. Underlying mass cannot be completely excluded and follow-up is recommended. The remaining bowel loops are normally placed within the abdomen and pelvis without evidence for dilatation or obstruction. There is no evidence for mass lesion. There is a normal appendix in the right lower quadrant. There is no evidence for free air. Bladder: There is distention of the bladder with no evidence for focal bladder wall thickening, calculus or diverticulum. : There is no evidence for pelvic mass or adenopathy. Vasculature: There is no evidence for focal aneurysmal dilatation of the abdominal aorta. 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 Osseous structures: There is no acute osseous pathology. Degenerative changes are seen within the spine. IMPRESSION: 1. Mucosal thickening of the descending and sigmoid colon with pericolonic inflammatory changes beginning at the splenic flexure to the mid descending colon. While there are no definite diverticula seen, the findings are still suspicious for diverticulitis. Additional underlying process cannot be excluded and follow-up is recommended. 2. Multiple nonobstructing right renal calculi with no evidence for hydronephrosis. Solitary nonobstructing left renal calculus. 3. No other evidence for acute intra-abdominal or pelvic abnormality on these limited noncontrast images. 4. Additional nonacute findings are delineated above ACT 112: Negative or not required by law. Electronically signed by: Cy Torres M.D. 09/27/2021 1:[address] 09/27/21 11:54 CT head/brain wo con CLINICAL HISTORY: ams COMPARISON STUDY: 05/17/2020 CT DOSE: TECHNIQUE: Standard CT of the Brain was performed without IV contrast. A dose lowering technique was utilized adhering to the principles of ALARA. FINDINGS: Extraaxial space: There is no evidence for subdural hematoma. There are no extra-axial fluid collections. Ventricles and cisterns: The ventricles are mildly dilated bilaterally. There is no evidence for midline shift or mass effect. Parenchyma: There is no subarachnoid or intraparenchymal hemorrhage. There is no evidence for an acute infarct or cerebral edema. There is mild cerebral cortical atrophy and decreased attenuation in the periventricular white matter representing remote small vessel disease. There are no gross mass lesions. Osseous structures: There is no evidence for an acute fracture. The visualized paranasal sinuses are clear. The mastoid air cells are clear bilaterally. Soft tissues: There is no evidence for focal soft tissue swelling. IMPRESSION: 1. No acute intracerebral pathology. 2. Mild cerebral cortical atrophy and remote small vessel disease. ACT 112: Negative or not required by law. Electronically signed by: Cy Torres M.D. 09/27/2021 12:58 PM Chest X-Ray 09/27/21 11:55 XR chest 1V portable CLINICAL HISTORY: SEPSIS. COMPARISON STUDY: 07/03/2021 TECHNIQUE: 1 view of the chest FINDINGS: Single frontal view of the chest demonstrates the cardiomediastinal silhouette to be within normal limits. There is a decreased inspiratory effort with elevation of the hemidiaphragms and crowding of the bronchovascular markings at the lung bases and centrally. The lungs are clear of alveolar opacities. There is no evidence for pleural effusion. There is no evidence for vascular congestion. There is no acute osseous pathology. IMPRESSION: 1. There is a decreased inspiratory effort with otherwise no acute chest disease. ACT 112: Negative or not required by law. Electronically signed by: Cy Torres M.D. 09/27/2021 12:59 PM ECG Data Attestation: I personally reviewed and interpreted this ECG as follows: Indication: + altered mental status Rate (beats per minute): 85 Rhythm: + normal sinus ECG Intervals/blocks: + First degree AV block, + Right Bundle branch block and + Normal QT ECG [place]: + Left axis deviation ECG ST segments: + Nonspecific ST abnormalities MDM Narrative An order was placed for continuous cardiac monitoring. The monitor shows a rate of __72_ with __normal sinus_ rhythm. THis is an ill appearing 65 yo male brought by ems for weakness and AMS. Pt unable to provide history. Patient with abdominal pain during exam, hypotension, without fever or tachycardia. Labs and cultures sent, cxr performed. Urine collected and pt sent for CT head and a/p. Pt initially covered with cefepime due to concern for infection of unclear etiology. CT a/p revealed diverticulitis without perf or abscess. Zosyn added. Patient given >30 ml/kg volume resuscitation in the ER due to hypotension and concern for evolving sepsis. No leukocytosis or elevated lactic acid, however procal elevated. Patient was volume responsive and would hold MAP 65 or greater with volume infusing, pressors were ordered as a precaution but were never started. Patient began to hold more reassuring BP's after 4th liter NSS started. Patient re-examined multiple times while in the ER. Patient was more awake and alert with volume resuscitation. No acute pathology on head CT. I suspect metabolic encephalopathy at this time. UTI also noted, nephrolithiasis on CT, no evidence of hydronephrosis but mild LILIA noted. Case discussed with hospitalist for additional evaluation. Impression & Plan Generalized weakness, Diverticulitis, Sepsis, AMS (altered mental status), Hypotension, Acute UTI (urinary tract infection), Hypokalemia Discharge Plan Visit Data Chief Complaint: Weakness Stated Complaint: WEAKNESS, LETHARGIC ED Provider: Carrol Gleason Discharge Problem: Generalized weakness, Diverticulitis, Sepsis, AMS (altered mental status), Hypotension, Acute UTI (urinary tract infection), Hypokalemia Patient Disposition: Admitted As Inpatient Discharge Instructions Interventions: ED Discharge Assessment Last Done: 09/27/21 15:41 Discharge Problem: Sepsis Qualifiers: Sepsis type: sepsis due to unspecified organism Sepsis acute organ dysfunction status: with acute organ dysfunction Severe sepsis acute organ dysfunction type: encephalopathy Severe sepsis shock status: without septic shock Qualified Code(s): A41.9 - Sepsis, unspecified organism AMS (altered mental status) Qualifiers: Altered mental status type: unspecified Qualified Code(s): R41.82 - Altered mental status, unspecified Hypotension Qualifiers: Hypotension type: unspecified hypotension type Qualified Code(s): I95.9 - Hypotension, unspecified
[2021-09-27 13:11] LABS: Influenza A virus by PCR Negative (Neg); Influenza B virus by PCR Negative (Neg); RSV by PCR Negative (Neg); SARS CoV2 RNA(COVID-19) InHosp NEGATIVE (Negative)
--- NOTE | 2021-09-27 13:17 | CT Scan Report ---
CT abd pelvis wo con CLINICAL HISTORY: abd pain, ams COMPARISON STUDY: No previous studies for comparison. CT DOSE: 1181.33 mGy.cm TECHNIQUE: Standard CT of the Abdomen and Pelvis was performed without IV contrast. The patient did not receive oral contrast. A dose lowering technique was utilized adhering to the principles of OMI Garcia. FINDINGS: Lung base: There is minimal right basilar atelectasis. Abdominal cavity: There is no evidence for abdominal mass, adenopathy or ascites. Liver: The liver is homogeneous in attenuation on these limited noncontrast images.. Spleen: The spleen is homogeneous in attenuation on these limited noncontrast images. Pancreas: The pancreas is homogeneous in attenuation on these limited noncontrast images. Gall Bladder: Surgical clips are present. Adrenal glands: The adrenal glands are normal in size and attenuation on these limited noncontrast im ages. Kidneys: The kidneys are homogeneous in attenuation on these limited noncontrast images. There are mu ltiple nonobstructing right renal calculi including a 1 cm calculus within the right renal pelvis. Th ere is no hydronephrosis present. There is a 2 mm nonobstructing left renal calculus. There is no lef t-sided hydronephrosis. Bowel: There is diffuse mucosal thickening present involving the descending and sigmoid colon with no significant diverticulosis. However, there is pericolonic inflammatory change present beginning at t he level of the splenic flexure and extending through the mid descending colon. These findings are st ill suspicious for diverticulitis. Underlying mass cannot be completely excluded and follow-up is rec ommended. The remaining bowel loops are normally placed within the abdomen and pelvis without evidence for dil atation or obstruction. There is no evidence for mass lesion. There is a normal appendix in the right lower quadrant. There is no evidence for free air. Bladder: There is distention of the bladder with no evidence for focal bladder wall thickening, calcu orquidea or diverticulum. : There is no evidence for pelvic mass or adenopathy. Vasculature: There is no evidence for focal aneurysmal dilatation of the abdominal aorta. There is ev idence for right iliac artery graft. Osseous structures: There is no acute osseous pathology. Degenerative changes are seen within the spi ne. IMPRESSION: 1. Mucosal thickening of the descending and sigmoid colon with pericolonic inflammatory changes begin ximena at the splenic flexure to the mid descending colon. While there are no definite diverticula seen , the findings are still suspicious for diverticulitis. Additional underlying process cannot be exclu ded and follow-up is recommended. 2. Multiple nonobstructing right renal calculi with no evidence for hydronephrosis. Solitary nonobstr ucting left renal calculus. 3. No other evidence for acute intra-abdominal or pelvic abnormality on these limited noncontrast ashley ges. 4. Additional nonacute findings are delineated above ACT 112: Negative or not required by law. Electronically signed by: Cy Torres M.D. 09/27/2021 1:15 PM
[2021-09-27] MEDS ORDERED: PIPERACILLIN/TAZOBACTAM 4.5 GM/120 ML BAG IV ONE (13:22)
[2021-09-27] MEDS ORDERED: STAT IV Infusion **Titration per Protocol STA (13:22)
[2021-09-27] MEDS ORDERED: NOREPINEPHRINE/D5W 4 MG/250 ML PLCT IV SCH (13:30)
--- NOTE | 2021-09-27 14:36 | History & Physical Report ---
Date of Service September 27, 2021 Assessment & Plan (1) Diverticulitis: Plan: Patient has acute descending/sigmoid diverticulitis on CT scan Will admit to a monitored bed secondary to patient's sepsis/confusion and hypotension Patient was given Zosyn in the emergency room, okay to continue this for now Keep n.p.o. for now except for meds Reevaluate when patient is more alert for symptomatology (2) Sepsis: Plan: Monitor lactic acid per protocol Continue aggressive hydration It appears norepinephrine has been ordered but not started. Blood pressure is improved. Treatment with antibiotics as noted above (3) Hematuria: Plan: Significant hematuria on urinalysis, no WBC. Concerned about possible rhabdomyolysis Check CPK Continue aggressive hydration for hypotension as noted (4) Altered mental status: Plan: Toxic/metabolic encephalopathy secondary to multiple above reasons Continue to monitor for improvement CT of head reviewed, no acute findings (5) Frequent falls: Plan: Per outpatient records. Patient is a fall risk PT/OT evaluation when improved, suspect patient will require placement at discharge, at least in the short-term History of Present Illness Chief Complaint: altered MS Primary Care Provider: Dwight Mendiola MD This is a 65-year-old male with past medical history of hypothyroidism, Klinefelter's, peripheral arterial disease, GERD that presents today after being found down in his home. Patient is very lethargic and unable to provide any relevant history and is alone in the room. Therefore, history is per ER documentation. Per ER documentation, patient was brought in by EMS after friend found him in his home. He was face down and very lethargic. He was covered in feces and appeared very weak and confused. It was noted that the patient was at his normal baseline when he was seen the night before. I did review some of his old records, it looks as if there was some concerns about the patient living home alone and steps are being taken to have the patient transferred to assisted living at sometime in the near future. This is most noted in PCP visit from 09/24. At the time of presentation, the patient was significantly hypotensive. He was not hypoxic. He has been aggressively fluid resuscitated and his systolic blood pressure is now over 100. Patient does not appear to be in any distress but is difficult to arouse. When asked, he does note that his abdomen is uncomfortable but can provide no further history. Allergies Allergy/AdvReac Type Severity Reaction Status Date / Time bee venom protein (honey bee) Allergy Severe ANAPHYLAXIS Verified 09/24/21 11:54 Sulfa (Sulfonamide Allergy Unknown PRURITUS Verified 09/24/21 11:54 Antibiotics) tramadol [From Ultram] Allergy itching Verified 09/24/21 11:54 Home Medications Medication Instructions Recorded Confirmed Type aspirin 81 mg tablet,delayed 81 mg PO QAM 05/13/20 09/24/21 History release testosterone 20.25 mg/1.25 gram 1 pump TRANSDERMAL DAILY #75 g 09/01/20 09/24/21 Rx (1.62 %) transdermal gel pump triamcinolone acetonide 0.025 % 1 applic TOPICAL BID #454 g 01/28/21 09/24/21 Rx topical cream ipratropium 0.5 mg-albuterol 3 mg 3 ml NEB QIDR #180 ml 02/24/21 09/24/21 Rx (2.5 mg base)/3 mL nebulization soln tamsulosin 0.4 mg capsule 0.4 mg PO PM 90 Days #90 cap 03/09/21 09/24/21 Rx duloxetine 60 mg capsule,delayed 60 mg PO DAILY #90 cap 04/20/21 09/24/21 Rx release levothyroxine 75 mcg tablet 75 mcg PO DAILY #90 tab 04/23/21 09/24/21 Rx sulindac 200 mg tablet 200 mg PO BID #60 tab 05/08/21 09/24/21 Rx Lyrica 150 mg capsule (pregabalin) 150 mg PO TID #90 cap NS 06/10/21 09/24/21 Rx amitriptyline 150 mg tablet 300 mg PO HS #60 tab 07/10/21 09/24/21 Rx hydroxyzine HCl 50 mg tablet 50 mg PO HS #90 tab 07/20/21 09/24/21 Rx pravastatin 40 mg tablet 40 mg PO HS #90 tab 08/21/21 09/24/21 Rx rizatriptan 10 mg tablet 10 mg PO UD PRN #10 tab 08/24/21 09/24/21 Rx Nexium 20 mg capsule,delayed 20 mg PO DAILY #30 cap NS 09/24/21 09/24/21 Rx release (esomeprazole magnesium) lidocaine 4 % topical patch 1 patch TOPICAL BID PRN #30 ea 09/24/21 09/24/21 Rx (Lidocaine Pain Relief) Past Med/Surg History Medical History Anxiety Arthritis Asthma BPH (benign prostatic hyperplasia) Central hypothyroidism Follows with endo- on levothyroxine in the past- no longer in patient's med list Chronic back pain COPD (chronic obstructive pulmonary disease) Fibromyalgia GERD (gastroesophageal reflux disease) Kidney stones Klinefelters syndrome Follows with endo Left foot pain Migraine Osteoarthritis PAD (peripheral artery disease) Primary hypogonadism in male Pulmonary nodules Sleep apnea non compliant with CPAP Stroke 2015 FOLLOWING MULTIPLE TIA'S - no deficits Transient ischemic attack (TIA) MULTIPLE 2015 Surgical History H/O hernia repair History of carpal tunnel release History of cholecystectomy History of cholecystectomy History of cystoscopy most recent 06/28/2019 [place] History of herniorrhaphy History of kidney stones History of knee surgery History of mandibular surgery History of reduction of nasal fracture Hx of umbilical hernia repair Previous back surgery S/P hernia repair S/P ureteral stent placement Status post insertion of iliac artery stent Ventral hernia Family History Mother Heart disease Diabetes Hypertension Grandfather (Maternal) Myocardial infarction Denies family history of Ovarian cancer Prostate cancer Breast cancer Colorectal cancer Social History Smoking Status: Former smoker Cigarettes Per Day: HX OF 1+ PPD X40 YEARS, QUIT IN 2015, USES PRN NICOTINE INHALER; Second Hand Exposure: Yes; Hx Alcohol Use: No Hx Substance Use: No Preferred Language: Greenlandic Communication Ability: Effective Visual Impairment: No Limitations Electrical Instrumentation Technician Required: No Beliefs That Will Affect Care: None marital status: Current Living Situation: Spouse Current Living Situation Comment: ex s/o current occupational status: disabled Feels Safe at Home: Yes Dental Care, Regularly: No Physical Activity Frequency: Does not Exercise Seatbelt Use: always Sunscreen Use: No Assistive Devices: None Review of Systems Review of Systems: Unobtainable due to cognitive status Physical Exam Constitutional: + disheveled and + lethargic; no acute distress Neck: trachea midline, no thyromegaly Respiratory: normal respiratory effort Auscultation: lungs clear to auscultation bilaterally; no crackles, no rales, no rhonchi and no wheezes Cardiovascular: Rate/Rhythm: regular rate and regular rhythm Heart Sounds: normal S1 and normal S2 Gastrointestinal (Abdomen): Inspection/Auscultation: abdomen normal to inspection Percussion/Palpation: + abdomen tender (mostly LLQ), + guarding (invol) and abdomen soft; abdomen not rigid and no hepatosplenomegaly Skin: no rashes, warm and dry Neurologic: very lethargic Results & Data Results & Data ([facility]) Vital Signs (Past 12 Hours) Vital Signs Temp Pulse Pulse Resp BP BP Pulse Ox 09/27/21 13:22 36.8 C 09/27/21 13:21 89/52 L 93 09/27/21 12:20 90/54 L 09/27/21 11:57 85 22 104/56 L 94 09/27/21 11:33 37.3 C 91 H 24 100/50 L 94 Laboratory Results Laboratory Results WBC 10.54 K/uL (4.8-10.8) 09/27/21 11:47 RBC 4.07 M/uL (4.7-6.1) L 09/27/21 11:47 Hgb 12.0 g/dL (14.0-18.0) L 09/27/21 11:47 Hct 36.1 % (42-52) L 09/27/21 11:47 MCV 88.7 fL (80-100) 09/27/21 11:47 MCH 29.5 pg (25-34) 09/27/21 11:47 MCHC 33.2 g/dL (32-36) 09/27/21 11:47 RDW Std Deviation 51.9 fL (36.4-46.3) H 09/27/21 11:47 RDW Coeff of Gallo 16.0 % (11.5-14.5) H 09/27/21 11:47 Plt Count 202 K/uL (130-400) 09/27/21 11:47 MPV 10.9 fL (7.4-10.4) H 09/27/21 11:47 Immature Gran % (Auto) 0.7 % 09/27/21 11:47 Neut % (Auto) 59.8 % 09/27/21 11:47 Lymph % (Auto) 10.9 % 09/27/21 11:47 Barton % (Auto) 28.1 % 09/27/21 11:47 Eos % (Auto) 0.4 % 09/27/21 11:47 Baso % (Auto) 0.1 % 09/27/21 11:47 Neut # (Auto) 6.31 K/uL (1.4-6.5) 09/27/21 11:47 Lymph # (Auto) 1.15 K/uL (1.2-3.4) L 09/27/21 11:47 Barton # (Auto) 2.96 K/uL (0.11-0.59) H 09/27/21 11:47 Eos # (Auto) 0.04 K/uL (0-0.5) 09/27/21 11:47 Baso # (Auto) 0.01 K/uL (0-0.2) 09/27/21 11:47 Immature Gran # (Auto) 0.07 K/uL (0.00-0.02) H 09/27/21 11:47 PT 11.2 Seconds (9.0-12.0) 09/27/21 11:47 INR 1.1 (0.9-1.1) 09/27/21 11:47 Sodium 137 mmol/L (136-145) 09/27/21 11:47 Potassium 3.8 mmol/L (3.5-5.1) 09/27/21 11:47 Chloride 105 mmol/L (98-107) 09/27/21 11:47 Carbon Dioxide 24 mmol/L (21-32) 09/27/21 11:47 Anion Gap 8 (3-11) 09/27/21 11:47 BUN 54 mg/dl (6-23) H 09/27/21 11:47 Creatinine 1.79 mg/dl (0.6-1.4) H 09/27/21 11:47 Est Cr Clr Drug Dosing 44.2 ml/min 09/27/21 11:47 Est GFR ( Amer) 44.8 ml/min 09/27/21 11:47 Est GFR (Non-Af Amer) 38.6 ml/min 09/27/21 11:47 BUN/Creatinine Ratio 30.2 (10-20) H 09/27/21 11:47 Glucose 106 mg/dl (70-99(Fasting)) H 09/27/21 11:47 Lactate 1.3 mmol/L (0.4-2.0) 09/27/21 12:15 Calcium 8.4 mg/dl (8.5-10.1) L 09/27/21 11:47 Magnesium 2.5 mg/dl (1.7-2.4) H 09/27/21 11:47 Total Bilirubin 1.1 mg/dl (0.2-1.0) H 09/27/21 11:47 AST 22 U/L (13-39) 09/27/21 11:47 ALT 17 U/L (7-52) 09/27/21 11:47 Alkaline Phosphatase 110 U/L (34-104) H 09/27/21 11:47 Troponin I High Sens 5.9 pg/ml (0-20) 09/27/21 11:47 Total Protein 6.2 gm/dl (6.0-8.3) 09/27/21 11:47 Albumin 3.5 gm/dl (3.4-5.0) 09/27/21 11:47 Globulin 2.7 gm/dl (2.5-4.0) 09/27/21 11:47 Albumin/Globulin Ratio 1.3 (0.9-2) 09/27/21 11:47 Procalcitonin 8.44 ng/ml (0-0.5) H 09/27/21 11:47 Urine Color Dark Yellow 09/27/21 12:15 Urine Appearance Cloudy (Clear) A 09/27/21 12:15 Urine pH 5.0 (4.5-7.5) 09/27/21 12:15 Ur Specific [place] 1.023 (1.000-1.030) 09/27/21 12:15 Urine Protein 1+ (Negative) H 09/27/21 12:15 Urine Glucose (UA) Negative (Negative) 09/27/21 12:15 Urine Ketones Trace (Negative) H 09/27/21 12:15 Urine Blood Negative (Negative) 09/27/21 12:15 Urine Nitrite Positive (Negative) A 09/27/21 12:15 Urine Bilirubin 1+ (Negative) H 09/27/21 12:15 Urine Urobilinogen Negative (Negative) 09/27/21 12:15 Ur Leukocyte Esterase 1+ (Negative) H 09/27/21 12:15 Urine WBC (Auto) 1-5 /hpf (0-5) 09/27/21 12:15 Urine RBC (Auto) >30 /hpf (0-4) H 09/27/21 12:15 U Hyaline Cast (Auto) 1-5 /lpf (0-5) 09/27/21 12:15 U Epithel Cells (Auto) 10-20 /lpf (0-5) H 09/27/21 12:15 Urine Bacteria (Auto) Negative (Negative) 09/27/21 12:15 SARS-CoV-2 (PCR) NEGATIVE (Negative) 09/27/21 12:15 Influenza Type A (PCR) Negative (Neg) 09/27/21 12:15 Influenza Type B (PCR) Negative (Neg) 09/27/21 12:15 RSV (RT-PCR) Negative (Neg) 09/27/21 12:15 Impressions Abdomen/Pelvis CT 09/27/21 11:54 CT abd pelvis wo con CLINICAL HISTORY: abd pain, ams COMPARISON STUDY: No previous studies for comparison. CT DOSE: 1181.33 mGy.cm TECHNIQUE: Standard CT of the Abdomen and Pelvis was performed without IV contrast. The patient did not receive oral contrast. A dose lowering technique was utilized adhering to the principles of ALARA. FINDINGS: Lung base: There is minimal right basilar atelectasis. Abdominal cavity: There is no evidence for abdominal mass, adenopathy or ascites. Liver: The liver is homogeneous in attenuation on these limited noncontrast images.. Spleen: The spleen is homogeneous in attenuation on these limited noncontrast images. Pancreas: The pancreas is homogeneous in attenuation on these limited noncontrast images. Gall Bladder: Surgical clips are present. Adrenal glands: The adrenal glands are normal in size and attenuation on these limited noncontrast images. Kidneys: The kidneys are homogeneous in attenuation on these limited noncontrast images. There are multiple nonobstructing right renal calculi including a 1 cm calculus within the right renal pelvis. There is no hydronephrosis present. There is a 2 mm nonobstructing left renal calculus. There is no left-sided hydronephrosis. Bowel: There is diffuse mucosal thickening present involving the descending and sigmoid colon with no significant diverticulosis. However, there is pericolonic inflammatory change present beginning at the level of the splenic flexure and extending through the mid descending colon. These findings are still suspicious for diverticulitis. Underlying mass cannot be completely excluded and follow-up is recommended. The remaining bowel loops are normally placed within the abdomen and pelvis without evidence for dilatation or obstruction. There is no evidence for mass lesion. There is a normal appendix in the right lower quadrant. There is no evidence for free air. Bladder: There is distention of the bladder with no evidence for focal bladder wall thickening, calculus or diverticulum. : There is no evidence for pelvic mass or adenopathy. Vasculature: There is no evidence for focal aneurysmal dilatation of the abdominal aorta. 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 Osseous structures: There is no acute osseous pathology. Degenerative changes are seen within the spine. IMPRESSION: 1. Mucosal thickening of the descending and sigmoid colon with pericolonic inflammatory changes beginning at the splenic flexure to the mid descending colon. While there are no definite diverticula seen, the findings are still suspicious for diverticulitis. Additional underlying process cannot be excluded and follow-up is recommended. 2. Multiple nonobstructing right renal calculi with no evidence for hydronephrosis. Solitary nonobstructing left renal calculus. 3. No other evidence for acute intra-abdominal or pelvic abnormality on these limited noncontrast images. 4. Additional nonacute findings are delineated above ACT 112: Negative or not required by law. Electronically signed by: Cy Torres M.D. 09/27/2021 1:[address] 09/27/21 11:54 CT head/brain wo con CLINICAL HISTORY: ams COMPARISON STUDY: 05/17/2020 CT DOSE: TECHNIQUE: Standard CT of the Brain was performed without IV contrast. A dose lowering technique was utilized adhering to the principles of ALARA. FINDINGS: Extraaxial space: There is no evidence for subdural hematoma. There are no extra-axial fluid collections. Ventricles and cisterns: The ventricles are mildly dilated bilaterally. There is no evidence for midline shift or mass effect. Parenchyma: There is no subarachnoid or intraparenchymal hemorrhage. There is no evidence for an acute infarct or cerebral edema. There is mild cerebral cortical atrophy and decreased attenuation in the periventricular white matter representing remote small vessel disease. There are no gross mass lesions. Osseous structures: There is no evidence for an acute fracture. The visualized paranasal sinuses are clear. The mastoid air cells are clear bilaterally. Soft tissues: There is no evidence for focal soft tissue swelling. IMPRESSION: 1. No acute intracerebral pathology. 2. Mild cerebral cortical atrophy and remote small vessel disease. ACT 112: Negative or not required by law. Electronically signed by: Cy Torres M.D. 09/27/2021 12:58 PM Chest X-Ray 09/27/21 11:55 XR chest 1V portable CLINICAL HISTORY: SEPSIS. COMPARISON STUDY: 07/03/2021 TECHNIQUE: 1 view of the chest FINDINGS: Single frontal view of the chest demonstrates the cardiomediastinal silhouette to be within normal limits. There is a decreased inspiratory effort with elevation of the hemidiaphragms and crowding of the bronchovascular markings at the lung bases and centrally. The lungs are clear of alveolar opacities. There is no evidence for pleural effusion. There is no evidence for vascular congestion. There is no acute osseous pathology. IMPRESSION: 1. There is a decreased inspiratory effort with otherwise no acute chest disease. ACT 112: Negative or not required by law. Electronically signed by: Cy Torres M.D. 09/27/2021 12:59 PM PG Care Time/CCT Total # of Minutes Spent Total Time Spent with Patient: Total time spent is greater than 50% in coordination of care (as documented) at patient's floor/unit and/or counseling patient: Coding Level of Care Code 70161 Initial Inpt Care Lvl 3 Diagnoses Diverticulitis K57.92 Frequent falls R29.6 Hematuria R31.9 Sepsis A41.9 Altered mental status R41.82
[2021-09-27] MEDS ORDERED: ONDANSETRON INJ 2 MG/ML 2 ML VIAL IV PRN (16:15)
[2021-09-27] MEDS ORDERED: ACETAMINOPHEN 325 MG TAB PO PRN (16:15)
[2021-09-27 16:20] LABS: Amphetamines+Metham, Urine Neg (Neg); Barbiturates, Urine Neg (Neg); Benzodiazepine, Urine Neg (Neg); Cocaine, Urine Neg (Neg); MDMA (Ecstacy), Urine Neg (Neg); Methadone, Urine Neg (Neg); Opiate, Urine Neg (Neg); Phencyclidine, Urine Neg (Neg)
[2021-09-27] MEDS: SODIUM CHLORIDE 0.9% 1000ML 1,000 ML IV SCH ×2 (16:55→19:59)
--- NOTE | 2021-09-27 17:31 | Electrocardiogram Report ---
Test Reason : Blood Pressure : / mmHG Vent. Rate : 085 BPM Atrial Rate : 085 BPM P-R Int : 230 ms QRS Dur : 124 ms QT Int : 374 ms P-R-T Axes : 068 -61 059 degrees QTc Int : 445 ms Sinus rhythm with 1st degree A-V block Left anterior fascicular block Right bundle branch block Abnormal ECG When compared with ECG of 11-APR-2021 21:47, No significant change was found Confirmed by Fili Joseph ([id number]) on 09/27/2021 5:31:06 PM Referred By: REFERRED SELF Confirmed By:David Joseph
[2021-09-27] MEDS: ALBUT/IPRATROP 3MG/0.5MG NEB 3 ML VIAL NEB SCH ×2 (18:06)
[2021-09-27] MEDS: hydrOXYzine HCl 25 MG TAB PO SCH (19:53)
[2021-09-27] MEDS: TAMSULOSIN HCL 0.4 MG CAP PO SCH (19:53)
[2021-09-27] MEDS: SULINDAC 200 MG TAB PO SCH (19:54)
[2021-09-27] MEDS: AMITRIPTYLINE HCL 100 MG TAB PO SCH (19:54)
[2021-09-27] MEDS: PRAVASTATIN SOD 40 MG TAB PO SCH (19:54)
[2021-09-27] MEDS ORDERED: PREGABALIN 150 MG CAP PO SCH (21:00)
[2021-09-27] MEDS: PIPERACILLIN/TAZOBACTAM 3.375 GM in DEXTROSE 5% 100 ML IV SCH (22:13)
[2021-09-27] MEDS: HEPARIN SOD 5,000 UNIT/0.5 ML VIAL SQ SCH (22:14)
[2021-09-28] MEDS: SODIUM CHLORIDE 0.9% 1000ML 1,000 ML IV SCH ×2 (04:48→11:25)
[2021-09-28] MEDS: PIPERACILLIN/TAZOBACTAM 3.375 GM in DEXTROSE 5% 100 ML IV SCH ×3 (04:48→20:20)
[2021-09-28] MEDS: HEPARIN SOD 5,000 UNIT/0.5 ML VIAL SQ SCH ×3 (04:49→20:15)
[2021-09-28] MEDS: LEVOTHYROXINE SODIUM 75 MCG TABLET PO SCH ×2 (04:50→05:31)
[2021-09-28] MEDS: ALBUT/IPRATROP 3MG/0.5MG NEB 3 ML VIAL NEB SCH ×4 (07:19→19:35)
[2021-09-28 08:03] LABS: Hematocrit (blood only) 30.6 % (42-52); Mean Corpuscular Hgb Conc 32.7 g/dL (32-36); Mean Corpuscular Volume 91.9 fL (80-100); Mean Platelet Volume 11.6 fL (7.4-10.4); Platelet Count 163 K/uL (130-400); RDW Coefficient of Variation 16.4 % (11.5-14.5); RDW Standard Deviation 55.1 fL (36.4-46.3); Red Blood Count 3.33 M/uL (4.7-6.1); White Blood Count 6.64 K/uL (4.8-10.8)
[2021-09-28 08:20] LABS: BUN Creatinine Ratio 30.5 (10-20); Calcium 7.3 mg/dl (8.5-10.1); Est GFR (African American) 85.3 ml/min; Est GFR (Non-African American) 73.6 ml/min; Magnesium 2.1 mg/dl (1.7-2.4); Potassium 3.5 mmol/L (3.5-5.1)
[2021-09-28 08:43] LABS: Basophils # (auto) 0.01 K/uL (0-0.2); Basophils % (auto) 0.2 %; Dohle Bodies 1+; Eosinophils # (auto) 0.12 K/uL (0-0.5); Eosinophils % (auto) 1.8 %; Immature Granulocytes # (auto) 0.02 K/uL (0.00-0.02); Immature Granulocytes % (auto) 0.3 %; Lymphocytes # (auto) 1.35 K/uL (1.2-3.4); Lymphocytes % (auto) 20.3 %; Monocytes % (auto) 19.6 %; Neutrophils # (auto) 3.84 K/uL (1.4-6.5); Neutrophils % (auto) 57.8 %; Toxic Vacuolation 1+
[2021-09-28] MEDS: ASPIRIN 81 MG ECTAB PO SCH (09:31)
[2021-09-28] MEDS: DULoxetine HCL 60 MG CAP PO SCH (09:31)
[2021-09-28] MEDS: SULINDAC 200 MG TAB PO SCH ×2 (09:32→20:15)
[2021-09-28] MEDS: PANTOprazole 40 MG TAB PO SCH (09:35)
--- NOTE | 2021-09-28 15:55 | Hospitalist Progress Note ---
Date of Service September 28, 2021 Assessment & Plan (1) Diverticulitis: Plan: Patient has acute descending/sigmoid diverticulitis on CT scan, though no clear diverticuli on CT. - Continue Zosyn - Advance diet as tolerated (2) Altered mental status: Plan: Toxic/metabolic encephalopathy secondary to infection. CT of head reviewed, no acute findings. - Continue to monitor for improvement (3) Sepsis: Plan: Due to presumed GI infection. Resolved with abx therapy. (4) Hematuria: Plan: Significant hematuria on urinalysis. Does have kidney stones on CT a/p. - Urology f/u outpatient. (5) Frequent falls: Plan: Per outpatient records. Patient is a fall risk. - PT/OT evaluation (6) Fibromyalgia: Plan: Longstanding and seems to have complicated other aspects of his care re: requesting pain medication. - Continue home amitriptyline (relative high dose, but I do see a filled script from 09/07/2021), duloxetine, sulindac - Hold Lyrica for confusion on admission; can restart gradually. (7) Migraine: Plan: Reports some present headache. - Continue home amitriptyline as above - Tylenol PRN (8) Anxiety: Plan: Meds as above. (9) BPH (benign prostatic hyperplasia): Plan: No LUTS noted today. - Continue home Flomax (10) DVT prophylaxis: Plan: Heparin 5,000 units SQ Q12h Admission and Anticipated Discharge Date Admission Date: September 27, 2021 Subjective Wants to go home today. He is re-redirectable when told about his GI issue (possible diverticulitis). He does report he has some right facial droop for several years. Reports no fevers/chills, chest pain, shortness of breath, abdominal pain, nausea, or vomiting. Physical Exam Constitutional: WD/WN, vitals as above Eyes: EOM intact bilaterally; no conjunctival abnormality ENMT: external ear and nose normal, oropharynx normal Neck: trachea midline, no thyromegaly normal visual inspection Respiratory: normal respiratory effort, lungs clear to auscultation no respiratory distress Cardiovascular: RRR, no murmur, no edema Gastrointestinal (Abdomen): Inspection/Auscultation: abdomen normal to inspection; abdomen not distended Musculoskeletal: no cyanosis or clubbing, extremities motor strength 5/5 Skin: no rashes, warm and dry Neurologic: moves all extremities and awake Psychiatric: Orientation: alert, oriented to person and cooperative Results & Data Results & Data ([facility]) Vital Signs (Past 12 Hours) Vital Signs Temp Pulse Pulse Pulse Resp BP Pulse Ox 09/28/21 15:10 36.8 C 79 18 147/53 H 91 09/28/21 14:50 76 18 91 09/28/21 11:29 79 18 94 09/28/21 11:17 36.4 C L 81 17 122/61 92 09/28/21 07:21 73 18 96 09/28/21 07:07 36.7 C 71 17 93/51 L 97 09/28/21 06:40 72 09/28/21 04:04 36.5 C 69 18 90/56 L 91 PG Care Time/CCT Total # of Minutes Spent Total Time Spent with Patient: Total time spent is greater than 50% in coordination of care (as documented) at patient's floor/unit and/or counseling patient: Coding Level of Care Code 03035 Subseq Hosp Care Lvl 3 Diagnoses Diverticulitis K57.92 Sepsis A41.9 Hematuria R31.9 Altered mental status R41.82 Frequent falls R29.6 Fibromyalgia M79.7 Migraine G43.909 Migraine type: unspecified BPH (benign prostatic hyperplasia) N40.1; R39.12 Lower urinary tract symptom presence: symptoms present Lower urinary tract symptom detail: weak urinary stream DVT prophylaxis Z29.9 Anxiety F41.9 (1) Migraine Migraine type: unspecified (2) BPH (benign prostatic hyperplasia) Lower urinary tract symptom presence: symptoms present Lower urinary tract symptom detail: weak urinary stream Qualified Code(s): N40.1 - Benign prostatic hyperplasia with lower urinary tract symptoms; R39.12 - Poor urinary stream
[2021-09-28] MEDS: oxyCODONE/ACETAMINOPHEN 5mg/325mg TAB PO PRN (16:40)
[2021-09-28] MEDS: PRAVASTATIN SOD 40 MG TAB PO SCH (20:14)
[2021-09-28] MEDS: hydrOXYzine HCl 25 MG TAB PO SCH (20:14)
[2021-09-28] MEDS: AMITRIPTYLINE HCL 100 MG TAB PO SCH (20:15)
[2021-09-28] MEDS: TAMSULOSIN HCL 0.4 MG CAP PO SCH (20:15)
[2021-09-29] MEDS: PIPERACILLIN/TAZOBACTAM 3.375 GM in DEXTROSE 5% 100 ML IV SCH ×3 (03:37→20:24)
[2021-09-29] MEDS: LEVOTHYROXINE SODIUM 75 MCG TABLET PO SCH (05:20)
[2021-09-29] MEDS: HEPARIN SOD 5,000 UNIT/0.5 ML VIAL SQ SCH ×3 (05:20→20:27)
[2021-09-29] MEDS: ALBUT/IPRATROP 3MG/0.5MG NEB 3 ML VIAL NEB SCH ×4 (07:12→19:24)
[2021-09-29] MEDS: oxyCODONE/ACETAMINOPHEN 5mg/325mg TAB PO PRN (08:46)
[2021-09-29] MEDS: SULINDAC 200 MG TAB PO SCH ×2 (09:10→20:28)
[2021-09-29] MEDS: ASPIRIN 81 MG ECTAB PO SCH (09:11)
[2021-09-29] MEDS: PANTOprazole 40 MG TAB PO SCH (09:11)
[2021-09-29] MEDS: DULoxetine HCL 60 MG CAP PO SCH (09:11)
[2021-09-29 09:22] LABS: Hematocrit (blood only) 30.3 % (42-52); Hemoglobin 10.2 g/dL (14.0-18.0); Mean Corpuscular Hemoglobin 30.4 pg (25-34); Mean Corpuscular Hgb Conc 33.7 g/dL (32-36); Mean Corpuscular Volume 90.2 fL (80-100); Mean Platelet Volume 11.8 fL (7.4-10.4); Platelet Count 167 K/uL (130-400); RDW Coefficient of Variation 16.4 % (11.5-14.5); RDW Standard Deviation 54.1 fL (36.4-46.3); Red Blood Count 3.36 M/uL (4.7-6.1); White Blood Count 6.98 K/uL (4.8-10.8)
[2021-09-29 09:26] LABS: Albumin Level 2.8 gm/dl (3.4-5.0); BUN Creatinine Ratio 17.8 (10-20); Calcium 7.7 mg/dl (8.5-10.1); Creatinine Clr Calc Pharmacy 74.5 ml/min; Est GFR (African American) 83.4 ml/min; Globulin 2.7 gm/dl (2.5-4.0); Magnesium 2.1 mg/dl (1.7-2.4); Potassium 3.1 mmol/L (3.5-5.1); Total Protein 5.5 gm/dl (6.0-8.3)
--- NOTE | 2021-09-29 14:09 | Hospitalist Progress Note ---
Date of Service September 29, 2021 Assessment & Plan (1) Diverticulitis: Plan: Patient has acute descending/sigmoid diverticulitis on CT scan, though no clear diverticuli on CT. - Continue Zosyn - Advance diet as tolerated - Improving pain. Will start normal diet today. Vazquez ving some diarrhea. (2) Altered mental status: Plan: Toxic/metabolic encephalopathy secondary to infection. CT of head reviewed, no acute findings. - Improved today. More clear speech, seems more alert and cognizant of his situation. Has sensible conversation regarding his care. (3) Sepsis: Plan: Due to presumed GI infection. Resolved with abx therapy. (4) Hematuria: Plan: Significant hematuria on urinalysis. Does have kidney stones on CT a/p. - Urology f/u outpatient. (5) Frequent falls: Plan: Per outpatient records. Patient is a fall risk. - PT/OT evaluation recommend SNF. Patient unsure if he's willing to go. (6) Fibromyalgia: Plan: Longstanding and seems to have complicated other aspects of his care re: requesting pain medication. - Continue home amitriptyline (relative high dose, but I do see a filled script from 09/07/2021), duloxetine, sulindac - Hold Lyrica for confusion on admission; can restart gradually if needed. (7) Migraine: Plan: Reports some present headache. - Continue home amitriptyline as above - Tylenol PRN (8) Anxiety: Plan: Meds as above. (9) BPH (benign prostatic hyperplasia): Plan: No LUTS noted today. - Continue home Flomax (10) DVT prophylaxis: Plan: Heparin 5,000 units SQ Q12h Admission and Anticipated Discharge Date Admission Date: September 27, 2021 Subjective Doing well today. No more abdominal pain, but is having diarrhea. Reports no fevers/chills, chest pain, shortness of breath, abdominal pain, nausea, or vomiting. Physical Exam Constitutional: WD/WN, vitals as above Eyes: EOM intact bilaterally; no conjunctival abnormality ENMT: external ear and nose normal, oropharynx normal Neck: trachea midline, no thyromegaly normal visual inspection Respiratory: normal respiratory effort, lungs clear to auscultation no respiratory distress Cardiovascular: RRR, no murmur, no edema Gastrointestinal (Abdomen): Inspection/Auscultation: abdomen normal to inspection; abdomen not distended Musculoskeletal: no cyanosis or clubbing, extremities motor strength 5/5 Skin: no rashes, warm and dry Neurologic: moves all extremities and awake Psychiatric: Orientation: alert, oriented to person and cooperative Results & Data Results & Data ([facility]) Vital Signs (Past 12 Hours) Vital Signs Temp Pulse Pulse Resp BP Pulse Ox Pulse Ox 09/29/21 11:31 36.7 C 66 18 101/60 94 09/29/21 10:52 78 16 94 09/29/21 08:00 75 09/29/21 07:55 75 09/29/21 07:51 96 09/29/21 07:49 75 09/29/21 07:12 77 18 96 09/29/21 06:38 36.6 C 75 18 116/72 93 09/29/21 03:08 36.6 C 72 18 115/72 94 PG Care Time/CCT Total # of Minutes Spent Total Time Spent with Patient: Total time spent is greater than 50% in coordination of care (as documented) at patient's floor/unit and/or counseling patient: Coding Level of Care Code 44337 Subseq Hosp Care Lvl 2 Diagnoses Diverticulitis K57.92 Altered mental status R41.82 Sepsis A41.9 Hematuria R31.9 Frequent falls R29.6 Fibromyalgia M79.7 Migraine G43.909 Migraine type: unspecified Anxiety F41.9 BPH (benign prostatic hyperplasia) N40.1; R39.12 Lower urinary tract symptom presence: symptoms present Lower urinary tract symptom detail: weak urinary stream DVT prophylaxis Z29.9 (1) Migraine Migraine type: unspecified (2) BPH (benign prostatic hyperplasia) Lower urinary tract symptom presence: symptoms present Lower urinary tract symptom detail: weak urinary stream Qualified Code(s): N40.1 - Benign prostatic hyperplasia with lower urinary tract symptoms; R39.12 - Poor urinary stream
[2021-09-29] MEDS: POTASSIUM CHLORIDE 10 MEQ TABCR PO SCH ×2 (14:45→20:31)
[2021-09-29] MEDS: ACETAMINOPHEN 325 MG TAB PO PRN (17:27)
[2021-09-29] MEDS: LOPERAMIDE HCL 2 MG CAP PO PRN (17:28)
[2021-09-29 18:15] LABS: A calco-baum cmplx NotReported Not Detected (NotDetected); Bact fragilis Not Reported Not Detected (NotDetected); C auris Not Reported Not Detected (NotDetected); Calbicans Not Reported Not Detected (NotDetected); Candida glabrata Not Reported Not Detected (NotDetected); Candida krusei Not Reported Not Detected (NotDetected); Cneoformans/gatti Not Reported Not Detected (NotDetected); Cparapsilosis Not Reported Not Detected (NotDetected); Ctropicalis Not Reported Not Detected (NotDetected); E cloacae compx Not Reported Not Detected (NotDetected); Efaecalis Not Reported Not Detected (NotDetected); Efaecium Not Reported Not Detected (NotDetected); Enterobacterales Not Reported Not Detected (NotDetected); Escherichia coli Not Reported Not Detected (NotDetected); H influenzae Not Reported Not Detected (NotDetected); K aerogenes Not Reported Not Detected (NotDetected); Koxytoca Not Reported Not Detected (NotDetected); Kpneumoniae grp Not Reported Not Detected (NotDetected); Lmonocyt Not Reported Not Detected (NotDetected); N meningitidis Not Reported Not Detected (NotDetected); P aeruginosa Not Reported Not Detected (NotDetected); Proteus spp Not Reported Not Detected (NotDetected); Salmonella spp Not Reported Not Detected (NotDetected); Smarcescens Not Reported Not Detected (NotDetected); Staph lugdunensis Not Reported Not Detected (NotDetected); Staph spp. Not Reported Not Detected (NotDetected); Staphaureus Not Reported Not Detected (NotDetected); Staphepi Not Reported Not Detected (NotDetected); Stenmaltophilia Not Reported Not Detected (NotDetected); Strep agal(GrpB) Not Reported Not Detected (NotDetected); Strep pneum Not Reported Not Detected (NotDetected); Strep pyog (GrpA) Not Reported Not Detected (NotDetected); Strep spp Not Reported Not Detected (NotDetected)
[2021-09-29] MEDS: PRAVASTATIN SOD 40 MG TAB PO SCH (20:27)
[2021-09-29] MEDS: TAMSULOSIN HCL 0.4 MG CAP PO SCH (20:28)
[2021-09-29] MEDS: AMITRIPTYLINE HCL 100 MG TAB PO SCH (20:28)
[2021-09-29] MEDS: hydrOXYzine HCl 25 MG TAB PO SCH (20:28)
[2021-09-30] MEDS: PIPERACILLIN/TAZOBACTAM 3.375 GM in DEXTROSE 5% 100 ML IV SCH ×2 (04:07→12:22)
[2021-09-30] MEDS: HEPARIN SOD 5,000 UNIT/0.5 ML VIAL SQ SCH ×3 (05:45→20:39)
[2021-09-30] MEDS: LOPERAMIDE HCL 2 MG CAP PO PRN (05:45)
[2021-09-30] MEDS: LEVOTHYROXINE SODIUM 75 MCG TABLET PO SCH (05:45)
[2021-09-30] MEDS: ALBUT/IPRATROP 3MG/0.5MG NEB 3 ML VIAL NEB SCH ×3 (06:57→15:44)
[2021-09-30] MEDS: ACETAMINOPHEN 325 MG TAB PO PRN ×2 (08:09→20:36)
[2021-09-30] MEDS: ASPIRIN 81 MG ECTAB PO SCH (08:10)
[2021-09-30] MEDS: SULINDAC 200 MG TAB PO SCH ×2 (08:10→20:38)
[2021-09-30] MEDS: DULoxetine HCL 60 MG CAP PO SCH (08:10)
[2021-09-30] MEDS: PANTOprazole 40 MG TAB PO SCH (08:11)
[2021-09-30 08:38] LABS: Hematocrit (blood only) 31.5 % (42-52); Hemoglobin 10.9 g/dL (14.0-18.0); Mean Corpuscular Hemoglobin 30.4 pg (25-34); Mean Corpuscular Hgb Conc 34.6 g/dL (32-36); Mean Corpuscular Volume 87.7 fL (80-100); Platelet Count 201 K/uL (130-400); RDW Coefficient of Variation 15.8 % (11.5-14.5); RDW Standard Deviation 51.3 fL (36.4-46.3); Red Blood Count 3.59 M/uL (4.7-6.1); White Blood Count 7.04 K/uL (4.8-10.8)
[2021-09-30 08:48] LABS: BUN Creatinine Ratio 10.6 (10-20); Calcium 8.1 mg/dl (8.5-10.1); Creatinine Clr Calc Pharmacy 84.6 ml/min; Est GFR (African American) 97.5 ml/min; Est GFR (Non-African American) 84.2 ml/min; Magnesium 1.8 mg/dl (1.7-2.4); Potassium 3.4 mmol/L (3.5-5.1)
--- NOTE | 2021-09-30 12:23 | Hospitalist Progress Note ---
Date of Service September 30, 2021 Assessment & Plan (1) Diverticulitis: Plan: Patient has acute descending/sigmoid diverticulitis on CT scan, though no clear diverticula on CT. - Continue Zosyn - Advance diet as tolerated - Some worse pain and nausea today. Continue normal diet today. Diarrhea resolved. Will monitor closely and consider repeat imaging if indication of worsening infection. (2) Altered mental status: Plan: Toxic/metabolic encephalopathy secondary to infection. CT of head reviewed, no acute findings. - Improved today. More clear speech, seems more alert and cognizant of his situation. Has sensible conversation regarding his care. Believe he is at baseline by 09/30. (3) Sepsis: Plan: Due to GI infection. Resolved with abx therapy. (4) Hematuria: Plan: Significant hematuria on urinalysis. Does have kidney stones on CT a/p. - Urology f/u outpatient. (5) Frequent falls: Plan: Per outpatient records. Patient is a fall risk. - PT/OT evaluation recommend SNF. Patient hoping for [facility]. (6) Fibromyalgia: Plan: Longstanding and seems to have complicated other aspects of his care re: requesting pain medication. - Continue home amitriptyline (relative high dose, but I do see a filled script from 09/07/2021), duloxetine, sulindac - Initially held Lyrica for confusion on admission; restart at reduced dosing on 09/30. (7) Migraine: Plan: Reports some off/on headache. Resolved with Tylenol. - Continue home amitriptyline as above - Tylenol PRN (8) Anxiety: Plan: Meds as above. (9) BPH (benign prostatic hyperplasia): Plan: Samuel catheter inserted on 09/29 for urinary retention of 550 mL. - Continue home Flomax - Will attempt voiding trial in 1-2 days after bladder rest. (10) DVT prophylaxis: Plan: Heparin 5,000 units SQ Q12h Admission and Anticipated Discharge Date Admission Date: September 27, 2021 Subjective Reported some abdominal pain today. Lower appetite and reports he did not eat breakfast. Diarrhea has resolved though. Also upset with his SO (Ashely) who is not wanting him to return to her house. He also states "Maybe I brought this on myself." He is calm, but clearly distressed. Reports no fevers/chills, chest pain, shortness of breath, nausea, or vomiting. Physical Exam Constitutional: WD/WN, vitals as above Eyes: EOM intact bilaterally; no conjunctival abnormality ENMT: external ear and nose normal, oropharynx normal Neck: trachea midline, no thyromegaly normal visual inspection Respiratory: normal respiratory effort, lungs clear to auscultation no respiratory distress Cardiovascular: RRR, no murmur, no edema Gastrointestinal (Abdomen): Inspection/Auscultation: abdomen normal to inspection; abdomen not distended Percussion/Palpation: abdomen soft; abdomen nontender, no guarding and abdomen not rigid Musculoskeletal: no cyanosis or clubbing, extremities motor strength 5/5 Skin: no rashes, warm and dry Neurologic: moves all extremities and awake Psychiatric: Orientation: alert, oriented to person and cooperative Results & Data Results & Data ([facility]) Vital Signs (Past 12 Hours) Vital Signs Temp Pulse Pulse Pulse Resp BP BP 09/30/21 11:55 36.7 C 70 17 158/73 H 09/30/21 11:06 72 16 09/30/21 08:17 36.6 C 74 15 147/71 H 09/30/21 07:00 74 09/30/21 06:57 74 16 09/30/21 04:08 36.7 C 69 16 154/87 H Pulse Ox Pulse Ox 09/30/21 11:55 90 09/30/21 11:06 92 09/30/21 08:17 91 09/30/21 07:00 91 09/30/21 06:57 92 09/30/21 04:08 92 PG Care Time/CCT Total # of Minutes Spent Total Time Spent with Patient: Total time spent is greater than 50% in coordination of care (as documented) at patient's floor/unit and/or counseling patient: Coding Level of Care Code 56867 Subseq Hosp Care Lvl 3 Diagnoses Diverticulitis K57.92 Altered mental status R41.82 Sepsis A41.9; R65.20; G93.40 Sepsis acute organ dysfunction status: with acute organ dysfunction Sepsis type: sepsis due to unspecified organism Severe sepsis acute organ dysfunction type: encephalopathy Severe sepsis shock status: without septic shock Hematuria R31.9 Frequent falls R29.6 Fibromyalgia M79.7 Migraine G43.909 Migraine type: unspecified Anxiety F41.9 BPH (benign prostatic hyperplasia) N40.1; R39.12 Lower urinary tract symptom presence: symptoms present Lower urinary tract symptom detail: weak urinary stream DVT prophylaxis Z29.9 (1) Sepsis Sepsis acute organ dysfunction status: with acute organ dysfunction Sepsis type: sepsis due to unspecified organism Severe sepsis acute organ dysfunction type: encephalopathy Severe sepsis shock status: without septic shock Qualified Code(s): A41.9 - Sepsis, unspecified organism; R65.20 - Severe sepsis without septic shock; G93.40 - Encephalopathy, unspecified (2) Migraine Migraine type: unspecified (3) BPH (benign prostatic hyperplasia) Lower urinary tract symptom presence: symptoms present Lower urinary tract symptom detail: weak urinary stream Qualified Code(s): N40.1 - Benign prostatic hyperplasia with lower urinary tract symptoms; R39.12 - Poor urinary stream
[2021-09-30] MEDS ORDERED: ALBUT/IPRATROP 3MG/0.5MG NEB 3 ML VIAL NEB PRN (15:00)
[2021-09-30] MEDS: AMOXICILLIN/CLAVULANATE 875 MG TAB PO SCH (17:13)
[2021-09-30] MEDS: PRAVASTATIN SOD 40 MG TAB PO SCH (20:37)
[2021-09-30] MEDS: AMITRIPTYLINE HCL 100 MG TAB PO SCH (20:37)
[2021-09-30] MEDS: hydrOXYzine HCl 25 MG TAB PO SCH (20:38)
[2021-09-30] MEDS: TAMSULOSIN HCL 0.4 MG CAP PO SCH (20:38)
[2021-09-30] MEDS: PREGABALIN 50 MG CAP PO SCH (20:44)
[2021-10-01] MEDS: LEVOTHYROXINE SODIUM 75 MCG TABLET PO SCH (06:02)
[2021-10-01] MEDS: HEPARIN SOD 5,000 UNIT/0.5 ML VIAL SQ SCH (06:02)
[2021-10-01 07:02] LABS: Hematocrit (blood only) 36.1 % (42-52); Hemoglobin 12.6 g/dL (14.0-18.0); Mean Corpuscular Hemoglobin 30.5 pg (25-34); Mean Corpuscular Hgb Conc 34.9 g/dL (32-36); Mean Corpuscular Volume 87.4 fL (80-100); Mean Platelet Volume 11.7 fL (7.4-10.4); Nucleated RBC # (auto) 0.08 K/uL (0-0); Nucleated RBC % (auto) 0.9 %; Platelet Count 239 K/uL (130-400); RDW Coefficient of Variation 15.7 % (11.5-14.5); RDW Standard Deviation 50.4 fL (36.4-46.3); Red Blood Count 4.13 M/uL (4.7-6.1)
[2021-10-01 07:27] LABS: BUN Creatinine Ratio 7.7 (10-20); Calcium 8.6 mg/dl (8.5-10.1); Creatinine Clr Calc Pharmacy 83.1 ml/min; Est GFR (African American) 101.4 ml/min; Est GFR (Non-African American) 87.5 ml/min; Magnesium 1.8 mg/dl (1.7-2.4); Potassium 3.3 mmol/L (3.5-5.1)
[2021-10-01] MEDS: AMOXICILLIN/CLAVULANATE 875 MG TAB PO SCH (08:07)
[2021-10-01] MEDS: SULINDAC 200 MG TAB PO SCH (08:07)
[2021-10-01] MEDS: DULoxetine HCL 60 MG CAP PO SCH (08:07)
[2021-10-01] MEDS: ASPIRIN 81 MG ECTAB PO SCH (08:07)
[2021-10-01] MEDS: PANTOprazole 40 MG TAB PO SCH (08:07)
[2021-10-01] MEDS: PREGABALIN 50 MG CAP PO SCH (08:07)
[2021-10-01] MEDS ORDERED: POTASSIUM CHLORIDE 10 MEQ TABCR PO SCH (09:00)
--- NOTE | 2021-10-01 13:45 | Discharge Summary ---
Date of Service October 01, 2021 Admission HPI Per Admitting Provider This is a 65-year-old male with past medical history of hypothyroidism, Klinefelter's, peripheral arterial disease, GERD that presents today after being found down in his home. Patient is very lethargic and unable to provide any relevant history and is alone in the room. Therefore, history is per ER documentation. Per ER documentation, patient was brought in by EMS after friend found him in his home. He was face down and very lethargic. He was covered in feces and appeared very weak and confused. It was noted that the patient was at his normal baseline when he was seen the night before. I did review some of his old records, it looks as if there was some concerns about the patient living home alone and steps are being taken to have the patient transferred to assisted living at sometime in the near future. This is most noted in PCP visit from 09/24. At the time of presentation, the patient was significantly hypotensive. He was not hypoxic. He has been aggressively fluid resuscitated and his systolic blood pressure is now over 100. Patient does not appear to be in any distress but is difficult to arouse. When asked, he does note that his abdomen is uncomfortable but can provide no further history. Principal Diagnosis Mild diverticulitis Weakness/asthenia Discharge Exam Constitutional WD/WN, vitals as above Eyes EOM intact bilaterally; no conjunctival abnormality ENMT external ear and nose normal, oropharynx normal Neck trachea midline, no thyromegaly normal visual inspection Respiratory normal respiratory effort, lungs clear to auscultation no respiratory distress Cardiovascular RRR, no murmur, no edema Gastrointestinal (Abdomen) Inspection/Auscultation: abdomen normal to inspection; abdomen not distended Percussion/Palpation: abdomen soft; abdomen nontender, no guarding and abdomen not rigid Musculoskeletal no cyanosis or clubbing, extremities motor strength 5/5 Skin no rashes, warm and dry Neurologic moves all extremities and awake Psychiatric Orientation: alert, oriented to person and cooperative Discharge Data Allergies Allergy/AdvReac Type Severity Reaction Status Date / Time bee venom protein (honey bee) Allergy Severe ANAPHYLAXIS Verified 09/27/21 14:58 Sulfa (Sulfonamide Allergy Unknown PRURITUS Verified 09/27/21 14:58 Antibiotics) tramadol [From Ultram] Allergy itching Verified 09/27/21 14:58 Consultations 09/27/21 13:58 ED Decision to Admit Stat Ordered Studies 09/27/21 11:54 CT abd pelvis wo con Stat CT head/brain wo con Stat Hospital Course (1) Diverticulitis: Patient has acute descending/sigmoid diverticulitis on CT scan, though no clear diverticula on CT. - Continued Zosyn -> Switched to Augmentin for final 5 days. - Advanced diet as tolerated - Back to normal diet by 09/30. (2) Altered mental status: Toxic/metabolic encephalopathy secondary to infection. CT of head reviewed, no acute findings. - Improved today. More clear speech, seems more alert and cognizant of his situation. Has sensible conversation regarding his care. Believe he is at baseline by 09/30. (3) BPH (benign prostatic hyperplasia): Samuel catheter inserted on 09/29 for urinary retention of 550 mL. - Continue home Flomax - Can attempt voiding trial in 3-4 days after bladder rest. Has had to have [facility] before. May need urology f/u. (4) Sepsis: Due to GI infection. Resolved with abx therapy. (5) Hematuria: Significant hematuria on urinalysis. Does have kidney stones on CT a/p. - Urology f/u outpatient. (6) Frequent falls: Per outpatient records. Patient is a fall risk. B12 > 1000, so not playing a role. - PT/OT evaluation recommended further care. [facility]. (7) Fibromyalgia: Longstanding and seems to have complicated other aspects of his care re: requesting pain medication. - Continue home amitriptyline (relative high dose, but I do see a filled script from 09/07/2021), duloxetine, sulindac - Initially held Lyrica for confusion on admission; restarted at reduced dosing on 09/30. - Would plan to taper this as able based on symptoms. (8) Migraine: Reports some off/on headache. Resolved with Tylenol. - Continue home amitriptyline as above - Tylenol PRN (9) Anxiety: Meds as above. (10) DVT prophylaxis: Heparin 5,000 units SQ Q12h Total Time Total Time Spent Total Time Spent (In Minutes): 35 Discharge Plan Discharge Items Patient Disposition: Transfer Inpatient Rehab Fac Reason For Visit: ACUTE DIVERTICULITIS, SEPSIS Discharge Diagnosis: Mild diverticulitis Activity: Resume your previous activity Non-emergency contact: Primary Care Provider Call non-emergency contact if: your symptoms worsen Follow-up/Referrals: Pro,Dwight Ramires MD [Primary Care Provider] - Diet: Regular Addtl Attending Provider Instructions: Mr. Bryant was admitted to the hospital with falls at home. He was found to have mild diverticulitis and was treated with Zosyn, then Augmentin. He should be on this for 5 more days. His family had concerns for medication overuse. We have tried to reduce his sedating/hypnotic as able. We reduced the Lyrica most aggressively. Would probably aim to wean that down if possible as he wasn't experiencing a lot of neuropathic pain in the hospital. He did have Samuel place for urinary retention. Could consider a voiding trial in a week. He has had this issue in the past and may need to follow up with urology. Pending Studies at Discharge: No Stand-Alone Forms: My [facility] Skilled Items Patient informed of condition?: Yes DNR: No Discharge Level of Care: Acute rehab Communicable Disease: No Discharge Prognosis: Stable Lines: None Urinary Catheter: Yes Medications and DC Order Prescriptions: New pregabalin [Lyrica] 75 mg capsule 75 mg PO BID Qty: 1 RF: 0 Continued ipratropium-albuterol 0.5 mg-3 mg(2.5 mg base)/3 mL solution for nebulization 3 ml NEB QIDR Qty: 180 RF: 5 tamsulosin 0.4 mg capsule 0.4 mg PO PM 90 Days Qty: 90 RF: 2 duloxetine 60 mg capsule,delayed release(DR/EC) 60 mg PO DAILY Qty: 90 RF: 3 levothyroxine 75 mcg tablet 75 mcg PO DAILY Qty: 90 RF: 3 sulindac 200 mg tablet 200 mg PO BID Qty: 60 RF: 5 pravastatin 40 mg tablet 40 mg PO HS Qty: 90 RF: 3 rizatriptan 10 mg tablet 10 mg PO UD PRN (Reason: Migraine Headache) Qty: 10 RF: 3 esomeprazole magnesium [Nexium] 20 mg capsule,delayed release(DR/EC) 20 mg PO DAILY Qty: 30 RF: 2 lidocaine [Lidocaine Pain Relief] 4 % adhesive patch,medicated 1 patch topical BID PRN (Reason: pain) Qty: 30 RF: 0 aspirin 81 mg Tablet,Delayed Release (Dr/Ec) 81 mg PO QAM RF: 0 Changed amitriptyline 150 mg tablet 150 mg PO HS Qty: 60 RF: 5 Discontinued Lyrica 150 mg capsule 150 mg PO TID Qty: 90 RF: 5 hydroxyzine HCl 50 mg tablet 50 mg PO HS Qty: 90 RF: 3 Discharge Orders: Discharge Order (Routine); Ordered 10/01/21 Ordered By: Sunil Donnelly/Other Patient Handouts: Low-Fiber Diet Admission Data Admit Date/Time: 09/27/21 14:41 Attending Provider: Sunil Damon Admit Provider: Tim Iglesias Primary Care Provider: Dwight Mendiola Other Providers: Sunil Damon ; [place] ; [facility] Other Interventions: Discharge Summary Assessment (RN) Last Done: 10/01/21 12:53 Coding Level of Care Code D/C DAY MANAGEMENT >30 MINS Diagnoses Diverticulitis K57.92 Altered mental status R41.82 Sepsis A41.9; R65.20; G93.40 Sepsis acute organ dysfunction status: with acute organ dysfunction Sepsis type: sepsis due to unspecified organism Severe sepsis acute organ dysfunction type: encephalopathy Severe sepsis shock status: without septic shock Hematuria R31.9 Frequent falls R29.6 Fibromyalgia M79.7 Migraine G43.909 Migraine type: unspecified Anxiety F41.9 BPH (benign prostatic hyperplasia) N40.1; R39.12 Lower urinary tract symptom presence: symptoms present Lower urinary tract symptom detail: weak urinary stream DVT prophylaxis Z29.9
== END 2021-10-01 15:51 | DRG 871 ==
LOC: ED 11:28 → 2S 14:41 → SUATTDRO 14:41 → 2S 15:41